=== PATIENT | male | born 1950 | race Caucasian/White ===

== ENCOUNTER → 2019-07-25 10:27 | Outpatient (CLI) | payer OTHER, SELFPAY ==
[2019-07-25 10:54] VITALS: BP 144/92; PULSE 69; RESP 14; TEMP 36.8; O2SAT 96; BMI 30.5
--- NOTE | 2019-07-25 11:39 | WMO.HTC_ITS ---
Problem List (1) Hemophilia B Status: Chronic Subjective Date of Service:: 07/25/19 Chief Complaint: F/U for hemophilia B. 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 Used factor replacement after Surgery. Has a Dentist with no problems. Health History: Past Medical History (Last Updated 07/25/19 @ 10:53 by Cynthia Angela) Right hand surgery (Acute) Hemophilia B (Acute) Hepatitis C (Acute) TENDON REPAIR OF RIGHT HAND (Acute) Ulcer (Acute) Hypertension (Chronic) Past Surgical History (Last Reviewed 07/25/19 @ 10:52 by Cynthia Angela) H/O inguinal hernia repair (Acute) Family History (Last Reviewed 07/25/19 @ 10:52 by Cynthia Angela) Father Cancer Hypertension Diabetes Social History Social History: No changes Smoking Status Never smoker Allergies/Adverse Reactions: Allergy/AdvReac Type Severity Reaction Status Date / Time No Known Allergies Allergy Verified 07/25/19 10:53 Risk Factors Social History Social History: No changes Smoking Status Never smoker Tobacco Risk Data: Tobacco Risk Smoking Status Never smoker Type of tobacco: Smokeless tobacco usage: Items/Day: Year started: Years used: Counseled to quit/cut down: Reason for no counseling performed: Reason for no pharmacotherapy: Tobacco use comments: Passive smoke exposure: Substance Risk Drug use: No Caffeine use [drinks/day]: 2 Alcohol use: No Type of alcohol: Drinks per day: Has patient felt the need to cut down: Has the patient been annoyed by complaints: Has the patient felt guilty about drinking: Has the patient needed an eye facs teacher in the mornings: Comments: Review of Systems Constitutional:: Denies: Fever, Sweats, Weight loss, Appetite change, Chills Cardiovascular:: Denies: Chest pain, Palpitations, Dyspnea on exertion, Orthopnea, PND, Shortness of breath Respiratory: Denies: Cough, Hemoptysis, Shortness of Breath, Wheezing Gastrointestinal:: Denies: Abdominal pain, Nausea, Vomiting, Diarrhea, Constipation, Hematochezia Genitourinary: Denies: Dysuria, Hematuria, 15, Flank pain Musculoskeletal:: Denies: Back pain, Myalgia, Arthralgia Skin: Denies: Rash, Skin Changes, Wounds Neurological:: Denies: Headache, Dizziness, Visual changes, Tinnitus, Hearing loss Psychiatric: Denies: Anxiety, Depression, Homicidal Ideations, Suicidal Ideations Vital Signs Height 5 ft 8 in Weight: 91.172 kg Weight in Pounds 201.0 lbs Pulse Ox 96 Temperature 98.2 F Pulse Rate 69 Respiratory Rate 14 Blood Pressure 144/92 Blood Pressure Position Sitting - Physical Exam General: Alert, Oriented x3, No apparent distress HEENT: Atraumatic, PERRLA, EOMI, Normocephalic Oropharynx:: Dry mucosa Neck:: Supple, Trachea midline. Negative for: JVD, bilateral Cardiac:: Regular rate, Regular rhythm, Normal S1, Normal S2. Negative for: Murmur Lungs: Clear to auscultation, Excusion symmetrical. Negative for: Rhonchi, Wh eezes Abdomen:: Bowel sounds x 4, Soft, Non-tender, Non-distended. Negative for: Hepatosplenomegaly Extremities:: Negative for: Cyanosis, Edema Neurological: Neuro grossly intact Skin:: - - Scar R palm. Negative for: Lesions, Rash, Petechiae, Ecchymosis Psychiatric:: Appropriate affect, Euthymic Lymphatics:: Negative for: Cervical lymphadenopathy, Supraclavicular lymphadenopathy, Axillary lymphadenopathy Assessment and Plan Hemophilia B, clinically stable. H/O Hepatitis C. Plan is to continue expectant management with factor replacement as needed. RTC 1 yr. Primary Care Provider: Anant Nam MD Referring Provider: Christiano Martinez MD
== END ==
PROVIDERS: Family Provider Family Medicine; PCP Family Medicine; Referring Provider Internal Medicine Hematology & Oncology; Visit Provider Internal Medicine Medical Oncology
DX: D67 Hereditary factor IX deficiency (principal)

== ENCOUNTER 2024-06-18 16:39 | Inpatient (IN) | payer OTHER, SELFPAY ==
[2024-06-18] VITALS (13 sets, daily range): BP systolic 140–190; BP diastolic 79–113; PULSE 74–102; RESP 16–19; TEMP 36.6–37.8; O2SAT 94–100; BMI 27.9
--- NOTE | 2024-06-18 16:51 | CT_ITS ---
EXAMINATION: CTA CTA Upper Extremity W/ Contrast Injection (and W/O Contrast Images if performed) DATE: 06/18/2024 CLINICAL INDICATION: 74 years old Male. Right arm pain and swelling, antibiotic treatment. RADIATION DOSE INFORMATION: Automated exposure control dose reduction techniques were used. TECHNIQUE: Contiguous axial images were acquired from below the right elbow through the right metacarpals. Sagittal and coronal MIP reconstructions were rendered. CONTRAST: 100 cc Isovue-370 COMPARISON: None. FINDINGS: Intact arterial supply to the right upper extremity. Multiple soft tissue fluid collections with peripheral enhancement volar to the distal radius, largest tubular collection 2.7 cm long by 11 mm diameter volar to the distal radius. Second large tubular collection in the webspace between the first and second proximal metacarpals, 1.5 cm long by 5 mm diameter. Third large collection in the superficial volar soft tissues anterior to the proximal carpal row measuring 2.2 x 1.8 x 1.6 cm. Multiple smaller fluid collections throughout the soft tissues about the hand and wrist. No gas formation. Diffuse subcutaneous soft tissue edema about the right forearm. No acute or destructive osseous abnormality. CT/CTA Upper Ext W/WO Contrast IMPRESSION: Diffuse soft tissue edema/cellulitis of the right forearm extending into the soft tissues of the wrist and hand. Multiple small abscess collections with the largest described above. The majority are in the volar soft tissues. No gas formation identified. Necrotizing fasciitis cannot be excluded. Electronically Signed: Tanner Angela MD at 18:51 EDT ,
--- NOTE | 2024-06-18 16:53 | EX.ED.DYSGE1 ---
HPI History of Present Illness Chief Complaint: Wound Detail of Chief Complaint: Redness and swelling to right wrist Informant: patient Narrative Narrative: Patient presents with redness and swelling to the right wrist. Patient states initially he woke up with pain in his wrist for weeks ago. It was painful and hard to move. Patient was seen apparently by his primary care physician and was treated with doxycycline. Patient also then had treatment for suspected gout as he does have history of gout and was treated with indomethacin. 3 days ago started having increased redness to the volar aspect of the wrist as well as swelling. He developed a fever up to 100.4. Was seen at a clinic yesterday and started on Keflex. Patient's primary care physician spoke with the hand surgeon Dr. Hua who referred him to the emergency department for evaluation. Patient [id number]. Patient also hemophiliac and states that if he needs to have any type of surgery usually needs to be pretreated an hour and advance with his hemophilia medication [facility] Medical History (Updated 06/18/24 @ 20:[address] Rl Sorenson, DO) Diabetes mellitus, type 2 GERD (gastroesophageal reflux disease) Hemophilia B Hypertension Hepatitis C Home Medications ?Medication ?Instructions ?Recorded ?Last Taken ?Type pantoprazole 40 mg tablet,delayed 40 mg PO BID 08/02/18 Unknown History release cephalexin 500 mg capsule 500 mg PO Q8H 7 days #21 caps 06/17/24 Unknown Rx losartan 50 mg PO DAILY 06/17/24 Unknown History metformin 500 mg PO BID 06/17/24 Unknown History coagulation factor IX (recomb) 8,000 unit IV PRN Hemophilia 06/18/24 Unknown History 2,000 unit intravenous solution (Rixubis) Allergy/AdvReac Type Severity Reaction Status Date / Time No Known Allergies Allergy Verified 06/18/24 16:42 Family History (Updated 06/18/24 @ 20:[address] Jacqueline Lee MD) Father Cancer Hypertension Diabetes Mother Hemophilia B carrier Surgical History (Updated 06/18/24 @ 20:[address] Jacqueline Lee MD) History of hand surgery H/O inguinal hernia repair Social History (Updated 06/18/24 @ 20:[address] Jacqueline Lee MD) household members: spouse Smoking Status: Never smoker alcohol intake: never substance use type: does not use ROS ROS ED Review of Systems ROS Unobtainable: other Constitutional Constitutional ED: Reports lethargy; Denies chills, fever(s), sweats or weight loss Eyes Eyes: Denies blurry vision, change in vision or diplopia ENT ENT ED: Denies rhinorrhea or sore throat Cardiovascular Cardiovascular: Denies chest pain, orthopnea or racing heartbeat Respiratory/Chest Respiratory/Chest: Denies cough, dyspnea, dyspnea on exertion, orthopnea or sputum Gastrointestinal Gastrointestinal: Denies abdominal pain, diarrhea, nausea or vomiting Genitourinary Genitourinary ED: Denies dysuria, hematuria or urinary frequency Musculoskeletal Musculoskeletal: Reports other Details: Right wrist pain redness and swelling ; Denies arthralgias, back pain, myalgias or neck pain Integumentary Denies abscess, Abrasions or rash Neurologic Neurologic: Denies headache(s) or weakness Psychiatric Psychiatric: Denies anxiety, depression or suicidal thoughts Endocrine Endocrinology: Denies polydipsia, polyphagia or polyuria Hematologic/Lymphatic Hematologic/Lymphatic: Denies easy bleeding, easy bruising or lymphadenopathy Allergic/Immunologic Allergic/Immunologic ED: Denies mouth swelling, tongue swelling or urticaria EXAM Physical Exam Const Vital Signs: 06/18/24 16:40 06/18/24 16:42 06/18/24 17:42 Temperature 98.5 F 98.5 F 97.9 F Temperature Source Temporal Temporal Temporal Pulse Rate 100 102 H 84 Respiratory Rate 16 16 16 Blood Pressure 190/113 H 190/113 H 148/95 H Blood Pressure Mean 138 138 112 Blood Pressure Source Blood Pressure Position Blood Pressure Location Pulse Ox 98 98 97 Oxygen Delivery Method Room Air Room Air Room Air 06/18/24 18:00 06/18/24 19:00 06/18/24 19:58 Temperature 97.9 F 100.1 F H 100.1 F H Temperature Source Temporal Oral Pulse Rate 84 83 89 Respiratory Rate 16 16 18 Blood Pressure 148/95 H 168/96 H 168/96 H Blood Pressure Mean 112 120 120 Blood Pressure Source Blood Pressure Position Blood Pressure Location Pulse Ox 97 95 95 Oxygen Delivery Method Room Air Room Air 06/18/24 19:58 06/18/24 20:00 06/18/24 20:00 Temperature 100.1 F H 100.1 F H Temperature Source Oral Oral Pulse Rate 89 91 91 Respiratory Rate 18 16 Blood Pressure 168/96 H 159/105 H Blood Pressure Mean 120 123 Blood Pressure Source Monitor Blood Pressure Position Supine Blood Pressure Location Left Arm Pulse Ox 95 95 Oxygen Delivery Method Room Air Room Air Positive well nourished and well developed General Appearance ED: well developed and NAD HEENT Reports TM's clear and moist mucous membranes normocephalic and atraumatic; Negative for trauma or tenderness Tympanic Membrane ED: Yes TM's clear Eyes PERRL and EOMs intact bilaterally General Eye ED: Negative for pale conjunctiva or scleral icterus Neck no lymphadenopathy, supple and no JVD General: Negative for tenderness Chest Wall inspection of chest normal and palpation of chest normal Chest: Negative for tenderness Resp normal respiratory effort and clear to auscultation bilaterally Effort and Inspection: Negative for respiratory distress or pain with movement Auscultation: Negative for rhonchi, wheezes or diminished lung sounds Cardio regular rate, regular rhythm, S1 normal heart sound, S2 normal heart sound and no murmurs Peripheral Pulses: pulses 2+ throughout GI normal to inspection, nondistended, normoactive bowel sounds, soft to palpation, non-tender, non-distended and no masses Back/Spine no CVA tenderness and no thoracic nor lumbar tenderness Extremity Extremity Narrative: Right wrist-patient has diffuse edema about right wrist. Volar aspect is erythematous and cellulitic with a fluctuant area over the midportion of the wrist consistent with likely abscess. Neurovascular intact distally. He has good range of motion flexion extension of all digits although somewhat limited secondary to swelling. General Extremety ED: Negative for edema General Extremity: Negative for edema Neuro oriented x3, CN's II-XII intact bilaterally, no sensory deficits noted and gait normal Sensorium / Orientation: awake, alert, oriented to person, oriented to place and oriented to time Motor Exam: strength 5/5 throughout and strength abnormal Psych mental status grossly normal Skin no rashes or lesions noted and no wounds MDM MDM MDM Narrative Medical decision making narrative: Patient presents with pain and swelling to the wrist x [address] Hua was contacted by by patient's primary care physician and made us aware that he becoming to the emergency department. It was recommended we obtain a CT scan of the wrist to evaluate further. On arrival an IV line established. CBC with differential obtained showed a white count of 7.1 with hemoglobin 13 and platelets 248. Chemistries unremarkable. Lactate normal at 0.9. CT scan of the right wrist obtained showed multiple abscesses. Discussed case with hand surgeon Dr. Hua who presented to evaluate patient for operative intervention in the OR. I discussed case with patient's patient financial advocate at [facility] who recommended given patient the BeneFIX 8000 units 1 hour prior to surgery followed by another 8000 units 20 hours after surgery and then recommended there after 5 more doses every 24 hours for 5 days. Also discussed case with hospitalist who also evaluated patient for admission. Lab Data Attestation: I reviewed the patient's lab results. Labs: Laboratory Results - last 24 hr 06/18/24 16:58 WBC 7.1 RBC 4.83 Hgb 13.1 Hct 41.0 MCV 84.9 MCH 27.1 MCHC 32.0 RDW Std Deviation 41.3 RDW Coeff of Parker 13.3 Plt Count 248 MPV 9.9 Immature Gran % (Auto) 0.100 Neut % (Auto) 67.7 Lymph % (Auto) 16.6 L Hendricks % (Auto) 13.2 H Eos % (Auto) 1.7 Baso % (Auto) 0.7 Absolute Neuts (auto) 4.8 Absolute Lymphs (auto) 1.17 Nucleated RBC % 0 Sodium 136 Potassium 4.1 Chloride 102 Carbon Dioxide 29.0 Anion Gap 5 BUN 14 Creatinine 1.11 Estim Creat Clear Calc 60.53 Est GFR (MDRD) Af Amer 83 Est GFR (MDRD) Non-Af 69 BUN/Creatinine Ratio 12.6 Glucose 143 H Lactic Acid 0.9 Calcium 9.9 Radiography Diagnostic Testing: Clinical Impression(s) from Imaging Studies Upper Extremity CTA 06/18/24 16:51 IMPRESSION: Diffuse soft tissue edema/cellulitis of the right forearm extending into the soft tissues of the wrist and hand. Multiple small abscess collections with the largest described above. The majority are in the volar soft tissues. No gas formation identified. Necrotizing fasciitis cannot be excluded. Electronically Signed: Tanner Angela MD at 18:51 EDT , Discharge Plan Triage Chief Complaint: Wound ED Provider: Rl Sorenson Dx/Rx/DC Orders Clinical Impression: Abscess of skin of right wrist, Cellulitis, Hemophilia B Primary Care Provider: Vidal Armendariz Disposition Disposition: Acute Care Hospital [facility]
[2024-06-18 17:08] LABS: Absolute Lymphocyte Count 1.17 X10^3/uL (0.83-4.51); Absolute Neutrophil Count 4.8 X10^3/uL (2.0-7.7); Basophil# 0.05 X10^3/uL; Basophil% 0.7 % (0-1); Eosinophil# 0.12 X10^3/uL; Eosinophils% 1.7 % (0-5); Hemoglobin 13.1 g/dL (13.0-16.5); Lymphocyte # 1.17 X10^3/ul (0.83-4.51); Lymphocyte % 16.6 % (19-41); Mean Corpuscular Hgb 27.1 pg (27.0-32.0); Mean Corpuscular Volume 84.9 fL (80-94); Mean Platelet Vol. 9.9 fl (6.2-12.0); Monocyte# 0.93 X10^3/uL; Monocyte% 13.2 % (0-10); NRBC Flagged by Analyzer 0 % (0-5); Neutrophil # 4.77 X10^3/uL (2.7-7.7); Neutrophil % 67.7 % (47-70); Platelet Count 248 K/mm3 (150-450); RBC Distribution Width CV 13.3 % (11.6-14.6); RBC Distribution Width SD 41.3 fl (35.1-43.9); Red Blood Count 4.83 M/mm3 (4.6-6.2); White Blood Count 7.1 K/mm3 (4.4-11.0)
[2024-06-18 17:22] LABS: Anion Gap 5 (5-15); BUN 14 mg/dL (7-18); BUN/Creat Ratio 12.6 RATIO (10-20); Calcium,Total 9.9 mg/dL (8.5-10.1); Chloride 102 mmol/L (98-107); Creatinine, Serum 1.11 mg/dL (0.70-1.30); EST Glomerular Filtration Rate 69 mL/min (>60); Est Glom Filt Rate - Afr Amer 83 mL/min (>60); Estimated Creatinine Clearance 60.53 ml/min; Glucose 143 mg/dL (74-106); Potassium 4.1 mmol/L (3.5-5.1); Sodium Level 136 mmol/L (136-145)
[2024-06-18] MEDS: Ondansetron 4 MG/2 ML Vial IV (17:47)
[2024-06-18] MEDS: Morphine 4 MG/ML Syringe IV (17:47)
[2024-06-18 17:51] LABS: Lactic Acid 0.9 mmol/L (0.4-1.9)
[2024-06-18] MEDS: Vancomycin HCl 1,250 MG in 0.9% Normal Saline (250mL Bag) 250 ML 167 MG IV (19:44)
--- NOTE | 2024-06-18 20:10 | PCM.HP.STD ---
HPI - General General Date of Admission: 06/18/24 Date of Service: 06/18/24 Chief Complaint: Right wrist pain, redness, edema, worsening despite abx therapy. 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 and treated per his report following PRBC administration remotely following with [facility] ([phone]), HTN, GERD, Diabetes mellitus type II who presents to the [facility] ED on 06/18/24 with history of remote possible bug bite on his right wrist approximately 4 weeks prior with unfortunately following this persistent pain, swelling and redness as well as increased warmth with onset of a annular region of 2 to 3 inches in diameter on the anterior wrist with PCP evaluation early in the course with a 2-week prescription for doxycycline which she completed but unfortunately is been ongoing and not improved prompting evaluation at urgent care on 06/17/2024 reporting at that time no specific fevers but apparently he had return to his PCP and at that time he had been placed on indomethacin prompting new prescription for Keflex and referral to the ED if worsened which unfortunately happened prompting patient to present to the ED on current day for further evaluation. In the ED he does have elevated temperature of note. He denies any nausea or emesis. He notes that the pain at rest is more dull aching and potentially 1 out of 10 in severity but if it is being palpated or moved it is worsened and more sharp and stabbing and rates it potentially 6-7 out of 10 in severity. Workup in the ED included initial T98.5, heart rate 100, BP 190/113, respiratory rate 16, 98% on room air with Tmax in the ED 100.1 and most recent repeat vital signs heart rate 91, BP 159/105, respiratory rate 16, 95% on room air, CBC with WC 7.1, human 13.1, MCV 94.9, platelet 248 without marked shift, BMP with glucose 143 otherwise not marked appearing, lactic acid 0.9, blood culture x 2 pending per ED, upper extremity CTA with diffuse soft tissue edema/cellulitis of the right forearm extending into the soft tissues of the wrist and hand, multiple small abscess collections with the largest a tubular collection 2.7 cm x 11 mm diameter in the volar to the distal radius, second larger tube collection 1.5 cm long by 5 mm diameter and a third large collection 2.2 x 1.8 x 1.6 cm in the superficial volar soft tissues anterior to the proximal carpal row with no gas formation although report states necrotizing fasciitis could not be excluded. In the ED patient administered IV vancomycin, Zofran 4 mg IV x 1 and morphine 4 mg IV x 1. In the ED discussed case and evaluated patient with plastic surgeon Dr. Hua and significant concerns on evaluation for cellulitis, abscess as well as septic joint with extensive surgical planning discussed by himself with patient. Given patient hemophilia status contacted [facility] and discussed plan of care which was also outlined at length with patient and his as patient will provide all of the medications with plan for administration at 8:30 PM approximate 1 hour prior to OR time 8000 units of BeneFIX with a follow-up 8000 units at 20 hours post OR and then 8000 units daily x 5 days per [facility] hemophilia clinic direction. [facility] Medical History Diabetes mellitus, type 2 GERD (gastroesophageal reflux disease) Hemophilia B Hypertension Hepatitis C Home Medications ?Medication ?Instructions ?Recorded ?Last Taken ?Type pantoprazole 40 mg tablet,delayed 40 mg PO BID 08/02/18 Unknown History release cephalexin 500 mg capsule 500 mg PO Q8H 7 days #21 caps 06/17/24 Unknown Rx losartan 50 mg PO DAILY 06/17/24 Unknown History metformin 500 mg PO BID 06/17/24 Unknown History coagulation factor IX (recomb) 8,000 unit IV PRN Hemophilia 06/18/24 Unknown History 2,000 unit intravenous solution (Rixubis) Allergy/AdvReac Type Severity Reaction Status Date / Time No Known Allergies Allergy Verified 06/18/24 16:42 Family History Father Cancer Hypertension Diabetes Mother Hemophilia B carrier Surgical History History of hand surgery H/O inguinal hernia repair Social History household members: spouse Smoking Status: Never smoker alcohol intake: never substance use type: does not use ROS ROS Narrative Admission Review of Systems: CONSTITUTIONAL: No weight loss, chills, + onset of fevers noted in the ED, weakness or fatigue. HEENT: Eyes: No visual loss, blurred vision, double vision or yellow sclerae. Ears, Nose, Throat: No hearing loss, sneezing, congestion, runny nose or sore throat. SKIN: No rash or itching, lesions except + right wrist initial possible bug bite with then significant onset redness, edema and pain. CARDIOVASCULAR: No chest pain, chest pressure or chest discomfort, palpitations, edema, orthopnea, syncopal events. RESPIRATORY: No shortness of breath, cough or sputum, wheezing, hemoptysis. GASTROINTESTINAL: + anorexia. No nausea, vomiting or diarrhea, abdominal pain, melena, BRBPR. GENITOURINARY: No dysuria, frequency, urgency or retention. NEUROLOGICAL: No headache, dizziness, syncope, paralysis, ataxia, numbness or tingling in the extremities, focal weakness, change in bowel or bladder control, seizure. MUSCULOSKELETAL: + muscle, back pain, joint pain or stiffness. HEMATOLOGIC: No anemia. + History of hemophilia with easy bleeding/bruising. LYMPHATICS: No enlarged nodes. No history of splenectomy. PSYCHIATRIC: No history of depression or anxiety. ENDOCRINOLOGIC: No reports of sweating, cold or heat intolerance. No polyuria or polydipsia. ALLERGIES: No history of asthma, hives, eczema or rhinitis. Vital Signs Vital Signs Vital Signs: 06/18/24 16:40 06/18/24 16:42 06/18/24 17:42 Temperature 98.5 F 98.5 F 97.9 F Temperature Source Temporal Temporal Temporal Pulse Rate 100 102 H 84 Respiratory Rate 16 16 16 Blood Pressure 190/113 H 190/113 H 148/95 H Blood Pressure Mean 138 138 112 Blood Pressure Source Blood Pressure Position Blood Pressure Location Pulse Ox 98 98 97 Oxygen Delivery Method Room Air Room Air Room Air 06/18/24 18:00 06/18/24 19:00 06/18/24 19:58 Temperature 97.9 F 100.1 F H 100.1 F H Temperature Source Temporal Oral Pulse Rate 84 83 89 Respiratory Rate 16 16 18 Blood Pressure 148/95 H 168/96 H 168/96 H Blood Pressure Mean 112 120 120 Blood Pressure Source Blood Pressure Position Blood Pressure Location Pulse Ox 97 95 95 Oxygen Delivery Method Room Air Room Air 06/18/24 19:58 Temperature 100.1 F H Temperature Source Oral Pulse Rate 89 Respiratory Rate 18 Blood Pressure 168/96 H Blood Pressure Mean 120 Blood Pressure Source Monitor Blood Pressure Position Supine Blood Pressure Location Left Arm Pulse Ox 95 Oxygen Delivery Method Room Air Weight Weight: 184 lb Body Mass Index (BMI) 27.9 Physical Exam Narrative Physical Examination: General: Awake, alert, oriented x 3 and cooperative, seated upright in bed in no apparent distress. Skin: Normal color, normal turgor, no icterus, no cyanosis except notable right wrist significant erythema and swelling over the volar wrist with a developing abscess, palpable with ability to bend and extend his joints with increased warmth to the region. HEENT: AT/NC, EOMI, PERRLA, MMM, no carotid bruits or JVD noted. Lungs: CTA bilaterally, moderate effort, mild decrease BL bases, no rales, ronchi or wheezing. Heart: Mildly tachycardic with regular rhythm; no gallop, rub audible. Abdomen: Soft, NTTP, ND, mildly hyperactive BS, no HSM. Extremities: No cyanosis, no clubbing, see skin Neurological: Patient awake, alert, oriented as noted, cognitive function intact; pupils equally reactive to light and accommodation, cranial nerves grossly normal, moving all 4 extremities although some limitation right upper extremity given acute presentation, no focal deficits, strength as expected decreased right upper extremity given acute presentation otherwise intact. Psychiatric: Affect appears fatigued, mildly uncomfortable, no acute evidence of depressive or anxiety feelings. Results Lab / Micro Data 06/18/24 16:58 06/18/24 16:58 Labs: Laboratory Results - last 24 hr 06/18/24 16:58: WBC 7.1, RBC 4.83, Hgb 13.1, Hct 41.0, MCV 84.9, MCH 27.1, MCHC 32.0, RDW Std Deviation 41.3, RDW Coeff of Parker 13.3, Plt Count 248, MPV 9.9, Immature Gran % (Auto) 0.100, Neut % (Auto) 67.7, Lymph % (Auto) 16.6 L, [place] % (Auto) 13.2 H, Eos % (Auto) 1.7, Baso % (Auto) 0.7, Absolute Neuts (auto) 4.8, Absolute Lymphs (auto) 1.17, Nucleated RBC % 0, Sodium 136, Potassium 4.1, Chloride 102, Carbon Dioxide 29.0, Anion Gap 5, BUN 14, Creatinine 1.11, Estim Creat Clear Calc 60.53, Est GFR (MDRD) Af Amer 83, Est GFR (MDRD) Non-Af 69, BUN/Creatinine Ratio 12.6, Glucose 143 H, Lactic Acid 0.9, Calcium 9.9 Imaging Radiology Impression Upper Extremity CTA 06/18/24 16:51 IMPRESSION: Diffuse soft tissue edema/cellulitis of the right forearm extending into the soft tissues of the wrist and hand. Multiple small abscess collections with the largest described above. The majority are in the volar soft tissues. No gas formation identified. Necrotizing fasciitis cannot be excluded. 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 and treated per his report following PRBC administration remotely following with [facility] ([phone]), HTN, GERD, Diabetes mellitus type II who presents to the [facility] ED on 06/18/24 with history of remote possible bug bite on his right wrist approximately 4 weeks prior with unfortunately following this persistent pain, swelling and redness as well as increased warmth with onset of a annular region of 2 to 3 inches in diameter on the anterior wrist with PCP evaluation early in the course with a 2-week prescription for doxycycline which she completed but unfortunately is been ongoing and not improved prompting evaluation at urgent care on 06/17/2024 reporting at that time no specific fevers but apparently he had return to his PCP and at that time he had been placed on indomethacin prompting new prescription for Keflex and referral to the ED if worsened which unfortunately happened prompting patient to present to the ED on current day for further evaluation. #1. Right upper extremity wrist septic joint, cellulitis, forearm deep space abscesses significantly complicated by #2: Given significant stable vital signs will admit to [facility], maintain on IV cefepime and vancomycin given concern for also septic joint, will await wound OR cultures, will involve wound RN per discussion with plastic surgeon, will request plastic surgery involvement given extensive nature, plan repeat CBC in AM, continue affected extremity elevation above heart when seated and in bed, monitor erythema outline with VS checks, as needed pain regimen, as needed antiemetic regimen, will continue judicious hydration with continued n.p.o. status at this time with allowance of diet following completion of OR. See #2 for treatment of hemophilia with recombinant specific timing administration. #2. Hemophilia B: Given patient hemophilia status contacted [facility] and discussed plan of care which was also outlined at length with patient and his as patient will provide all of the medications with plan for administration at 8:30 PM approximate 1 hour prior to OR time 8000 units of BeneFIX with a follow-up 8000 units at 20 hours post OR and then 8000 units daily x 5 days per [facility] hemophilia clinic direction. #3. History hepatitis C: Patient unfortunately contracted hepatitis C remotely with PRBC transfusion given hemophilia status, reports he was treated and it was clinically successful, encourage continued outpatient follow-up with GI/ID as previously arranged for monitoring as needed. #4. Diabetes mellitus type II: Hold oral home regimen, hemoglobin A1c requested, once post OR will initiate ADA diet, accu checks w/ ISS. #5. Hypertension: Continue home regimen including losartan, PRN hydralazine. #6. GERD: We will continue patient on PPI. #7. DVT prophylaxis: SCDs. #8. CODE status: Patient HCPOA and living will are not in place but he notes his who is present would be his decision-maker if necessary. Discussed CODE status at length including difference between FULL code, DNR-CCA and DNR-CC status. Following discussions about the differences in these status, requested Full Code initially but he specifically states that if over the course of the initial rounds it appears to have little success he would prefer to transition to DNRCC at that time. Advanced Care Planning Face to Face Time: 16 minutes. Charges/Coding Visit Charges Inpatient E&M: 07104 Init Hosp L3 Procedures Hospitalists Procedures: 39216 Advncd Care Plan 30 Min
--- NOTE | 2024-06-18 20:20 | EX.PCM.CON.S ---
Assessment & Plan Assessment/Plan (1) Deep palmar space infection: PLAN: Concern for right Palmar/wrist/forearm deep space abscess (seen on CT forearm and confirmed with clinical exam). I am concerned also that there is wrist joint involvement based on CT scan (abscesses on dorsum and volar sides of the wrist), as well as pain with axial loading of the wrist. There is quite possible that he had a septic joint that has since gotten worse and now involves the overlying soft tissues. Patient has a complicated medical history including hemophilia B, for which we have consulted internal medicine (hospitalist for admission Dr. Jacqueline Lee) and the hematology service. The plan is to take his factor IX right now, an hour before surgery, followed by postoperative regimen that is being determined. Per medicine team the factor IX should be taken now in preparation for surgery within the hour (he is taking 9000 units of the factor IX). I talked the patient about the risks of bleeding, worsening of infection, damage to surrounding structures especially nerves (we talked about his history of hand surgery and residual numbness on the thumb, as well as risk of damage to the vasculature in the setting of his incomplete arch, including to the fingers), we talked about likelihood of repeat operations, the large incisions (including carpal tunnel release) that we are about to place and the need for wound care/the plan to leave the incisions open, and we talked about failure to obtain the desired result. Patient and his signed the consent and are in agreement with proceeding. All questions answered. Plan for emergent incision and drainage of right forearm/wrist/hand deep abscesses and washout of right wrist septic joint. Consented and marked (2) Septic arthritis of wrist, right: HPI Consult Data Date of Consult: 06/18/24 HPI Narrative HPI Narrative: NED FELICIANO is a 74 M [id number] male with past medical history including hemophilia B, trauma to his right upper extremity with 3 hand surgeries, gout, hypertension, and type 2 diabetes who presents with a right forearm/wrist/hand infection. Approximately 1 month ago he was seen by his family medicine physician for acute onset wrist pain (no inciting trauma/injury). Given his history of gout, and no signs of overlying infection or recent trauma, he was reportedly treated with indomethacin but also doxycycline in case it was early cellulitis. He continued to have the wrist pain, albeit not worsening, until 3 days ago when he developed redness on the volar aspect of his wrist and swelling. He developed a home fever of 100.4 and was seen at the [facility] yesterday and placed on Keflex. He went to his primary care doctor today, Dr. Vidal Armendariz, complaining of sharp severe pain. Dr. Man called me on my cell phone today and discussed the patient with me and I recommended emergent transfer to the emergency department for evaluation by hand surgery and CT scan. The patient was transferred here as fast as possible (he is of the [facility], and lives approximately [address]). Today in the emergency department it is sharp severe pain in the right upper extremity, worsened by movements and improved with rest and elevation. Patient reports a history of right hand penetrating trauma from a piece of porcelain that cut his right hand thumb flexor pollicis longus (required repair and hand therapy in remote past). He has persistent numbness on the radial side of his thumb from this injury. 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 He reports that he takes factor IX 1 hour before surgery and has the factor IX with him right now. The medicine teams and myself are reaching out to the hematology team to discuss and make sure that we do not do have to do anything else to optimize his coagulation pathway before surgery. 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 He is not a smoker He has a history of hepatitis C from his transfusions, but this was noted to be completely cleared in 2008. No liver problems since. [facility] Medical History Diabetes mellitus, type 2 GERD (gastroesophageal reflux disease) Hemophilia B Hypertension Hepatitis C Home Medications ?Medication ?Instructions ?Recorded ?Last Taken ?Type pantoprazole 40 mg tablet,delayed 40 mg PO BID 08/02/18 Unknown History release cephalexin 500 mg capsule 500 mg PO Q8H 7 days #21 caps 06/17/24 Unknown Rx losartan 50 mg PO DAILY 09/03/24 Unknown History metformin 500 mg PO BID 06/17/24 Unknown History coagulation factor IX (recomb) 8,000 unit IV PRN Hemophilia 06/18/24 Unknown History 2,000 unit intravenous solution (Rixubis) Allergy/AdvReac Type Severity Reaction Status Date / Time No Known Allergies Allergy Verified 06/18/24 16:42 Family History Father Cancer Hypertension Diabetes Mother Hemophilia B carrier Surgical History History of hand surgery H/O inguinal hernia repair Social History household members: spouse Smoking Status: Never smoker alcohol intake: never substance use type: does not use Physical Exam Narrative Right upper extremity Obvious erythema and swelling over a developing abscess on the volar wrist. No pain in the wrist with flexor tendon excursion Severe pain with passive wrist flexion and extension, and notably severe pain in the wrist with axial loading and radial and ulnar deviation of the wrist. Tenderness to palpation on the dorsum of the wrist as well. Motor: He is able to bend and extend all DIP, PIP, and MP joints. The thumb bends at the IP joint. Sensory: 4 mm 2-point discrimination on the radial and ulnar borders of all fingers, except while the thumbs ulnar side is 4 mm 2-point discrimination, the thumb to radial side is greater than 10 mm 2 point discrimination. Vascular: Fingers are warm and well-perfused with less than 2-second capillary refill. Const General Appearance: cooperative Eyes PERRL Cardio Rate: regular rate GI non-distended Skin no jaundice Psych mental status grossly normal and affect normal Lab / Micro Data 06/18/24 16:58 06/18/24 16:58 Labs: Laboratory Results - last 24 hr 06/18/24 16:58: WBC 7.1, RBC 4.83, Hgb 13.1, Hct 41.0, MCV 84.9, MCH 27.1, MCHC 32.0, RDW Std Deviation 41.3, RDW Coeff of [place] 13.3, Plt Count 248, MPV 9.9, Immature Gran % (Auto) 0.100, Neut % (Auto) 67.7, Lymph % (Auto) 16.6 L, [place] % (Auto) 13.2 H, Eos % (Auto) 1.7, Baso % (Auto) 0.7, Absolute Neuts (auto) 4.8, Absolute Lymphs (auto) 1.17, Nucleated RBC % 0, Sodium 136, Potassium 4.1, Chloride 102, Carbon Dioxide 29.0, Anion Gap 5, BUN 14, Creatinine 1.11, Estim Creat Clear Calc 60.53, Est GFR (MDRD) Af Amer 83, Est GFR (MDRD) Non-Af 69, BUN/Creatinine Ratio 12.6, Glucose 143 H, Lactic Acid 0.9, Calcium 9.9 Imaging Radiology Impression Upper Extremity CTA 06/18/24 16:51 IMPRESSION: Diffuse soft tissue edema/cellulitis of the right forearm extending into the soft tissues of the wrist and hand. Multiple small abscess collections with the largest described above. The majority are in the volar soft tissues. No gas formation identified. Necrotizing fasciitis cannot be excluded. Electronically Signed: Tanner Angela MD at 18:51 EDT , Charges/Coding Visit Charges Office Visits / Consults: 99576 OP Consult L5 (with 57 Modifier (Decision to take immediately to surgery tonight) )
--- NOTE | 2024-06-18 20:38 | ED.RN ---
Pt self administered 8000units of Benefix. Dosage verified with Dr. Lee. Pt instructed that he will need to bring in home doses. All in agreement.
[2024-06-18] MEDS: Lidocaine 1% /Epi 1:100 (20ml) 20 ML Vial (20:58)
[2024-06-18 21:03] LABS: Magnesium 2.2 mg/dL (1.6-2.6)
--- NOTE | 2024-06-18 21:08 | OP.PCM_ITS ---
Operative Report Date of Procedure: 06/18/24 Surgery/Procedure Date: 18 June 2024 Incision/Procedure Start Time: 21:55 Incision Close/Procedure End Time: 23:14 (1 hour 19 min) PATIENT: Arnulfo Jack SURGEON: Anant Hua MD PRE-OPERATIVE DIAGNOSIS: Right forearm, wrist, hand volar and dorsal abscesses with septic right wrist joint POST-OPERATIVE DIAGNOSIS: Same PROCEDURE PERFORMED: 1) Right hand carpal tunnel release (CPT: 73860) 2) Decompressive fasciotomy, volar compartments (superficial and deep) in mid/di stal forearm (CPT: 68627) 3) Incision and drainage of volar forearm abscess immediately underneath antebrachial fascia and also extending down to Parona's space (deep space forearm abscess) (CPT: 88215) 4) Arthrotomy right wrist, dorsal approach, for wash out of septic right wrist joint (CPT: 42098) OPERATIVE FINDINGS: * Abscess beneath volar wrist antebrachial fascia. * Abscess and Parona space (deep space forearm just volar to the pronator quadratus). * Purulence in the proximal portion of the carpal tunnel from above-mentioned abscess, but no purulence coming from the flexor sheath distally. * Septic right wrist joint (purulent fluid) when accessed through dorsal approach. 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 On CT scan there are multiple volar abscesses and a dorsal abscess around the wrist. He has pain with axial loading within the wrist joint and hot/red and swollen overlying volar wrist soft tissue. I explained to him and his why we need to take him emergently to surgery. I talked the pat ient extensively about the risks of surgery, including bleeding (taking his factor IX in preparation for surgery), infection, damage to surrounding structures, surgical site dehiscence and wound formation, need for wound care, need for repeat operations, failure to obtain the desired result, DVT/PE, and the risks of anesthesia including . All of their questions were answered, and they agreed to proceed with surgery. OPERATIVE DETAILS: Patient was correctly identified in preoperative holding and taken back to the operating room where he was administered general anesthesia. He was prepped and draped in sterile fashion on the right upper extremity and a tourniquet was applied on the right arm. All proper timeouts were performed. His arm was elevated and his radial and ulnar arteries were occluded for 30 seconds just proximal to the planned operative site, and then the tourniquet was inflated to 250 mmHg. An incision was marked over the carpal tunnel for release and then, extending to the wrist crease, it was converted into a horizontal incision ulnarly and then a curvilinear incision over the volar forearm abscess towards the radial side of the mid forearm. We began the incision over the abscess with a 15 blade scalpel. The tissues were edematous swollen and difficult to identify, but immediately beneath the antebrachial fascia we could see an abscess collection. We therefore decided to dissected from known to unknown. A carpal tunnel incision was made with the radial border the ring finger transposed over the carpal tunnel in the palm as a landmark. The carpal tunnel was released by dissecting down with 15 blade scalpel through the palmaris longus fascia to the transverse carpal ligament using a 15 blade to push on the transverse carpal ligament and spread the fibers with care taken to protect the underlying median nerve. Cultures were taken as there was some purulent fluid in the proximal portion of the carpal tunnel coming from the abscess under the antebrachial fascia. Once the carpal tunnel released, and the median nerve seen at the base of the wound, we are able to better identify the antebrachial fascia and dissected with tenotomy scissors carefully under direct visualization. The antebrachial fascia was then mostly released at the wrist. Again, to go from known to unknown, the more proximal portions of the incisions were made identifying the antebrachial fascia away from the zone of injury and releasing the fascia with tenotomy scissors over the superficial volar compartment of the forearm. I was then able to connect the distal and proximal antebrachial fascia incisions under direct visualization with the median nerve down and safe. The abscess cavity was then cultured and washed out. It then looked as though the abscess cavity was coming from deeper in the hand/forearm, likely from Parona's space. I therefore dissected carefully over the FCR and then retracted the radial artery out of the way for a vascular approach of Charles, retracting EPL out of the way and entering into the space immediately volar to the pronator quadratus (Parona space) where an abscess cavity was identified and cultured and washed out. I released some yellow/infected appearing pronator quadratus fascia and the underlying pronator quadratus appeared viable. I then examined the carpal tunnel and pushed from distal to proximal on the hand to see if there is any pus coming from any of the fingers distally, and this was not seen, and therefore the most distal portion of the incision was the carpal tunnel. I did not think there was a radial ulnar bursa infection. There was no purulence coming more proximal in the forearm. The carpal tunnel/volar forearm and the deep space infection in Parona's space were then washed out with 3 L of normal saline. Attention was then turned to the dorsum of the hand where a longitudinal incision was made over the wrist positioned over the ulnar aspect of Dona's tubercle. Care was taken to protect the superficial branches of the radial nerve. The extensor retinaculum was identified and incised with a 15 blade scalpel and the EPL was retracted radially and the EDC ulnarly. This provided access to the joint capsule. The joint capsule was incredibly inflamed and swollen. It did not look like a normal healthy joint capsule and there were no identifiable landmarks. I therefore made a longitudinal incision in the joint capsule and immediately there was purulence identified within the joint capsule (radiocarpal joint). Traction was applied on the hand to open the joint and the purulence was cultured. The joint was then washed out with 3 L of normal saline. The bones (carpal and radius) appeared healthy still and felt solid (no signs of osteomyelitis at this time on my exam). The retinaculum of the extensor compartment was also inflamed and swollen, so the decision was made not to put in any additional foreign body suture to repair it over the extensor tendons, as this would also close off and possibly prevent drainage of the deep wrist infection. We then let down the tourniquet and obtained hemostasis with bipolar electrocautery. A local block was performed with 1% lidocaine with epinephrine 1-200,000 (20 cc) around the incisions. Once were satisfied with hemostasis, I placed a half-inch [place] drain communicating from the wrist joint to the skin, and sutured it into place with 3-0 silk. This incision was loosely closed with 3-0 nylon suture. I then turned my attention to the volar surface of the wrist and hand. A loose interrupted 3-0 nylon suture was placed over the carpal tunnel, as well as over the volar wrist flap to cover the median nerve. Another loose stitch was placed more proximally over the volar forearm incision. This covered the tendons as well. I then placed intervening quarter inch iodoform packing between sutures to stent the incisions open. The right forearm was wr apped with Xeroform and an Joselo wrap. The patient was awakened and taken the PACU in stable condition. All 5 right hand fingers were warm and well-perfused with less than 2-second capillary refill at the end of the case. EBL: 15 cc Anesthesia: General anesthesia and 20 cc block local with 1% lidocaine with epinephrine 1-200,000 ASA: 2E IVF: 700 cc lactated Ringer's UOP: Unmeasured no Brown Transfusions: None Total tourniquet time was 1 hour 10 minutes. POST-OPERATIVE PLAN: Patient is being admitted to medicine. Plan for infectious disease consultation as well. Plastic surgery will follow. Agree with broad- spectrum antibiotics including vancomycin and cefepime while we await cultures. Please keep forearm elevated above heart with blue arm elevator and we will begin Dial soap soaks 3 times daily in the morning to the right upper extremity.
--- NOTE | 2024-06-18 21:42 | PCM.PRE.AN2 ---
ASA Classification* ASA Classification ASA Classification: 3 and E Assessment & Plan Anesthesia* Anesthesia Assessment Anesthesia Assessment: Discussed sedation and/or anesthesia options, risks, benefits, and alternatives with patient/parents/legal guardian/POA. Questions invited. The patient/parents/legal guardian/POA seems to understand and agrees to proceed with anesthesia plan. Reviewed the physical assessment, medical history, allergy history and patient home medications list prior to surgery/procedure/anesthetic and documented any changes. Performed airway and anesthesia risk assessments. Anesthesia Type Anesthesia Type: General (see written pre anesthesia record for full assessment ) Anesthesia Focused Assessment* Temperature: 100.1 F Pulse Rate: 91 Blood Pressure: 159/105 Respiratory Rate: 16 Pulse Ox: 95 Airway Assessment Mouth opens: >3 cm Mallampati Score: II Focused Labs Anesthesia Preop lab: CBC WBC 7.1 K/mm3 (4.4-11.0) 06/18/24 16:58 RBC 4.83 M/mm3 (4.6-6.2) 06/18/24 16:58 Hgb 13.1 g/dL (13.0-16.5) 06/18/24 16:58 Hct 41.0 % (40-54) 06/18/24 16:58 Plt Count 248 K/mm3 (150-450) 06/18/24 16:58 CHEMISTRY Potassium 4.1 mmol/L (3.5-5.1) 06/18/24 16:58 Sodium 136 mmol/L (136-145) 06/18/24 16:58 Magnesium 2.2 mg/dL (1.6-2.6) 06/18/24 16:58 BUN 14 mg/dL (7-18) 06/18/24 16:58 Creatinine 1.11 mg/dL (0.70-1.30) 06/18/24 16:58 Glucose 143 mg/dL (74-106) H 06/18/24 16:58 COAG Pre-Assessment Diagnosis/Proposed Procedure Planned Operative Procedure(s): i and d of hand Anesthesia History 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 When Was Last Pacemaker Check QUESTION #4 FULL TEXT: You/Your Family Experience fever (hyperthermia) with Anesthesia Last Oral Intake Last Oral intake: Last Oral Intake NPO since 18:50 06/18/24 19:58 Meds taken in AM with sips of water? Meds patient instructed to take am of surgery PONV PONV - electrical machine builder: PONV - electrical machine builder Female HX of Motion Sickness HX of N/V After Surgery Non-Smoker Duration of Surgery greater than 60 minutes Number of Risk Factors PONV Score Height & Weight Height & Weight: Anesthesia: Height & Weight Height 5 ft 8 in 06/18/24 19:58 Weight: 83.461 kg 06/18/24 19:58 Body Mass Index (BMI) 27.9 06/18/24 19:58 Respiratory Assessment Respiratory Assessment - electrical machine builder: Respiratory Tract Infection Hx - electrical machine builder Hx Respiratory Tract Infection STOP Sleep Apnea STOP Sleep Apnea - electrical machine builder: STOP Sleep Apnea - electrical machine builder Hx Hypertension Yes 06/18/24 19:58 Hx Sleep Apnea No 06/18/24 19:58 CPAP BIPAP Do you snore loudly (louder Yes 06/18/24 19:58 than talking or can be heard Do you often feel tired/ No 06/18/24 19:58 fatigued/ sleepy during daytime? Has anyone observed you stop No 06/18/24 19:58 breathing during sleep? STOP Results Positive 06/18/24 19:58 QUESTION #5 FULL TEXT : Do you snore loudly (louder than talking or can be heard through closed doors)? 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 Specify any problems Hx of Preganancy in last 3 Months Nurse Filling Out Transfusion & Questions: Date: Time: Patient unable to answer at this time (ie. confused, unrespo /Reproduction History /Reproductive History - electrical machine builder: /Reproductive Hx- electrical machine builder Hx Now Gestational Age (in weeks): EDC: Hx Hx Para Hx Section SAB PFSH Medical History Diabetes mellitus, type 2 GERD (gastroesophageal reflux disease) Hemophilia B Hypertension Hepatitis C Home Medications ?Medication ?Instructions ?Recorded ?Last Taken ?Type pantoprazole 40 mg tablet,delayed 40 mg PO BID 08/02/18 Unknown History release cephalexin 500 mg capsule 500 mg PO Q8H 7 days #21 caps 06/17/24 Unknown Rx losartan 50 mg PO DAILY 06/17/24 Unknown History metformin 500 mg PO BID 06/17/24 Unknown History coagulation factor IX (recomb) 8,000 unit IV PRN Hemophilia 06/18/24 Unknown History 2,000 unit intravenous solution (Rixubis) Allergy/AdvReac Type Severity Reaction Status Date / Time No Known Allergies Allergy Verified 06/18/24 16:42 Family History Father Cancer Hypertension Diabetes Mother Hemophilia B carrier Surgical History History of hand surgery H/O inguinal hernia repair Social History household members: spouse Smoking Status: Never smoker alcohol intake: never substance use type: does not use Review of Systems (Anesthesia) ROS Narrative System reviewed and no additional complaints, except as documented.
--- NOTE | 2024-06-18 23:33 | PCM.POST.ANE ---
Anesthesia: Postop Eval I Current Vital Signs Temperature: 97.8 F Pulse Rate: 81 Blood Pressure: 141/83 Respiratory Rate: 19 Pulse Ox: 94 Assessment Airway patent: Yes Spontaneous unlabored respirations: Yes nausea: No Vomiting: No Anesthesia Complication: No Fluid Hydration Crystalloid volume administer (ml): 800 Total IV fluid infused: 800 Progress Note Anesthesia document: Postop Eval 1 completed: Yes
--- NOTE | 2024-06-18 23:35 | POSTOPAN2_ITS ---
Anesthesia Postop Eval I Sum Postop Eval Completion status Anesthesia document: Postop Eval 1 completed: Yes Anesthesia Postop Eval I Summary Anesthesia Postop Eval I Summary: Anesthesia Postop Eval I: Assessment Summary Airway patent Yes 06/18/24 23:33 CLARITY [email or web address] Spontaneous unlabored Yes 06/18/24 23:33 CLARITY [email or web address].[email or web address] respirations Mental status nausea No 06/18/24 23:33 CLARITY [email or web address].[email or web address] Vomiting No 06/18/24 23:33 CLARITY [email or web address].[email or web address] Anesthesia Postop Eval I: Fluid Summary Crystalloid volume administer 800 06/18/24 23:33 CLARITY [email or web address].[email or web address] (ml) Colloids volume administered ( ml) Blood Product volume administered (ml) Total IV fluid infused 800 06/18/24 23:33 CLARITY [email or web address].[email or web address] Anesthesia Postop Eval I: Summary Notes Anesthesia Complication No 06/18/24 23:33 CLARITY [email or web address].[email or web address] Anesthesia Complication Comment: Post-operative progress note Anesthesia: Postop Eval II Evaluation Mental status: Awake Pain Level: 0 nausea: No Vomiting: No
--- NOTE | 2024-06-18 23:35 | PCM.POSTANE2 ---
Anesthesia Postop Eval I Sum Postop Eval Completion status Anesthesia document: Postop Eval 1 completed: Yes Anesthesia Postop Eval I Summary Anesthesia Postop Eval I Summary: Anesthesia Postop Eval I: Assessment Summary Airway patent Yes 06/18/24 23:33 INJECTION MACHINE OPERATOR.[email or web address] Spontaneous unlabored Yes 06/18/24 23:33 INJECTION MACHINE OPERATOR.[email or web address] respirations Mental status nausea No 06/18/24 23:33 INJECTION MACHINE OPERATOR.[email or web address] Vomiting No 06/18/24 23:33 INJECTION MACHINE OPERATOR.[email or web address] Anesthesia Postop Eval I: Fluid Summary Crystalloid volume administer 800 06/18/24 23:33 INJECTION MACHINE OPERATOR.[email or web address] (ml) Colloids volume administered ( ml) Blood Product volume administered (ml) Total IV fluid infused 800 06/18/24 23:33 INJECTION MACHINE OPERATOR.[email or web address] Anesthesia Postop Eval I: Summary Notes Anesthesia Complication No 06/18/24 23:33 INJECTION MACHINE OPERATOR.[email or web address] Anesthesia Complication Comment: Post-operative progress note Anesthesia: Postop Eval II Evaluation Mental status: Awake Pain Level: 0 nausea: No Vomiting: No
[2024-06-18] MEDS: Lactated Ringers 1,000 ML 15 ML IV (23:43)
[2024-06-19] VITALS (13 sets, daily range): BP systolic 131–168; BP diastolic 68–96; PULSE 74–91; RESP 16–18; TEMP 37–37.8; O2SAT 93–96; BMI 28.3
[2024-06-19] MEDS: 0.9% Normal Saline (1000mL) 1,000 ML 100 ML IV (00:33)
[2024-06-19] MEDS: Cefepime HCl 2 GM in 0.9% Normal Saline (100mL MB+) 100 ML IV ×4 (00:34→22:55)
[2024-06-19] MEDS: Pantoprazole Sodium 40 MG Tablet PO ×3 (00:34→21:16)
[2024-06-19] MEDS: oxyCODONE 5 MG Tablet PO ×3 (00:34→21:17)
--- NOTE | 2024-06-19 00:39 | PCM.RX.CS ---
Consult Antibiotic Management Pharmacy has been consulted to manage selected antibiotic: Vancomycin Type of Intervention Type of Consult: New start Labs Labs: Sodium 136 mmol/L (136-145) 06/18/24 16:58 Potassium 4.1 mmol/L (3.5-5.1) 06/18/24 16:58 Chloride 102 mmol/L (98-107) 06/18/24 16:58 Carbon Dioxide 29.0 mmol/L (21.0-32.0) 06/18/24 16:58 Anion Gap 5 (5-15) 06/18/24 16:58 BUN 14 mg/dL (7-18) 06/18/24 16:58 Creatinine 1.11 mg/dL (0.70-1.30) 06/18/24 16:58 Est GFR (MDRD) Af Amer 83 mL/min (>60) 06/18/24 16:58 Est GFR (MDRD) Non-Af 69 mL/min (>60) 06/18/24 16:58 BUN/Creatinine Ratio 12.6 RATIO (10-20) 06/18/24 16:58 Glucose 143 mg/dL (74-106) H 06/18/24 16:58 Dosing Weight Weight used for dosin.7 kg Estimated Creatinine Clearance Estimated Creatinine Clearance: 60.53 Goal Trough Goal Trough: 15-20 mcg/mL Pharmacy Plan for Drug Dosing Pharmacy Plan for Drug Dosing: Pharmacy Service will continue to monitor and adjust dosing as required. 1250MG INITIAL DOSE, 1000MG Q12H TROUGH PRIOR TO 4TH DOSE Follow-Up Labs Follow-Up Labs: Trough: Vancomycin Date/Time Labs Ordered Labs to be done on [date and time ordered]: 06/20 @ 3556
[2024-06-19 06:44] LABS: Bedside Glucose 160 mg/dL (74-106)
[2024-06-19 07:07] LABS: Bedside Glucose 146 mg/dL (74-106)
[2024-06-19 07:21] LABS: Absolute Neutrophil Count 4.7 X10^3/uL (2.0-7.7); Basophil# 0.05 X10^3/uL; Basophil% 0.7 % (0-1); Eosinophil# 0.05 X10^3/uL; Eosinophils% 0.7 % (0-5); Hematocrit 36.4 % (40-54); Hemoglobin 11.6 g/dL (13.0-16.5); Lymphocyte % 17.2 % (19-41); Mean Corp Hgb Conc 31.9 g/dL (32-36); Mean Corpuscular Hgb 27.2 pg (27.0-32.0); Mean Corpuscular Volume 85.2 fL (80-94); Mean Platelet Vol. 10.3 fl (6.2-12.0); Monocyte# 0.96 X10^3/uL; Monocyte% 13.8 % (0-10); NRBC Flagged by Analyzer 0 % (0-5); Neutrophil % 67.3 % (47-70); Platelet Count 239 K/mm3 (150-450); RBC Distribution Width CV 13.2 % (11.6-14.6); RBC Distribution Width SD 41.3 fl (35.1-43.9); Red Blood Count 4.27 M/mm3 (4.6-6.2)
[2024-06-19 08:00] LABS: ALB/GLOB Ratio 0.6 RATIO (0.9-2.4); AST(SGOT) 14 U/L (15-37); Alanine Aminotransfer ALT/SGPT 17 U/L (16-61); Albumin, Serum 2.6 g/dL (3.2-5.0); Alkaline Phosphatase 46 U/L (45-117); Anion Gap 4 (5-15); BUN 13 mg/dL (7-18); BUN/Creat Ratio 13.3 RATIO (10-20); Calcium,Total 9.2 mg/dL (8.5-10.1); Chloride 106 mmol/L (98-107); Creatinine, Serum 0.98 mg/dL (0.70-1.30); EST Glomerular Filtration Rate 79 mL/min (>60); Est Glom Filt Rate - Afr Amer 96 mL/min (>60); Estimated Creatinine Clearance 69.02 ml/min; Globulin 4.2 g/dL (2.2-4.2); Glucose 143 mg/dL (74-106); Potassium 4.4 mmol/L (3.5-5.1); Protein, Total 6.8 g/dL (6.4-8.2); Sodium Level 136 mmol/L (136-145)
--- NOTE | 2024-06-19 08:00 | PCM.PN.HOSP ---
Reason for Visit Reason for Visit: Right wrist pain Subjective Subjective Mr. Cuellar is a 74-year-old Joshua male who presented to the emergency department at [facility] on 06/18/2024 due to right wrist pain, redness, and swelling. He has had symptoms for about 4 weeks but started with localized redness and swelling and he was placed on oral antibiotics with doxycycline and then transition to Keflex however his infection seem to be progressing. He was also placed on indomethacin for pain. His primary care physician called Dr. Hua worried about his infection worsening and he instructed him to be evaluated the emergency department to get upper extremity imaging for clarification of infection source and type. 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 He was given 8000 units once prior to surgery and then will need 1000 units again after surgery 20 hours post and then 8000 units daily x 5 days per the hemophilia clinic at [facility]. Vital signs on presentation showed a temperature of 98.5, heart rate 100, blood pressure 148/95, respiratory rate was 16 and oxygen saturations were 98% on room air. CBC was overall unremarkable. Chemistry panel was unremarkable other than hyperglycemia with a blood sugar of 143. Right upper extremity CTA showed diffuse soft tissue edema and cellulitis of the right forearm extending into the soft tissues of the wrist and hand with multiple small abscess collections having majority of them in the volar soft tissues and no gas formation was identified. He was taken emergently to the OR by plastic surgery at which time a right hand carpal tunnel release along with decompressive fasciotomy of the volar compartments superficial and deep was performed in the mid and distal forearm as well as incision and drainage of the volar forearm abscesses into the deep space of the right forearm and an arthrotomy of the right wrist for washout of septic joint. Cultures were sent intraoperatively and are pending at the time. He is currently on vancomycin and Zosyn. Pain in his better postoperatively per discussion with patient. Per discussion with Dr. Hua, plan is for return to the OR for second look later today. Patient states he is overall feeling much better. Denies any injury or hemarthrosis in the area. Denies any bug bites. States he is unclear as to what precipitated this. States he is very pleased with his care overall thus far. Objective Data Objective Data Vital Signs: Vital Signs Temp Pulse Resp BP Pulse Ox O2 Del Method 99.0 F 79 16 131/73 H 93 Room Air 06/19/24 03:00 06/19/24 03:00 06/19/24 03:00 06/19/24 03:00 06/19/24 03:00 06/19/24 04:00 Oxygen Delivery Method Room Air Weight: 84.7 kg Body Mass Index (BMI) 28.3 Intake & Output: Intake and Output for Last 24 Hours 06/17/24 06/18/24 06/19/24 23:59 23:59 23:59 Intake Total 275 / 275 100 / 100 Balance 275 / 275 100 / 100 Lab / Micro Data 06/19/24 06:11 06/19/24 06:11 Labs: Laboratory Results - last 24 hr 06/18/24 16:58: WBC 7.1, RBC 4.83, Hgb 13.1, Hct 41.0, MCV 84.9, MCH 27.1, MCHC 32.0, RDW Std Deviation 41.3, RDW Coeff of Parker 13.3, Plt Count 248, MPV 9.9, Immature Gran % (Auto) 0.100, Neut % (Auto) 67.7, Lymph % (Auto) 16.6 L, [place] % (Auto) 13.2 H, Eos % (Auto) 1.7, Baso % (Auto) 0.7, Absolute Neuts (auto) 4.8, Absolute Lymphs (auto) 1.17, Nucleated RBC % 0, Sodium 136, Potassium 4.1, Chloride 102, Carbon Dioxide 29.0, Anion Gap 5, BUN 14, Creatinine 1.11, Estim Creat Clear Calc 60.53, Est GFR (MDRD) Af Amer 83, Est GFR (MDRD) Non-Af 69, BUN/Creatinine Ratio 12.6, Glucose 143 H, Lactic Acid 0.9, Calcium 9.9, Magnesium 2.2 06/19/24 00:08: POC Glucose 160 H 06/19/24 06:11: WBC 7.0, RBC 4.27 L, Hgb 11.6 L, Hct 36.4 L, MCV 85.2, MCH 27.2, MCHC 31.9 L, RDW Std Deviation 41.3, RDW Coeff of Parker 13.2, Plt Count 239, MPV 10.3, Immature Gran % (Auto) 0.300, Neut % (Auto) 67.3, Lymph % (Auto) 17.2 L, [place] % (Auto) 13.8 H, Eos % (Auto) 0.7, Baso % (Auto) 0.7, Absolute Neuts (auto) 4.7, Absolute Lymphs (auto) 1.20, Nucleated RBC % 0, Sodium 136, Potassium 4.4, Chloride 106, Carbon Dioxide 26.0, Anion Gap 4 L, BUN 13, Creatinine 0.98, Estim Creat Clear Calc 69.02, Est GFR (MDRD) Af Amer 96, Est GFR (MDRD) Non-Af 79, BUN/Creatinine Ratio 13.3, Glucose 143 H, Calcium 9.2, Total Bilirubin 0.70, AST 14 L, ALT 17, Alkaline Phosphatase 46, Total Protein 6.8, Albumin 2.6 L, Globulin 4.2, Albumin/Globulin Ratio 0.6 L 06/19/24 06:29: POC Glucose 146 H Radiography Diagnostic Testing: Radiology Impression Upper Extremity CTA 06/18/24 16:51 IMPRESSION: Diffuse soft tissue edema/cellulitis of the right forearm extending into the soft tissues of the wrist and hand. Multiple small abscess collections with the largest described above. The majority are in the volar soft tissues. No gas formation identified. Necrotizing fasciitis cannot be excluded. Electronically Signed: Tanner Angela MD at 18:51 EDT Reading Location ID and State: [address] [place] [address] Tel , Service support , Physical Exam Const alert, oriented x3, no apparent distress, average body habitus, healthy appearing and well nourished Constitutional Narrative: Pleasant, older, white male, lying in bed, appears younger than stated age, at bedside, does not toxic HEENT head/scalp atraumatic and moist oral mucous membranes HEENT Narrative: Dentition is fair, Mallampati is 2, no thrush Head and Scalp: normocephalic Resp normal respiratory effort, no retractions, no use of accessory muscles and clear to auscultation bilaterally Auscultation: Negative for rales, rhonchi or wheezes Cardio regular rate, regular rhythm, S1 normal heart sound, S2 normal heart sound, no murmurs, no rub, no gallops and no clicks GI normal to inspection, nondistended, normoactive bowel sounds, soft to palpation and non-tender Extremity Extremity Narrative: Right upper extremity is in postoperative dressing with splint in place and unable to observe, lower extremities without any edema, no cyanosis or clubbing noted on visualizable extremities Neuro oriented x3 and no focal motor deficits Speech: speech normal Psych affect normal Psych Narrative: Very pleasant, interacts appropriately Assessment & Plan Assessment/Plan (1) Cellulitis: (2) Abscess of skin of right wrist: (3) Septic arthritis of wrist, right: (4) Deep palmar space infection: PLAN: Plan Right upper extremity septic wrist joint/cellulitis/deep space tissue abscesses -Postop day 1 right carpal tunnel release/decompressive fasciotomy/I&D/right wrist arthrotomy -Cultures are pending -Continue cefepime and vancomycin -Plan for second look in OR today -Will give 8000 units of factor IX 1 hour preoperative, 20 hours postoperative and daily for 5 days following surgery per hemophilia clinic at [facility] -ID consult pending -Wound care consultation -N.p.o. for surgery -Pain medication as ordered -As needed bowel regimen available DM-2 with hyperglycemia -Acute hyperglycemia is likely related to acute infection -Hemoglobin A1c is pending -Continue sliding scale -Accu-Cheks as ordered -Once diet can be initiated start carb controlled diet 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 -Plan is for 8000 units of recombinant factor IX 1 hour preoperatively, 20 hours postoperatively and daily for 5 days postoperatively -[facility] ([phone])--> to call with any questions -Outpatient follow-up per previous instruction after discharge History of hepatitis C -Was treated and resolved GERD -Continue home PPI Essential hypertension -Continue home medication -As needed hydralazine available for systolic blood pressure greater than 160 DVT prophylaxis -SCDs -Encourage frequent and early ambulation postoperatively as able CODE STATUS -Full code as verified on admission Charges/Coding Visit Charges Inpatient E&M: 90246 Subs Hosp L2
[2024-06-19] MEDS: Vancomycin IV 1,000 MG/200 ML BAG 200 MG IV ×2 (08:24→21:16)
[2024-06-19] MEDS: Lactated Ringers 1,000 ML 75 ML IV ×3 (08:24→19:27)
--- NOTE | 2024-06-19 08:28 | PN.SURG_ITS ---
Subjective Subjective Surgery/Procedure Date: 18 June 2024 Incision/Procedure Start Time: 21:55 Incision Close/Procedure End Time: 23:14 (1 hour 19 min) PATIENT: Arnulfo Jack SURGEON: Anant Hua MD PRE-OPERATIVE DIAGNOSIS: Right forearm, wrist, hand volar and dorsal abscesses with septic right wrist joint POST-OPERATIVE DIAGNOSIS: Same PROCEDURE PERFORMED: 1) Right hand carpal tunnel release (CPT: 97041) 2) Decompressive fasciotomy, volar compartments (superficial and deep) in mid/distal forearm (CPT: 99745) 3) Incision and drainage of volar forearm abscess immediately underneath antebrachial fascia and also extending down to Parona's space (deep space forearm abscess) (CPT: 24515) 4) Arthrotomy right wrist, dorsal approach, for wash out of septic right wrist joint (CPT: 00173) OPERATIVE FINDINGS: * Abscess beneath volar wrist antebrachial fascia. * Abscess and Parona space (deep space forearm just volar to the pronator quadratus). * Purulence in the proximal portion of the carpal tunnel from above-mentioned abscess, but no purulence coming from the flexor sheath distally. * Septic right wrist joint (purulent fluid) when accessed through dorsal approach. CURRENT ENCOUNTER, 19 Jun 2024: Patient postop day 1 from right wrist exploration and washout. He reports that his pain was 8 out of 10 last night and is now a 3 out of 10. He reports pain with making a fist in his wrist. He has been compliant with elevation. Does not report any new numbness in his hand. Objective Data Objective Data Vital Signs: Vital Signs Temp Pulse Resp BP Pulse Ox O2 Del Method 99.0 F 79 16 131/73 H 93 Room Air 06/19/24 03:00 06/19/24 03:00 06/19/24 03:00 06/19/24 03:00 06/19/24 08:13 06/19/24 08:13 Oxygen Delivery Method Room Air Weight: 186 lb 11.704 oz Body Mass Index (BMI) 28.3 Intake & Output: Intake and Output for Last 24 Hours 06/17/24 06/18/24 06/19/24 23:59 23:59 23:59 Intake Total 275 / 275 100 / 100 Balance 275 / 275 100 / 100 Lab / Micro Data 06/19/24 06:11 06/19/24 06:11 Labs: Laboratory Results - last 24 hr 06/18/24 16:58: WBC 7.1, RBC 4.83, Hgb 13.1, Hct 41.0, MCV 84.9, MCH 27.1, MCHC 32.0, RDW Std Deviation 41.3, RDW Coeff of Parker 13.3, Plt Count 248, MPV 9.9, Immature Gran % (Auto) 0.100, Neut % (Auto) 67.7, Lymph % (Auto) 16.6 L, [place] % (Auto) 13.2 H, Eos % (Auto) 1.7, Baso % (Auto) 0.7, Absolute Neuts (auto) 4.8, Absolute Lymphs (auto) 1.17, Nucleated RBC % 0, Sodium 136, Potassium 4.1, Chloride 102, Carbon Dioxide 29.0, Anion Gap 5, BUN 14, Creatinine 1.11, Estim Creat Clear Calc 60.53, Est GFR (MDRD) Af Amer 83, Est GFR (MDRD) Non-Af 69, BUN/Creatinine Ratio 12.6, Glucose 143 H, Lactic Acid 0.9, Calcium 9.9, Magnesium 2.2 06/19/24 00:08: POC Glucose 160 H 06/19/24 06:11: WBC 7.0, RBC 4.27 L, Hgb 11.6 L, Hct 36.4 L, MCV 85.2, MCH 27.2, MCHC 31.9 L, RDW Std Deviation 41.3, RDW Coeff of Parker 13.2, Plt Count 239, MPV 10.3, Immature Gran % (Auto) 0.300, Neut % (Auto) 67.3, Lymph % (Auto) 17.2 L, M lian % (Auto) 13.8 H, Eos % (Auto) 0.7, Baso % (Auto) 0.7, Absolute Neuts (auto) 4.7, Absolute Lymphs (auto) 1.20, Nucleated RBC % 0, Sodium 136, Potassium 4.4, Chloride 106, Carbon Dioxide 26.0, Anion Gap 4 L, BUN 13, Creatinine 0.98, Estim Creat Clear Calc 69.02, Est GFR (MDRD) Af Amer 96, Est GFR (MDRD) Non-Af 79, BUN/Creatinine Ratio 13.3, Glucose 143 H, Calcium 9.2, Total Bilirubin 0.70, AST 14 L, ALT 17, Alkaline Phosphatase 46, Total Protein 6.8, Albumin 2.6 L, Globulin 4.2, Albumin/Globulin Ratio 0.6 L 06/19/24 06:29: POC Glucose 146 H Radiography Diagnostic Testing: Radiology Impression Upper Extremity CTA 06/18/24 16:51 IMPRESSION: Diffuse soft tissue edema/cellulitis of the right forearm extending into the soft tissues of the wrist and hand. Multiple small abscess collections with the largest described above. The majority are in the volar soft tissues. No gas formation identified. Necrotizing fasciitis cannot be excluded. Electronically Signed: Tanner Angela MD at 18:51 EDT , Physical Exam Narrative Right upper extremity Dressings removed No purulent drainage from the incisions today. Persistent redness over the volar wrist flap, but no purulence. We started a Dial soap soak on rounds. He has less pain with axial loading of the wrist and no pain with axial loading of the thumb base. He has pain with active flexor tendon excursion, but no pain with passive flexor tendon excursion. Vascular: Fingers warm well-perfused with less than 2-second capillary refill Sensory: Same sensory exam as preop, numbness on the radial side of the right thumb, but no new onset numbness. Sensation to light touch intact otherwise in the median nerve distribution. Motor: He is able to fire the thenar eminence musculature (recurrent branch of median intact) Assessment & Plan Assessment/Plan (1) Septic arthritis of wrist, right: PLAN: I discussed my plan with the primary physician Dr. Hanny Fang, and she is in agreement with this plan. Will make patient n.p.o. after breakfast Given the extent of the infection and concern for subacute infection of the right wrist joint leading to eventual abscesses, plan for second look and washout of the wrist and hand in the operating room later this afternoon (approximately 24 hours second look). (2) Deep palmar space infection: Charges/Coding Procedures Integumentary [id number]: [id number] Global Visit
[2024-06-19] MEDS: Acetaminophen 325 MG Tablet 650 MG PO (08:48)
--- NOTE | 2024-06-19 10:06 | PCM.CONS.GEN ---
Assessment & Plan Assessment/Plan (1) Septic arthritis of wrist, right: PLAN: Now s/p I&D by Dr. Hua 06/19/24. Surg cx pending. On empiric vanc/cefepime. Unusual presentation with one month progressive symptoms, no response to po abx as outpt, no fever, normal wbc, no organisms seen on gram stain from OR. Samples were sent for acid fast and fungus from OR. Will follow, thank you (2) Abscess of skin of right wrist: HPI Consult Data Date of Consult: 06/19/24 HPI Narrative Reason for Consultation: septic arthritis HPI Narrative: NED FELICIANO, is a 74 M with hemophilia, hep C, presented with one month progressive R hand/wrist swelling, redness, warmth, and pain. No known inciting event, no drainage. No fever or chills. He is right handed. Saw PCP, given course of doxy for about 2 weeks then course of keflex without any improvement. Also was treated for possible gout. Due to worsening, came to ED, CT done, taken to OR for I&D 06/18/[address] Hua. On vanc/cefepime, pain is improved this AM. No n/v/d. Full ROS performed and neg except as noted above. [facility] Medical History Diabetes mellitus, type 2 GERD (gastroesophageal reflux disease) Hemophilia B Hypertension Hepatitis C Home Medications ?Medication ?Instructions ?Recorded ?Last Taken ?Type pantoprazole 40 mg tablet,delayed 40 mg PO BID 08/02/18 Unknown History release cephalexin 500 mg capsule 500 mg PO Q8H 7 days #21 caps 06/17/24 Unknown Rx losartan 50 mg PO DAILY 06/17/24 Unknown History metformin 500 mg PO BID 06/17/24 Unknown History coagulation factor IX (recomb) 8,000 unit IV PRN Hemophilia 06/18/24 Unknown History 2,000 unit intravenous solution (Rixubis) Allergy/AdvReac Type Severity Reaction Status Date / Time No Known Allergies Allergy Verified 06/18/24 16:42 Family History Father Cancer Hypertension Diabetes Mother Hemophilia B carrier Surgical History History of hand surgery H/O inguinal hernia repair Social History household members: spouse Smoking Status: Never smoker alcohol intake: never substance use type: does not use Physical Exam Const alert, oriented x3 and no apparent distress General Appearance: cooperative HEENT normocephalic and head/scalp atraumatic Eyes PERRL and EOMs intact bilaterally Neck supple and No nodes Resp normal air movement and clear to auscultation bilaterally Cardio regular rate and regular rhythm GI soft to palpation, non-tender and non-distended Extremity General Extremity: edema Skin Skin Narrative: RUE wrapped s/p OR Neuro CN's II-XII intact bilaterally Lab / Micro Data Attestation: I reviewed the patient's lab results. 06/19/24 06:11 06/19/24 06:11 Labs: Laboratory Results - last 24 hr 06/18/24 16:58: WBC 7.1, RBC 4.83, Hgb 13.1, Hct 41.0, MCV 84.9, MCH 27.1, MCHC 32.0, RDW Std Deviation 41.3, RDW Coeff of Parker 13.3, Plt Count 248, MPV 9.9, Immature Gran % (Auto) 0.100, Neut % (Auto) 67.7, Lymph % (Auto) 16.6 L, [place] % (Auto) 13.2 H, Eos % (Auto) 1.7, Baso % (Auto) 0.7, Absolute Neuts (auto) 4.8, Absolute Lymphs (auto) 1.17, Nucleated RBC % 0, Sodium 136, Potassium 4.1, Chloride 102, Carbon Dioxide 29.0, Anion Gap 5, BUN 14, Creatinine 1.11, Estim Creat Clear Calc 60.53, Est GFR (MDRD) Af Amer 83, Est GFR (MDRD) Non-Af 69, BUN/Creatinine Ratio 12.6, Glucose 143 H, Lactic Acid 0.9, Calcium 9.9, Magnesium 2.2 06/19/24 00:08: POC Glucose 160 H 06/19/24 06:11: WBC 7.0, RBC 4.27 L, Hgb 11.6 L, Hct 36.4 L, MCV 85.2, MCH 27.2, MCHC 31.9 L, RDW Std Deviation 41.3, RDW Coeff of Parker 13.2, Plt Count 239, MPV 10.3, Immature Gran % (Auto) 0.300, Neut % (Auto) 67.3, Lymph % (Auto) 17.2 L, [place] % (Auto) 13.8 H, Eos % (Auto) 0.7, Baso % (Auto) 0.7, Absolute Neuts (auto) 4.7, Absolute Lymphs (auto) 1.20, Nucleated RBC % 0, Sodium 136, Potassium 4.4, Chloride 106, Carbon Dioxide 26.0, Anion Gap 4 L, BUN 13, Creatinine 0.98, Estim Creat Clear Calc 69.02, Est GFR (MDRD) Af Amer 96, Est GFR (MDRD) Non-Af 79, BUN/Creatinine Ratio 13.3, Glucose 143 H, Calcium 9.2, Total Bilirubin 0.70, AST 14 L, ALT 17, Alkaline Phosphatase 46, Total Protein 6.8, Albumin 2.6 L, Globulin 4.2, Albumin/Globulin Ratio 0.6 L 06/19/24 06:29: POC Glucose 146 H Imaging Radiology Impression Upper Extremity CTA 06/18/24 16:51 IMPRESSION: Diffuse soft tissue edema/cellulitis of the right forearm extending into the soft tissues of the wrist and hand. Multiple small abscess collections with the largest described above. The majority are in the volar soft tissues. No gas formation identified. Necrotizing fasciitis cannot be excluded. Electronically Signed: Tanner Angela MD at 18:51 EDT ,
[2024-06-19] MEDS: Losartan Potassium 50 MG Tablet PO (10:23)
--- NOTE | 2024-06-19 10:31 | WOUNDNOTE ---
wound photo: right wrist
--- NOTE | 2024-06-19 10:32 | WOUNDNOTE ---
wound photo: right wrist
[2024-06-19 11:58] LABS: Bedside Glucose 119 mg/dL (74-106)
[2024-06-19] MEDS: [UNRECOGNIZED DRUG - OTHER] 8000 UNITS IV (14:05)
[2024-06-19] MEDS: 0.9% Saline Lock 10 ML Syringe IV (14:09)
[2024-06-19 15:26] LABS: Bedside Glucose 119 mg/dL (74-106)
--- NOTE | 2024-06-19 15:50 | CASEMGMT ---
KORY DASILVA Assessment Face to Face with patient for initial transition planning/care coordination assessment. RN BROWN introduced self and role at [facility], pt voices understanding. Pt is A&Ox4 and is resting comfortably in bed and is calm. Family at bedside. Care providers, pharmacy, and demographics verified. Admitting dx: R Wrist Cellulitis/ Abscess/ Septic Joint LACE Strata: 1 PCP: Vidal Armendariz Specialists: Denies Preferred Pharmacy: [facility] Insurance: [employer] Prescription Benefit: Yes LNOK: Sinai Caro (W), Leslye Caro (Lida) Living Arrangements: Pt lives with his in a two story home with a flat entrance ADLs/IADLs: Ind Transportation: Hires drivers (plans to do this at [place]). Bike. Horse and Buggy. tractor. Denies concerns DME: Working [employer] and supplies. BP Monitor. Denies further needs HHC/SNF: Denies Hx or needs Pt?s goal: Home Plan: Home with pt . 6-Click is 24. Pt denies the need to go to the [facility] at this time as he states that he can care for his wound at home with the help of his . Pt denies HHC as well. Pt denies further questions or concerns at this time and is aware to reach out to CM if he changes his mind. Tawanna Caro RN, CM
--- NOTE | 2024-06-19 15:56 | PRE.ANES_ITS ---
ASA Classification* ASA Classification ASA Classification: 2 Assessment & Plan Anesthesia* Anesthesia Assessment Anesthesia Assessment: Discussed sedation and/or anesthesia options, risks, benefits, and alternatives with patient/parents/legal guardian/POA. Questions invited. The patient/parents/legal guardian/POA seems to understand and agrees to proceed with anesthesia plan. Reviewed the physical assessment, medical history, allergy history and patient home medications list prior to surgery/procedure/anesthetic and documented any changes. Performed airway and anesthesia risk assessments. Anesthesia Type Anesthesia Type: General History Source History Obtained from:: Patient and Chart Anesthesia Focused Assessment* Temperature: 98.7 F Pulse Rate: 83 Blood Pressure: 145/88 Respiratory Rate: 18 Pulse Ox: 96 Oxygen Delivery Method: Room Air Airway Assessment Mouth opens: >3 cm Mallampati Score: II Teeth Condition: Intact Neck Range of motion (ROM): Limited ROM (Somewhat decreased extension.) Focused Labs Anesthesia Preop lab: CBC WBC 7.0 K/mm3 (4.4-11.0) 06/19/24 06:11 RBC 4.27 M/mm3 (4.6-6.2) L 06/19/24 06:11 Hgb 11.6 g/dL (13.0-16.5) L 06/19/24 06:11 Hct 36.4 % (40-54) L 06/19/24 06:11 Plt Count 239 K/mm3 (150-450) 06/19/24 06:11 CHEMISTRY Potassium 4.4 mmol/L (3.5-5.1) 06/19/24 06:11 Sodium 136 mmol/L (136-145) 06/19/24 06:11 Magnesium 2.2 mg/dL (1.6-2.6) 06/18/24 16:58 BUN 13 mg/dL (7-18) 06/19/24 06:11 Creatinine 0.98 mg/dL (0.70-1.30) 06/19/24 06:11 Glucose 143 mg/dL (74-106) H 06/19/24 06:11 POC Glucose 119 mg/dL (74-106) H 06/19/24 14:59 COAG Pre-Assessment Diagnosis/Proposed Procedure Planned Operative Procedure(s): i and d of right hand Anesthesia History Anesthesia History - screen operator: Anesthesia History - screen operator Hx Hospitalization Any Problems With Anesthesia No 06/18/24 19:58 Cholinesterase deficiency You/Your Family Experience fever (hyperthermia) with Relationship Recent Exposure to Contagious Disease Does patient have nerve No 06/18/24 19:58 stimulator Patient instructed to have device shut off --Does patient have Pacemaker No 06/19/24 15:00 or ICD? When Was Last Pacemaker Check QUESTION #4 FULL TEXT: You/Your Family Experience fever (hyperthermia) with Anesthesia Last Oral Intake Last Oral intake: Last Oral Intake NPO since 00:00 06/19/24 15:00 Meds taken in AM with sips of water? Meds patient instructed to take am of surgery Any additional information?: Yes NPO since: 00:00 PONV PONV - screen operator: PONV - screen operator Female HX of Motion Sickness HX of N/V After Surgery Non-Smoker Duration of Surgery greater than 60 minutes Number of Risk Factors PONV Score Height & Weight Height & Weight: Anesthesia: Height & Weight Height 5 ft 8 in 06/19/24 15:00 Weight: 84.7 kg 06/19/24 15:00 Body Mass Index (BMI) 28.3 06/19/24 15:00 Respiratory Assessment Respiratory Assessment - screen operator: Respiratory Tract Infection Hx - screen operator Hx Respiratory Tract Infection Any additional information?: Yes Hx Respiratory Tract Infection: No STOP Sleep Apnea STOP Sleep Apnea - screen operator: STOP Sleep Apnea - screen operator Hx Hypertension Yes 06/18/24 23:54 Hx Sleep Apnea No 06/18/24 23:54 CPAP BIPAP Do you snore loudly (louder Yes 06/18/24 23:54 than talking or can be heard Do you often feel tired/ No 06/18/24 23:54 fatigued/ sleepy during daytime? Has anyone observed you stop No 06/18/24 23:54 breathing during sleep? STOP Results Positive 06/18/24 23:54 QUESTION #5 FULL TEXT : Do you snore loudly (louder than talking or can be heard through closed doors)? 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 Specify any problems Hx of Preganancy in last 3 N/A 06/18/24 23:54 Months Nurse Filling Out Transfusion JSNOW 06/18/24 23:54 & Questions: Date: 06/19/24 06/18/24 23:54 Time: 00:18 06/18/24 23:54 Patient unable to answer at this time (ie. confused, unrespo /Reproduction History /Reproductive History - screen operator: /Reproductive Hx- screen operator Hx Now Gestational Age (in weeks): EDC: Hx Hx Para Hx Section SAB Active Medications Active Medications: Current Medications Generic Name Dose Route Start Last Admin Trade Name Freq PRN Reason Stop Dose Admin Acetaminophen 650 mg 06/18/24 23:52 06/19/24 08:48 Acetaminophen 325 Mg Tablet PO 650 mg Q4H PRN PRN Administration Fever, pain 1-07/24 Al Hydrox/Mg Hydrox/Simethicone 30 ml 06/18/24 23:52 Mag /Aluminum/Simeth Wch Udc 30 Ml Oral.Susp PO Q6H PRN PRN Gastric Burning Albuterol Sulfate 2.5 mg 06/18/24 23:52 Albuterol 2.5 Mg/3 Ml Vial.Neb. INHALATION Q2H PRN PRN Dyspnea, wheezing Factor IX (Pha) 8,000 units 06/19/24 15:00 06/19/24 14:05 Factor Ix Complex,Human 1 Units IV 06/25/24 15:01 8,000 u Q24H JUAN CARLOS Administration Glucagon 1 mg 06/18/24 23:52 Glucagon 1 Mg/Ml Syringe IM X1 PRN HYPOGLYCEMIA Protocol Guaifenesin 20 ml 06/18/24 23:52 Guaifenesin 10 Ml Udc (200mg/10ml) PO Q4H PRN PRN COUGH Hydralazine HCl 10 mg 06/18/24 23:52 Hydralazine 20 Mg/Ml Vial IV Q4H PRN PRN SBP > 160 Protocol Vancomycin IV-PHARMACY TO DOSE 500 mls @ 250 mls/hr 06/18/24 23:52 1 each/ Sodium Chloride IV X1 PRN Rx to Dose Protocol Cefepime HCl 2 gm/ Sodium 100 mls @ 200 mls/hr 06/18/24 23:52 06/19/24 14:09 Chloride IV Infused Q8 JUAN CARLOS Infusion Dextrose 250 mls @ 0 mls/hr 06/18/24 23:52 Dextrose 10%-Water IV .Q0M PRN HYPOGLYCEMIA Protocol As Directed Vancomycin HCl 1,000 mg in 200 mls @ 200 mls/hr 06/19/24 08:00 06/19/24 11:28 Vancomycin IV Infused Q12H JUAN CARLOS Infusion Lactated Ringer's 1,000 mls @ 75 mls/hr 06/19/24 08:15 06/19/24 08:24 IV 75 mls/hr .[id number] JUAN CARLOS Administration Insulin Human Lispro 0 unit 06/18/24 23:52 06/19/24 11:38 Insulin Lispro 100 Unit/Ml Insuln.Pen SC Not Given ACHS [facility] Protocol Losartan Potassium 50 mg 06/19/24 10:00 06/19/24 10:23 Losartan Potassium 50 Mg Tablet PO 50 mg DAILY JUAN CARLOS Administration Melatonin 3 mg 06/18/24 23:52 Melatonin 3 Mg Tablet PO QHS PRN PRN INSOMNIA Morphine Sulfate 4 mg 06/18/24 23:52 Morphine 2 Mg/Ml Syringe IV Q3H PRN PRN Pain Score 6-10 Nutritional Formula (Lactose Free) 120 ml 06/19/24 08:00 06/19/24 11:40 Glucerna Shake 120 Ml Liquid PO Not Given TIDCM JUAN CARLOS Ondansetron HCl 4 mg 06/18/24 23:52 Ondansetron 4 Mg/2 Ml Vial IV Q8H PRN PRN NAUSEA/VOMITING Oxycodone HCl 5 mg 06/18/24 23:52 06/19/24 08:49 Oxycodone 5 Mg Tablet PO 5 mg Q4H PRN PRN Administration Pain Score 4-10 Pantoprazole Sodium 40 mg 06/18/24 23:52 06/19/24 10:23 Pantoprazole Sodium 40 Mg Tablet PO 40 mg BID JUAN CARLOS Administration Prochlorperazine Edisylate 5 mg 06/18/24 23:52 Prochlorperazine 10 Mg/2 Ml Vial IV Q4H PRN PRN Breakthrough nausea/vomiting Senna/Docusate Sodium 2 tablet 06/18/24 23:52 Senna/Docusate Sodium 1 Tablet PO BID PRN PRN Constipation Sodium Chloride 10 - 40 ml 06/19/24 00:24 06/19/24 14:09 0.9% Saline Lock 10 Ml Syringe IV 10 ml UD PRN Administration SALINE FLUSH Vancomycin Protocol 1 lab 06/20/24 05:30 Vancomycin Trough/Random Due 06/20/24 09:30 DAILY JUAN CARLOS PFS Medical History Diabetes mellitus, type 2 GERD (gastroesophageal reflux disease) Hemophilia B Hypertension Hepatitis C Home Medications ?Medication ?Instructions ?Recorded ?Last Taken ?Type pantoprazole 40 mg tablet,delayed 40 mg PO BID 08/02/18 Unknown History release cephalexin 500 mg capsule 500 mg PO Q8H 7 days #21 caps 06/17/24 Unknown Rx losartan 50 mg PO DAILY 06/17/24 Unknown History metformin 500 mg PO BID 06/17/24 Unknown History coagulation factor IX (recomb) 8,000 unit IV PRN Hemophilia 06/18/24 Unknown History 2,000 unit intravenous solution (Rixubis) Allergy/AdvReac Type Severity Reaction Status Date / Time No Known Allergies Allergy Verified 06/18/24 16:42 Family History Father Cancer Hypertension Diabetes Mother Hemophilia B carrier Surgical History History of hand surgery H/O inguinal hernia repair Social History household members: spouse Smoking Status: Never smoker alcohol intake: never substance use type: does not use Review of Systems (Anesthesia) ROS Narrative System reviewed and no additional complaints, except as documented.
[2024-06-19 16:02] LABS: Bedside Glucose 110 mg/dL (74-106)
[2024-06-19] MEDS: Lidocaine 1% /Epi 1:100 (20ml) 20 ML Vial (18:28)
--- NOTE | 2024-06-19 18:53 | PCM.POST.ANE ---
Anesthesia: Postop Eval I Current Vital Signs Temperature: 99.4 F Pulse Rate: 85 Blood Pressure: 135/68 Respiratory Rate: 18 Pulse Ox: 94 Assessment Airway patent: Yes Spontaneous unlabored respirations: Yes nausea: No Vomiting: No Anesthesia Complication: No Fluid Hydration Crystalloid volume administer (ml): 1,000 Total IV fluid infused: 1,000 Progress Note Anesthesia document: Postop Eval 1 completed: Yes
--- NOTE | 2024-06-19 19:23 | OP.PCM_ITS ---
Operative Report Date of Procedure: 06/19/24 Surgery/Procedure Date: 19 June 2024 Incision/Procedure Start Time: 1756 Incision Close/Procedure End Time: 1840 (44-minutes) PATIENT: Arnulfo Jack SURGEON: Anant Hua MD PRE-OPERATIVE DIAGNOSIS: Right forearm, wrist, hand volar and dorsal abscesses with septic right wrist joint, s/p initial I&D POST-OPERATIVE DIAGNOSIS: Same PROCEDURE PERFORMED: 1) Second look and irrigation and wash out of incisions, including Parona's space and Carpal Tunnel 2) Arthrotomy right wrist, dorsal approach, for repeat wash out of septic right wrist joint (CPT: 50654) OPERATIVE FINDINGS: * No new abscess cavities. The wound was irrigated with copious amounts normal saline. 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 On CT scan there were multiple volar abscesses and a dorsal abscess around the wrist. He had pain with axial loading within the wrist joint and hot/red and swollen overlying volar wrist soft tissue. I took him to the OR for CT release, parona's space abscess drainage, and joint wash out on 18 Jun 2024 (yesterday). Given severity and infection I decided to take him for second look today. I talked the patient extensively about the risks of surgery, including bleeding (taking his factor IX in preparation for surgery), infection, damage to surrounding structures, surgical site dehiscence and wound formation, need for wound care, need for repeat operations, failure to obtain the desired result, DVT/PE, and the risks of anesthesia including . All of their questions were answered, and they agreed to proceed with surgery. OPERATIVE DETAILS: Patient was correctly identified in preoperative holding and taken back to the operating room where he was administered general anesthesia. He was prepped and draped in sterile fashion on the right upper extremity and a tourniquet was applied on the right arm. All proper timeouts were performed. His arm was elevated and his radial and ulnar arteries were occluded for 30 seconds just proximal to the planned operative site, and then the tourniquet was inflated to 250 mmHg. The previous incisions were opened up with scissors used to cut out the suture and remove the packing and the drain. There was a small amount of serous fluid at the base of all the wounds but there was no purulence today. The deep Parona space was entered through gentle blunt dissection and was washed out with 3 L of normal saline as well as the carpal tunnel. These areas were gently probed and there were no signs of undrained abscess cavities on the volar surface of the wrist or the carpal bones into the hand. 250 cc of Irrisept was also irrigated into these locations. Attention was then turned to the dorsum of the wrist where the dorsal approach was used again to enter the radiocarpal joint. The carpal bones were visualized and appeared viable, with robust hard bone and no signs of sequestrum. The joint did not appear to have any purulence in it at this time. It was washed out again with copious amounts normal saline (3 L) and then 250 cc of Irrisept. The tourniquet was let down and tourniquet time was 1759 to 1821. Hemostasis was obtained with bipolar electrocautery and there was minimal bleeding at this point. 10 cc of 1% lidocaine with epinephrine was used for local block. Drains were placed into Parona space and the radiocarpal joint (quarter inch [place] drains in both locations), and sutured into place. A volar flap over the wrist was advanced and loosely tacked with interrupted 3-0 nylon suture to cover the median nerve. The couple other loose 3-0 nylon sutures were applied but significant amounts of half-inch iodoform packing was then packed in the intervening areas to keep the incisions open. The patient tolerated the procedure well. He was awakened and taken the PACU in stable condition. EBL: 20 cc Anesthesia: General And local ASA: 2E IVF: 1 L of normal saline UOP: Unmeasured no Brown Transfusions: None POST-OPERATIVE PLAN: Patient will return to the floor for 3 times daily Dial soap soaks and strict elevation of his right upper extremity. Follow-up ID recommendations for cultures. No plan trips to the OR tomorrow as it appears we have source control (clinical improvement with regards to physical exam and no identifiable pockets of purulence on today's trip to the OR).
[2024-06-19 21:36] LABS: Bedside Glucose 131 mg/dL (74-106)
[2024-06-20] VITALS (8 sets, daily range): BP systolic 134–151; BP diastolic 78–94; PULSE 79–89; RESP 16–18; TEMP 36.6–37.4; O2SAT 95–97; BMI 29.1
[2024-06-20] MEDS: Cefepime HCl 2 GM in 0.9% Normal Saline (100mL MB+) 100 ML IV ×2 (05:15→13:06)
[2024-06-20 07:07] LABS: Bedside Glucose 100 mg/dL (74-106)
[2024-06-20 07:40] LABS: Absolute Lymphocyte Count 1.29 X10^3/uL (0.83-4.51); Absolute Neutrophil Count 5.3 X10^3/uL (2.0-7.7); Basophil# 0.05 X10^3/uL; Basophil% 0.7 % (0-1); Eosinophils% 1.3 % (0-5); Hematocrit 37.9 % (40-54); Hemoglobin 12.2 g/dL (13.0-16.5); Lymphocyte # 1.29 X10^3/ul (0.83-4.51); Lymphocyte % 16.9 % (19-41); Mean Corp Hgb Conc 32.2 g/dL (32-36); Mean Corpuscular Hgb 27.7 pg (27.0-32.0); Mean Corpuscular Volume 85.9 fL (80-94); Mean Platelet Vol. 9.8 fl (6.2-12.0); Monocyte# 0.86 X10^3/uL; Monocyte% 11.3 % (0-10); NRBC Flagged by Analyzer 0 % (0-5); Neutrophil # 5.29 X10^3/uL (2.7-7.7); Neutrophil % 69.4 % (47-70); Platelet Count 255 K/mm3 (150-450); RBC Distribution Width CV 13.2 % (11.6-14.6); RBC Distribution Width SD 41.3 fl (35.1-43.9); Red Blood Count 4.41 M/mm3 (4.6-6.2); White Blood Count 7.6 K/mm3 (4.4-11.0)
--- NOTE | 2024-06-20 07:44 | PN.SURG_ITS ---
Subjective Subjective VSS, WBC 7.6 (normalized). Doing well this morning with soaks, pain controlled except for when he is doing the soaks (slept 7 hours last night continuously with arm elevated). I answered all his questions about surgery while on rounds this morning and his family has been updated. Objective Data Objective Data Vital Signs: Vital Signs Temp Pulse Resp BP Pulse Ox O2 Del Method O2 Flow Rate 98.3 F 79 16 139/80 H 95 Room Air 3 06/20/24 05:10 06/20/24 05:10 06/20/24 05:10 06/20/24 05:10 06/20/24 05:10 06/20/24 05:10 06/19/24 19:30 Oxygen Flow Rate (L/min) 3 Oxygen Delivery Method Room Air Weight: 191 lb 12.835 oz Body Mass Index (BMI) 29.1 Intake & Output: Intake and Output for Last 24 Hours 06/18/24 06/19/24 06/20/24 23:59 23:59 23:59 Intake Total 275 / 275 3820 / 3820 100 / 100 Output Total 0 / 0 Balance 275 / 275 3820 / 3820 100 / 100 Lab / Micro Data 06/20/24 07:22 06/19/24 06:11 Labs: Laboratory Results - last 24 hr 06/19/24 06:11: Sodium 136, Potassium 4.4, Chloride 106, Carbon Dioxide 26.0, A nion Gap 4 L, BUN 13, Creatinine 0.98, Estim Creat Clear Calc 69.02, Est GFR (MDRD) Af Amer 96, Est GFR (MDRD) Non-Af 79, BUN/Creatinine Ratio 13.3, Glucose 143 H, Hemoglobin A1c 7.0 H, Calcium 9.2, Total Bilirubin 0.70, AST 14 L, ALT 17, Alkaline Phosphatase 46, Total Protein 6.8, Albumin 2.6 L, Globulin 4.2, A lbumin/Globulin Ratio 0.6 L 06/19/24 11:38: POC Glucose 119 H 06/19/24 14:59: POC Glucose 119 H 06/19/24 15:38: POC Glucose 110 H 06/19/24 21:15: POC Glucose 131 H 06/20/24 06:38: POC Glucose 100 06/20/24 07:22: WBC 7.6, RBC 4.41 L, Hgb 12.2 L, Hct 37.9 L, MCV 85.9, MCH 27.7, MCHC 32.2, RDW Std Deviation 41.3, RDW Coeff of Parker 13.2, Plt Count 255, MPV 9.8, Immature Gran % (Auto) 0.400, Neut % (Auto) 69.4, Lymph % (Auto) 16.9 L, M lian % (Auto) 11.3 H, Eos % (Auto) 1.3, Baso % (Auto) 0.7, Absolute Neuts (auto) 5.3, Absolute Lymphs (auto) 1.29, Nucleated RBC % 0 Micro: Microbiology 06/18/24 Unknown Incision/Surgical Site Gram Stain - Final 06/18/24 Unknown Incision/Surgical Site Gram Stain - Final 06/18/24 Unknown Tissue - Incision site Gram Stain - Final 06/18/24 Unknown Incision/Surgical Site Gram Stain - Final Physical Exam Narrative Right upper extremity Doing a soak at the time of exam. No purulent drainage from the incisions today. Persistent redness over the volar wrist flap, but no purulence. He has less pain with axial loading of the wrist and no pain with axial loading of the thumb base. He has pain with active flexor tendon excursion, but no pain with passive flexor tendon excursion. Vascular: Fingers warm well-perfused with less than 2-second capillary refill Sensory: Same sensory exam as preop, numbness on the radial side of the right thumb, but no new onset numbness. Sensation to light touch intact otherwise in the median nerve distribution. Motor: He is able to fire the thenar muscles (recurrent branch of median intact) Assessment & Plan Assessment/Plan (1) Abscess of skin of right wrist: PLAN: OK for diet today No plans for further surgery at this time Continue TID dial soap soaks. PSU will remove packing from wounds later today at the second Soak F/u cultures from the OR (NGTD). Agree with ID consultation and continued broad- spectrum antibiotics. (2) Septic arthritis of wrist, right: Charges/Coding Procedures Integumentary [id number]: [id number] Global Visit
[2024-06-20] MEDS: Lactated Ringers 1,000 ML 75 ML IV ×2 (08:43→22:23)
[2024-06-20 09:18] LABS: Anion Gap 8 (5-15); BUN 12 mg/dL (7-18); BUN/Creat Ratio 10.4 RATIO (10-20); Calcium,Total 9.5 mg/dL (8.5-10.1); Chloride 103 mmol/L (98-107); Creatinine, Serum 1.15 mg/dL (0.70-1.30); EST Glomerular Filtration Rate 66 mL/min (>60); Est Glom Filt Rate - Afr Amer 80 mL/min (>60); Estimated Creatinine Clearance 59.54 ml/min; Glucose 185 mg/dL (74-106); Potassium 3.9 mmol/L (3.5-5.1); Sodium Level 134 mmol/L (136-145)
[2024-06-20 10:03] LABS: Vancomycin, Trough Level 14.5 ug/mL (5.0-15.0)
--- NOTE | 2024-06-20 10:12 | PCM.RX.CS ---
Consult Antibiotic Management Pharmacy has been consulted to manage selected antibiotic: Vancomycin Type of Intervention Type of Consult: Follow-up Suspected Infection Suspected Infection: Other (WRIST ABSCESS) Prior Doses of Antibiotics Prior Doses of Antibiotics Received/Current Regimen: Vancomycin 1000 mg IV Q12H last dose given 06/19 @ 2116 Labs Labs: Sodium 134 mmol/L (136-145) L 06/20/24 07:22 Potassium 3.9 mmol/L (3.5-5.1) 06/20/24 07:22 Chloride 103 mmol/L (98-107) 06/20/24 07:22 Carbon Dioxide 23.0 mmol/L (21.0-32.0) 06/20/24 07:22 Anion Gap 8 (5-15) 06/20/24 07:22 BUN 12 mg/dL (7-18) 06/20/24 07:22 Creatinine 1.15 mg/dL (0.70-1.30) 06/20/24 07:22 Est GFR (MDRD) Af Amer 80 mL/min (>60) 06/20/24 07:22 Est GFR (MDRD) Non-Af 66 mL/min (>60) 06/20/24 07:22 BUN/Creatinine Ratio 10.4 RATIO (10-20) 06/20/24 07:22 Glucose 185 mg/dL (74-106) H 06/20/24 07:22 Vancomycin Trough 14.5 ug/mL (5.0-15.0) 06/20/24 07:22 Microbiology Microbiology: Microbiology 06/18/24 Unknown Incision/Surgical Site Gram Stain - Final 06/18/24 Unknown Incision/Surgical Site Anaerobic Culture - Preliminary Checking for anaerobes, further studies to follow. 06/18/24 Unknown Incision/Surgical Site Gram Stain - Final 06/18/24 Unknown Incision/Surgical Site Anaerobic Culture - Preliminary Checking for anaerobes, further studies to follow. 06/18/24 Unknown Incision/Surgical Site Gram Stain - Final 06/18/24 Unknown Tissue - Incision site Gram Stain - Final Dosing Weight Weight used for dosin kg Estimated Creatinine Clearance Estimated Creatinine Clearance: ~60 Goal Trough Goal Trough: 15-20 mcg/mL Pharmacy Plan for Drug Dosing Pharmacy Plan for Drug Dosing: Vancomycin trough draw 10 hours after last dose = 14.5, increase to 1250 mg Q12H, trough prior to 4th dose of new regimen. Pharmacy Service will continue to monitor and adjust dosing as required. Follow-Up Labs Follow-Up Labs: Trough: Vancomycin Date/Time Labs Ordered Labs to be done on [date and time ordered]: 06/21/24 @ 8061
[2024-06-20] MEDS: Pantoprazole Sodium 40 MG Tablet PO ×2 (10:15→21:16)
[2024-06-20] MEDS: Losartan Potassium 50 MG Tablet PO (10:15)
[2024-06-20] MEDS: Vancomycin HCl 1,250 MG in 0.9% Normal Saline (250mL Bag) 250 ML 167 MG IV ×2 (10:30→22:23)
[2024-06-20 11:58] LABS: Bedside Glucose 154 mg/dL (74-106)
--- NOTE | 2024-06-20 13:33 | PCM.PN.ID ---
Physical Exam Narrative Feeling better, hand improved, no fever, no n/v/d. Const alert and no apparent distress General Appearance: cooperative Resp normal air movement and clear to auscultation bilaterally Cardio regular rate and regular rhythm GI soft to palpation, non-tender and non-distended Skin Skin Narrative: R hand wrapped ID ID: Route of nutrition/ use of supplements: [] Nutritional Intake: [] IV Site: [] Brown Catheter: [] Assessment & Plan Assessment/Plan (1) Septic arthritis of wrist, right: PLAN: Now s/p I&D by Dr. Hua 06/18/24 and recheck in OR 06/19/24. Surg cx now with staph aureus in 3 samples. On empiric vanc/cefepime. Will narrow to vanc/cefazolin. Will follow (2) Abscess of skin of right wrist:
[2024-06-20] MEDS: [UNRECOGNIZED DRUG - OTHER] 8000 UNITS IV (13:38)
--- NOTE | 2024-06-20 13:41 | PCM.PN.HOSP ---
Reason for Visit Reason for Visit: Right wrist pain and erythema Subjective Subjective Patient states his pain is well-controlled as long as he is at rest. He does get increasing pain when he tries to move his hand or his arm. As long as his arm is elevated he states he is feeling okay and his pain is well-controlled. No bowel movement as of yet. He would like to try to day and see if he has 1 if not we can start bowel regimen tomorrow. We did discuss that constipation is a side effect of the pain medication. Objective Data Objective Data Vital Signs: Vital Signs Temp Pulse Resp BP Pulse Ox O2 Del Method O2 Flow Rate 98.0 F 79 18 134/80 H 96 Room Air 3 06/20/24 10:11 06/20/24 10:11 06/20/24 10:11 06/20/24 10:11 06/20/24 10:11 06/20/24 10:11 06/19/24 19:30 Oxygen Flow Rate (L/min) 3 Oxygen Delivery Method Room Air Weight: 87 kg Body Mass Index (BMI) 29.1 Intake & Output: Intake and Output for Last 24 Hours 06/18/24 06/19/24 06/20/24 23:59 23:59 23:59 Intake Total 275 / 275 3820 / 3820 1950 / 1950 Output Total 0 / 0 Balance 275 / 275 3820 / 3820 1950 / 1950 Lab / Micro Data 06/20/24 07:22 06/20/24 07:22 Labs: Laboratory Results - last 24 hr 06/19/24 14:59: POC Glucose 119 H 06/19/24 15:38: POC Glucose 110 H 06/19/24 21:15: POC Glucose 131 H 06/20/24 06:38: POC Glucose 100 06/20/24 07:22: WBC 7.6, RBC 4.41 L, Hgb 12.2 L, Hct 37.9 L, MCV 85.9, MCH 27.7, MCHC 32.2, RDW Std Deviation 41.3, RDW Coeff of Parker 13.2, Plt Count 255, MPV 9.8, Immature Gran % (Auto) 0.400, Neut % (Auto) 69.4, Lymph % (Auto) 16.9 L, [place] % (Auto) 11.3 H, Eos % (Auto) 1.3, Baso % (Auto) 0.7, Absolute Neuts (auto) 5.3, Absolute Lymphs (auto) 1.29, Nucleated RBC % 0, Sodium 134 L, Potassium 3.9, Chloride 103, Carbon Dioxide 23.0, Anion Gap 8, BUN 12, Creatinine 1.15, Estim Creat Clear Calc 59.54, Est GFR (MDRD) Af Amer 80, Est GFR (MDRD) Non-Af 66, BUN/Creatinine Ratio 10.4, Glucose 185 H, Calcium 9.5, Vancomycin Trough 14.5 06/20/24 11:39: POC Glucose 154 H Micro: Microbiology 06/18/24 Unknown Incision/Surgical Site Gram Stain - Final 06/18/24 Unknown Incision/Surgical Site Wound Culture - Preliminary Staphylococcus aureus 06/18/24 Unknown Incision/Surgical Site Anaerobic Culture - Preliminary Checking for anaerobes, further studies to follow. 06/18/24 Unknown Incision/Surgical Site Gram Stain - Final 06/18/24 Unknown Incision/Surgical Site Wound Culture - Preliminary Staphylococcus species 06/18/24 Unknown Incision/Surgical Site Gram Stain - Final 06/18/24 Unknown Incision/Surgical Site Wound Culture - Preliminary Staphylococcus aureus 06/18/24 Unknown Incision/Surgical Site Anaerobic Culture - Preliminary Checking for anaerobes, further studies to follow. 06/18/24 Unknown Tissue - Incision site Gram Stain - Final Physical Exam Const alert, oriented x3, no apparent distress, average body habitus, healthy appearing and well nourished Constitutional Narrative: Pleasant, older, white male, lying in bed, appears younger than stated age, at bedside, does not toxic HEENT head/scalp atraumatic and moist oral mucous membranes Head and Scalp: normocephalic Resp normal respiratory effort, no retractions, no use of accessory muscles and clear to auscultation bilaterally Auscultation: Negative for rales, rhonchi or wheezes Cardio regular rate, regular rhythm, S1 normal heart sound, S2 normal heart sound, no murmurs, no rub, no gallops and no clicks GI normal to inspection, nondistended, normoactive bowel sounds, soft to palpation and non-tender Extremity Extremity Narrative: Right upper extremity with Joselo bandage and postoperative dressing in place, arm is elevated, cap refill is good in right hand but patient with increased pain moving his fingers, no cyanosis or clubbing noted, no edema noted in any other extremities. Neuro oriented x3 and no focal motor deficits Speech: speech normal Psych affect normal Psych Narrative: Very pleasant, interacts appropriately Assessment & Plan Assessment/Plan (1) Cellulitis: (2) Abscess of skin of right wrist: (3) Septic arthritis of wrist, right: (4) Deep palmar space infection: PLAN: Plan Right upper extremity septic wrist joint/cellulitis/deep space tissue abscesses secondary to Staph aureus -Postop day 2 right carpal tunnel release/decompressive fasciotomy/I&D/right wrist arthrotomy -Postop day 1 second look irrigation and washout with right wrist arthrotomy -No new abscesses identified and bones do not appear to have any osteomyelitis at this time -No current plans for repeat surgery -Antibiotics were narrowed by ID to Ancef and Vanco -Will narrow further over the weekend depending on sensitivities -Wound care following -N.p.o. 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 -Plan is for 8000 units of recombinant factor IX 1 hour preoperatively, 20 hours postoperatively and daily for 5 days postoperatively -Patient to receive first postoperative dose today and then will receive 5 subsequent doses daily to follow -[facility] ([phone])--> to call with any questions -Outpatient follow-up per previous instruction after discharge History of hepatitis C -Was treated and resolved GERD -Continue home PPI Essential hypertension -Continue home medication -As needed hydralazine available for systolic blood pressure greater than 160 DVT prophylaxis -SCDs -Encourage frequent and early ambulation postoperatively as able CODE STATUS -Full code as verified on admission Charges/Coding Visit Charges Inpatient E&M: 09854 Subs Hosp L2
[2024-06-20] MEDS: oxyCODONE 5 MG Tablet PO ×2 (14:02→22:19)
--- NOTE | 2024-06-20 14:18 | WOUNDNOTE ---
Pt soaking right hand and wrist in warm soapy water with Dial and Chlorahexadine per Dr Hua's request. EDER Watkins to assess after soak. packing to be removed and new dressing to be applied. family present in room. nursing medicated patient with Oxycodone.
[2024-06-20] MEDS: Cefazolin 2 GM in 0.9% Normal Saline (100mL Bag) 100 ML IV ×2 (14:28→21:15)
[2024-06-20] MEDS: Senna/Docusate Sodium 1 Tablet 2 TABLET PO (16:24)
[2024-06-20 16:51] LABS: Bedside Glucose 155 mg/dL (74-106)
[2024-06-20] MEDS: Glucerna Shake 120 ML LIQUID PO (17:02)
[2024-06-20] MEDS: Insulin Lispro 100 UNIT/ML INSULN.PEN SC (21:15)
[2024-06-20] MEDS: Acetaminophen 325 MG Tablet 650 MG PO (22:19)
[2024-06-20 23:57] LABS: Bedside Glucose 206 mg/dL (74-106)
[2024-06-21] VITALS (9 sets, daily range): BP systolic 116–177; BP diastolic 69–119; PULSE 64–89; RESP 16–18; TEMP 36.3–37.3; O2SAT 94–98; BMI 28.9
[2024-06-21] MEDS: Cefazolin 2 GM in 0.9% Normal Saline (100mL Bag) 100 ML IV ×3 (06:35→21:04)
[2024-06-21 06:57] LABS: Bedside Glucose 115 mg/dL (74-106)
--- NOTE | 2024-06-21 07:41 | PCM.PN.SRG ---
Subjective Subjective Interval 24 Hours: VSS. Sugars from 100 to 220 (received 2u from SS). A1c was 7(Type 2 DM). Infectious disease following and narrowed Abx to Ancef and Vanc since cultures growing Staphlococcus spp. Current Encounter, Rounds 7 Jun 2024: Doing well this morning with soaks (tolerated packing change), pain controlled except for when he is doing the soaks. Objective Data Objective Data Vital Signs: Vital Signs Temp Pulse Resp BP Pulse Ox O2 Del Method O2 Flow Rate 97.3 F L 68 16 116/69 94 Room Air 3 06/21/24 03:05 06/21/24 03:05 06/21/24 03:05 06/21/24 03:05 06/21/24 03:05 06/21/24 03:05 06/19/24 19:30 Oxygen Flow Rate (L/min) 3 Oxygen Delivery Method Room Air Weight: 190 lb 4.143 oz Body Mass Index (BMI) 28.9 Intake & Output: Intake and Output for Last 24 Hours 06/19/24 06/20/24 06/21/24 23:59 23:59 23:59 Intake Total 3820 / 3820 3750 / 4250 1025 / 1025 Output Total 0 / 0 Balance 3820 / 3820 3750 / 4250 1025 / 1025 Lab / Micro Data 06/20/24 07:22 06/20/24 07:22 Labs: Laboratory Results - last 24 hr 06/20/24 07:22: WBC 7.6, RBC 4.41 L, Hgb 12.2 L, Hct 37.9 L, MCV 85.9, MCH 27.7, MCHC 32.2, RDW Std Deviation 41.3, RDW Coeff of Parker 13.2, Plt Count 255, MPV 9.8, Immature Gran % (Auto) 0.400, Neut % (Auto) 69.4, Lymph % (Auto) 16.9 L, [place] % (Auto) 11.3 H, Eos % (Auto) 1.3, Baso % (Auto) 0.7, Absolute Neuts (auto) 5.3, Absolute Lymphs (auto) 1.29, Nucleated RBC % 0, Sodium 134 L, Potassium 3.9, Chloride 103, Carbon Dioxide 23.0, Anion Gap 8, BUN 12, Creatinine 1.15, Estim Creat Clear Calc 59.54, Est GFR (MDRD) Af Amer 80, Est GFR (MDRD) Non-Af 66, BUN/Creatinine Ratio 10.4, Glucose 185 H, Calcium 9.5, Vancomycin Trough 14.5 06/20/24 11:39: POC Glucose 154 H 06/20/24 16:24: POC Glucose 155 H 06/20/24 21:00: POC Glucose 206 H 06/21/24 06:30: POC Glucose 115 H Micro: Microbiology 06/18/24 16:58 Blood Culture (Wb) - Anticubital Left Blood Culture - Preliminary No growth in 48 hours. 06/18/24 Unknown Incision/Surgical Site Gram Stain - Final 06/18/24 Unknown Incision/Surgical Site Wound Culture - Preliminary Staphylococcus aureus 06/18/24 Unknown Incision/Surgical Site Anaerobic Culture - Preliminary Checking for anaerobes, further studies to follow. 06/18/24 Unknown Incision/Surgical Site Gram Stain - Final 06/18/24 Unknown Incision/Surgical Site Wound Culture - Preliminary Staphylococcus species 06/18/24 Unknown Incision/Surgical Site Gram Stain - Final 06/18/24 Unknown Incision/Surgical Site Wound Culture - Preliminary Staphylococcus aureus 06/18/24 Unknown Incision/Surgical Site Anaerobic Culture - Preliminary Checking for anaerobes, further studies to follow. 06/18/24 Unknown Tissue - Incision site Gram Stain - Final Physical Exam Narrative Right upper extremity Dressings removed and started soak. No purulent drainage from the incisions today. Persistent redness over the volar wrist flap is improving. No skin necrosis. Improved exam with regards to pain with axial loading of the wrist (not as painful today) and no pain with axial loading of the thumb base. He has pain with active flexor tendon excursion, but no pain with passive flexor tendon excursion. No pain in the palm or over the A1 pulleys or T1 Benjamin. Vascular: Fingers warm well-perfused with less than 2-second capillary refill Sensory: Same sensory exam as preop, numbness on the radial side of the right thumb, but no new onset numbness. Sensation to light touch intact otherwise in the median nerve distribution. Motor: He is able to fire the thenar muscles (recurrent branch of median intact) Eyes EOMs intact bilaterally Lymph Lymphatic: no lymphadenopathy noted Resp normal respiratory effort Cardio regular rate and regular rhythm Extremity Extremity Narrative: SCDs on and activated Assessment & Plan Assessment/Plan (1) Deep palmar space infection: (2) Septic arthritis of wrist, right: (3) Abscess of skin of right wrist: PLAN: OK for diet today No plans for further surgery at this time Continue TID dial soap soaks. F/u cultures from the OR (Staphylococcus). Agree with ID consultation (Ancef and Vancomycin). Continue to maintain tight glucose control for wound healing and infectious control. Discussed with nursing. We will pack wounds with Kerlix and Dakins soaks after every Dial Soap Soak of the right hand/wrist. Continue drains. (4) Hemophilia B: PLAN: Patient received 8000 units of recombinant factor IX 1 hour preoperatively, then 20 hours postoperatively and will continue it daily for 5 days postoperatively (post op day 3 today from initial surgery). -Patient to receive second postoperative dose today (from second surgery) and then will receive subsequent doses daily to follow for total of 5 days post op in the setting of his bleeding diathesis. Charges/Coding Procedures Integumentary [id number]: [id number] Global Visit
[2024-06-21] MEDS: Vancomycin HCl 1,250 MG in 0.9% Normal Saline (250mL Bag) 250 ML 167 MG IV ×2 (09:07→23:06)
[2024-06-21] MEDS: Pantoprazole Sodium 40 MG Tablet PO ×2 (09:14→21:03)
[2024-06-21] MEDS: Losartan Potassium 50 MG Tablet PO (09:14)
[2024-06-21] MEDS: DAKIN'S SOL HALF STRENGTH (=0.25%) TOPICAL ×3 (09:39→21:04)
[2024-06-21] MEDS: hydrALAZINE 20 MG/ML Vial 10 MG IV (10:57)
[2024-06-21] MEDS: Lactated Ringers 1,000 ML 75 ML IV (12:22)
[2024-06-21] MEDS: Insulin Lispro 100 UNIT/ML INSULN.PEN SC ×3 (12:29→21:04)
[2024-06-21] MEDS: Senna/Docusate Sodium 1 Tablet 2 TABLET PO (12:31)
--- NOTE | 2024-06-21 13:48 | PCM.PN.HOSP ---
Reason for Visit Reason for Visit: Right wrist pain/erythema Subjective Subjective Patient states his pain is about the same, no issues overnight. Getting ready to take a shower. Blood pressure was up and as needed dose of hydralazine given. Objective Data Objective Data Vital Signs: Vital Signs Temp Pulse Resp BP Pulse Ox O2 Del Method O2 Flow Rate 99.1 F 89 18 148/84 H 98 Room Air 3 06/21/24 09:11 06/21/24 10:57 06/21/24 09:11 06/21/24 12:50 06/21/24 09:11 06/21/24 09:11 06/19/24 19:30 Oxygen Flow Rate (L/min) 3 Oxygen Delivery Method Room Air Weight: 86.3 kg Body Mass Index (BMI) 28.9 Intake & Output: Intake and Output for Last 24 Hours 06/19/24 06/20/24 06/21/24 23:59 23:59 23:59 Intake Total 3820 / 3820 3750 / 4250 2410 / 2410 Output Total 0 / 0 Balance 3820 / 3820 3750 / 4250 2410 / 2410 Lab / Micro Data 06/20/24 07:22 06/20/24 07:22 Labs: Laboratory Results - last 24 hr 06/20/24 16:24: POC Glucose 155 H 06/20/24 21:00: POC Glucose 206 H 06/21/24 06:30: POC Glucose 115 H Micro: Microbiology 06/18/24 Unknown Tissue - Incision site Gram Stain - Final 06/18/24 Unknown Tissue - Incision site Wound Culture - Final No growth aerobically. 06/18/24 Unknown Incision/Surgical Site Gram Stain - Final 06/18/24 Unknown Incision/Surgical Site Wound Culture - Preliminary Staphylococcus aureus 06/18/24 Unknown Incision/Surgical Site Anaerobic Culture - Preliminary Checking for anaerobes, further studies to follow. 06/18/24 Unknown Incision/Surgical Site Gram Stain - Final 06/18/24 Unknown Incision/Surgical Site Wound Culture - Final Meth. resistant Staph. aureus 06/18/24 Unknown Incision/Surgical Site Anaerobic Culture - Preliminary Checking for anaerobes, further studies to follow. 06/18/24 Unknown Incision/Surgical Site Gram Stain - Final 06/18/24 Unknown Incision/Surgical Site Wound Culture - Final Meth. resistant Staph. aureus 06/18/24 16:58 Blood Culture (Wb) - Anticubital Left Blood Culture - Preliminary No growth in 48 hours. Physical Exam Const alert, oriented x3, no apparent distress, average body habitus, healthy appearing and well nourished Constitutional Narrative: Pleasant, older, white male, lying in bed, appears younger than stated age, at bedside, does not toxic, nursing at bedside helping patient get ready for shower HEENT head/scalp atraumatic and moist oral mucous membranes Head and Scalp: normocephalic Resp normal respiratory effort, no retractions, no use of accessory muscles and clear to auscultation bilaterally Auscultation: Negative for rales, rhonchi or wheezes Cardio regular rate, regular rhythm, S1 normal heart sound, S2 normal heart sound, no murmurs, no rub, no gallops and no clicks GI normal to inspection, nondistended, normoactive bowel sounds, soft to palpation and non-tender Extremity Extremity Narrative: Right upper extremity with Joselo bandage and postoperative dressing in place, arm is elevated, cap refill is good in right hand, no cyanosis or clubbing Neuro oriented x3 and no focal motor deficits Speech: speech normal Psych affect normal Psych Narrative: Very pleasant, interacts appropriately Assessment & Plan Assessment/Plan (1) Cellulitis: (2) Abscess of skin of right wrist: (3) Septic arthritis of wrist, right: (4) Deep palmar space infection: PLAN: Plan Right upper extremity septic wrist joint/cellulitis/deep space tissue abscesses secondary to MRSA -Postop day 3 right carpal tunnel release/decompressive fasciotomy/I&D/right wrist arthrotomy -Postop day 2 second look irrigation and washout with right wrist arthrotomy -MRSA on cultures but will continue Ancef and vancomycin for now until cultures are finalized--> will likely transition off Ancef if finalized cultures continuation -Wound care following -N.p.o. 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 -Plan is for 8000 units of recombinant factor IX 1 hour preoperatively, 20 hours postoperatively and daily for 5 days postoperatively -Patient is currently on his first of 5 doses for surgical follow-up dosing -[facility] ([phone])--> to call with any questions -Outpatient follow-up per previous instruction after discharge History of hepatitis C -Was treated and resolved GERD -Continue home PPI Essential hypertension -Continue losartan but increase from 50 to 75 mg as he is requiring intermittent as needed hydralazine and blood pressures are overall elevated -As needed hydralazine available for systolic blood pressure greater than 160 DVT prophylaxis -SCDs -Will add enoxaparin 40 mg daily if okay with plastic surgery CODE STATUS -Full code as verified on admission Charges/Coding Visit Charges Inpatient E&M: 65700 Subs Hosp L2
[2024-06-21] MEDS: Polyethylene Glycol 3350 17 GM PACKET PO (14:48)
[2024-06-21] MEDS: [UNRECOGNIZED DRUG - OTHER] 8000 UNITS IV (14:49)
--- NOTE | 2024-06-21 16:08 | EKG12_ITS ---
Test Reason : Blood Pressure : / mmHG Vent. Rate : 091 BPM Atrial Rate : 091 BPM P-R Int : 124 ms QRS Dur : 084 ms QT Int : 358 ms P-R-T Axes : 035 017 044 degrees QTc Int : 440 ms Sinus rhythm with Premature supraventricular complexes and with occasional Premature ventricular comp lexes Cannot rule out Anterior infarct , age undetermined Abnormal ECG No previous ECGs available Confirmed by PEEWEE STEIN, SANDRA ([id number]), health editor CATHLEEN BURCIAGA ([id number]) on 06/23/2024 2:52:06 PM Referred By: LIEN Confirmed By:SANDRA VIDES MD
[2024-06-21 16:44] LABS: Bedside Glucose 200 mg/dL (74-106)
[2024-06-21 17:02] LABS: Bedside Glucose 177 mg/dL (74-106)
[2024-06-21] MEDS: Glucerna Shake 120 ML LIQUID PO (18:58)
[2024-06-21] MEDS: 0.9% Saline Lock 10 ML Syringe IV (21:04)
[2024-06-21] MEDS: Acetaminophen 325 MG Tablet 650 MG PO (21:07)
[2024-06-21] MEDS: oxyCODONE 5 MG Tablet PO (21:07)
[2024-06-21 22:21] LABS: Vancomycin, Trough Level 17.7 ug/mL (5.0-15.0)
--- NOTE | 2024-06-21 22:31 | PCM.RX.CS ---
Consult Antibiotic Management Pharmacy has been consulted to manage selected antibiotic: Vancomycin Type of Intervention Type of Consult: Follow-up Suspected Infection Suspected Infection: Other Labs Labs: Sodium 134 mmol/L (136-145) L 06/20/24 07:22 Potassium 3.9 mmol/L (3.5-5.1) 06/20/24 07:22 Chloride 103 mmol/L (98-107) 06/20/24 07:22 Carbon Dioxide 23.0 mmol/L (21.0-32.0) 06/20/24 07:22 Anion Gap 8 (5-15) 06/20/24 07:22 BUN 12 mg/dL (7-18) 06/20/24 07:22 Creatinine 1.15 mg/dL (0.70-1.30) 06/20/24 07:22 Est GFR (MDRD) Af Amer 80 mL/min (>60) 06/20/24 07:22 Est GFR (MDRD) Non-Af 66 mL/min (>60) 06/20/24 07:22 BUN/Creatinine Ratio 10.4 RATIO (10-20) 06/20/24 07:22 Glucose 185 mg/dL (74-106) H 06/20/24 07:22 Vancomycin Trough 17.7 ug/mL (5.0-15.0) H 06/21/24 21:45 Microbiology Microbiology: Microbiology 06/18/24 Unknown Tissue - Incision site Gram Stain - Final 06/18/24 Unknown Tissue - Incision site Wound Culture - Final No growth aerobically. 06/18/24 Unknown Incision/Surgical Site Gram Stain - Final 06/18/24 Unknown Incision/Surgical Site Wound Culture - Preliminary Staphylococcus aureus 06/18/24 Unknown Incision/Surgical Site Anaerobic Culture - Preliminary Checking for anaerobes, further studies to follow. 06/18/24 Unknown Incision/Surgical Site Gram Stain - Final 06/18/24 Unknown Incision/Surgical Site Wound Culture - Final Meth. resistant Staph. aureus 06/18/24 Unknown Incision/Surgical Site Anaerobic Culture - Preliminary Checking for anaerobes, further studies to follow. 06/18/24 Unknown Incision/Surgical Site Gram Stain - Final 06/18/24 Unknown Incision/Surgical Site Wound Culture - Final Meth. resistant Staph. aureus 06/18/24 16:58 Blood Culture (Wb) - Anticubital Left Blood Culture - Preliminary No growth in 48 hours. Goal Trough Goal Trough: 15-20 mcg/mL Pharmacy Plan for Drug Dosing Pharmacy Plan for Drug Dosing: VANCOMYCIN LEVEL RECEIVED Current Vancomycin Dose: 1250mg q12h (10,22) Number of Doses Received: x3 of current dose Vancomycin Level: 17.7 (drawn at 2145 on 06/21) Hours Since Last Dose: 12.5 hours since last 1250mg dose on 06/21 at 0907 Renal Function: SrCr 1.15 Renal Function Trend: SrCr currently stable Lab/Micro: Vancomycin Plan/Comments: resulted trough of 17.7 is within the ordered goal trough range of 15-20. recommend continuing current dose of 1250mg q12h and checking a trough prior to the 4th dose Pending Level: 06/23/24 at 0930 Pharmacy Service will continue to monitor and adjust dosing as required. Follow-Up Labs Follow-Up Labs: Trough: Vancomycin (06/23/24 at 0930)
[2024-06-21 22:47] LABS: Bedside Glucose 195 mg/dL (74-106)
[2024-06-22 02:57] VITALS: BMI 28.8
[2024-06-22] MEDS: Acetaminophen 325 MG Tablet 650 MG PO ×2 (05:45→20:48)
[2024-06-22] MEDS: Cefazolin 2 GM in 0.9% Normal Saline (100mL Bag) 100 ML IV ×2 (05:45→13:26)
[2024-06-22] MEDS: oxyCODONE 5 MG Tablet PO ×2 (05:45→20:48)
[2024-06-22] MEDS: DAKIN'S SOL HALF STRENGTH (=0.25%) TOPICAL ×3 (05:46→20:49)
[2024-06-22 06:00] VITALS: BP 144/77; PULSE 70; RESP 18; TEMP 36.6; O2SAT 97
[2024-06-22 06:35] LABS: Hemoglobin 10.8 g/dL (13.0-16.5); Mean Corp Hgb Conc 31.8 g/dL (32-36); Mean Corpuscular Hgb 26.9 pg (27.0-32.0); Mean Corpuscular Volume 84.8 fL (80-94); Platelet Count 245 K/mm3 (150-450); RBC Distribution Width CV 13.2 % (11.6-14.6); RBC Distribution Width SD 40.8 fl (35.1-43.9); Red Blood Count 4.01 M/mm3 (4.6-6.2)
[2024-06-22 06:53] LABS: Anion Gap 5 (5-15); BUN 14 mg/dL (7-18); BUN/Creat Ratio 13.5 RATIO (10-20); Calcium,Total 9.1 mg/dL (8.5-10.1); Chloride 108 mmol/L (98-107); Creatinine, Serum 1.04 mg/dL (0.70-1.30); EST Glomerular Filtration Rate 74 mL/min (>60); Est Glom Filt Rate - Afr Amer 90 mL/min (>60); Estimated Creatinine Clearance 65.56 ml/min; Glucose 129 mg/dL (74-106); Potassium 3.6 mmol/L (3.5-5.1); Sodium Level 138 mmol/L (136-145)
--- NOTE | 2024-06-22 06:53 | PCM.PN.SRG ---
Subjective Subjective NAEON. Doing well overall. Reports his pain is improving and ROM is improving. Objective Data Objective Data Vital Signs: Vital Signs Temp Pulse Resp BP Pulse Ox O2 Del Method O2 Flow Rate 97.9 F 84 18 140/80 H 97 Room Air 3 06/21/24 21:15 06/21/24 21:15 06/21/24 21:15 06/21/24 21:15 06/21/24 21:15 06/21/24 21:47 06/19/24 19:30 Oxygen Flow Rate (L/min) 3 Oxygen Delivery Method Room Air Weight: 190 lb 0.615 oz Body Mass Index (BMI) 28.8 Intake & Output: Intake and Output for Last 24 Hours 06/20/24 06/21/24 06/22/24 23:59 23:59 23:59 Intake Total 3750 / 4250 3978.75 / 3978.75 233.8 / 233.8 Balance 3750 / 4250 3978.75 / 3978.75 233.8 / 233.8 Lab / Micro Data 06/22/24 05:30 06/22/24 05:30 Labs: Laboratory Results - last 24 hr 06/21/24 06:30: POC Glucose 115 H 06/21/24 12:28: POC Glucose 200 H 06/21/24 16:39: POC Glucose 177 H 06/21/24 21:02: POC Glucose 195 H 06/21/24 21:45: Vancomycin Trough 17.7 H 06/22/24 05:30: WBC 6.0, RBC 4.01 L, Hgb 10.8 L, Hct 34.0 L, MCV 84.8, MCH 26.9 L, MCHC 31.8 L, RDW Std Deviation 40.8, RDW Coeff of Parker 13.2, Plt Count 245, MPV 10.0, Sodium 138, Potassium 3.6, Chloride 108 H, Carbon Dioxide 25.0, Anion Gap 5, BUN 14, Creatinine 1.04, Estim Creat Clear Calc 65.56, Est GFR (MDRD) Af Amer 90, Est GFR (MDRD) Non-Af 74, BUN/Creatinine Ratio 13.5, Glucose 129 H, Calcium 9.1 Micro: Microbiology 06/18/24 Unknown Tissue - Incision site Gram Stain - Final 06/18/24 Unknown Tissue - Incision site Wound Culture - Final No growth aerobically. 06/18/24 Unknown Incision/Surgical Site Gram Stain - Final 06/18/24 Unknown Incision/Surgical Site Wound Culture - Preliminary Staphylococcus aureus 06/18/24 Unknown Incision/Surgical Site Anaerobic Culture - Preliminary Checking for anaerobes, further studies to follow. 06/18/24 Unknown Incision/Surgical Site Gram Stain - Final 06/18/24 Unknown Incision/Surgical Site Wound Culture - Final Meth. resistant Staph. aureus 06/18/24 Unknown Incision/Surgical Site Anaerobic Culture - Preliminary Checking for anaerobes, further studies to follow. 06/18/24 Unknown Incision/Surgical Site Gram Stain - Final 06/18/24 Unknown Incision/Surgical Site Wound Culture - Final Meth. resistant Staph. aureus 06/18/24 16:58 Blood Culture (Wb) - Anticubital Left Blood Culture - Preliminary No growth in 48 hours. Physical Exam Narrative Right upper extremity Dressings removed and started soak today. No purulent drainage from the incisions. Persistent redness over the volar wrist flap continues to improve. No skin necrosis. Much improved exam with regards to pain with axial loading of the wrist today. He has some pain with active flexor tendon excursion, but no pain with passive flexor tendon excursion. No pain in the palm or over the A1 pulleys or T1 Benjamin. Vascular: Fingers warm well-perfused with less than 2-second capillary refill Sensory: Same sensory exam as preop, numbness on the radial side of the right thumb, but no new onset numbness. Sensation to light touch intact otherwise in the median nerve distribution. Motor: He is able to fire the thenar muscles (recurrent branch of median intact) Eyes EOMs intact bilaterally Lymph Lymphatic: no lymphadenopathy noted Resp normal respiratory effort Cardio regular rate and regular rhythm Extremity Extremity Narrative: SCDs on and activated Assessment & Plan Assessment/Plan (1) Deep palmar space infection: (2) Septic arthritis of wrist, right: (3) Abscess of skin of right wrist: PLAN: OK for diet today No plans for further surgery at this time Continue TID dial soap soaks. Cultures from the OR (Staphylococcus) resulted as MRSA (susceptible to Vancomycin). Agree with ID consultation and continued Vancomycin. Continue to maintain tight glucose control for wound healing and infectious control. Continue to pack wounds with Kerlix and Dakins soaks after every Dial Soap Soak of the right hand/wrist. Continue drains. (4) Hemophilia B: PLAN: Patient received 8000 units of recombinant factor IX one hour preoperatively, then 20 hours postoperatively and will continue it daily for 5 days postoperatively (post op day 3 today from initial surgery). -Patient to receive second postoperative dose today (from second surgery) and then will receive subsequent doses daily to follow for total of 5 days post op in the setting of his bleeding diathesis. Charges/Coding Procedures Integumentary [id number]: 49904 Global Visit
[2024-06-22 07:13] LABS: Bedside Glucose 127 mg/dL (74-106)
[2024-06-22 08:45] VITALS: BP 144/77; PULSE 70; RESP 18; TEMP 36.6; O2SAT 97
[2024-06-22 09:30] VITALS: BP 151/78; PULSE 75; RESP 18; TEMP 36.7; O2SAT 95
[2024-06-22] MEDS: Glucerna Shake 120 ML LIQUID PO ×2 (09:34→17:04)
[2024-06-22] MEDS: Vancomycin HCl 1,250 MG in 0.9% Normal Saline (250mL Bag) 250 ML 167 MG IV ×2 (09:35→21:45)
[2024-06-22] MEDS: Senna/Docusate Sodium 1 Tablet 2 TABLET PO (09:38)
[2024-06-22] MEDS: Losartan Potassium 25 MG Tablet 75 MG PO (09:39)
[2024-06-22] MEDS: Pantoprazole Sodium 40 MG Tablet PO ×2 (09:39→20:48)
[2024-06-22] MEDS: Polyethylene Glycol 3350 17 GM PACKET PO (09:39)
[2024-06-22] MEDS: Insulin Lispro 100 UNIT/ML INSULN.PEN SC ×3 (12:00→20:48)
[2024-06-22 12:20] LABS: Bedside Glucose 206 mg/dL (74-106)
--- NOTE | 2024-06-22 14:18 | PCM.PN.HOSP ---
Reason for Visit Reason for Visit: Right wrist pain/swelling/erythema Subjective Subjective No events overnight. Hand may be feeling a little bit better. Seems like hand range of motion is improving. No bowel movement as of yet however medication was added by plastic surgery to assist with this. Objective Data Objective Data Vital Signs: Vital Signs Temp Pulse Resp BP Pulse Ox O2 Del Method O2 Flow Rate 98.0 F 75 18 151/78 H 95 Room Air 3 06/22/24 09:30 06/22/24 09:30 06/22/24 09:30 06/22/24 09:30 06/22/24 09:30 06/22/24 09:30 06/19/24 19:30 Oxygen Flow Rate (L/min) 3 Oxygen Delivery Method Room Air Weight: 86.2 kg Body Mass Index (BMI) 28.8 Intake & Output: Intake and Output for Last 24 Hours 06/20/24 06/21/24 06/22/24 23:59 23:59 23:59 Intake Total 3750 / 4250 3978.75 / 3978.75 1218.8 / 1218.8 Balance 3750 / 4250 3978.75 / 3978.75 1218.8 / 1218.8 Lab / Micro Data 06/22/24 05:30 06/22/24 05:30 Labs: Laboratory Results - last 24 hr 06/21/24 12:28: POC Glucose 200 H 06/21/24 16:39: POC Glucose 177 H 06/21/24 21:02: POC Glucose 195 H 06/21/24 21:45: Vancomycin Trough 17.7 H 06/22/24 05:30: WBC 6.0, RBC 4.01 L, Hgb 10.8 L, Hct 34.0 L, MCV 84.8, MCH 26.9 L, MCHC 31.8 L, RDW Std Deviation 40.8, RDW Coeff of Parker 13.2, Plt Count 245, MPV 10.0, Sodium 138, Potassium 3.6, Chloride 108 H, Carbon Dioxide 25.0, Anion Gap 5, BUN 14, Creatinine 1.04, Estim Creat Clear Calc 65.56, Est GFR (MDRD) Af Amer 90, Est GFR (MDRD) Non-Af 74, BUN/Creatinine Ratio 13.5, Glucose 129 H, Calcium 9.1 06/22/24 06:53: POC Glucose 127 H 06/22/24 11:59: POC Glucose 206 H Micro: Microbiology 06/18/24 Unknown Incision/Surgical Site Gram Stain - Final 06/18/24 Unknown Incision/Surgical Site Wound Culture - Final Meth. resistant Staph. aureus 06/18/24 Unknown Incision/Surgical Site Anaerobic Culture - Preliminary Checking for anaerobes, further studies to follow. 06/18/24 Unknown Tissue - Incision site Gram Stain - Final 06/18/24 Unknown Tissue - Incision site Wound Culture - Final No growth aerobically. 06/18/24 Unknown Incision/Surgical Site Gram Stain - Final 06/18/24 Unknown Incision/Surgical Site Wound Culture - Final Meth. resistant Staph. aureus 06/18/24 Unknown Incision/Surgical Site Anaerobic Culture - Preliminary Checking for anaerobes, further studies to follow. 06/18/24 Unknown Incision/Surgical Site Gram Stain - Final 06/18/24 Unknown Incision/Surgical Site Wound Culture - Final Meth. resistant Staph. aureus 06/18/24 16:58 Blood Culture (Wb) - Anticubital Left Blood Culture - Preliminary No growth in 48 hours. Physical Exam Const alert, oriented x3, no apparent distress, average body habitus, healthy appearing and well nourished Constitutional Narrative: Pleasant, older, white male, sitting up in bed, appears younger than stated age, at bedside, nontoxic HEENT head/scalp atraumatic and moist oral mucous membranes Head and Scalp: normocephalic Resp normal respiratory effort, no retractions, no use of accessory muscles and clear to auscultation bilaterally Auscultation: Negative for rales, rhonchi or wheezes Cardio regular rate, regular rhythm, S1 normal heart sound, S2 normal heart sound, no murmurs, no rub, no gallops and no clicks GI normal to inspection, nondistended, normoactive bowel sounds, soft to palpation and non-tender Extremity Extremity Narrative: Right upper extremity with Joselo bandage and postoperative dressing in place, arm is elevated, cap refill is good in right hand, no cyanosis or clubbing, patient is moving on hand range of motion exercises Neuro oriented x3 and no focal motor deficits Speech: speech normal Psych affect normal Psych Narrative: Very pleasant, interacts appropriately Assessment & Plan Assessment/Plan (1) Cellulitis: (2) Abscess of skin of right wrist: (3) Septic arthritis of wrist, right: (4) Deep palmar space infection: PLAN: Plan Right upper extremity septic wrist joint/cellulitis/deep space tissue abscesses secondary to MRSA -Postop day 4 right carpal tunnel release/decompressive fasciotomy/I&D/right wrist arthrotomy -Postop day 3 second look irrigation and washout with right wrist arthrotomy -MRSA on cultures-discontinue Ancef and continue vancomycin -Wound care following -Pain medication as ordered -As needed bowel regimen available -ID is following-appreciate input -Await further recommendations tomorrow as cultures are finalized DM-2 with hyperglycemia -Acute hyperglycemia is likely related to acute infection -Hold home metformin -Hemoglobin A1c is 7.0 -Continue sliding scale -Accu-Cheks as ordered -Patient on carb controlled diet Constipation -Still no bowel movement -Continue MiraLAX 17 g daily -Continue current bowel regimen as ordered 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 -Plan is for 8000 units of recombinant factor IX 1 hour preoperatively, 20 hours postoperatively and daily for 5 days postoperatively -Patient is currently on his first of 5 doses for surgical follow-up dosing -[facility] ([phone])--> to call with any questions -Outpatient follow-up per previous instruction after discharge History of hepatitis C -Was treated and resolved GERD -Continue home PPI Essential hypertension -Continue losartan 75 mg and trend blood pressures today to evaluate for further needs -As needed hydralazine available for systolic blood pressure greater than 160 DVT prophylaxis -SCDs -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
[2024-06-22 15:30] VITALS: BP 136/78; PULSE 72; RESP 18; TEMP 36.6; O2SAT 98
[2024-06-22] MEDS: [UNRECOGNIZED DRUG - OTHER] 8000 UNITS IV (15:38)
[2024-06-22] MEDS: 0.9% Saline Lock 10 ML Syringe IV (15:57)
[2024-06-22 16:11] VITALS: BP 144/77; PULSE 70; RESP 18; TEMP 36.6; O2SAT 97
[2024-06-22 17:26] LABS: Bedside Glucose 170 mg/dL (74-106)
[2024-06-22 21:30] VITALS: BP 140/88; PULSE 84; RESP 18; TEMP 36.9; O2SAT 94
[2024-06-22 21:34] LABS: Bedside Glucose 223 mg/dL (74-106)
[2024-06-23] VITALS (8 sets, daily range): BP systolic 143–148; BP diastolic 82–96; PULSE 66–81; RESP 18; TEMP 36.4–36.9; O2SAT 96–98; BMI 28.8
[2024-06-23] MEDS: DAKIN'S SOL HALF STRENGTH (=0.25%) TOPICAL (06:02)
[2024-06-23 06:38] LABS: Bedside Glucose 125 mg/dL (74-106)
[2024-06-23] MEDS: oxyCODONE 5 MG Tablet PO (06:48)
[2024-06-23] MEDS: Acetaminophen 325 MG Tablet 650 MG PO ×2 (06:48→22:29)
--- NOTE | 2024-06-23 07:14 | PCM.PN.SRG ---
Subjective Subjective Doing well this morning. Doing a soak with nursing. Reports that his pain has improved and he feels as though he has better ROM. Objective Data Objective Data Vital Signs: Vital Signs Temp Pulse Resp BP Pulse Ox O2 Del Method O2 Flow Rate 98.1 F 71 18 146/89 H 97 Room Air 3 06/23/24 05:57 06/23/24 05:57 06/23/24 05:57 06/23/24 05:57 06/23/24 05:57 06/23/24 05:57 06/19/24 19:30 Oxygen Flow Rate (L/min) 3 Oxygen Delivery Method Room Air Weight: 189 lb 9.561 oz Body Mass Index (BMI) 28.8 Intake & Output: Intake and Output for Last 24 Hours 06/21/24 06/22/24 06/23/24 23:59 23:59 23:59 Intake Total 3978.75 / 3978.75 1947.65 / 1947.65 Balance 3978.75 / 3978.75 1947.65 / 1947.65 Lab / Micro Data 06/22/24 05:30 06/22/24 05:30 Labs: Laboratory Results - last 24 hr 06/22/24 11:59: POC Glucose 206 H 06/22/24 17:03: POC Glucose 170 H 06/22/24 20:47: POC Glucose 223 H 06/23/24 06:01: POC Glucose 125 H Micro: Microbiology 06/18/24 Unknown Incision/Surgical Site Gram Stain - Final 06/18/24 Unknown Incision/Surgical Site Wound Culture - Final Meth. resistant Staph. aureus 06/18/24 Unknown Incision/Surgical Site Anaerobic Culture - Preliminary Checking for anaerobes, further studies to follow. 06/18/24 Unknown Tissue - Incision site Gram Stain - Final 06/18/24 Unknown Tissue - Incision site Wound Culture - Final No growth aerobically. 06/18/24 Unknown Incision/Surgical Site Gram Stain - Final 06/18/24 Unknown Incision/Surgical Site Wound Culture - Final Meth. resistant Staph. aureus 06/18/24 Unknown Incision/Surgical Site Anaerobic Culture - Preliminary Checking for anaerobes, further studies to follow. 06/18/24 Unknown Incision/Surgical Site Gram Stain - Final 06/18/24 Unknown Incision/Surgical Site Wound Culture - Final Meth. resistant Staph. aureus 06/18/24 16:58 Blood Culture (Wb) - Anticubital Left Blood Culture - Preliminary No growth in 48 hours. Physical Exam Narrative Right upper extremity Dressings removed and started soak today. No purulent drainage from the incisions. Persistent redness over the volar wrist flap continues to improve. No skin necrosis. Much improved exam with regards to pain with axial loading of the wrist today. He has some pain with active flexor tendon excursion, but no pain with passive flexor tendon excursion. No pain in the palm or over the A1 pulleys or T1 Benjamin. Vascular: Fingers warm well-perfused with less than 2-second capillary refill Sensory: Same sensory exam as preop, numbness on the radial side of the right thumb, but no new onset numbness. Sensation to light touch intact otherwise in the median nerve distribution. Motor: He is able to fire the thenar muscles (recurrent branch of median intact) Eyes EOMs intact bilaterally Lymph Lymphatic: no lymphadenopathy noted Resp normal respiratory effort Cardio regular rate and regular rhythm Extremity Extremity Narrative: SCDs on and activated Assessment & Plan Assessment/Plan (1) Deep palmar space infection: (2) Septic arthritis of wrist, right: (3) Abscess of skin of right wrist: PLAN: OK for diet today No plans for further surgery at this time Continue TID dial soap soaks. Cultures from the OR (Staphylococcus) resulted as MRSA (susceptible to Vancomycin). Agree with ID consultation and continued Vancomycin. Continue to maintain tight glucose control for wound healing and infectious control. Continue to pack wounds with Kerlix and Dakins soaks after every Dial Soap Soak of the right hand/wrist. Continue drains. (4) Hemophilia B: PLAN: Patient received 8000 units of recombinant factor IX one hour preoperatively, then 20 hours postoperatively and will continue it daily for 5 days postoperatively (post op day 3 today from initial surgery). -Patient to receive second postoperative dose today (from second surgery) and then will receive subsequent doses daily to follow for total of 5 days post op in the setting of his bleeding diathesis. Charges/Coding Procedures Integumentary 111xxx-113xx: 75148 Global Visit
[2024-06-23 07:19] LABS: Hematocrit 39.3 % (40-54); Hemoglobin 12.6 g/dL (13.0-16.5); Mean Corp Hgb Conc 32.1 g/dL (32-36); Mean Corpuscular Hgb 27.1 pg (27.0-32.0); Mean Corpuscular Volume 84.5 fL (80-94); Mean Platelet Vol. 9.7 fl (6.2-12.0); Platelet Count 287 K/mm3 (150-450); RBC Distribution Width CV 13.2 % (11.6-14.6); RBC Distribution Width SD 40.5 fl (35.1-43.9); Red Blood Count 4.65 M/mm3 (4.6-6.2); White Blood Count 6.7 K/mm3 (4.4-11.0)
[2024-06-23 09:32] LABS: Vancomycin, Trough Level 22.9 ug/mL (5.0-15.0)
[2024-06-23] MEDS: Losartan Potassium 25 MG Tablet 75 MG PO (09:44)
[2024-06-23] MEDS: Pantoprazole Sodium 40 MG Tablet PO ×2 (09:44→22:25)
[2024-06-23] MEDS: Polyethylene Glycol 3350 17 GM PACKET PO ×2 (09:45→22:25)
--- NOTE | 2024-06-23 09:48 | PCM.RX.CS ---
Consult Antibiotic Management Pharmacy has been consulted to manage selected antibiotic: Vancomycin Type of Intervention Type of Consult: Follow-up Suspected Infection Suspected Infection: Other (WRIST ABSCESS) Prior Doses of Antibiotics Prior Doses of Antibiotics Received/Current Regimen: Vancomycin 1250 mg Q12H, last dose 06/22 @ 2145 Labs Labs: Sodium 138 mmol/L (136-145) 06/22/24 05:30 Potassium 3.6 mmol/L (3.5-5.1) 06/22/24 05:30 Chloride 108 mmol/L (98-107) H 06/22/24 05:30 Carbon Dioxide 25.0 mmol/L (21.0-32.0) 06/22/24 05:30 Anion Gap 5 (5-15) 06/22/24 05:30 BUN 14 mg/dL (7-18) 06/22/24 05:30 Creatinine 1.04 mg/dL (0.70-1.30) 06/22/24 05:30 Est GFR (MDRD) Af Amer 90 mL/min (>60) 06/22/24 05:30 Est GFR (MDRD) Non-Af 74 mL/min (>60) 06/22/24 05:30 BUN/Creatinine Ratio 13.5 RATIO (10-20) 06/22/24 05:30 Glucose 129 mg/dL (74-106) H 06/22/24 05:30 Vancomycin Trough 22.9 ug/mL (5.0-15.0) H 06/23/24 08:57 Microbiology Microbiology: Microbiology 06/18/24 Unknown Incision/Surgical Site Gram Stain - Final 06/18/24 Unknown Incision/Surgical Site Wound Culture - Final Meth. resistant Staph. aureus 06/18/24 Unknown Incision/Surgical Site Anaerobic Culture - Final No anaerobic bacteria isolated. 06/18/24 Unknown Incision/Surgical Site Gram Stain - Final 06/18/24 Unknown Incision/Surgical Site Wound Culture - Final Meth. resistant Staph. aureus 06/18/24 Unknown Incision/Surgical Site Anaerobic Culture - Final No anaerobic bacteria isolated. 06/18/24 Unknown Tissue - Incision site Gram Stain - Final 06/18/24 Unknown Tissue - Incision site Wound Culture - Final No growth aerobically. 06/18/24 Unknown Incision/Surgical Site Gram Stain - Final 06/18/24 Unknown Incision/Surgical Site Wound Culture - Final Meth. resistant Staph. aureus 06/18/24 16:58 Blood Culture (Wb) - Anticubital Left Blood Culture - Preliminary No growth in 48 hours. Dosing Weight Weight used for dosin kg Estimated Creatinine Clearance Estimated Creatinine Clearance: ~ 66 Goal Trough Goal Trough: 15-20 mcg/mL Pharmacy Plan for Drug Dosing Pharmacy Plan for Drug Dosing: Vancomycin trough drawn ~ 11 hours after last dose = 22.9, hold dose for now, random this evening, re-dose after accordingly. Pharmacy Service will continue to monitor and adjust dosing as required. Follow-Up Labs Follow-Up Labs: Trough: Vancomycin Date/Time Labs Ordered Labs to be done on [date and time ordered]: 06/23/24 @ 2100
--- NOTE | 2024-06-23 09:53 | WOUNDNOTE ---
Hand had been soaked already this am. had talked with Dr Hua. plan is to continue soaks TID and pack with Dakins moistened gauze and cover with dry dressings. will monitor.
[2024-06-23] MEDS: Insulin Lispro 100 UNIT/ML INSULN.PEN SC ×3 (11:40→22:33)
[2024-06-23 12:00] LABS: Bedside Glucose 213 mg/dL (74-106)
[2024-06-23] MEDS: DAKIN'S SOL HALF STRENGTH (=0.25%) 473 ML TOPICAL ×2 (15:08→22:25)
--- NOTE | 2024-06-23 15:08 | PCM.PN.ID ---
Physical Exam Narrative Feeling better, hand improving, no fever, no n/v/d. Const alert and no apparent distress General Appearance: cooperative Resp normal air movement and clear to auscultation bilaterally Cardio regular rate and regular rhythm GI soft to palpation, non-tender and non-distended Skin Skin Narrative: hand wrapped ID ID: Route of nutrition/ use of supplements: [] Nutritional Intake: [] IV Site: [] Brown Catheter: [] Assessment & Plan Assessment/Plan (1) Septic arthritis of wrist, right: PLAN: Now s/p I&D by Dr. Hua 06/18/24 and recheck in OR 06/19/24. Surg cx now with MRSA in 3 samples. On vanc, improving. Plan on discharge will be po doxy 100mg bid for 3 more weeks. Will follow (2) Abscess of skin of right wrist:
[2024-06-23] MEDS: [UNRECOGNIZED DRUG - OTHER] 8000 UNITS IV (15:09)
--- NOTE | 2024-06-23 16:34 | PCM.PN.HOSP ---
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) Cutaneous abscess of right upper limb (06/18/24) Cellulitis, unspecified (06/18/24) Pyogenic arthritis, unspecified (06/18/24) Other specified soft tissue disorders (06/18/24) Subjective Subjective Patient slowly improving, only new complaint today is difficulty moving his bowels Objective Data Objective Data Vital Signs: Vital Signs Temp Pulse Resp BP Pulse Ox O2 Del Method O2 Flow Rate 97.4 F L 96 18 140/67 H 97 Room Air 3 06/23/24 15:40 06/23/24 15:40 06/23/24 15:40 06/23/24 15:40 06/23/24 15:40 06/23/24 15:40 06/19/24 19:30 Oxygen Flow Rate (L/min) 3 Oxygen Delivery Method Room Air Weight: 86 kg Body Mass Index (BMI) 28.8 Intake & Output: Intake and Output for Last 24 Hours 06/21/24 06/22/24 06/23/24 23:59 23:59 23:59 Intake Total 3978.75 / 3978.75 1947.65 / 1947.65 360 / 360 Balance 3978.75 / 3978.75 1947.65 / 1947.65 360 / 360 Lab / Micro Data 06/23/24 06:59 06/22/24 05:30 Labs: Laboratory Results - last 24 hr 06/22/24 17:03: POC Glucose 170 H 06/22/24 20:47: POC Glucose 223 H 06/23/24 06:01: POC Glucose 125 H 06/23/24 06:59: WBC 6.7, RBC 4.65, Hgb 12.6 L, Hct 39.3 L, MCV 84.5, MCH 27.1, MCHC 32.1, RDW Std Deviation 40.5, RDW Coeff of Parker 13.2, Plt Count 287, MPV 9.7 06/23/24 08:57: Vancomycin Trough 22.9 H 06/23/24 11:38: POC Glucose 213 H Micro: Microbiology 06/18/24 Unknown Incision/Surgical Site Gram Stain - Final 06/18/24 Unknown Incision/Surgical Site Wound Culture - Final Meth. resistant Staph. aureus 06/18/24 Unknown Incision/Surgical Site Anaerobic Culture - Final No anaerobic bacteria isolated. 06/18/24 Unknown Incision/Surgical Site Gram Stain - Final 06/18/24 Unknown Incision/Surgical Site Wound Culture - Final Meth. resistant Staph. aureus 06/18/24 Unknown Incision/Surgical Site Anaerobic Culture - Final No anaerobic bacteria isolated. 06/18/24 Unknown Tissue - Incision site Gram Stain - Final 06/18/24 Unknown Tissue - Incision site Wound Culture - Final No growth aerobically. 06/18/24 Unknown Incision/Surgical Site Gram Stain - Final 06/18/24 Unknown Incision/Surgical Site Wound Culture - Final Meth. resistant Staph. aureus 06/18/24 16:58 Blood Culture (Wb) - Anticubital Left Blood Culture - Preliminary No growth in 48 hours. Physical Exam Narrative General: Alert, oriented, no apparent distress HEENT: Atraumatic, normocephalic Eyes: Anicteric, normal conjunctiva, extraocular movements grossly intact Neck: Supple Respiratory: Clear to auscultation bilaterally, normal respiratory effort Cardiovascular: Regular rate GI: Nontender, no rebound, guarding, rigidity Extremities: No edema Musculoskeletal: Moving all extremities Neuro: No overt focal neurological deficits Skin: No rashes appreciated, right hand wrapped Psych: Cooperative Assessment & Plan Assessment/Plan (1) Cellulitis: PLAN: Plan # Right upper extremity wrist cellulitis/septic wrist joint/deep space tissue abscess secondary to MRSA -Patient underwent right carpal tunnel release/decompressive fasciotomy/I&D/right wrist arthrotomy on 06/18 and went back to the OR 06/19 for further irrigation and washout -Growing MRSA -Wound care following -ID consult -On vancomycin -Plan on discharge will be p.o. Doxy twice daily x 3 weeks -Plastics following, patient to be evaluated daily to decide on optimal discharge timing, awaiting further improvement #Type 2 diabetes mellitus -Glucose checks and sliding scale insulin # Constipation -Had been started MiraLAX 7 g daily, this has been increased to twice daily -Patient has senna/docusate twice daily as needed as well # Hemophilia B -Previous attending physician discussed with [facility] -Patient on recomment factor IX which she received 1 hour preop, 20 hours postop and will complete 5 days of this as well -Patient will follow-up outpatient on discharge #GERD -Continue PPI # Hypertension ? Continue losartan at 75 mg -May need to increase further pending BP # History of hepatitis C -Treated and has since resolved #DVT ppx: SCDs and ambulation encouraged Myra Wesley MD Time spent in the patient's overall evaluation,decision-making process, review of diagnostic data, adjustment of management, discussion with other providers, nursing nursing and ancillary staff involved in patient's care documentation, 37 minutes Charges/Coding Visit Charges Inpatient E&M: 57851 Subs Hosp L2
[2024-06-23] MEDS: 0.9% Saline Lock 10 ML Syringe IV ×2 (16:38→22:49)
[2024-06-23 17:02] LABS: Bedside Glucose 203 mg/dL (74-106)
[2024-06-23 21:32] LABS: Vancomycin, Random Level 15.6 ug/mL (0.0-15.0)
[2024-06-23] MEDS: Vancomycin IV 1,000 MG/200 ML BAG 200 MG IV (23:33)
[2024-06-24 00:52] LABS: Bedside Glucose 215 mg/dL (74-106)
--- NOTE | 2024-06-24 03:16 | PCM.RX.CS ---
Consult Antibiotic Management Pharmacy has been consulted to manage selected antibiotic: Vancomycin Type of Intervention Type of Consult: Follow-up Suspected Infection Suspected Infection: Other Labs Labs: Sodium 138 mmol/L (136-145) 06/22/24 05:30 Potassium 3.6 mmol/L (3.5-5.1) 06/22/24 05:30 Chloride 108 mmol/L (98-107) H 06/22/24 05:30 Carbon Dioxide 25.0 mmol/L (21.0-32.0) 06/22/24 05:30 Anion Gap 5 (5-15) 06/22/24 05:30 BUN 14 mg/dL (7-18) 06/22/24 05:30 Creatinine 1.04 mg/dL (0.70-1.30) 06/22/24 05:30 Est GFR (MDRD) Af Amer 90 mL/min (>60) 06/22/24 05:30 Est GFR (MDRD) Non-Af 74 mL/min (>60) 06/22/24 05:30 BUN/Creatinine Ratio 13.5 RATIO (10-20) 06/22/24 05:30 Glucose 129 mg/dL (74-106) H 06/22/24 05:30 Vancomycin Trough 22.9 ug/mL (5.0-15.0) H 06/23/24 08:57 Random Vancomycin 15.6 ug/mL (0.0-15.0) H 06/23/24 20:52 Microbiology Microbiology: Microbiology 06/18/24 Unknown Incision/Surgical Site Gram Stain - Final 06/18/24 Unknown Incision/Surgical Site Wound Culture - Final Meth. resistant Staph. aureus 06/18/24 Unknown Incision/Surgical Site Anaerobic Culture - Final No anaerobic bacteria isolated. 06/18/24 Unknown Incision/Surgical Site Gram Stain - Final 06/18/24 Unknown Incision/Surgical Site Wound Culture - Final Meth. resistant Staph. aureus 06/18/24 Unknown Incision/Surgical Site Anaerobic Culture - Final No anaerobic bacteria isolated. 06/18/24 Unknown Tissue - Incision site Gram Stain - Final 06/18/24 Unknown Tissue - Incision site Wound Culture - Final No growth aerobically. 06/18/24 Unknown Incision/Surgical Site Gram Stain - Final 06/18/24 Unknown Incision/Surgical Site Wound Culture - Final Meth. resistant Staph. aureus 06/18/24 16:58 Blood Culture (Wb) - Anticubital Left Blood Culture - Preliminary No growth in 48 hours. Goal Trough Goal Trough: 15-20 mcg/mL Pharmacy Plan for Drug Dosing Pharmacy Plan for Drug Dosing: VANCOMYCIN LEVEL RECEIVED Current Vancomycin Dose: on hold due to elevated trough (previous dose was 1250mg q12h) Number of Doses Received: x6 of 1250mg dose Vancomycin Level: random level resulted at 15.6 (drawn 2051 on 06/23/24) Hours Since Last Dose: 23 hours since list 1250mg dose on 06/22/24 at 2145 Renal Function: SrCr 1.04 Renal Function Trend: stable Lab/Micro: Vancomycin Plan/Comments: recommend restarting vancomycin at 1000mg q12h and checking a trough prior to the 4th dose Pending Level: 06/25/24 at 1100 Pharmacy Service will continue to monitor and adjust dosing as required. Follow-Up Labs Follow-Up Labs: Trough: Vancomycin (06/25/24 at 1100)
[2024-06-24 04:38] VITALS: BMI 29.0
[2024-06-24 04:45] VITALS: BP 129/80; PULSE 65; RESP 16; TEMP 36.6; O2SAT 99
[2024-06-24 04:50] VITALS: BP 129/80; PULSE 65; RESP 16; TEMP 36.6; O2SAT 99
[2024-06-24 06:12] LABS: Absolute Lymphocyte Count 1.21 X10^3/uL (0.83-4.51); Basophil# 0.04 X10^3/uL; Basophil% 0.6 % (0-1); Eosinophil# 0.24 X10^3/uL; Eosinophils% 3.9 % (0-5); Hematocrit 34.1 % (40-54); Hemoglobin 10.9 g/dL (13.0-16.5); Lymphocyte # 1.21 X10^3/ul (0.83-4.51); Lymphocyte % 19.5 % (19-41); Mean Corpuscular Volume 84.4 fL (80-94); Mean Platelet Vol. 9.6 fl (6.2-12.0); Monocyte# 0.71 X10^3/uL; Monocyte% 11.5 % (0-10); NRBC Flagged by Analyzer 0 % (0-5); Neutrophil # 3.97 X10^3/uL (2.7-7.7); Neutrophil % 64.2 % (47-70); Platelet Count 255 K/mm3 (150-450); RBC Distribution Width CV 13.2 % (11.6-14.6); RBC Distribution Width SD 40.7 fl (35.1-43.9); Red Blood Count 4.04 M/mm3 (4.6-6.2); White Blood Count 6.2 K/mm3 (4.4-11.0)
[2024-06-24] MEDS: DAKIN'S SOL HALF STRENGTH (=0.25%) 473 ML TOPICAL ×3 (06:27→21:52)
[2024-06-24 06:34] LABS: Anion Gap 5 (5-15); BUN 14 mg/dL (7-18); BUN/Creat Ratio 13.5 RATIO (10-20); Calcium,Total 9.2 mg/dL (8.5-10.1); Chloride 108 mmol/L (98-107); Creatinine, Serum 1.04 mg/dL (0.70-1.30); EST Glomerular Filtration Rate 74 mL/min (>60); Est Glom Filt Rate - Afr Amer 90 mL/min (>60); Estimated Creatinine Clearance 65.69 ml/min; Glucose 133 mg/dL (74-106); Potassium 3.7 mmol/L (3.5-5.1); Sodium Level 138 mmol/L (136-145)
[2024-06-24 07:07] LABS: Bedside Glucose 132 mg/dL (74-106)
[2024-06-24 08:00] VITALS: BP 142/91; PULSE 68; RESP 16; TEMP 36.6; O2SAT 96
--- NOTE | 2024-06-24 09:17 | PCM.PN.SRG ---
Subjective Subjective Patient reports that he is feeling much better today. Feels like his range of motion is improved. He feels like the redness is improved. He is comfortable with the packing. Objective Data Objective Data Vital Signs: Vital Signs Temp Pulse Resp BP Pulse Ox O2 Del Method O2 Flow Rate 97.9 F 68 16 142/91 H 96 Room Air 3 06/24/24 08:00 06/24/24 08:00 06/24/24 08:00 06/24/24 08:00 06/24/24 08:00 06/24/24 08:00 06/19/24 19:30 Oxygen Flow Rate (L/min) 3 Oxygen Delivery Method Room Air Weight: 190 lb 14.725 oz Body Mass Index (BMI) 29.0 Intake & Output: Intake and Output for Last 24 Hours 06/22/24 06/23/24 06/24/24 23:59 23:59 23:59 Intake Total 1947.65 / 1947.65 720 / 720 200 / 200 Balance 1947.65 / 1947.65 720 / 720 200 / 200 Lab / Micro Data 06/24/24 05:53 06/24/24 05:53 Labs: Laboratory Results - last 24 hr 06/23/24 08:57: Vancomycin Trough 22.9 H 06/23/24 11:38: POC Glucose 213 H 06/23/24 16:40: POC Glucose 203 H 06/23/24 20:52: Random Vancomycin 15.6 H 06/23/24 22:32: POC Glucose 215 H 06/24/24 05:53: WBC 6.2, RBC 4.04 L, Hgb 10.9 L, Hct 34.1 L, MCV 84.4, MCH 27.0, MCHC 32.0, RDW Std Deviation 40.7, RDW Coeff of Parker 13.2, Plt Count 255, MPV 9.6, Immature Gran % (Auto) 0.300, Neut % (Auto) 64.2, Lymph % (Auto) 19.5, [place] % (Auto) 11.5 H, Eos % (Auto) 3.9, Baso % (Auto) 0.6, Absolute Neuts (auto) 4.0, Absolute Lymphs (auto) 1.21, Nucleated RBC % 0, Sodium 138, Potassium 3.7, Chloride 108 H, Carbon Dioxide 25.0, Anion Gap 5, BUN 14, Creatinine 1.04, Estim Creat Clear Calc 65.69, Est GFR (MDRD) Af Amer 90, Est GFR (MDRD) Non-Af 74, BUN/Creatinine Ratio 13.5, Glucose 133 H, Calcium 9.2 06/24/24 06:18: POC Glucose 132 H Micro: Microbiology 06/18/24 Unknown Incision/Surgical Site Gram Stain - Final 06/18/24 Unknown Incision/Surgical Site Wound Culture - Final Meth. resistant Staph. aureus 06/18/24 Unknown Incision/Surgical Site Anaerobic Culture - Final No growth in 5 days. 06/18/24 Unknown Tissue - Incision site Gram Stain - Final 06/18/24 Unknown Tissue - Incision site Wound Culture - Final No growth aerobically. 06/18/24 Unknown Tissue - Incision site Anaerobic Culture - Final No growth in 5 days. 06/18/24 16:58 Blood Culture (Wb) - Anticubital Left Blood Culture - Final No growth in 5 days. 06/18/24 Unknown Incision/Surgical Site Gram Stain - Final 06/18/24 Unknown Incision/Surgical Site Wound Culture - Final Meth. resistant Staph. aureus 06/18/24 Unknown Incision/Surgical Site Anaerobic Culture - Final No anaerobic bacteria isolated. 06/18/24 Unknown Incision/Surgical Site Gram Stain - Final 06/18/24 Unknown Incision/Surgical Site Wound Culture - Final Meth. resistant Staph. aureus 06/18/24 Unknown Incision/Surgical Site Anaerobic Culture - Final No anaerobic bacteria isolated. Assessment & Plan Assessment/Plan (1) Abscess of skin of right wrist: (2) Septic arthritis of wrist, right: PLAN: Plan Patient continues to improve clinically. He has been compliant with Dial soap soaks and packing, and the nursing staff is been doing a great job. Continue elevation. Appreciate infectious disease consultation and plan for 3 weeks of doxycycline. I discussed with the patient today doing therapy with our occupational therapy for range of motion. He was in agreement with this. Will have the make him a custom splint as well. 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 He would like me to discuss with them bleeding risk going forward as he has been on the factor IX for 5 days postoperatively now. I think his bleeding risk is low at this point and I will discuss that with them. I do not have any further plan surgeries at this time. Charges/Coding Procedures Integumentary 111xxx-113xx: 00419 Global Visit
[2024-06-24] MEDS: Losartan Potassium 25 MG Tablet 75 MG PO (10:26)
[2024-06-24] MEDS: Pantoprazole Sodium 40 MG Tablet PO ×2 (10:26→21:52)
[2024-06-24] MEDS: Polyethylene Glycol 3350 17 GM PACKET PO ×2 (10:29→21:52)
[2024-06-24] MEDS: Vancomycin IV 1,000 MG/200 ML BAG 200 MG IV ×2 (12:02→22:50)
[2024-06-24] MEDS: Insulin Lispro 100 UNIT/ML INSULN.PEN SC ×3 (12:02→21:56)
[2024-06-24] MEDS: 0.9% Saline Lock 10 ML Syringe IV ×2 (12:03→22:50)
[2024-06-24 12:26] LABS: Bedside Glucose 181 mg/dL (74-106)
[2024-06-24] MEDS: [UNRECOGNIZED DRUG - OTHER] 7000 UNITS IV (14:26)
[2024-06-24 14:52] VITALS: BP 152/91; PULSE 67; RESP 16; TEMP 36.6; O2SAT 97
[2024-06-24 17:08] LABS: Bedside Glucose 162 mg/dL (74-106)
--- NOTE | 2024-06-24 18:26 | PN.HOSP_ITS ---
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 No new or acute complaints Objective Data Objective Data Vital Signs: Vital Signs Temp Pulse Resp BP Pulse Ox O2 Del Method O2 Flow Rate 97.8 F 67 16 152/91 H 97 Room Air 3 06/24/24 14:52 06/24/24 14:52 06/24/24 14:52 06/24/24 14:52 06/24/24 14:52 06/24/24 14:52 06/19/24 19:30 Oxygen Flow Rate (L/min) 3 Oxygen Delivery Method Room Air Weight: 86.6 kg Body Mass Index (BMI) 29.0 Intake & Output: Intake and Output for Last 24 Hours 06/22/24 06/23/24 06/24/24 23:59 23:59 23:59 Intake Total 1947.65 / 1947.65 720 / 720 400 / 400 Balance 1947.65 / 1947.65 720 / 720 400 / 400 Lab / Micro Data 06/24/24 05:53 06/24/24 05:53 Labs: Laboratory Results - last 24 hr 06/23/24 20:52: Random Vancomycin 15.6 H 06/23/24 22:32: POC Glucose 215 H 06/24/24 05:53: WBC 6.2, RBC 4.04 L, Hgb 10.9 L, Hct 34.1 L, MCV 84.4, MCH 27.0, MCHC 32.0, RDW Std Deviation 40.7, RDW Coeff of Parker 13.2, Plt Count 255, MPV 9.6, Immature Gran % (Auto) 0.300, Neut % (Auto) 64.2, Lymph % (Auto) 19.5, [place] % (Auto) 11.5 H, Eos % (Auto) 3.9, Baso % (Auto) 0.6, Absolute Neuts (auto) 4.0, Absolute Lymphs (auto) 1.21, Nucleated RBC % 0, Sodium 138, Potassium 3.7, C hloride 108 H, Carbon Dioxide 25.0, Anion Gap 5, BUN 14, Creatinine 1.04, Estim Creat Clear Calc 65.69, Est GFR (MDRD) Af Amer 90, Est GFR (MDRD) Non-Af 74, BUN/Creatinine Ratio 13.5, Glucose 133 H, Calcium 9.2 06/24/24 06:18: POC Glucose 132 H 06/24/24 11:41: POC Glucose 181 H 06/24/24 16:25: POC Glucose 162 H Micro: Microbiology 06/18/24 Unknown Incision/Surgical Site Gram Stain - Final 06/18/24 Unknown Incision/Surgical Site Wound Culture - Final Meth. resistant Staph. aureus 06/18/24 Unknown Incision/Surgical Site Anaerobic Culture - Final No growth in 5 days. 06/18/24 Unknown Tissue - Incision site Gram Stain - Final 06/18/24 Unknown Tissue - Incision site Wound Culture - Final No growth aerobically. 06/18/24 Unknown Tissue - Incision site Anaerobic Culture - Final No growth in 5 days. 06/18/24 16:58 Blood Culture (Wb) - Anticubital Left Blood Culture - Final No growth in 5 days. 06/18/24 Unknown Incision/Surgical Site Gram Stain - Final 06/18/24 Unknown Incision/Surgical Site Wound Culture - Final Meth. resistant Staph. aureus 06/18/24 Unknown Incision/Surgical Site Anaerobic Culture - Final No anaerobic bacteria isolated. 06/18/24 Unknown Incision/Surgical Site Gram Stain - Final 06/18/24 Unknown Incision/Surgical Site Wound Culture - Final Meth. resistant Staph. aureus 06/18/24 Unknown Incision/Surgical Site Anaerobic Culture - Final No anaerobic bacteria isolated. Physical Exam Narrative General: Alert, oriented, no apparent distress HEENT: Atraumatic, normocephalic Eyes: Anicteric, normal conjunctiva, extraocular movements grossly intact Neck: Supple Respiratory: Clear to auscultation bilaterally, normal respiratory effort Cardiovascular: Regular rate GI: Nontender, no rebound, guarding, rigidity Extremities: No edema Musculoskeletal: Moving all extremities Neuro: No overt focal neurological deficits Skin: No rashes appreciated, right hand wrapped Psych: Cooperative Assessment & Plan Assessment/Plan (1) Cellulitis: PLAN: Plan # Right upper extremity wrist cellulitis/septic wrist joint/deep space tissue abscess secondary to MRSA -Patient underwent right carpal tunnel release/decompressive fasciotomy/I&D/right wrist arthrotomy on 06/18 and went back to the OR 06/19 for further irrigation and washout -Growing MRSA -Wound care following -ID consult -On vancomycin -Plan on discharge will be p.o. Doxy twice daily x 3 weeks -Plastics following, patient to be evaluated daily to decide on optimal discharge timing, awaiting further improvement -06/24: Discussed with plastic surgery, patient likely for drain removal tomorrow. Dr. Hua discussed with [facility] hemophilia clinic and they advised another dose of factor IX after drain pulling and watching for bleeding for 24 hours and then 1300 mg of TXA p.o. 3 times daily for 7 days on discharge if patient stable # Constipation?resolved -Had been started MiraLAX 7 g daily, this has been increased to twice daily -Patient has senna/docusate twice daily as needed as well -06/24: Patient has had bowel movement now, will continue present regimen # Hemophilia B -Previous attending physician discussed with [facility] hemophilia clinic -Patient on recomment factor IX which she received 1 hour preop, 20 hours postop and will complete 5 days of this as well -Patient will follow-up outpatient on discharge -06/24: Surgeon discussed with [facility] hemophilia clinic, instructions as above #Type 2 diabetes mellitus -Glucose checks and sliding scale insulin -06/24: Control improving, will continue sliding scale # Hypertension ? Continue losartan at 75 mg -May need to increase further pending BP -06/24: Will increase losartan to 100 mg Chronic medical problems: #GERD -Continue PPI # History of hepatitis C -Treated and has since resolved #DVT ppx: SCDs and ambulation encouraged Myra Wesley MD Time spent in the patient's overall evaluation,decision-making process, review of diagnostic data, adjustment of management, discussion with other providers, nursing nursing and ancillary staff involved in patient's care documentation, 35 minutes Charges/Coding Visit Charges Inpatient E&M: 07544 Subs Hosp L2
[2024-06-24] MEDS: oxyCODONE 5 MG Tablet PO (23:15)
[2024-06-24] MEDS: Acetaminophen 325 MG Tablet 650 MG PO (23:16)
[2024-06-25] VITALS: BP 158/75; PULSE 90; RESP 16; TEMP 37.1; O2SAT 97
[2024-06-25 00:08] LABS: Bedside Glucose 209 mg/dL (74-106)
[2024-06-25 03:36] VITALS: BMI 28.0
[2024-06-25 04:20] VITALS: BP 138/80; PULSE 62; RESP 16; TEMP 36.8; O2SAT 94
[2024-06-25 05:40] VITALS: BP 138/80; PULSE 62; RESP 16; TEMP 36.9; O2SAT 94
--- NOTE | 2024-06-25 06:28 | PN.SURG_ITS ---
Subjective Subjective AFSVV. Reports some stiffness this morning in the wrist. Worked with occupational therapy yesterday and then reports that the wrap on his hand may have not been too tight. Objective Data Objective Data Vital Signs: Vital Signs Temp Pulse Resp BP Pulse Ox O2 Del Method O2 Flow Rate 98.4 F 62 16 138/80 H 94 Room Air 3 06/25/24 05:40 06/25/24 05:40 06/25/24 05:40 06/25/24 05:40 06/25/24 05:40 06/25/24 05:40 06/19/24 19:30 Oxygen Flow Rate (L/min) 3 Oxygen Delivery Method Room Air Weight: 184 lb 11.958 oz Body Mass Index (BMI) 28.0 Intake & Output: Intake and Output for Last 24 Hours 06/23/24 06/24/24 06/25/24 23:59 23:59 23:59 Intake Total 720 / 720 400 / 840 560 / 560 Balance 720 / 720 400 / 840 560 / 560 Lab / Micro Data 06/24/24 05:53 06/24/24 05:53 Labs: Laboratory Results - last 24 hr 06/24/24 05:53: Sodium 138, Potassium 3.7, Chloride 108 H, Carbon Dioxide 25.0, Anion Gap 5, BUN 14, Creatinine 1.04, Estim Creat Clear Calc 65.69, Est GFR (MDRD) Af Amer 90, Est GFR (MDRD) Non-Af 74, BUN/Creatinine Ratio 13.5, Glucose 133 H, Calcium 9.2 06/24/24 06:18: POC Glucose 132 H 06/24/24 11:41: POC Glucose 181 H 06/24/24 16:25: POC Glucose 162 H 06/24/24 21:56: POC Glucose 209 H Micro: Microbiology 06/18/24 Unknown Incision/Surgical Site Gram Stain - Final 06/18/24 Unknown Incision/Surgical Site Wound Culture - Final Meth. resistant Staph. aureus 06/18/24 Unknown Incision/Surgical Site Anaerobic Culture - Final No growth in 5 days. 06/18/24 Unknown Tissue - Incision site Gram Stain - Final 06/18/24 Unknown Tissue - Incision site Wound Culture - Final No growth aerobically. 06/18/24 Unknown Tissue - Incision site Anaerobic Culture - Final No growth in 5 days. 06/18/24 16:58 Blood Culture (Wb) - Anticubital Left Blood Culture - Final No growth in 5 days. 06/18/24 Unknown Incision/Surgical Site Gram Stain - Final 06/18/24 Unknown Incision/Surgical Site Wound Culture - Final Meth. resistant Staph. aureus 06/18/24 Unknown Incision/Surgical Site Anaerobic Culture - Final No anaerobic bacteria isolated. 06/18/24 Unknown Incision/Surgical Site Gram Stain - Final 06/18/24 Unknown Incision/Surgical Site Wound Culture - Final Meth. resistant Staph. aureus 06/18/24 Unknown Incision/Surgical Site Anaerobic Culture - Final No anaerobic bacteria isolated. Physical Exam Narrative Right upper extremity Drains removed on rounds today, tolerated well. No purulence from wounds. The wounds are granulating with Dakin's soaked dressings. Dressings removed and started soak today. Persistent redness over the volar wrist flap continues to improve. No skin necrosis. Exam with regards to axial loading of the wrist continues to improve (now no pain). He is able to make a near full fist. No pain in the palm or over the A1 pulleys or T1 Benjamin. Vascular: Fingers warm well-perfused with less than 2-second capillary refill Sensory: Same sensory exam as preop, numbness on the radial side of the right thumb, but no new onset numbness. Sensation to light touch intact otherwise in the median nerve distribution. Motor: He is able to fire the thenar muscles (recurrent branch of median intact) Eyes EOMs intact bilaterally Lymph Lymphatic: no lymphadenopathy noted Resp normal respiratory effort Cardio regular rate and regular rhythm Extremity Extremity Narrative: SCDs on and activated Assessment & Plan Assessment/Plan (1) Abscess of skin of right wrist: PLAN: Patient continues to improve clinically. He has been compliant with Dial soap soaks and packing, and the nursing staff is been doing a great job. Continue elevation. Appreciate infectious disease consultation and plan for 3 weeks of doxycycline. Agree with continuing vancomycin while in house. (2) Septic arthritis of wrist, right: PLAN: Continue occupational therapy consult for range of motion. Will have the make him a custom splint as well. We will also plan to cluster/coordinate care with the occupational therapist next week (anticipated follow-up on 03 July 2024 with me, followed by immediate hand therapy appointment with Janine Nettles), as the patient is coming from [place] we will require transportation arrangements since he does not drive (patient is [facility]). (3) Hemophilia B: PLAN: I spoke to his hematology team yesterday at [facility], Dr. Benavides and his PA, RIKA. Their team would like Mr. Cuellar to have factor IX injected one more time again tonight since the drains were removed today. He will then begin a 7-day course of oral tranexamic acid (TXA) at 1300 mg p.o. 3 times daily. I discussed this with the patient, and I discussed this with the internal medicine team (Dr. Wesley), and we are all in agreement with the plan going forward. Charges/Coding Procedures Integumentary [id number]: [id number] Global Visit
[2024-06-25 06:53] LABS: Absolute Lymphocyte Count 1.35 X10^3/uL (0.83-4.51); Absolute Neutrophil Count 3.1 X10^3/uL (2.0-7.7); Basophil# 0.06 X10^3/uL; Basophil% 1.1 % (0-1); Eosinophil# 0.35 X10^3/uL; Eosinophils% 6.3 % (0-5); Hematocrit 34.1 % (40-54); Lymphocyte # 1.35 X10^3/ul (0.83-4.51); Lymphocyte % 24.2 % (19-41); Mean Corp Hgb Conc 32.3 g/dL (32-36); Mean Corpuscular Hgb 27.4 pg (27.0-32.0); Mean Corpuscular Volume 84.8 fL (80-94); Mean Platelet Vol. 9.9 fl (6.2-12.0); Monocyte# 0.66 X10^3/uL; Monocyte% 11.8 % (0-10); NRBC Flagged by Analyzer 0 % (0-5); Neutrophil # 3.12 X10^3/uL (2.7-7.7); Neutrophil % 56.1 % (47-70); Platelet Count 273 K/mm3 (150-450); RBC Distribution Width CV 13.2 % (11.6-14.6); RBC Distribution Width SD 41.1 fl (35.1-43.9); Red Blood Count 4.02 M/mm3 (4.6-6.2); White Blood Count 5.6 K/mm3 (4.4-11.0)
[2024-06-25] MEDS: DAKIN'S SOL HALF STRENGTH (=0.25%) 473 ML TOPICAL ×3 (07:02→22:52)
[2024-06-25 07:25] LABS: Bedside Glucose 125 mg/dL (74-106)
[2024-06-25] MEDS: Polyethylene Glycol 3350 17 GM PACKET PO ×2 (07:55→22:52)
[2024-06-25] MEDS: Losartan Potassium 100 MG Tablet PO (07:55)
[2024-06-25] MEDS: Pantoprazole Sodium 40 MG Tablet PO ×2 (07:55→22:52)
[2024-06-25] MEDS: Acetaminophen 325 MG Tablet 650 MG PO ×2 (07:58→23:38)
[2024-06-25 08:09] LABS: Anion Gap 5 (5-15); BUN 19 mg/dL (7-18); BUN/Creat Ratio 17.1 RATIO (10-20); Calcium,Total 9.3 mg/dL (8.5-10.1); Chloride 108 mmol/L (98-107); Creatinine, Serum 1.11 mg/dL (0.70-1.30); EST Glomerular Filtration Rate 69 mL/min (>60); Est Glom Filt Rate - Afr Amer 83 mL/min (>60); Estimated Creatinine Clearance 60.64 ml/min; Glucose 130 mg/dL (74-106); Potassium 3.9 mmol/L (3.5-5.1); Sodium Level 139 mmol/L (136-145)
[2024-06-25 08:41] VITALS: BP 139/92; PULSE 63; RESP 14; TEMP 36.6; O2SAT 98
[2024-06-25 11:37] LABS: Vancomycin, Trough Level 17.4 ug/mL (5.0-15.0)
[2024-06-25 11:43] LABS: Bedside Glucose 145 mg/dL (74-106)
--- NOTE | 2024-06-25 11:48 | PCM.RX.CS ---
Consult Antibiotic Management Pharmacy has been consulted to manage selected antibiotic: Vancomycin Type of Intervention Type of Consult: Follow-up Suspected Infection Suspected Infection: Skin/Soft tissue Prior Doses of Antibiotics Prior Doses of Antibiotics Received/Current Regimen: 06/24/24 @ 1202 06/24/24 @ 2250 Labs Labs: Sodium 139 mmol/L (136-145) 06/25/24 05:53 Potassium 3.9 mmol/L (3.5-5.1) 06/25/24 05:53 Chloride 108 mmol/L (98-107) H 06/25/24 05:53 Carbon Dioxide 26.0 mmol/L (21.0-32.0) 06/25/24 05:53 Anion Gap 5 (5-15) 06/25/24 05:53 BUN 19 mg/dL (7-18) H 06/25/24 05:53 Creatinine 1.11 mg/dL (0.70-1.30) 06/25/24 05:53 Est GFR (MDRD) Af Amer 83 mL/min (>60) 06/25/24 05:53 Est GFR (MDRD) Non-Af 69 mL/min (>60) 06/25/24 05:53 BUN/Creatinine Ratio 17.1 RATIO (10-20) 06/25/24 05:53 Glucose 130 mg/dL (74-106) H 06/25/24 05:53 Vancomycin Trough 17.4 ug/mL (5.0-15.0) H 06/25/24 10:48 Random Vancomycin 15.6 ug/mL (0.0-15.0) H 06/23/24 20:52 Microbiology Microbiology: Microbiology 06/18/24 Unknown Incision/Surgical Site Gram Stain - Final 06/18/24 Unknown Incision/Surgical Site Wound Culture - Final Meth. resistant Staph. aureus 06/18/24 Unknown Incision/Surgical Site Anaerobic Culture - Final No growth in 5 days. 06/18/24 Unknown Tissue - Incision site Gram Stain - Final 06/18/24 Unknown Tissue - Incision site Wound Culture - Final No growth aerobically. 06/18/24 Unknown Tissue - Incision site Anaerobic Culture - Final No growth in 5 days. 06/18/24 16:58 Blood Culture (Wb) - Anticubital Left Blood Culture - Final No growth in 5 days. 06/18/24 Unknown Incision/Surgical Site Gram Stain - Final 06/18/24 Unknown Incision/Surgical Site Wound Culture - Final Meth. resistant Staph. aureus 06/18/24 Unknown Incision/Surgical Site Anaerobic Culture - Final No anaerobic bacteria isolated. 06/18/24 Unknown Incision/Surgical Site Gram Stain - Final 06/18/24 Unknown Incision/Surgical Site Wound Culture - Final Meth. resistant Staph. aureus 06/18/24 Unknown Incision/Surgical Site Anaerobic Culture - Final No anaerobic bacteria isolated. Dosing Weight Weight used for dosin kg Estimated Creatinine Clearance Estimated Creatinine Clearance: 60 Pharmacy Plan for Drug Dosing Pharmacy Plan for Drug Dosing: Vancomycin 1000mg every 12 hours Pharmacy Service will continue to monitor and adjust dosing as required. Follow-Up Labs Follow-Up Labs: Trough: Vancomycin Date/Time Labs Ordered Labs to be done on [date and time ordered]: 06/26/24 @ 2301
[2024-06-25] MEDS: Vancomycin IV 1,000 MG/200 ML BAG 200 MG IV ×2 (12:24→23:37)
--- NOTE | 2024-06-25 14:21 | PN.HOSP_ITS ---
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) Cutaneous abscess of right upper limb (06/18/24) Cellulitis, unspecified (06/18/24) Pyogenic arthritis, unspecified (06/18/24) Other specified soft tissue disorders (06/18/24) Subjective Subjective Has a little more pain in hand today but overall feeling fair with no new or acute complaints Objective Data Objective Data Vital Signs: Vital Signs Temp Pulse Resp BP Pulse Ox O2 Del Method O2 Flow Rate 97.8 F 63 14 139/92 H 98 Room Air 3 06/25/24 08:41 06/25/24 08:41 06/25/24 08:41 06/25/24 08:41 06/25/24 08:41 06/25/24 08:41 06/19/24 19:30 Oxygen Flow Rate (L/min) 3 Oxygen Delivery Method Room Air Weight: 83.8 kg Body Mass Index (BMI) 28.0 Intake & Output: Intake and Output for Last 24 Hours 06/23/24 06/24/24 06/25/24 23:59 23:59 23:59 Intake Total 720 / 720 400 / 840 1260 / 1260 Balance 720 / 720 400 / 840 1260 / 1260 Lab / Micro Data 06/25/24 05:53 06/25/24 05:53 Labs: Laboratory Results - last 24 hr 06/24/24 16:25: POC Glucose 162 H 06/24/24 21:56: POC Glucose 209 H 06/25/24 05:53: WBC 5.6, RBC 4.02 L, Hgb 11.0 L, Hct 34.1 L, MCV 84.8, MCH 27.4, MCHC 32.3, RDW Std Deviation 41.1, RDW Coeff of [place] 13.2, Plt Count 273, MPV 9.9, Immature Gran % (Auto) 0.500, Neut % (Auto) 56.1, Lymph % (Auto) 24.2, [place] % (Auto) 11.8 H, Eos % (Auto) 6.3 H, Baso % (Auto) 1.1 H, Absolute Neuts (auto) 3.1, Absolute Lymphs (auto) 1.35, Nucleated RBC % 0, Sodium 139, Potassium 3.9, Chloride 108 H, Carbon Dioxide 26.0, Anion Gap 5, BUN 19 H, Creatinine 1.11, Estim Creat Clear Calc 60.64, Est GFR (MDRD) Af Amer 83, Est GFR (MDRD) Non-Af 69, BUN/Creatinine Ratio 17.1, Glucose 130 H, Calcium 9.3 06/25/24 07:04: POC Glucose 125 H 06/25/24 10:48: Vancomycin Trough 17.4 H 06/25/24 11:13: POC Glucose 145 H Micro: Microbiology 06/18/24 Unknown Incision/Surgical Site Gram Stain - Final 06/18/24 Unknown Incision/Surgical Site Wound Culture - Final Meth. resistant Staph. aureus 06/18/24 Unknown Incision/Surgical Site Anaerobic Culture - Final No growth in 5 days. 06/18/24 Unknown Tissue - Incision site Gram Stain - Final 06/18/24 Unknown Tissue - Incision site Wound Culture - Final No growth aerobically. 06/18/24 Unknown Tissue - Incision site Anaerobic Culture - Final No growth in 5 days. 06/18/24 16:58 Blood Culture (Wb) - Anticubital Left Blood Culture - Final No growth in 5 days. 06/18/24 Unknown Incision/Surgical Site Gram Stain - Final 06/18/24 Unknown Incision/Surgical Site Wound Culture - Final Meth. resistant Staph. aureus 06/18/24 Unknown Incision/Surgical Site Anaerobic Culture - Final No anaerobic bacteria isolated. 06/18/24 Unknown Incision/Surgical Site Gram Stain - Final 06/18/24 Unknown Incision/Surgical Site Wound Culture - Final Meth. resistant Staph. aureus 06/18/24 Unknown Incision/Surgical Site Anaerobic Culture - Final No anaerobic bacteria isolated. Physical Exam Narrative General: Alert, oriented, no apparent distress HEENT: Atraumatic, normocephalic Eyes: Anicteric, normal conjunctiva, extraocular movements grossly intact Neck: Supple Respiratory: Clear to auscultation bilaterally, normal respiratory effort Cardiovascular: Regular rate GI: Nondistended Extremities: No edema Musculoskeletal: Moving all extremities Neuro: No overt focal neurological deficits Skin: No rashes appreciated, right hand wrapped Psych: Cooperative Assessment & Plan Assessment/Plan (1) Cellulitis: PLAN: Plan # Right upper extremity wrist cellulitis/septic wrist joint/deep space tissue abscess secondary to MRSA -Patient underwent right carpal tunnel release/decompressive fasciotomy/I&D/right wrist arthrotomy on 06/18 and went back to the OR 06/19 for further irrigation and washout -Growing MRSA -Wound care following -ID consult -On vancomycin -Plan on discharge will be p.o. Doxy twice daily x 3 weeks -Plastics following, patient to be evaluated daily to decide on optimal discharge timing, awaiting further improvement -06/24: Discussed with plastic surgery, patient likely for drain removal tomorrow. Dr. Hua discussed with [facility] clinic and they advised another dose of factor IX after drain pulling and watching for bleeding for 24 hours and then 1300 mg of TXA p.o. 3 times daily for 7 days on discharge if patient stable -06/25: Drains removed today, little bit stiff but reports he began occupational therapy yesterday and moved it a lot. Patient received last dose of factor IX today and should be able to transition to a 7-day course of oral TXA thereafter. Continue on vancomycin and ultimately will switch to oral Doxy on discharge # Hemophilia B -Previous attending physician discussed with [facility] clinic -Patient on recomment factor IX which she received 1 hour preop, 20 hours postop and will complete 5 days of this as well -Patient will follow-up outpatient on discharge -06/24: Surgeon discussed with [facility] hemophilia clinic, instructions as above -06/25: Hemoglobin stable, last dose of factor IX today and will ultimately transition to 7-day course of TXA. Will need to follow-up with his hemophilia doctor after discharge # Constipation?resolved -Had been started MiraLAX 7 g daily, this has been increased to twice daily -Patient has senna/docusate twice daily as needed as well -06/24: Patient has had bowel movement now, will continue present regimen -06/25: Reports no further problems #Type 2 diabetes mellitus -Glucose checks and sliding scale insulin -06/24: Control improving, will continue sliding scale -06/25: Glucose very well-controlled at this time, continue to monitor and control tightly if possible to help with healing # Hypertension ? Continue losartan at 75 mg -May need to increase further pending BP -06/24: Will increase losartan to 100 mg -06/25: Blood pressure slightly lower today with increase in losartan, continue present medical management Chronic medical problems: #GERD -Continue PPI # History of hepatitis C -Treated and has since resolved #DVT ppx: SCDs and ambulation encouraged Myra Wesley MD Time spent in the patient's overall evaluation,decision-making process, review of diagnostic data, adjustment of management, discussion with other providers, nursing nursing and ancillary staff involved in patient's care documentation, 35 minutes Charges/Coding Visit Charges Inpatient E&M: 21393 Subs Hosp L2
[2024-06-25 14:40] VITALS: BP 135/88; PULSE 69; RESP 18; TEMP 36.9; O2SAT 100
--- NOTE | 2024-06-25 14:45 | WOUNDNOTE ---
wound photo: right wrist
--- NOTE | 2024-06-25 14:45 | WOUNDNOTE ---
wound photo: right wrist
[2024-06-25] MEDS: [UNRECOGNIZED DRUG - OTHER] 8000 UNITS IV (15:44)
[2024-06-25] MEDS: 0.9% Saline Lock 10 ML Syringe IV (16:00)
[2024-06-25] MEDS: Insulin Lispro 100 UNIT/ML INSULN.PEN SC ×2 (16:39→22:51)
[2024-06-25 17:09] LABS: Bedside Glucose 166 mg/dL (74-106)
--- NOTE | 2024-06-25 18:40 | RAD_ITS ---
INDICATION: F/u after surgery EXAMINATION/TECHNIQUE: X-RAY - RIGHT XR Hand Min 3 Views 3 VIEWS COMPARISON: CT examination of 06/18/2024 FINDINGS: SOFT TISSUES: Normal appearance the visualized soft tissues. 3 surgical clips are present along the volar surface of the hand and wrist. No other radiopaque foreign bodies, no soft tissue gas noted. BONES/JOINTS: No acute fracture or subluxation.. Normal alignment. Preservation of the joint space.. No sclerotic or destructive changes observed. RAD/Hand Min 3 Views IMPRESSION: 1. Postoperative changes with surgical clips in the soft tissues of the volar surface of the hand and wrist. 2. No soft tissue gas. 3. Bony elements and joint spaces have normal appearance. Electronically Signed: Williams Mansfield MD at 19:27 EDT ,
[2024-06-25 20:50] VITALS: BP 144/83; PULSE 72; PULSE 75; RESP 16; TEMP 36.4; O2SAT 100
[2024-06-25] MEDS: oxyCODONE 5 MG Tablet PO (23:38)
[2024-06-25 23:42] LABS: Bedside Glucose 230 mg/dL (74-106)
[2024-06-26 03:03] VITALS: BMI 28.3
[2024-06-26 03:05] VITALS: BP 124/78; PULSE 62; RESP 16; TEMP 36.5; O2SAT 95
--- NOTE | 2024-06-26 05:58 | PN.SURG_ITS ---
Subjective Subjective Patient reports improvement this morning. Feeing better overall. Better ROM in right hand. Worked with OT. Has f/u appointment with me next week as well as the hand therapist. Understands wanad for TXA per hematology and understands plan for home antibiotics. Objective Data Objective Data Xray frmo 25 Jun 2024 (yesterday) reviewed. No signs of osteomyelitis on my read or by the read from the radiologist. Vital Signs: Vital Signs Temp Pulse Resp BP Pulse Ox O2 Del Method O2 Flow Rate 97.7 F L 62 16 124/78 H 95 Room Air 3 06/26/24 03:05 06/26/24 03:05 06/26/24 03:05 06/26/24 03:05 06/26/24 03:05 06/26/24 03:05 06/19/24 19:30 Oxygen Flow Rate (L/min) 3 Oxygen Delivery Method Room Air Weight: 186 lb 1.122 oz Body Mass Index (BMI) 28.3 Intake & Output: Intake and Output for Last 24 Hours 06/24/24 06/25/24 06/26/24 23:59 23:59 23:59 Intake Total 400 / 840 1260 / 1510 450 / 450 Balance 400 / 840 1260 / 1510 450 / 450 Lab / Micro Data 06/25/24 05:53 06/25/24 05:53 Labs: Laboratory Results - last 24 hr 06/25/24 05:53: WBC 5.6, RBC 4.02 L, Hgb 11.0 L, Hct 34.1 L, MCV 84.8, MCH 27.4, MCHC 32.3, RDW Std Deviation 41.1, RDW Coeff of Parker 13.2, Plt Count 273, MPV 9.9, Immature Gran % (Auto) 0.500, Neut % (Auto) 56.1, Lymph % (Auto) 24.2, [place] % (Auto) 11.8 H, Eos % (Auto) 6.3 H, Baso % (Auto) 1.1 H, Absolute Neuts (auto) 3.1, Absolute Lymphs (auto) 1.35, Nucleated RBC % 0, Sodium 139, Potassium 3.9, Chloride 108 H, Carbon Dioxide 26.0, Anion Gap 5, BUN 19 H, Creatinine 1.11, Estim Creat Clear Calc 60.64, Est GFR (MDRD) Af Amer 83, Est GFR (MDRD) Non-Af 69, BUN/Creatinine Ratio 17.1, Glucose 130 H, Calcium 9.3 06/25/24 07:04: POC Glucose 125 H 06/25/24 10:48: Vancomycin Trough 17.4 H 06/25/24 11:13: POC Glucose 145 H 06/25/24 16:38: POC Glucose 166 H 06/25/24 22:51: POC Glucose 230 H Micro: Microbiology 06/18/24 Unknown Incision/Surgical Site Gram Stain - Final 06/18/24 Unknown Incision/Surgical Site Wound Culture - Final Meth. resistant Staph. aureus 06/18/24 Unknown Incision/Surgical Site Anaerobic Culture - Final No growth in 5 days. 06/18/24 Unknown Tissue - Incision site Gram Stain - Final 06/18/24 Unknown Tissue - Incision site Wound Culture - Final No growth aerobically. 06/18/24 Unknown Tissue - Incision site Anaerobic Culture - Final No growth in 5 days. 06/18/24 16:58 Blood Culture (Wb) - Anticubital Left Blood Culture - Final No growth in 5 days. 06/18/24 Unknown Incision/Surgical Site Gram Stain - Final 06/18/24 Unknown Incision/Surgical Site Wound Culture - Final Meth. resistant Staph. aureus 06/18/24 Unknown Incision/Surgical Site Anaerobic Culture - Final No anaerobic bacteria isolated. 06/18/24 Unknown Incision/Surgical Site Gram Stain - Final 06/18/24 Unknown Incision/Surgical Site Wound Culture - Final Meth. resistant Staph. aureus 06/18/24 Unknown Incision/Surgical Site Anaerobic Culture - Final No anaerobic bacteria isolated. Radiography Diagnostic Testing: Radiology Impression Hand X-Ray 06/25/24 18:40 IMPRESSION: 1. Postoperative changes with surgical clips in the soft tissues of the volar surface of the hand and wrist. 2. No soft tissue gas. 3. Bony elements and joint spaces have normal appearance. Electronically Signed: Williams Mansfield MD at 19:27 EDT , Physical Exam Narrative Right upper extremity No bleeding since drains removed. No purulence from wounds. The wounds are granulating with Dakin's soaked dressings. Persistent redness over the volar wrist flap continues to improve. No skin necrosis. No pain with axial loading of the wrist. No pain in the palm or over the A1 pulleys or T1 Benjamin. Vascular: Fingers warm well-perfused with less than 2-second capillary refill Sensory: Same sensory exam as preop, numbness on the radial side of the right thumb, but no new onset numbness. Sensation to light touch intact otherwise in the median nerve distribution. Motor: He is able to fire the thenar muscles (recurrent branch of median intact). 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 He has been compliant with Dial soap soaks and packing, and the nursing staff is been doing a great job. Continue elevation. Appreciate infectious disease consultation and plan for 3 weeks of doxycycline. Agree with continuing vancomycin while in house. OK for DC with f/u next week from [facility] standpoint. I gave patient/ my cellphone and they will call and check in through the week. (2) Septic arthritis of wrist, right: PLAN: Continue occupational therapy consult for range of motion. Will have the make him a custom splint as well. No signs of osteomyelitis on xray film from yesterday. We will also plan to cluster/coordinate care with the occupational therapist next week (anticipated follow-up on 03 July 2024 with me, followed by immediate hand therapy appointment with Janine Nettles), as the patient is coming from [place] we will require transportation arrangements since he does not drive (patient is [facility]). (3) Hemophilia B: PLAN: I spoke to his hematology team yesterday at [facility], Dr. Benavides and his PA, RIKA. Their team would like Mr. Cuellar to have factor IX injected one more time again tonight since the drains were removed today. He will then begin a 7-day course of oral tranexamic acid (TXA) at 1300 mg p.o. 3 times daily. I discussed this with the patient, and I discussed this with the internal medicine team (Dr. Wesley), and we are all in agreement with the plan going forward. Charges/Coding Procedures Integumentary [id number]: [id number] Global Visit
[2024-06-26] MEDS: DAKIN'S SOL HALF STRENGTH (=0.25%) 473 ML TOPICAL ×2 (06:28→14:30)
[2024-06-26 06:42] LABS: Absolute Lymphocyte Count 1.84 X10^3/uL (0.83-4.51); Absolute Neutrophil Count 3.2 X10^3/uL (2.0-7.7); Basophil# 0.06 X10^3/uL; Eosinophil# 0.33 X10^3/uL; Eosinophils% 5.3 % (0-5); Hematocrit 38.4 % (40-54); Hemoglobin 12.3 g/dL (13.0-16.5); Lymphocyte # 1.84 X10^3/ul (0.83-4.51); Lymphocyte % 29.7 % (19-41); Mean Corpuscular Hgb 27.2 pg (27.0-32.0); Mean Platelet Vol. 9.9 fl (6.2-12.0); Monocyte# 0.72 X10^3/uL; Monocyte% 11.6 % (0-10); NRBC Flagged by Analyzer 0 % (0-5); Neutrophil % 51.8 % (47-70); Platelet Count 326 K/mm3 (150-450); RBC Distribution Width CV 13.2 % (11.6-14.6); RBC Distribution Width SD 41.3 fl (35.1-43.9); Red Blood Count 4.52 M/mm3 (4.6-6.2); White Blood Count 6.2 K/mm3 (4.4-11.0)
[2024-06-26 07:23] LABS: Bedside Glucose 120 mg/dL (74-106)
[2024-06-26 07:33] LABS: Anion Gap 5 (5-15); BUN 20 mg/dL (7-18); BUN/Creat Ratio 16.1 RATIO (10-20); Calcium,Total 9.7 mg/dL (8.5-10.1); Chloride 105 mmol/L (98-107); Creatinine, Serum 1.24 mg/dL (0.70-1.30); EST Glomerular Filtration Rate 60 mL/min (>60); Est Glom Filt Rate - Afr Amer 73 mL/min (>60); Estimated Creatinine Clearance 54.46 ml/min; Glucose 131 mg/dL (74-106); Potassium 4.2 mmol/L (3.5-5.1); Sodium Level 135 mmol/L (136-145)
[2024-06-26 09:05] VITALS: BP 148/82; PULSE 78; RESP 18; TEMP 36.8; O2SAT 98
[2024-06-26] MEDS: Losartan Potassium 100 MG Tablet PO (09:11)
[2024-06-26] MEDS: Pantoprazole Sodium 40 MG Tablet PO (09:11)
[2024-06-26] MEDS: Polyethylene Glycol 3350 17 GM PACKET PO (09:11)
[2024-06-26] MEDS: Insulin Lispro 100 UNIT/ML INSULN.PEN SC (11:10)
[2024-06-26] MEDS: Vancomycin IV 1,000 MG/200 ML BAG 200 MG IV (11:11)
[2024-06-26 11:35] LABS: Bedside Glucose 173 mg/dL (74-106)
--- NOTE | 2024-06-26 12:37 | DCINST_ITS ---
Discharge Instructions Diet Discharge Diet: Carb Control Diet Activity Discharge Activity: - (Elevate right hand, you will begin occupational therapy on an outpatient basis. Continue Dakins wet to dry dressings three times daily and dial soap soaks at home with clean water) Follow Up Care Test Results: Test results from this visit will be discussed in further detail at your follow- up appointment, if applicable. Discharge Plan Admission Admit Date/Time: 06/18/24 20:10 Primary Reason for Your Visit: Right hand swelling Attending Provider: Myra Wesley Primary Care Provider: Vidal Armendariz Consulting Providers: Anant Hua; Anant Mcdonald; Hanny Fang Instructions Patient Instructions: ED Fall Prevention Additional Instructions / Restrictions: DISCHARGE INSTRUCTIONS PLEASE READ *Please take this with you to your next doctors appointment* - Your losartan has been increased to 100 mg due to high blood pressure -You will need to take doxycycline 100 mg twice daily for another 3 weeks -Please follow-up with Dr. Hua upon discharge -Elevate right upper extremity -A prescription for tranexamic acid will be sent to your preferred pharmacy on file, he will take 1300 mg 3 times daily for 7 days -Follow-up with your hemophilia doctor on discharge -Continue Dakins wet to dry dressings three times daily and dial soap soaks at home with clean water Please make sure patient has some dressing supplies before discharge. -Elevate right upper extremity -Make sure to take the TXA and your doxycycline. -Please call your primary care provider's office upon discharge to schedule a hospital follow up within 1 week. -For any concerning signs or symptoms please call 911 or proceed to the nearest emergency department Discharge Orders/Prescriptions Prescriptions: New losartan 100 mg Tablet 100 mg PO DAILY 30 Days Qty: 30 0RF oxycodone 5 mg Tablet 5 mg PO Q4H PRN PRN (Reason: Pain Score 4-10) 4 Days Qty: 20 0RF doxycycline hyclate 100 mg capsule 100 mg PO BID 21 Days Qty: 42 0RF tranexamic acid 650 mg tablet 1,300 mg PO Q8H 7 Days Qty: 42 0RF Continued metformin 500 mg PO BID pantoprazole 40 MG tablet 40 mg PO BID Rixubis 2,000 unit recon soln 8,000 unit IV PRN Rx Instructions: intravenously as needed prior to interventions. receives 8000units Discontinued cephalexin 500 mg capsule 500 mg PO Q8H 7 Days Qty: 21 0RF losartan 50 mg PO DAILY Referrals / Follow Up: Vidal Armendariz MD [Primary Care Provider] - Within 1 Week Anant Hua MD [Med Staff - Active Staff] - (Follow-up as previously scheduled or call the office to inquire about your hospital follow-up) Disposition Disposition (needs filled in before D/C Order can be placed): Home, Self Care
--- NOTE | 2024-06-26 12:43 | DS.PCM_ITS ---
Providers Date of Admission: 06/18/24 Date of Discharge: 06/26/24 Primary Care Physician: Dr. Vidal Armendariz MD Consultations 06/18/24 23:52 Consult: Infectious Disease Routine Consulting Provider: Anant Mcdonald Reason for Consult: Septic joint, deep space forearm abscesses. 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 Routine Comment: Reason for Consult:: R wrist septic joint/abscess/cellulitis, going to OR Consult: Plastic Surgery Routine Consulting Provider: Anant Hua Reason for Consult: Septic joint EMERGENT Consult: Yes MD Notified: Yes Date Notified: 06/18/24 Time Notified: 20:10 Method of Notification: ED Physician Initiated Reason For Visit: R WRIST CELLULITIS/ABSCESS/SEPTIC JOINT Diagnosis Discharge Diagnosis (1) Abscess of skin of right wrist: Status: Acute Code(s): L02.413 - Cutaneous abscess of right upper limb (2) Septic arthritis of wrist, right: Status: Acute Code(s): M00.9 - Pyogenic arthritis, unspecified (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 Plan # Right upper extremity wrist cellulitis/septic wrist joint/deep space tissue abscess secondary to MRSA # Hemophilia B -Previous attending physician discussed with [facility] hemophilia clinic # Constipation?resolved #Type 2 diabetes mellitus # Hypertension #GERD # History of hepatitis C-Treated and has since resolved Medications at Discharge Home Medications pantoprazole 40 mg tablet,delayed release 40 mg PO BID 08/02/18 metformin 500 mg PO BID 06/17/24 coagulation factor IX (recomb) 2,000 unit intravenous solution (Rixubis) 8,000 unit IV PRN Hemophilia 06/18/24 doxycycline hyclate 100 mg capsule 100 mg PO BID 3 weeks #42 caps 06/26/24 losartan 100 mg tablet 100 mg PO DAILY 30 days #30 tabs 06/26/24 oxycodone 5 mg tablet 5 mg PO Q4H PRN PRN Pain Score 4-10 4 days #20 tabs 06/26/24 tranexamic acid 650 mg tablet 1,300 mg (2 x 650 mg) PO Q8H 7 days #42 tabs 06/26/24 Hospital Course Operations - (Patient underwent right carpal tunnel release/decompressive fasciotomy/I&D/right wrist arthrotomy on 06/18 and went back to the OR 06/19 for further irrigation and washout) Summary of Care Provided Minutes Spent on Discharge: 33 Hospital Course: 74-year-old male history of hemophilia B, hypertension, GERD, diabetes who presented to [facility] 07[facility]08 with right wrist pain, redness, edema that were worsening despite antibiotic therapy. He thought he had a remote bug bite on his right wrist 4 weeks prior but it continued to worsen. CTA was obtained in the ED and showed diffuse soft tissue edema with cellulitis of the right forearm extending into the soft tissues of the wrist and hand with multiple small abscess collections. He was started on broad-spectrum IV antibiotics and admitted with plastic surgery consult. Patient underwent right carpal tunnel release/decompressive fasciotomy/I&D/right wrist arthrotomy on 06/18 and went back to the OR 06/19 for further irrigation and washout. His wound grew MRSA and he was continued on vancomycin, ID and wound care are following and plastic surgery was managing. Patient continued to improve and ultimately was cleared for discharge with plans for Doxy twice daily for 3 weeks and close follow-up with plastic surgery. Of note patient has hemophilia and required factor IX 1 hour preop, 20 hours postop and continued for 5 days at the discretion of the [facility] hemophilia clinic. Plastic surgery discussed with hemophilia clinic as well and they recommended last dose of factor IX after the drains were pulled 06/25 and if patient remains stable could be transition to 7- day course of tranexamic acid 3 times daily. On day of discharge patient doing much better, still with decreased mobility and some pain however improved from previous, will follow-up with Dr. Hua and have outpatient occupational therapy. No new or acute complaints, discharged in stable condition with discharge instructions as follows: - Your losartan has been increased to 100 mg due to high blood pressure -You will need to take doxycycline 100 mg twice daily for another 3 weeks -Please follow-up with Dr. Hua upon discharge -Elevate right upper extremity -A prescription for tranexamic acid will be sent to your preferred pharmacy on file, he will take 1300 mg 3 times daily for 7 days -Follow-up with your hemophilia doctor on discharge -Continue Dakins wet to dry dressings three times daily and dial soap soaks at home with clean water Please make sure patient has some dressing supplies before discharge. -Elevate right upper extremity -Make sure to take the TXA and your doxycycline. -Please call your primary care provider's office upon discharge to schedule a hospital follow up within 1 week. -For any concerning signs or symptoms please call 911 or proceed to the nearest emergency department Physical Exam Narrative General: Alert, oriented, no apparent distress HEENT: Atraumatic, normocephalic Eyes: Anicteric, normal conjunctiva, extraocular movements grossly intact Neck: Supple Respiratory: Clear to auscultation bilaterally, normal respiratory effort Cardiovascular: Regular rate GI: Nondistended Extremities: No edema Musculoskeletal: Moving all extremities Neuro: No overt focal neurological deficits Skin: No rashes appreciated, right hand wrapped Psych: Cooperative Weight / BMI Weight Weight: 84.4 kg Body Mass Index (BMI) 28.3 ABG / Lab / Microbiology Data 06/26/24 06:07 06/26/24 06:07 Laboratory: Laboratory Results - last 24 hr 06/25/24 16:38: POC Glucose 166 H 06/25/24 22:51: POC Glucose 230 H 06/26/24 06:07: WBC 6.2, RBC 4.52 L, Hgb 12.3 L, Hct 38.4 L, MCV 85.0, MCH 27.2, MCHC 32.0, RDW Std Deviation 41.3, RDW Coeff of Parker 13.2, Plt Count 326, MPV 9.9, Immature Gran % (Auto) 0.600, Neut % (Auto) 51.8, Lymph % (Auto) 29.7, [place] % (Auto) 11.6 H, Eos % (Auto) 5.3 H, Baso % (Auto) 1.0, Absolute Neuts (auto) 3.2, Absolute Lymphs (auto) 1.84, Nucleated RBC % 0, Sodium 135 L, Potassium 4.2, Chloride 105, Carbon Dioxide 25.0, Anion Gap 5, BUN 20 H, Creatinine 1.24, Estim Creat Clear Calc 54.46, Est GFR (MDRD) Af Amer 73, Est GFR (MDRD) Non-Af 60, BUN/Creatinine Ratio 16.1, Glucose 131 H, Calcium 9.7 06/26/24 06:26: POC Glucose 120 H 06/26/24 11:10: POC Glucose 173 H Microbiology: Microbiology 06/18/24 Unknown Incision/Surgical Site Gram Stain - Final 06/18/24 Unknown Incision/Surgical Site Wound Culture - Final Meth. resistant Staph. aureus 06/18/24 Unknown Incision/Surgical Site Anaerobic Culture - Final No growth in 5 days. 06/18/24 Unknown Tissue - Incision site Gram Stain - Final 06/18/24 Unknown Tissue - Incision site Wound Culture - Final No growth aerobically. 06/18/24 Unknown Tissue - Incision site Anaerobic Culture - Final No growth in 5 days. 06/18/24 16:58 Blood Culture (Wb) - Anticubital Left Blood Culture - Final No growth in 5 days. 06/18/24 Unknown Incision/Surgical Site Gram Stain - Final 06/18/24 Unknown Incision/Surgical Site Wound Culture - Final Meth. resistant Staph. aureus 06/18/24 Unknown Incision/Surgical Site Anaerobic Culture - Final No anaerobic bacteria isolated. 06/18/24 Unknown Incision/Surgical Site Gram Stain - Final 06/18/24 Unknown Incision/Surgical Site Wound Culture - Final Meth. resistant Staph. aureus 06/18/24 Unknown Incision/Surgical Site Anaerobic Culture - Final No anaerobic bacteria isolated. Radiography Diagnostic Testing: Radiology Impression Hand X-Ray 06/25/24 18:40 IMPRESSION: 1. Postoperative changes with surgical clips in the soft tissues of the volar surface of the hand and wrist. 2. No soft tissue gas. 3. Bony elements and joint spaces have normal appearance. Electronically Signed: Williams Mansfield MD at 19:27 EDT Reading Location ID and State: [facility] / [place] Tel , Service support , D/C Instructions Discharge Diet: Carb Control Diet Meaningful Use Info Meaningful Use Meaningful Use Diagnoses (Choose all that apply): None applicable Ischemic Stroke Statin Dosing Therapy Reference: STATIN DOSE THERAPY REFERENCE: * Patients > 75 years receive moderate or high dose statin therapy. * Patients 75 years or YOUNGER should receive HIGH intensity statin dose unless contraindicated. You will be required to document reason for non-treatment if statin daily dose does not meet guidelines. HIGH DOSE STATIN THERAPY DAILY Atorvastatin > than or = to 40 mg Rosuvastatin > than or = to 20 mg Amlodipine + Atorvastatin > than or = to 2.5/40 mg Ezetimibe + Simvastatin 10/80 mg Simvastatin 80mg Discharge Plan Admission Admit Date/Time: 06/18/24 20:10 Primary Reason for Your Visit: Right hand swelling Attending Provider: Myra Wesley Primary Care Provider: Vidal Armendariz Consulting Providers: Anant Hua; Anant Mcdonald; Hanny Fang Instructions Patient Instructions: ED Fall Prevention Additional Instructions / Restrictions: DISCHARGE INSTRUCTIONS PLEASE READ *Please take this with you to your next doctors appointment* - Your losartan has been increased to 100 mg due to high blood pressure -You will need to take doxycycline 100 mg twice daily for another 3 weeks -Please follow-up with Dr. Hua upon discharge -Elevate right upper extremity -A prescription for tranexamic acid will be sent to your preferred pharmacy on file, he will take 1300 mg 3 times daily for 7 days -Follow-up with your hemophilia doctor on discharge -Continue Dakins wet to dry dressings three times daily and dial soap soaks at home with clean water Please make sure patient has some dressing supplies before discharge. -Elevate right upper extremity -Make sure to take the TXA and your doxycycline. -Please call your primary care provider's office upon discharge to schedule a hospital follow up within 1 week. -For any concerning signs or symptoms please call 911 or proceed to the nearest emergency department Discharge Orders/Prescriptions Prescriptions: New losartan 100 mg Tablet 100 mg PO DAILY 30 Days Qty: 30 0RF oxycodone 5 mg Tablet 5 mg PO Q4H PRN PRN (Reason: Pain Score 4-10) 4 Days Qty: 20 0RF doxycycline hyclate 100 mg capsule 100 mg PO BID 21 Days Qty: 42 0RF tranexamic acid 650 mg tablet 1,300 mg PO Q8H 7 Days Qty: 42 0RF Continued metformin 500 mg PO BID pantoprazole 40 MG tablet 40 mg PO BID Rixubis 2,000 unit recon soln 8,000 unit IV PRN Rx Instructions: intravenously as needed prior to interventions. receives 8000units Discontinued cephalexin 500 mg capsule 500 mg PO Q8H 7 Days Qty: 21 0RF losartan 50 mg PO DAILY Referrals / Follow Up: Vidal Armendariz MD [Primary Care Provider] - Within 1 Week Anant Hua MD [Med Staff - Active Staff] - (Follow-up as previously scheduled or call the office to inquire about your hospital follow-up) Disposition Disposition (needs filled in before D/C Order can be placed): Home, Self Care Charges/Coding Visit Charges Inpatient E&M: 40654 Disch Hosp >30min
--- NOTE | 2024-06-26 13:15 | CASEMGMT ---
Patient has order for discharge. RN CM spoke with surgeon, Dr. Hua, and outpatient OT has already been setup for patient. RN CM in to discuss needs at discharge with patient and . Patient and feel comfortable to complete dressing changes at home and decline HHC. Nursing updated to send small supply of dressing changes home with patient. Patient and deny needs or help at discharge. Patient and had no further questions or concerns.
--- NOTE | 2024-06-26 14:38 | WOUNDNOTE ---
Nursing had just performed the afternoon soak and dressing change. pt tolerated well. pt and feel comfortable with soaks and dressing change at home. pt appreciative of care.
[2024-06-26 14:42] VITALS: BP 128/74; PULSE 72; RESP 18; TEMP 36.7; O2SAT 96
== END 2024-06-26 14:55 | disposition home or self-care (01) | DRG 500 ==
LOC: ED 17:07 → SDC 20:03 → ACINP 20:04 → PCU 06-19 00:30 → SDC 06-19 00:32 → PCU 06-19 00:32
PROVIDERS: Internal Medicine; Internal Medicine Infectious Disease; Surgery Plastic and Reconstructive Surgery; Admitting Provider Family Medicine; Emergency Provider Emergency Medicine; PCP Family Medicine; Visit Provider Internal Medicine
PROC: 0JNG0ZZ Release Right Lower Arm Subcutaneous Tissue and Fascia, Open Approach (ICD-10-PCS; principal; 2024-06-18 21:45)
PROC: 0R9N0ZZ Drainage of Right Wrist Joint, Open Approach (ICD-10-PCS; principal; 2024-06-19 17:00)
DX: M00.9 Pyogenic arthritis, unspecified (principal); D67 Hereditary factor IX deficiency; L02.413 Cutaneous abscess of right upper limb; L03.113 Cellulitis of right upper limb; E11.65 Type 2 diabetes mellitus with hyperglycemia; I10 Essential (primary) hypertension; K21.9 Gastro-esophageal reflux disease without esophagitis; B95.62 Methicillin resistant Staphylococcus aureus infection as the cause of diseases classified elsewhere; M10.049 Idiopathic gout, unspecified hand; Z79.84 Long term (current) use of oral hypoglycemic drugs; Z66 Do not resuscitate; Z86.19 Personal history of other infectious and parasitic diseases
CPT/HCPCS: 36415; 73130; 73206; 80048; 80053; 80202; 82962; 83036; 83605; 83735; 85025; 85027; 87015; 87040; 87070; 87075; 87077; 87102; 87116; 87186; 87205; 87206; 93005; 94668; 97165; 99284; J7030; J7040; J7050; J7120; Q9967; A4216; J2405

== ENCOUNTER 2024-07-03 13:30 | Outpatient (RCR) | payer SELFPAY, OTHER ==
--- NOTE | 2024-12-12 11:21 | HP.OT.NRP ---
Patient Information Patient Information: NED FELICIANO was seen in my office for initial evaluation on 07/03/24. The following Plan of Care was established for this patient: POC Established Initial Frequency: 1-2x /Week Initial Duration: 2 Months Anticipated Interventions Anticipated Interventions: A/AAROM/PROM, Strengthening, Edema Control, Scar Care, Triggerpoint Release, Sensory Retraining, Wound Care, Orthoses, Joint Protection/Energy Conservation, Education re Diagnosis and Home Program Last Seen Last Seen: This patient was last seen in our office 07/03/24. Pertinent comments regarding their Occupational therapy will appear below: Due to time lapse in OT services pt is d/c at this time. At this point I will be discontinuing this patient from occupational therapy. I would be happy to see this patient again in the future if found appropriate by the physician. Thank you! Eleanor Nettles, OTR/L, CHT
== END 2024-07-03 19:00 | disposition home or self-care (01) ==
LOC: OT 13:30
PROVIDERS: PCP Family Medicine; Referring Provider Surgery Plastic and Reconstructive Surgery; Visit Provider Surgery Plastic and Reconstructive Surgery
DX: L03.113 Cellulitis of right upper limb (principal); M00.9 Pyogenic arthritis, unspecified; L02.413 Cutaneous abscess of right upper limb; M79.89 Other specified soft tissue disorders; B99.9 Unspecified infectious disease
CPT/HCPCS: 97110; 97166; 97760

== ENCOUNTER → 2024-07-03 | Outpatient (CLI) | payer SELFPAY, OTHER ==
--- NOTE | 2024-07-03 12:55 | RAD_ITS ---
STUDY: X-RAY - RIGHT WRIST REASON FOR EXAM: Male, 74 years old. Infection. Follow-up. TECHNIQUE: 3 view(s) of the wrist were obtained. COMPARISON: None. FINDINGS: Osteopenia. Mild arthrosis of the radiocarpal articulation. Mild arthrosis of the distal radioulnar articulation. Moderate arthrosis of the radial carpal row of the wrist. Moderate arthrosis of the first CMC joint. Moderate arthrosis of the MCP and IP joints. Mild diffuse soft tissue swelling with clips projected over the volar surface of the hand adjacent to the fourth and fifth digits and ulnar carpal row. RAD/Wrist min 3 Views IMPRESSION: Osteopenia with osteoarthritic changes as described. Electronically Signed: Robert Smith MD at 14:49 EDT ,
== END | disposition home or self-care (01) ==
PROVIDERS: PCP Family Medicine; Referring Provider Surgery Plastic and Reconstructive Surgery; Visit Provider Surgery Plastic and Reconstructive Surgery
DX: M00.9 Pyogenic arthritis, unspecified (principal)
CPT/HCPCS: 73110

== ENCOUNTER 2024-07-08 12:00 | Inpatient (IN) | payer OTHER, SELFPAY ==
[2024-07-08] VITALS (8 sets, daily range): BP systolic 104–184; BP diastolic 63–103; PULSE 43–88; RESP 16–18; TEMP 36.6–37.4; O2SAT 94–99; BMI 27.5
--- NOTE | 2024-07-08 12:36 | CT_ITS ---
STUDY: CTA RIGHT UPPER EXTREMITIES REASON FOR EXAM: Male, 74 years old. Right wrist infection. Continued swelling. The recent debridement. RADIATION DOSAGE (If Supplied By Facility): CTDIvol = ( 11.66 ) mGy, DLP = ( 131.4 ) mGycm TECHNIQUE: Axial CT angiography, multi-detector data acquisition was obtained from the neck base through the hands following intravenous administration of IV 100mL Isovue-370. 2.5 mm axial images and MIP images were reconstructed from the axial data set. Post-processing of the angiographic images was performed, with multiplanar reformation and 3D reconstruction. Individualized dose optimization techniques were used for this CT. COMPARISON: Comparison is made with prior examination of June 18, 2024. FINDINGS: RIGHT UPPER EXTREMITY: Multiple axial tomographic images of the right forearm were obtained. Coronal and sagittal reconstruction was obtained as well. The previously seen fluid collections have resolved. There is evidence of residual subcutaneous edema in keeping with a cellulitis. There is evidence of osteoporosis of the carpal bones and bases of the metacarpal bones suggestive of a disuse osteoporosis. CT/CTA Upper Ext W/WO Contrast IMPRESSION: No evidence of fluid collections at this time. Cellulitis. Disuse osteoporosis. Electronically Signed: Mykel Streeter MD at 14:40 EDT ,
[2024-07-08 12:51] LABS: Erythrocyte Sedimentation Rate 11 mm/hr (0-20)
[2024-07-08 12:53] LABS: Absolute Lymphocyte Count 1.32 X10^3/uL (0.83-4.51); Absolute Neutrophil Count 3.9 X10^3/uL (2.0-7.7); Basophil# 0.08 X10^3/uL; Basophil% 1.3 % (0-1); Eosinophil# 0.23 X10^3/uL; Eosinophils% 3.7 % (0-5); Lymphocyte # 1.32 X10^3/ul (0.83-4.51); Lymphocyte % 21.4 % (19-41); Mean Corp Hgb Conc 32.5 g/dL (32-36); Mean Corpuscular Hgb 27.4 pg (27.0-32.0); Mean Corpuscular Volume 84.4 fL (80-94); Mean Platelet Vol. 10.5 fl (6.2-12.0); Monocyte% 9.7 % (0-10); NRBC Flagged by Analyzer 0 % (0-5); Neutrophil # 3.91 X10^3/uL (2.7-7.7); Neutrophil % 63.6 % (47-70); Platelet Count 271 K/mm3 (150-450); RBC Distribution Width CV 13.6 % (11.6-14.6); RBC Distribution Width SD 42.3 fl (35.1-43.9); Red Blood Count 4.74 M/mm3 (4.6-6.2); White Blood Count 6.2 K/mm3 (4.4-11.0)
[2024-07-08 12:56] LABS: Anion Gap 4 (5-15); BUN 17 mg/dL (7-18); BUN/Creat Ratio 14.7 RATIO (10-20); Calcium,Total 9.5 mg/dL (8.5-10.1); Chloride 109 mmol/L (98-107); Creatinine, Serum 1.16 mg/dL (0.70-1.30); EST Glomerular Filtration Rate 65 mL/min (>60); Est Glom Filt Rate - Afr Amer 79 mL/min (>60); Glucose 167 mg/dL (74-106); Potassium 3.9 mmol/L (3.5-5.1); Sodium Level 139 mmol/L (136-145)
[2024-07-08] MEDS: Vancomycin HCl 2,000 MG in 0.9% Normal Saline (500mL Bag) 500 ML 250 MG IV (13:04)
--- NOTE | 2024-07-08 14:11 | RAD_ITS ---
STUDY: X-RAY - RIGHT WRIST REASON FOR EXAM: Male, 74 years old. Right wrist infection Hx TECHNIQUE: 3 view(s) of the wrist were obtained. COMPARISON: Comparison is made with prior study dated July 03, 2024. FINDINGS: Normal visualized distal radius and ulna. Normal radiocarpal articulation. Normal distal radioulnar articulation. Normal carpal bones. Normal carpal articulations. Normal carpometacarpal articulation of the thumb. Normal second through fifth carpometacarpal articulations. 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 Surgical clips are seen within the soft tissues in keeping with recent history of drainage. RAD/Wrist min 3 Views IMPRESSION: Osteopenia. Electronically Signed: Mykel Streeter MD at 14:43 EDT ,
--- NOTE | 2024-07-08 14:40 | EX.ED.UPPERE ---
HPI History of Present Illness HPI Narrative: 74-year-old [facility] male history of hemophilia and diabetes. On 06 18 he was admitted to the hospital and had surgery for deep space palmar infection. He was hospitalized for 7 days. Was discharged home on oral antibiotics. Been doing well was progressively getting better and lastly started more swelling and discomfort in his right upper extremity. He is right-hand dominant. He denies any trauma. No fever. Chief Complaint: Wound Informant: patient and family Onset/Context/Timing Onset: Today and Yesterday Timing: Continuous Quality of Pain: Dull and Aching Current Severity: Moderate Maximum Severity: Moderate Narrative Narrative: 74-year-old [facility] male history of diabetes and hemophilia with recent right palmar space infection and needed surgery and both IV and oral antibiotics. Worsening discomfort in the last 24 hours. Redness and swelling. Prior similar symptoms: Yes Recent Illness/Hospitalization: Yes PFSH PFSH Medical History Diabetes mellitus, type 2 GERD (gastroesophageal reflux disease) Hemophilia B Hypertension Hepatitis C Home Medications ?Medication ?Instructions ?Recorded ?Last Taken ?Type doxycycline hyclate 100 mg capsule 100 mg PO BID 3 weeks #42 caps 06/26/24 07/08/24 Rx oxycodone 5 mg tablet 5 mg PO Q4H PRN PRN Pain Score 06/26/24 07/07/24 Rx 4-10 4 days #20 tabs metformin 500 mg tablet 500 mg PO BID 07/03/24 07/08/24 History famotidine 20 mg tablet (Acid 20 mg PO DAILY 07/08/24 07/08/24 History Controller) losartan 100 mg tablet 50 mg PO DAILY 07/08/24 07/08/24 History polyethylene glycol 3350 17 17 g PO DAILY 07/08/24 07/07/24 History gram/dose oral powder (ClearLax) Allergy/AdvReac Type Severity Reaction Status Date / Time aspirin AdvReac Intermediate HEMOPHELIAC, Verified 07/08/24 12:06 AVOIDS Family History Father Cancer Hypertension Diabetes Mother Hemophilia B carrier Surgical History History of hand surgery H/O inguinal hernia repair Social History household members: spouse Smoking Status: Never smoker alcohol intake: never substance use type: does not use additional social history: denies vaping, denies marijuana use, denies edibles, denies aspirin or ibuprofen use hx of hemophilia ROS ROS ED ROS Narrative Right wrist and forearm pain and swelling. No fever. Constitutional Constitutional ED: Denies chills or fever(s) Eyes Eyes: Denies blurry vision ENT ENT ED: Denies ear pain Cardiovascular Cardiovascular: Denies chest pain Respiratory/Chest Respiratory/Chest: Denies cough or dyspnea Gastrointestinal Gastrointestinal: Denies abdominal pain Genitourinary Genitourinary ED: Denies dysuria or hematuria Musculoskeletal Musculoskeletal: Denies back pain Integumentary Denies abscess Neurologic Neurologic: Denies headache(s) Psychiatric Psychiatric: Denies anxiety Endocrine Endocrinology: Denies cold intolerance Hematologic/Lymphatic Hematologic/Lymphatic: Denies easy bleeding Allergic/Immunologic Allergic/Immunologic ED: Denies mouth swelling EXAM Physical Exam Narrative Exam Narrative: Well-appearing 74-year-old male. Vital signs stable afebrile. No acute distress. H EENT exam unremarkable. Neck nontender. Lungs clear to auscultation bilaterally. Heart regular rhythm. Abdomen soft nontender. Moving all 4 extremities. Right palm wrist and forearm there is mild swelling and redness. Well-healed recent surgical incision. The area is red though. Mildly tender. He has tenderness with palpation and mild with range of motion but does not appear to be a septic joint. This could be a recurrent infection versus a hematoma. There is no lymphangitic streaking. The elbow and shoulder are unremarkable. He has no axillary lymphadenopathy. He is able to open and close his hand. The hand is neurovascularly intact. Normal radial pulse. Const Vital Signs: 07/08/24 12:02 07/08/24 13:06 07/08/24 14:00 Temperature 99.4 F H 99 F 99.1 F Temperature Source Oral Oral Oral Pulse Rate 43 L 88 78 Respiratory Rate 16 17 18 Blood Pressure 184/84 H 153/78 H 144/94 H Blood Pressure Mean 117 103 110 Pulse Ox 99 98 Oxygen Delivery Method Room Air Positive well nourished and well developed; Negative for obese, cachectic, contractures or unkempt General Appearance ED: well developed and NAD; Negative for unkempt, cachectic, contractures, cyanotic or diaphoretic Nutritional Appearance: Negative for cachectic or obese HEENT Reports moist mucous membranes normocephalic and atraumatic; Negative for trauma or tenderness Eyes PERRL and EOMs intact bilaterally Neck full ROM and supple General: Negative for tenderness Chest Wall inspection of chest normal and palpation of chest normal Resp normal respiratory effort and clear to auscultation bilaterally Cardio regular rate, regular rhythm, S1 normal heart sound, S2 normal heart sound and no murmurs Rate: Negative for bradycardia, tachycardic or other Rhythm: Negative for abnormal rhythm GI non-tender, non-distended and no masses Inspection: Negative for abdominal distention Palpation: soft; Negative for tender, guarding or rebound tenderness present Back/Spine no CVA tenderness Extremity normal to inspection and full ROM Extremity Narrative: Right distal forearm wrist and hand swelling. Tenderness. Redness. Consistent with infection. He has neurovascular intact with normal radial pulse. He can open and close his hand. There is no lymphangitic streaking or axillary lymphadenopathy. General Extremety ED: Yes edema General Extremity: edema Neuro oriented x3, CN's II-XII intact bilaterally, moves all extremities, no focal motor deficits and no sensory deficits noted Sensorium / Orientation: alert, oriented to person, oriented to place and oriented to time; Negative for orientation impaired or lethargic Motor Exam: strength 5/5 throughout Psych mental status grossly normal Appearance: Negative for unkempt Attitude: No agitated Mood & Affect: Negative for depressed, anxious or tearful Skin Lesions: no lesions Rashes: No no rashes MDM MDM MDM Narrative Medical decision making narrative: 74-year-old [facility] male diabetic with hemophilia. Recent surgery due to a deep space infection. Was doing well on last night send having more pain and swelling. Concern for recurrent infection. Started on IV vancomycin. Labs and CAT scan being obtained. Have already spoken to his plastic surgeon Dr. Anant Ramos who has already been down in the emergency department evaluate the patient. Patient will be admitted to the hospitalist. Who is coming down evaluated. He was given morphine and Zofran for pain. History & Record Review Discussion w/independent historian: Patient and Family Additional record(s) reviewed:: Prior inpatient record, Prior outpatient record, Prior ED visit and Prior labs Lab Data Attestation: I reviewed the patient's lab results. Lab results narrative: CBC white count of 6. H&H 13 and 40. Platelets 271. Sed rate 11. Electrolytes show gap 4. Normal BUN and creatinine. Glucose 167. Labs: Laboratory Results - last 24 hr 07/08/24 12:37 WBC 6.2 RBC 4.74 Hgb 13.0 Hct 40.0 MCV 84.4 MCH 27.4 MCHC 32.5 RDW Std Deviation 42.3 RDW Coeff of Parker 13.6 Plt Count 271 MPV 10.5 Immature Gran % (Auto) 0.300 Neut % (Auto) 63.6 Lymph % (Auto) 21.4 Ray % (Auto) 9.7 Eos % (Auto) 3.7 Baso % (Auto) 1.3 H Absolute Neuts (auto) 3.9 Absolute Lymphs (auto) 1.32 Nucleated RBC % 0 ESR 11 Sodium 139 Potassium 3.9 Chloride 109 H Carbon Dioxide 26.0 Anion Gap 4 L BUN 17 Creatinine 1.16 Estim Creat Clear Calc 57.50 Est GFR (MDRD) Af Amer 79 Est GFR (MDRD) Non-Af 65 BUN/Creatinine Ratio 14.7 Glucose 167 H Calcium 9.5 Radiography Diagnostic Testing: Right wrist x-ray 3 views interpreted by myself shows no osteomyelitis. No acute bony abnormalities. No subcu air. CAT scan per the plastic surgeon was obtained also were awaiting radiology interpretation. Discharge Plan Triage Chief Complaint: Wound ED Provider: Lewis Kc Dx/Rx/DC Orders Clinical Impression: Cellulitis of right upper extremity, History of diabetes mellitus, History of hemophilia Prescriptions: No Action metformin 500 mg tablet 500 mg PO BID oxycodone 5 mg Tablet 5 mg PO Q4H PRN PRN (Reason: Pain Score 4-10) 4 Days Qty: 20 0RF Patient Comments: pt ran out yesterday doxycycline hyclate 100 mg capsule 100 mg PO BID 21 Days Qty: 42 0RF famotidine [Acid Controller] 20 mg tablet 20 mg PO DAILY polyethylene glycol 3350 [ClearLax] 17 gram/dose powder 17 g PO DAILY losartan 100 mg Tablet 50 mg PO DAILY Primary Care Provider: Vidal Armendariz Referrals: Vidal Armendariz MD [Primary Care Provider] - Print Language: Russian Disposition Disposition: Acute Care [facility]
--- NOTE | 2024-07-08 14:42 | NURSING ---
MED SURG ROYAL CELLULITIS, POST WOUND, HX OF DEEP SPACE INFECTION, DM
--- NOTE | 2024-07-08 14:46 | PCM.HP.STD ---
HPI - General General Date of Admission: 07/08/24 Date of Service: 07/08/24 Chief Complaint: increased R hand swelling and erythema HPI Narrative NED FELICIANO, is a 74 M with a history of diabetes, hemophilia B, hypertension, right wrist MRSA abscess status post I&D 06/19 who presented to [facility] ED 07/08/2024 with increasing pain, swelling, erythema of right wrist. Patient was admitted earlier this month for a little over a week due to a right wrist infection which turned out to be MRSA abscess that was I&D did with plastics. Patient improved during his admission and ultimately discharged on Doxy twice daily for 3 weeks. Patient has been slowly but surely improving on outpatient basis until last night he had slightly more swelling and then this a.m. had swelling, pain, erythema. In the ED plastics evaluated and there was nothing that could be aspirated. There was concern for infection and it was recommended that patient be admitted for IV antibiotics and close monitoring. CT in the ED did not show any fluid collection. Hospitalist contacted for admission. Patient seen at bedside and reports history as above. Denies any fevers, did not injure his wrist, no other new changes or concerns. No recent or new bleeding or bruising. [facility] Medical History Diabetes mellitus, type 2 GERD (gastroesophageal reflux disease) Hemophilia B Hypertension Hepatitis C Home Medications ?Medication ?Instructions ?Recorded ?Last Taken ?Type doxycycline hyclate 100 mg capsule 100 mg PO BID 3 weeks #42 caps 06/26/24 07/08/24 Rx oxycodone 5 mg tablet 5 mg PO Q4H PRN PRN Pain Score 06/26/24 07/07/24 Rx 4-10 4 days #20 tabs metformin 500 mg tablet 500 mg PO BID 07/03/24 07/08/24 History famotidine 20 mg tablet (Acid 20 mg PO DAILY 07/08/24 07/08/24 History Controller) losartan 100 mg tablet 50 mg PO DAILY 07/08/24 07/08/24 History polyethylene glycol 3350 17 17 g PO DAILY 07/08/24 07/07/24 History gram/dose oral powder (ClearLax) Allergy/AdvReac Type Severity Reaction Status Date / Time aspirin AdvReac Intermediate HEMOPHELIAC, Verified 07/08/24 12:06 AVOIDS Family History Father Cancer Hypertension Diabetes Mother Hemophilia B carrier Surgical History History of hand surgery H/O inguinal hernia repair Social History household members: spouse Smoking Status: Never smoker alcohol intake: never substance use type: does not use additional social history: denies vaping, denies marijuana use, denies edibles, denies aspirin or ibuprofen use hx of hemophilia ROS ROS Narrative General: Denies fever/chills HENT: Denies headache, denies stuffy nose, denies sore throat EYES: Denies changes in vision Resp: Denies cough, denies shortness of breath Cardiac: Denies chest pain GI: Denies abdominal pain, denies changes in bowel, denies nausea/vomiting : Denies changes in urination Extremity: Right wrist increased swelling, erythema, pain MSK: Denies weakness Neuro: Denies any numbness/tingling Heme: Denies any bleeding or bruising Skin: Denies rashes Psychiatric: No complaints voiced Vital Signs Vital Signs Vital Signs: 07/08/24 12:02 07/08/24 13:06 07/08/24 14:00 Temperature 99.4 F H 99 F 99.1 F Temperature Source Oral Oral Oral Pulse Rate 43 L 88 78 Respiratory Rate 16 17 18 Blood Pressure 184/84 H 153/78 H 144/94 H Blood Pressure Mean 117 103 110 Pulse Ox 99 98 Oxygen Delivery Method Room Air Weight Weight: 82.1 kg Body Mass Index (BMI) 27.5 Physical Exam Narrative General: Alert, oriented, no apparent distress HEENT: Atraumatic, normocephalic Eyes: Anicteric, normal conjunctiva, extraocular movements grossly intact Neck: Supple Respiratory: Clear to auscultation bilaterally, normal respiratory effort Cardiovascular: Regular rate and rhythm GI: Soft, nontender, nondistended Extremities: Increased swelling on right wrist and back right hand Musculoskeletal: Moving all extremities Neuro: No overt focal neurological deficits Skin: Increased erythema over right forearm/wrist and back of hand with some weeping out of area on wrist but no pus/purulent drainage appreciated Psych: Cooperative Results Lab / Micro Data 07/08/24 12:37 07/08/24 12:37 Labs: Laboratory Results - last 24 hr 07/08/24 12:37: WBC 6.2, RBC 4.74, Hgb 13.0, Hct 40.0, MCV 84.4, MCH 27.4, MCHC 32.5, RDW Std Deviation 42.3, RDW Coeff of Parker 13.6, Plt Count 271, MPV 10.5, Immature Gran % (Auto) 0.300, Neut % (Auto) 63.6, Lymph % (Auto) 21.4, [place] % (Auto) 9.7, Eos % (Auto) 3.7, Baso % (Auto) 1.3 H, Absolute Neuts (auto) 3.9, Absolute Lymphs (auto) 1.32, Nucleated RBC % 0, ESR 11, Sodium 139, Potassium 3.9, Chloride 109 H, Carbon Dioxide 26.0, Anion Gap 4 L, BUN 17, Creatinine 1.16, Estim Creat Clear Calc 57.50, Est GFR (MDRD) Af Amer 79, Est GFR (MDRD) Non-Af 65, BUN/Creatinine Ratio 14.7, Glucose 167 H, Calcium 9.5 Imaging Radiology Impression Upper Extremity CTA 07/08/24 12:36 IMPRESSION: No evidence of fluid collections at this time. Cellulitis. Disuse osteoporosis. Electronically Signed: Mykel Streeter MD at 14:40 EDT , Wrist X-Ray 07/08/24 14:11 IMPRESSION: Osteopenia. Electronically Signed: Mykel Streeter MD at 14:43 EDT , Assessment & Plan Assessment/Plan (1) Cellulitis of right upper extremity: PLAN: Plan # Increased right wrist/hand erythema and swelling -In setting of recent right wrist MRSA abscess status post I&D 06/18 discharged from hospital 06/26 on 3 weeks of doxycycline -Vanco and Unasyn started in ED, will continue -ID consult -Plastics evaluated in the ED, plastics consult -Did discuss case with plastic surgeon, no fluid collection on CT's no present plan for OR, patient okay to eat -OT -Wound care -No current plans for OR -Keep extremity elevated as able -Pain control # Hemophilia B -Follows with [facility] hemophilia clinic -Will need factor IX if patient requires any surgical intervention -Hemoglobin 13, not presently having any bleeding from right wrist that is apparent #Type 2 diabetes mellitus -Glucose checks and sliding scale insulin -Will carefully control glucose as able to promote wound healing -Hold metformin -Carb controlled diet #Hypertension -Continue losartan -Blood pressure 144/94 -Can titrate antihypertensives further pending progress #GERD -Not presently complaining of any acute symptoms -Continue famotidine #DVT ppx: SCDs, reviewed previous notes that indicated this was discussed with external provider and chemoprophylaxis was recommended against given his hemophilia B Myra Wesley MD Charges/Coding Visit Charges Inpatient E&M: 86261 Init Hosp L2
[2024-07-08] MEDS: Ondansetron 4 MG/2 ML Vial IV (14:48)
[2024-07-08] MEDS: Morphine 4 MG/ML Syringe IV (14:50)
--- NOTE | 2024-07-08 14:54 | CON.PCM.SX_ITS ---
Assessment & Plan Assessment/Plan (1) History of hemophilia: (2) History of diabetes mellitus: (3) Cellulitis of right upper extremity: PLAN: Plan On my review of the CT scan (I also discussed [id number] with the radiologist), there is no sign of a fluid collection in the wrist or hand at this time. There is also no signs of osteomyelitis on the plain films (rather disuse osteopenia). The patient being admitted to medicine for localized skin reaction and cellulitis. Plastic surgery will follow Recommend elevation of the right upper extremity above the heart with blue arm elevator. Also recommending broad-spectrum antibiotics and saline soaked gauze to the wounds twice daily. HPI Consult Data Date of Consult: 07/08/24 HPI Narrative HPI Narrative: HPI (From 18 Jun 2024): NED FELICIANO is a 74 M [id number] male with past medical history including hemophilia B, trauma to his right upper extremity with 3 hand surgeries, gout, hypertension, and type 2 diabetes who presents with a right forearm/wrist/hand infection. Approximately 1 month ago he was seen by his family medicine physician for acute onset wrist pain (no inciting trauma/injury). Given his history of gout, and no signs of overlying infection or recent trauma, he was reportedly treated with indomethacin but also doxycycline in case it was early cellulitis. He continued to have the wrist pain, albeit not worsening, until 3 days ago when he developed redness on the volar aspect of his wrist and swelling. He developed a home fever of 100.4 and was seen at the [facility] yesterday and placed on Keflex. He went to his primary care doctor today, Dr. Vidal Armendariz, complaining of sharp severe pain. Dr. Man called me on my cell phone today and discussed the patient with me and I recommended emergent transfer to the emergency department for evaluation by hand surgery and CT scan. The patient was transferred here as fast as possible (he is of the [facility], and lives approximately [address] of [address]). Today in the emergency department it is sharp severe pain in the right upper extremity, worsened by movements and improved with rest and elevation. Patient reports a history of right hand penetrating trauma from a piece of porcelain that cut his right hand thumb flexor pollicis longus (required repair and hand therapy in remote past). He has persistent numbness on the radial side of his thumb from this injury. 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 He reports that he takes factor IX 1 hour before surgery and has the factor IX with him right now. The medicine teams and myself are reaching out to the hematology team to discuss and make sure that we do not do have to do anything else to optimize his coagulation pathway before surgery. Patient is retired, but often works with his hands during functions involving his [employer]. He is not a smoker He has a history of hepatitis C from his transfusions, but this was noted to be completely cleared in 2008. No liver problems since. PROCEDURES: 1) Surgery/Procedure Date: 18 June 2024 PRE-OPERATIVE DIAGNOSIS: Right forearm, wrist, hand volar and dorsal abscesses with septic right wrist joint POST-OPERATIVE DIAGNOSIS: Same PROCEDURE PERFORMED: 1) Right hand carpal tunnel release (CPT: 92663) 2) Decompressive fasciotomy, volar compartments (superficial and deep) in mid/distal forearm (CPT: 26147) 3) Incision and drainage of volar forearm abscess immediately underneath antebrachial fascia and also extending down to Parona's space (deep space forearm abscess) (CPT: 58872) 4) Arthrotomy right wrist, dorsal approach, for wash out of septic right wrist joint (CPT: 20037) OPERATIVE FINDINGS: * Abscess beneath volar wrist antebrachial fascia. * Abscess and Parona space (deep space forearm just volar to the pronator quadratus). * Purulence in the proximal portion of the carpal tunnel from above-mentioned abscess, but no purulence coming from the flexor sheath distally. * Septic right wrist joint (purulent fluid) when accessed through dorsal approach. 2) Surgery/Procedure Date: 19 June 2024 PRE-OPERATIVE DIAGNOSIS: Right forearm, wrist, hand volar and dorsal abscesses with septic right wrist joint, s/p initial I&D POST-OPERATIVE DIAGNOSIS: Same PROCEDURE PERFORMED: 1) Second look and irrigation and wash out of incisions, including Parona's space and Carpal Tunnel 2) Arthrotomy right wrist, dorsal approach, for repeat wash out of septic right wrist joint (CPT: 12543) OPERATIVE FINDINGS: * No new abscess cavities. The wound was irrigated with copious amounts normal saline. * The carpal bones appear to be viable without any signs of osteomyelitis (robust, hard bone, no signs of sequestrum) 03 July 2024: Patient presents today for 1 week follow-up after hospital discharge. He was discharged home after his exam significantly improved following several days of IV antibiotics and infectious disease consultation. His cultures grew MRSA and he was treated with vancomycin followed by doxycycline (currently taking the doxycycline). He has been performing dressing changes with Dakin's on the volar and dorsal hand wounds and they have been healing nicely. He was placed on a 1 week course of tranexamic acid (TXA) by his catalog librarian following discharge from the hospital so as to prevent bleeding. He has not had any bleeding issues since I saw him in clinic. He reports improved range of motion. He has an appointment with our occupational hand therapist Janine High following his appointment with me today. She is going to make him a neutral Orthoplast splint and work with him on range of motion. Denies any fevers or chills. Doing well overall. Feels comfortable doing the dressing changes. His pain is improved. He is reporting some redness around the volar wounds with some irritated skin. CURRENT ENCOUNTER, 08 July 2024: Patient reported increased swelling in his wrist today and presented to the emergency department for evaluation with his today. Reports that he has decreased range of motion secondary to the swelling. No pain deep within the joint. He acknowledges that it does feel a lot better than it did the first day when he came to our hospital for the wrist infection, however. The volar wrist soft tissue's are tender to palpation, and it is a sharp severe pain worsened by movements and improved by rest and elevation. No pain while he moves his fingers into a fist or extend his fingers. Of note he has been putting B&W ointment on the wound and this started a couple of days ago (5 treatments thus far). [facility] Medical History Diabetes mellitus, type 2 GERD (gastroesophageal reflux disease) Hemophilia B Hypertension Hepatitis C Home Medications ?Medication ?Instructions ?Recorded ?Last Taken ?Type doxycycline hyclate 100 mg capsule 100 mg PO BID 3 weeks #42 caps 06/26/24 07/08/24 Rx oxycodone 5 mg tablet 5 mg PO Q4H PRN PRN Pain Score 06/26/24 07/07/24 Rx 4-10 4 days #20 tabs metformin 500 mg tablet 500 mg PO BID 07/03/24 07/08/24 History famotidine 20 mg tablet (Acid 20 mg PO DAILY 07/08/24 07/08/24 History Controller) losartan 100 mg tablet 50 mg PO DAILY 07/08/24 07/08/24 History polyethylene glycol 3350 17 17 g PO DAILY 07/08/24 07/07/24 History gram/dose oral powder (ClearLax) Allergy/AdvReac Type Severity Reaction Status Date / Time aspirin AdvReac Intermediate HEMOPHELIAC, Verified 07/08/24 12:06 AVOIDS Family History Father Cancer Hypertension Diabetes Mother Hemophilia B carrier Surgical History History of hand surgery H/O inguinal hernia repair Social History household members: spouse Smoking Status: Never smoker alcohol intake: never substance use type: does not use additional social history: denies vaping, denies marijuana use, denies edibles, denies aspirin or ibuprofen use hx of hemophilia Physical Exam Narrative Right upper extremity No purulence from wounds. No pain with axial loading of the wrist. No pain in the palm or over the A1 pulleys or T1 Benjamin. Tenderness to palpation over the distal radial forearm soft tissue. Vascular: Fingers warm well-perfused with less than 2-second capillary refill Sensory: Same sensory exam as preop, numbness on the radial side of the right thumb, but no new onset numbness. Sensation to light touch intact otherwise in the median nerve distribution. Motor: No pain with passive range of motion of the fingers (moving them into and out of a fist and no pain in the wrist). He is able to fire the thenar muscles (recurrent branch of median intact). 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 (4/5) Eyes EOMs intact bilaterally Lymph Lymphatic: no lymphadenopathy noted Resp normal respiratory effort Cardio regular rate and regular rhythm Extremity Extremity Narrative: SCDs on and activated Lab / Micro Data 07/08/24 12:37 07/08/24 12:37 Labs: Laboratory Results - last 24 hr 07/08/24 12:37: WBC 6.2, RBC 4.74, Hgb 13.0, Hct 40.0, MCV 84.4, MCH 27.4, MCHC 32.5, RDW Std Deviation 42.3, RDW Coeff of Parker 13.6, Plt Count 271, MPV 10.5, Immature Gran % (Auto) 0.300, Neut % (Auto) 63.6, Lymph % (Auto) 21.4, Perkins % (Auto) 9.7, Eos % (Auto) 3.7, Baso % (Auto) 1.3 H, Absolute Neuts (auto) 3.9, Absolute Lymphs (auto) 1.32, Nucleated RBC % 0, ESR 11, Sodium 139, Potassium 3.9, Chloride 109 H, Carbon Dioxide 26.0, Anion Gap 4 L, BUN 17, Creatinine 1.16, Estim Creat Clear Calc 57.50, Est GFR (MDRD) Af Amer 79, Est GFR (MDRD) Non-Af 65, BUN/Creatinine Ratio 14.7, Glucose 167 H, Calcium 9.5 Imaging Radiology Impression Upper Extremity CTA 07/08/24 12:36 IMPRESSION: No evidence of fluid collections at this time. Cellulitis. Disuse osteoporosis. Electronically Signed: Myekl Streeter MD at 14:40 EDT , Wrist X-Ray 07/08/24 14:11 IMPRESSION: Osteopenia. Electronically Signed: Mykel Streeter MD at 14:43 EDT , Charges/Coding Multi Select Codes Visit Charges Office Visit/Consults: 18552 OP Consult L3 (Consultation for a new problem (diagnosis is forearm cellulitis) )
[2024-07-08] MEDS: Ampicillin/Sulbactam 3 GM in 0.9% Normal Saline (100mL MB+) 100 ML IV (17:00)
--- NOTE | 2024-07-08 17:01 | PCM.RX.CS ---
Consult Antibiotic Management Pharmacy has been consulted to manage selected antibiotic: Vancomycin Type of Intervention Type of Consult: New start Labs Labs: Sodium 139 mmol/L (136-145) 07/08/24 12:37 Potassium 3.9 mmol/L (3.5-5.1) 07/08/24 12:37 Chloride 109 mmol/L (98-107) H 07/08/24 12:37 Carbon Dioxide 26.0 mmol/L (21.0-32.0) 07/08/24 12:37 Anion Gap 4 (5-15) L 07/08/24 12:37 BUN 17 mg/dL (7-18) 07/08/24 12:37 Creatinine 1.16 mg/dL (0.70-1.30) 07/08/24 12:37 Est GFR (MDRD) Af Amer 79 mL/min (>60) 07/08/24 12:37 Est GFR (MDRD) Non-Af 65 mL/min (>60) 07/08/24 12:37 BUN/Creatinine Ratio 14.7 RATIO (10-20) 07/08/24 12:37 Glucose 167 mg/dL (74-106) H 07/08/24 12:37 Pharmacy Plan for Drug Dosing Pharmacy Plan for Drug Dosing: NEW START IV VANCOMYCIN Consulting Physician: Lupillo Indication: cellulitis/recent wrist abscess Goal Trough: 15-20 mg/dl SrCr: 1.16 mg/dl CrCl: 57.5 ml/min Comments: 2000mg loading dose given in ER @ 1304 Vancomycin Dose: Will start 750mg Q12 (07/09 @ 0100) and get a level prior to 4th total dose per policy. Pending Level: 07/10/24 @ 0030 Pharmacy Service will continue to monitor and adjust dosing as required.
[2024-07-08 17:16] LABS: Bedside Glucose 139 mg/dL (74-106)
[2024-07-08] MEDS: Losartan Potassium 50 MG Tablet PO (21:54)
[2024-07-08] MEDS: Acetaminophen 500 MG Tablet 1000 MG PO (21:54)
[2024-07-08] MEDS: Polyethylene Glycol 3350 17 GM PACKET PO (21:55)
[2024-07-09] MEDS: Ampicillin/Sulbactam 3 GM in 0.9% Normal Saline (100mL MB+) 100 ML IV ×4 (00:02→17:53)
[2024-07-09] MEDS: Vancomycin HCl 750 MG in 0.9% Normal Saline (250mL Bag) 250 ML 250 MG IV ×2 (01:27→13:00)
[2024-07-09 04:00] VITALS: BP 104/63; PULSE 64; RESP 18; TEMP 36.6; O2SAT 95
[2024-07-09] MEDS: Acetaminophen 500 MG Tablet 1000 MG PO ×3 (06:39→21:43)
[2024-07-09 06:46] LABS: Bedside Glucose 136 mg/dL (74-106)
[2024-07-09 07:06] LABS: Absolute Lymphocyte Count 1.35 X10^3/uL (0.83-4.51); Absolute Neutrophil Count 2.5 X10^3/uL (2.0-7.7); Basophil# 0.06 X10^3/uL; Basophil% 1.2 % (0-1); Eosinophil# 0.44 X10^3/uL; Eosinophils% 8.8 % (0-5); Hematocrit 37.9 % (40-54); Lymphocyte # 1.35 X10^3/ul (0.83-4.51); Lymphocyte % 26.9 % (19-41); Mean Corp Hgb Conc 31.7 g/dL (32-36); Mean Corpuscular Hgb 27.3 pg (27.0-32.0); Mean Corpuscular Volume 86.1 fL (80-94); Mean Platelet Vol. 10.6 fl (6.2-12.0); Monocyte# 0.63 X10^3/uL; Monocyte% 12.5 % (0-10); NRBC Flagged by Analyzer 0 % (0-5); Neutrophil # 2.53 X10^3/uL (2.7-7.7); Neutrophil % 50.4 % (47-70); Platelet Count 235 K/mm3 (150-450); RBC Distribution Width CV 13.8 % (11.6-14.6)
--- NOTE | 2024-07-09 07:18 | PN.SURG_ITS ---
Subjective Subjective NED FELICIANO is a 74 M [id number] male with past medical history including hemophilia B, trauma to his right upper extremity with 3 hand surgeries, gout, hypertension, and type 2 diabetes who presents with a right forearm/wrist/hand infection. Approximately 1 month ago he was seen by his family medicine physician for acute onset wrist pain (no inciting trauma/injury). Given his history of gout, and no signs of overlying infection or recent trauma, he was reportedly treated with indomethacin but also doxycycline in case it was early cellulitis. He continued to have the wrist pain, albeit not worsening, until 3 days ago when he developed redness on the volar aspect of his wrist and swelling. He developed a home fever of 100.4 and was seen at the [facility] ([facility] yesterday and placed on Keflex. He went to his primary care doctor today, Dr. Vidal Armendariz, complaining of sharp severe pain. Dr. Man called me on my cell phone today and discussed the patient with me and I recommended emergent transfer to the emergency department for evaluation by hand surgery and CT scan. The patient was transferred here as fast as possible (he is of the [facility], and lives approximately [address] of [address]). Today in the emergency department it is sharp severe pain in the right upper extremity, worsened by movements and improved with rest and elevation. Patient reports a history of right hand penetrating trauma from a piece of porcelain that cut his right hand thumb flexor pollicis longus (required repair and hand therapy in remote past). He has persistent numbness on the radial side of his thumb from this injury. 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 He reports that he takes factor IX 1 hour before surgery and has the factor IX with him right now. The medicine teams and myself are reaching out to the hematology team to discuss and make sure that we do not do have to do anything else to optimize his coagulation pathway before surgery. Patient is retired, but often works with his hands during functions involving his [facility] [employer]. He is not a smoker He has a history of hepatitis C from his transfusions, but this was noted to be completely cleared in 2008. No liver problems since. PROCEDURES: 1) Surgery/Procedure Date: 18 June 2024 PRE-OPERATIVE DIAGNOSIS: Right forearm, wrist, hand volar and dorsal abscesses with septic right wrist joint POST-OPERATIVE DIAGNOSIS: Same PROCEDURE PERFORMED: 1) Right hand carpal tunnel release (CPT: 18489) 2) Decompressive fasciotomy, volar compartments (superficial and deep) in mid/distal forearm (CPT: 73245) 3) Incision and drainage of volar forearm abscess immediately underneath antebrachial fascia and also extending down to Parona's space (deep space forearm abscess) (CPT: 01291) 4) Arthrotomy right wrist, dorsal approach, for wash out of septic right wrist joint (CPT: 74569) OPERATIVE FINDINGS: * Abscess beneath volar wrist antebrachial fascia. * Abscess and Parona space (deep space forearm just volar to the pronator quadratus). * Purulence in the proximal portion of the carpal tunnel from above-mentioned abscess, but no purulence coming from the flexor sheath distally. * Septic right wrist joint (purulent fluid) when accessed through dorsal approach. 2) Surgery/Procedure Date: 19 June 2024 PRE-OPERATIVE DIAGNOSIS: Right forearm, wrist, hand volar and dorsal abscesses with septic right wrist joint, s/p initial I&D POST-OPERATIVE DIAGNOSIS: Same PROCEDURE PERFORMED: 1) Second look and irrigation and wash out of incisions, including Parona's space and Carpal Tunnel 2) Arthrotomy right wrist, dorsal approach, for repeat wash out of septic right wrist joint (CPT: 71013) OPERATIVE FINDINGS: * No new abscess cavities. The wound was irrigated with copious amounts normal saline. * The carpal bones appear to be viable without any signs of osteomyelitis (robust, hard bone, no signs of sequestrum) 03 July 2024: Patient presents today for 1 week follow-up after hospital discharge. He was discharged home after his exam significantly improved following several days of IV antibiotics and infectious disease consultation. His cultures grew MRSA and he was treated with vancomycin followed by doxycycline (currently taking the doxycycline). He has been performing dressing changes with Dakin's on the volar and dorsal hand wounds and they have been healing nicely. He was placed on a 1 week course of tranexamic acid (TXA) by his plan coordinator following discharge from the hospital so as to prevent bleeding. He has not had any bleeding issues since I saw him in clinic. He reports improved range of motion. He has an appointment with our occupational hand therapist Janine High following his appointment with me today. She is going to make him a neutral Orthoplast splint and work with him on range of motion. Denies any fevers or chills. Doing well overall. Feels comfortable doing the dressing changes. His pain is improved. He is reporting some redness around the volar wounds with some irritated skin. 08 July 2024: Patient reported increased swelling in his wrist today and presented to the emergency department for evaluation with his today. Reports that he has decreased range of motion secondary to the swelling. No pain deep within the joint. He acknowledges that it does feel a lot better than it did the first day when he came to our hospital for the wrist infection, however. The volar wrist soft tissue's are tender to palpation, and it is a sharp severe pain worsened by movements and improved by rest and elevation. No pain while he moves his fingers into a fist or extend his fingers. Of note he has been putting B&W ointment on the wound and this started a couple of days ago (5 treatments thus far). CURRENT ENCOUNTER, 09 Jul 2024: Doing well. Reports improvement in swelling/ROM with elevation. Objective Data Objective Data Vital Signs: Vital Signs Temp Pulse Resp BP Pulse Ox O2 Del Method 97.8 F 64 17 104/63 98 Room Air 07/08/24 21:50 07/08/24 21:50 07/08/24 21:50 07/08/24 21:50 07/08/24 21:50 07/08/24 21:50 Oxygen Delivery Method Room Air Weight: 180 lb 15.992 oz Body Mass Index (BMI) 27.5 Intake & Output: Intake and Output for Last 24 Hours 07/07/24 07/08/24 07/09/24 23:59 23:59 23:59 Intake Total 892 / 892 377 / 377 Balance 892 / 892 377 / 377 Lab / Micro Data 07/09/24 06:19 07/08/24 12:37 Labs: Laboratory Results - last 24 hr 07/08/24 12:37: WBC 6.2, RBC 4.74, Hgb 13.0, Hct 40.0, MCV 84.4, MCH 27.4, MCHC 32.5, RDW Std Deviation 42.3, RDW Coeff of Parker 13.6, Plt Count 271, MPV 10.5, Immature Gran % (Auto) 0.300, Neut % (Auto) 63.6, Lymph % (Auto) 21.4, Crawford % (Auto) 9.7, Eos % (Auto) 3.7, Baso % (Auto) 1.3 H, Absolute Neuts (auto) 3.9, Absolute Lymphs (auto) 1.32, Nucleated RBC % 0, ESR 11, Sodium 139, Potassium 3.9, Chloride 109 H, Carbon Dioxide 26.0, Anion Gap 4 L, BUN 17, Creatinine 1.16, Estim Creat Clear Calc 57.50, Est GFR (MDRD) Af Amer 79, Est GFR (MDRD) Non-Af 65, BUN/Creatinine Ratio 14.7, Glucose 167 H, Calcium 9.5 07/08/24 16:52: POC Glucose 139 H 07/09/24 06:19: WBC 5.0, RBC 4.40 L, Hgb 12.0 L, Hct 37.9 L, MCV 86.1, MCH 27.3, MCHC 31.7 L, RDW Std Deviation 43.0, RDW Coeff of Parker 13.8, Plt Count 235, MPV 10.6, Immature Gran % (Auto) 0.200, Neut % (Auto) 50.4, Lymph % (Auto) 26.9, M lian % (Auto) 12.5 H, Eos % (Auto) 8.8 H, Baso % (Auto) 1.2 H, Absolute Neuts (auto) 2.5, Absolute Lymphs (auto) 1.35, Nucleated RBC % 0 07/09/24 06:28: POC Glucose 136 H Radiography Diagnostic Testing: Radiology Impression Upper Extremity CTA 07/08/24 12:36 IMPRESSION: No evidence of fluid collections at this time. Cellulitis. Disuse osteoporosis. Electronically Signed: Mykel Streeter MD at 14:40 EDT , Wrist X-Ray 09/24/24 14:11 IMPRESSION: Osteopenia. Electronically Signed: Mykel Streeter MD at 14:43 EDT , Physical Exam Narrative Right upper extremity No purulence from wounds. No pain with axial loading of the wrist. No pain in the palm or over the A1 pulleys or T1 Benjamin. Tenderness to palpation over the distal radial forearm soft tissue, but improved since yesterday. Less swelling/induration on the volar wrist. Vascular: Fingers warm well-perfused with less than 2-second capillary refill Sensory: Same sensory exam as preop, numbness on the radial side of the right thumb, but no new onset numbness. Sensation to light touch intact otherwise in the median nerve distribution. Motor: No pain with passive range of motion of the fingers (moving them into and out of a fist and no pain in the wrist). He is able to fire the thenar muscles (recurrent branch of median intact). He is able to make a full fist and has some ob/gyn strength back (4/5) Eyes EOMs intact bilaterally Lymph Lymphatic: no lymphadenopathy noted Resp normal respiratory effort Cardio regular rate and regular rhythm Extremity Extremity Narrative: SCDs on and activated Assessment & Plan Assessment/Plan (1) History of hemophilia: (2) History of diabetes mellitus: (3) Cellulitis of right upper extremity: PLAN: Plan There is no sign of a fluid collection in the wrist or hand at this time (CT or physical exam). There is also no signs of osteomyelitis on the plain films (rather disuse osteopenia). The patient is admitted to medicine for localized skin reaction and cellulitis. Plastic surgery will continue to follow for cellulitis. Recommend continued elevation of the right upper extremity above the heart with blue arm elevator. Also recommending continued broad-spectrum IV antibiotics and saline soaked gauze to the wounds twice daily. F/u ID recommendations Improved overall today since yesterday OK for diet/no surgery today Charges/Coding Visit Charges Inpatient E&M: 35994 Subs Hosp L1
[2024-07-09 07:51] LABS: Anion Gap 3 (5-15); BUN 14 mg/dL (7-18); BUN/Creat Ratio 13.2 RATIO (10-20); Calcium,Total 8.9 mg/dL (8.5-10.1); Chloride 110 mmol/L (98-107); Creatinine, Serum 1.06 mg/dL (0.70-1.30); EST Glomerular Filtration Rate 72 mL/min (>60); Est Glom Filt Rate - Afr Amer 88 mL/min (>60); Estimated Creatinine Clearance 62.92 ml/min; Glucose 128 mg/dL (74-106); Potassium 3.9 mmol/L (3.5-5.1); Sodium Level 140 mmol/L (136-145)
[2024-07-09] MEDS: Famotidine 20 MG Tablet PO (08:33)
[2024-07-09] MEDS: Losartan Potassium 50 MG Tablet PO ×2 (08:33→21:43)
--- NOTE | 2024-07-09 08:49 | PCM.PN.HOSP ---
Reason for Visit Reason for Visit: Right hand pain and redness Subjective Subjective Mr. Jack is a 74-year-old Mosque white male who presented to the emergency department at [facility] on 07/08/2024 with a chief complaint of increased right hand swelling and erythema. He had recent admission here for septic arthritis of the right wrist and was taken to the OR twice 1 on 06 18 and 1 on 06 19 for I&D and washout. Culture showed MRSA and patient was maintained on IV antibiotics during his hospitalization. He was transition to doxycycline p.o. daily for 3 weeks at the time of discharge and had been improving as an outpatient however on the day prior to presentation he had more swelling, erythema and then worsening pain. He was evaluated by his primary care physician who called plastic surgery and plastic surgery requested that he come immediately to the emergency department for further evaluation. Vital signs on presentation showed a temperature of 99.4, heart rate 88, respiratory rate 16, blood pressure was 184/84 with a repeat of 153/78 and pulse ox was 99% on room air. CBC did show normal white count 6.2 and a hemoglobin of 13.0. Chemistry panel was overtly unremarkable other than hyperglycemia at 167 and patient is a known diabetic at baseline. CTA of the right upper extremity showed no fluid collection, cellulitis and disuse osteoporosis but no abscess was noted. He was evaluated plastic surgery and there is no plans for surgery at this time. He was started on vancomycin and Unasyn and admitted to the medical floor for ongoing care. Plastic surgery and ID have been consulted. Patient states his hand does feel a bit better today. The erythema has retracted from the purple outline that was placed on admission. He states movement of his fingers is improved today as well. Objective Data Objective Data Vital Signs: Vital Signs Temp Pulse Resp BP Pulse Ox O2 Del Method 97.8 F 64 18 104/63 95 Room Air 07/09/24 04:00 07/09/24 04:00 07/09/24 04:00 07/09/24 04:00 07/09/24 04:00 07/09/24 04:00 Oxygen Delivery Method Room Air Weight: 82.1 kg Body Mass Index (BMI) 27.5 Intake & Output: Intake and Output for Last 24 Hours 07/07/24 07/08/24 07/09/24 23:59 23:59 23:59 Intake Total 892 / 892 609 / 609 Balance 892 / 892 609 / 609 Lab / Micro Data 07/09/24 06:19 07/09/24 06:19 Labs: Laboratory Results - last 24 hr 07/08/24 12:37: WBC 6.2, RBC 4.74, Hgb 13.0, Hct 40.0, MCV 84.4, MCH 27.4, MCHC 32.5, RDW Std Deviation 42.3, RDW Coeff of Parker 13.6, Plt Count 271, MPV 10.5, Immature Gran % (Auto) 0.300, Neut % (Auto) 63.6, Lymph % (Auto) 21.4, [place] % (Auto) 9.7, Eos % (Auto) 3.7, Baso % (Auto) 1.3 H, Absolute Neuts (auto) 3.9, Absolute Lymphs (auto) 1.32, Nucleated RBC % 0, ESR 11, Sodium 139, Potassium 3.9, Chloride 109 H, Carbon Dioxide 26.0, Anion Gap 4 L, BUN 17, Creatinine 1.16, Estim Creat Clear Calc 57.50, Est GFR (MDRD) Af Amer 79, Est GFR (MDRD) Non-Af 65, BUN/Creatinine Ratio 14.7, Glucose 167 H, Calcium 9.5 07/08/24 16:52: POC Glucose 139 H 07/09/24 06:19: WBC 5.0, RBC 4.40 L, Hgb 12.0 L, Hct 37.9 L, MCV 86.1, MCH 27.3, MCHC 31.7 L, RDW Std Deviation 43.0, RDW Coeff of Parker 13.8, Plt Count 235, MPV 10.6, Immature Gran % (Auto) 0.200, Neut % (Auto) 50.4, Lymph % (Auto) 26.9, [place] % (Auto) 12.5 H, Eos % (Auto) 8.8 H, Baso % (Auto) 1.2 H, Absolute Neuts (auto) 2.5, Absolute Lymphs (auto) 1.35, Nucleated RBC % 0, Sodium 140, Potassium 3.9, Chloride 110 H, Carbon Dioxide 27.0, Anion Gap 3 L, BUN 14, Creatinine 1.06, Estim Creat Clear Calc 62.92, Est GFR (MDRD) Af Amer 88, Est GFR (MDRD) Non-Af 72, BUN/Creatinine Ratio 13.2, Glucose 128 H, Calcium 8.9 07/09/24 06:28: POC Glucose 136 H Radiography Diagnostic Testing: Radiology Impression Upper Extremity CTA 07/08/24 12:36 IMPRESSION: No evidence of fluid collections at this time. Cellulitis. Disuse osteoporosis. Electronically Signed: Mykel Streeter MD at 14:40 EDT , Wrist X-Ray 07/08/24 14:11 IMPRESSION: Osteopenia. Electronically Signed: Mykel Streeter MD at 14:43 EDT , Physical Exam Const alert, oriented x3, no apparent distress, average body habitus, healthy appearing and well nourished Constitutional Narrative: Older, Mosque male, sitting up in bed reading a book, appears comfortable, nontoxic HEENT head/scalp atraumatic Head and Scalp: normocephalic Resp normal respiratory effort, no retractions, no use of accessory muscles and clear to auscultation bilaterally Auscultation: Negative for rales, rhonchi or wheezes Cardio regular rate, regular rhythm, S1 normal heart sound, S2 normal heart sound, no murmurs, no rub, no gallops and no clicks GI normal to inspection, nondistended, normoactive bowel sounds, soft to palpation and non-tender Extremity no clubbing, cyanosis or edema Neuro oriented x3, moves all extremities and no focal motor deficits Speech: speech normal Psych affect normal Psych Narrative: Very pleasant, interacts appropriately Assessment & Plan Assessment/Plan (1) Cellulitis of right upper extremity: PLAN: Plan Right upper extremity septic wrist joint/cellulitis/deep space tissue abscesses secondary to MRSA -Postop right carpal tunnel release/decompressive fasciotomy/I&D/right wrist arthrotomy/Postop second look irrigation and washout with right wrist arthrotomy--> 06/18 and 06/19/2024 -Discharged from that hospitalization with doxycycline 100 mg p.o. twice daily for 3 weeks -Unfortunately, patient developed worsening pain and redness and primary care physician called plastic surgery -CT shows no fluid collection to drain at this time so no plans for operative management currently -Continue vancomycin and Zosyn -Wound care is consulted -Pain medication as ordered -As needed bowel regimen available -ID consulted -Plastic surgery is following DM-2 with hyperglycemia -Acute hyperglycemia is likely related to acute infection -Hold home metformin -Hemoglobin A1c is 7.0 -Continue sliding scale -Accu-Cheks as ordered -Patient on carb controlled diet 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 ([phone])--> to call with any questions -Outpatient follow-up per previous instruction after discharge History of hepatitis C -Was treated and resolved GERD -Continue home PPI Essential hypertension -Continue losartan 50 mg twice daily -Monitor DVT prophylaxis -SCDs -No chemoprophylaxis due to history of hemophilia B--> guidelines reviewed CODE STATUS -Full code as verified on admission Charges/Coding Visit Charges Inpatient E&M: 78997 Subs Hosp L2
[2024-07-09 10:00] VITALS: BP 139/86; PULSE 71; RESP 16; TEMP 37.3; O2SAT 98
--- NOTE | 2024-07-09 11:19 | CASEMGMT ---
KORY DASILVA Readmission Note Previous Admission: 06/18/24-06/26/24 Diagnosis: R wrist cellulitis/abscess/septic joint DC Disposition: Home Current Admission: Admitted 07/08/24 Current Diagnosis: increased swelling and redness in R hand Pt history of hemophilia and diabetes. On 06/18 he was admitted to the hospital and had surgery for deep space palmar infection. He was hospitalized for 7 days. Pt was discharged home on oral antibiotics. Pt had been doing well but most recently with increased redness and swelling in R hand. KORY DASILVA into pt room, pt states he was doing his soaks at home and dressing changes. He reports they had decreased to twice a day instead of three times per day. States he has followed up with Dr. Hua once since last hospitalization but has not seen his PCP. Pt reports taking his doxycycline and other meds as ordered. Pt states he is aware he may need IV atb at this dc. Pt wanted to report that he does have solar electricity. ID is consulted. DC Plan: Home, follow for IV atb needs
[2024-07-09] MEDS: 0.9% Saline Lock 10 ML Syringe IV ×2 (11:46→21:44)
[2024-07-09] MEDS: Insulin Lispro 100 UNIT/ML INSULN.PEN SC ×2 (11:53→16:35)
[2024-07-09 12:13] LABS: Bedside Glucose 168 mg/dL (74-106)
--- NOTE | 2024-07-09 13:30 | PCM.CONS.GEN ---
Assessment & Plan Assessment/Plan (1) Cellulitis of right upper extremity: (2) Septic arthritis of wrist, right: PLAN: Cont vanc/unasyn. Seen by Dr. Hua. Had been on po doxy at home for MRSA septic arthritis. Will follow, thank you HPI Consult Data Date of Consult: 07/09/24 HPI Narrative Reason for Consultation: cellulitis HPI Narrative: NED FELICIANO, is a 74 M with recent admit for MRSA R wrist septic arthritis. Had I&D by Dr. Hua on 06/18 and went back for recheck on 06/19/24. Discharged on po doxy for 3 week course. Remains on doxy, reports compliance, but over past few days, increased redness/swelling/pain in R hand and wrist. No fever or chills. Came back to ED, admitted 07/08 on vanc/unasyn. Feeling a little better today. Full ROS performed and neg except as noted above. [facility] Medical History Diabetes mellitus, type 2 GERD (gastroesophageal reflux disease) Hemophilia B Hypertension Hepatitis C Home Medications ?Medication ?Instructions ?Recorded ?Last Taken ?Type doxycycline hyclate 100 mg capsule 100 mg PO BID 3 weeks #42 caps 06/26/24 07/08/24 Rx oxycodone 5 mg tablet 5 mg PO Q4H PRN PRN Pain Score 06/26/24 07/07/24 Rx 4-10 4 days #20 tabs metformin 500 mg tablet 500 mg PO BID 07/03/24 07/08/24 History famotidine 20 mg tablet (Acid 20 mg PO DAILY 07/08/24 07/08/24 History Controller) losartan 100 mg tablet 50 mg PO DAILY 07/08/24 07/08/24 History polyethylene glycol 3350 17 17 g PO DAILY 07/08/24 07/07/24 History gram/dose oral powder (ClearLax) Allergy/AdvReac Type Severity Reaction Status Date / Time aspirin AdvReac Intermediate HEMOPHELIAC, Verified 07/08/24 12:06 AVOIDS Family History Father Cancer Hypertension Diabetes Mother Hemophilia B carrier Surgical History History of hand surgery H/O inguinal hernia repair Social History household members: spouse Smoking Status: Never smoker alcohol intake: never substance use type: does not use additional social history: denies vaping, denies marijuana use, denies edibles, denies aspirin or ibuprofen use hx of hemophilia Physical Exam Const alert, oriented x3 and no apparent distress General Appearance: cooperative HEENT normocephalic and head/scalp atraumatic Eyes PERRL and EOMs intact bilaterally Neck supple and No nodes Resp normal air movement and clear to auscultation bilaterally Cardio regular rate and regular rhythm GI soft to palpation, non-tender and non-distended Extremity General Extremity: Negative for edema Skin Skin Narrative: R wrist/hand some swelling, redness, tenderness Neuro CN's II-XII intact bilaterally Lab / Micro Data Attestation: I reviewed the patient's lab results. 07/09/24 06:19 07/09/24 06:19 Labs: Laboratory Results - last 24 hr 07/08/24 16:52: POC Glucose 139 H 07/09/24 06:19: WBC 5.0, RBC 4.40 L, Hgb 12.0 L, Hct 37.9 L, MCV 86.1, MCH 27.3, MCHC 31.7 L, RDW Std Deviation 43.0, RDW Coeff of Parker 13.8, Plt Count 235, MPV 10.6, Immature Gran % (Auto) 0.200, Neut % (Auto) 50.4, Lymph % (Auto) 26.9, [place] % (Auto) 12.5 H, Eos % (Auto) 8.8 H, Baso % (Auto) 1.2 H, Absolute Neuts (auto) 2.5, Absolute Lymphs (auto) 1.35, Nucleated RBC % 0, Sodium 140, Potassium 3.9, Chloride 110 H, Carbon Dioxide 27.0, Anion Gap 3 L, BUN 14, Creatinine 1.06, Estim Creat Clear Calc 62.92, Est GFR (MDRD) Af Amer 88, Est GFR (MDRD) Non-Af 72, BUN/Creatinine Ratio 13.2, Glucose 128 H, Calcium 8.9 07/09/24 06:28: POC Glucose 136 H 07/09/24 11:43: POC Glucose 168 H Imaging Radiology Impression Upper Extremity CTA 07/08/24 12:36 IMPRESSION: No evidence of fluid collections at this time. Cellulitis. Disuse osteoporosis. Electronically Signed: Mykel Streeter MD at 14:40 EDT , Wrist X-Ray 07/08/24 14:11 IMPRESSION: Osteopenia. Electronically Signed: Mykel Streeter MD at 14:43 EDT ,
--- NOTE | 2024-07-09 14:20 | WOUNDNOTE ---
wound photo: right arm
--- NOTE | 2024-07-09 14:21 | WOUNDNOTE ---
wound photo: right arm
[2024-07-09 15:30] VITALS: BP 116/67; PULSE 74; RESP 18; TEMP 36.8; O2SAT 97
[2024-07-09 16:55] LABS: Bedside Glucose 153 mg/dL (74-106)
[2024-07-09 20:41] VITALS: BP 125/77; PULSE 77; RESP 16; TEMP 37.3; O2SAT 95
[2024-07-09 22:18] LABS: Bedside Glucose 133 mg/dL (74-106)
[2024-07-10] MEDS: Ampicillin/Sulbactam 3 GM in 0.9% Normal Saline (100mL MB+) 100 ML IV ×3 (00:06→12:12)
[2024-07-10 01:16] LABS: Vancomycin, Trough Level 15.6 ug/mL (5.0-15.0)
--- NOTE | 2024-07-10 01:24 | PCM.RX.CS ---
Consult Antibiotic Management Pharmacy has been consulted to manage selected antibiotic: Vancomycin Type of Intervention Type of Consult: Follow-up Suspected Infection Suspected Infection: Skin/Soft tissue Labs Labs: Sodium 140 mmol/L (136-145) 07/09/24 06:19 Potassium 3.9 mmol/L (3.5-5.1) 07/09/24 06:19 Chloride 110 mmol/L (98-107) H 07/09/24 06:19 Carbon Dioxide 27.0 mmol/L (21.0-32.0) 07/09/24 06:19 Anion Gap 3 (5-15) L 07/09/24 06:19 BUN 14 mg/dL (7-18) 07/09/24 06:19 Creatinine 1.06 mg/dL (0.70-1.30) 07/09/24 06:19 Est GFR (MDRD) Af Amer 88 mL/min (>60) 07/09/24 06:19 Est GFR (MDRD) Non-Af 72 mL/min (>60) 07/09/24 06:19 BUN/Creatinine Ratio 13.2 RATIO (10-20) 07/09/24 06:19 Glucose 128 mg/dL (74-106) H 07/09/24 06:19 Vancomycin Trough 15.6 ug/mL (5.0-15.0) H 07/10/24 00:41 Dosing Weight Weight used for dosin.1 kg Estimated Creatinine Clearance Estimated Creatinine Clearance: 63 Goal Trough Goal Trough: 15-20 mcg/mL Pharmacy Plan for Drug Dosing Pharmacy Plan for Drug Dosing: Vancomycin trough level of 15.6, drawn 11.6hrs post-dose, was within the target range of 15-20. Will continue dosing at 750mg q12h, and will draw another trough in two days. Pharmacy Service will continue to monitor and adjust dosing as required. Follow-Up Labs Follow-Up Labs: Trough: Vancomycin Date/Time Labs Ordered Labs to be done on [date and time ordered]: 07/12/24 @0030
[2024-07-10] MEDS: Vancomycin HCl 750 MG in 0.9% Normal Saline (250mL Bag) 250 ML 250 MG IV ×2 (01:30→13:32)
[2024-07-10 02:40] VITALS: BP 126/73; PULSE 62; RESP 16; TEMP 36.9; O2SAT 97
[2024-07-10] MEDS: Acetaminophen 500 MG Tablet 1000 MG PO ×2 (05:39→13:41)
[2024-07-10 06:48] LABS: Bedside Glucose 127 mg/dL (74-106)
--- NOTE | 2024-07-10 06:49 | PCM.PN.SRG ---
Subjective Subjective Doing well overall. Reports improvement in swelling and pain. Has been compliant with rest and elevation. Objective Data Objective Data Vital Signs: Vital Signs Temp Pulse Resp BP Pulse Ox O2 Del Method 98.4 F 62 16 126/73 H 97 Room Air 07/10/24 02:40 07/10/24 02:40 07/10/24 02:40 07/10/24 02:40 07/10/24 02:40 07/10/24 02:40 Oxygen Delivery Method Room Air Weight: 180 lb 15.992 oz Body Mass Index (BMI) 27.5 Intake & Output: Intake and Output for Last 24 Hours 07/08/24 07/09/24 07/10/24 23:59 23:59 23:59 Intake Total 892 / 892 2598 / 2598 112 / 112 Balance 892 / 892 2598 / 2598 112 / 112 Lab / Micro Data 07/09/24 06:19 07/09/24 06:19 Labs: Laboratory Results - last 24 hr 07/09/24 06:19: WBC 5.0, RBC 4.40 L, Hgb 12.0 L, Hct 37.9 L, MCV 86.1, MCH 27.3, MCHC 31.7 L, RDW Std Deviation 43.0, RDW Coeff of Parker 13.8, Plt Count 235, MPV 10.6, Immature Gran % (Auto) 0.200, Neut % (Auto) 50.4, Lymph % (Auto) 26.9, [place] % (Auto) 12.5 H, Eos % (Auto) 8.8 H, Baso % (Auto) 1.2 H, Absolute Neuts (auto) 2.5, Absolute Lymphs (auto) 1.35, Nucleated RBC % 0, Sodium 140, Potassium 3.9, Chloride 110 H, Carbon Dioxide 27.0, Anion Gap 3 L, BUN 14, Creatinine 1.06, Estim Creat Clear Calc 62.92, Est GFR (MDRD) Af Amer 88, Est GFR (MDRD) Non-Af 72, BUN/Creatinine Ratio 13.2, Glucose 128 H, Calcium 8.9 07/09/24 11:43: POC Glucose 168 H 07/09/24 16:34: POC Glucose 153 H 07/09/24 21:41: POC Glucose 133 H 07/10/24 00:41: Vancomycin Trough 15.6 H 07/10/24 06:13: POC Glucose 127 H Physical Exam Narrative Right upper extremity No purulence from wounds. No pain with axial loading of the wrist. No pain in the palm or over the A1 pulleys or T1 Benjamin. Today there is minimal tenderness to palpation over the distal radial forearm soft tissue, much improved since yesterday. Less swelling/induration on the volar wrist. Vascular: Fingers warm well-perfused with less than 2-second capillary refill Sensory: Same sensory exam as preop, numbness on the radial side of the right thumb, but no new onset numbness. Sensation to light touch intact otherwise in the median nerve distribution. Motor: No pain with passive range of motion of the fingers (moving them into and out of a fist and no pain in the wrist). He is able to fire the thenar muscles (recurrent branch of median intact). He is able to make a full fist and has some supervisor endless track vehicle strength back (4/5) Eyes EOMs intact bilaterally Lymph Lymphatic: no lymphadenopathy noted Resp normal respiratory effort Cardio regular rate and regular rhythm Extremity Extremity Narrative: SCDs on and activated Assessment & Plan Assessment/Plan (1) History of hemophilia: (2) History of diabetes mellitus: (3) Cellulitis of right upper extremity: PLAN: Plan There is no sign of a fluid collection in the wrist or hand at this time (CT or physical exam). There is also no signs of osteomyelitis on the plain films (rather disuse osteopenia). The patient is admitted to medicine for localized skin reaction and cellulitis. Plastic surgery will continue to follow for cellulitis. Recommend continued elevation of the right upper extremity above the heart with foam wedge. Should take the elevator home for when he's sleeping. Plan 10 Jul 2024: He has made significant improvement over the past 48 hours (see photos from my consultation on 08 Jul 2024 v. today (10 Jul 2024)). OK for diet/no planned surgery Possible reaction to Burn and Wound (B&W) ointment? I asked patient to discontinue the B&W ointment and do saline wet-to-dry to the two wounds twice daily. O.K. for discharge from plastic surgery standpoint once infectious disease has home antibiotic plan going forward. I will follow up closely as outpatient. Patient has my cell phone as well and can call with any concerns. Charges/Coding Visit Charges Inpatient E&M: 01317 Subs Hosp L2
[2024-07-10 09:47] VITALS: BP 143/85; PULSE 74; RESP 16; TEMP 37.2; O2SAT 93
[2024-07-10 09:51] VITALS: PULSE 74; O2SAT 93
[2024-07-10] MEDS: Polyethylene Glycol 3350 17 GM PACKET PO (09:56)
[2024-07-10] MEDS: Losartan Potassium 50 MG Tablet PO (09:56)
[2024-07-10] MEDS: Famotidine 20 MG Tablet PO (09:56)
--- NOTE | 2024-07-10 10:43 | PCM.PN.ID ---
Physical Exam Narrative Hand much improved, no fever, no n/v/d. Const alert and no apparent distress General Appearance: cooperative Resp normal air movement and clear to auscultation bilaterally Cardio regular rate and regular rhythm GI soft to palpation, non-tender and non-distended Skin Skin Narrative: much improved R hand redness ID ID: Route of nutrition/ use of supplements: [] Nutritional Intake: [] IV Site: [] Brown Catheter: [] Assessment & Plan Assessment/Plan (1) Cellulitis of right upper extremity: (2) Septic arthritis of wrist, right: PLAN: On vanc/unasyn. Seen by Dr. Hua. Hand much improved this AM, acute reaction may have been due to ointment he started at home. Had been on po doxy at home for MRSA septic arthritis. Ok for home with short course po keflex and cont prior doxy. Will follow prn, d/w Dr. Fang
[2024-07-10 12:31] LABS: Bedside Glucose 105 mg/dL (74-106)
--- NOTE | 2024-07-10 13:27 | PCM.DC.SUM ---
Providers Date of Admission: 07/08/24 Date of Discharge: 07/10/24 Primary Care Physician: Dr. 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 Comment: Reason for Consult:: R hand wound Consult: Plastic Surgery Routine Consulting Provider: Anant Hua Reason for Consult: R hand infection, pt known, non surgical at present EMERGENT Consult: No Notified: Yes Date Notified: 07/08/24 Time Notified: 14:54 Method of Notification: Verbal Reason For Visit: INCREASED SWELLING AND REDDNESS IN RIGHT HAND Diagnosis Discharge Diagnosis (1) Cellulitis of right upper extremity: Status: Acute Code(s): L03.113 - Cellulitis of right upper limb (2) Septic arthritis of wrist, right: Status: Acute Code(s): M00.9 - Pyogenic arthritis, unspecified Medications at Discharge Home Medications doxycycline hyclate 100 mg capsule 100 mg PO BID 3 weeks #42 caps 06/26/24 oxycodone 5 mg tablet 5 mg PO Q4H PRN PRN Pain Score 4-10 4 days #20 tabs 06/26/24 metformin 500 mg tablet 500 mg PO BID 07/03/24 famotidine 20 mg tablet (Acid Controller) 20 mg PO DAILY 07/08/24 losartan 100 mg tablet 50 mg PO DAILY 07/08/24 polyethylene glycol 3350 17 gram/dose oral powder (ClearLax) 17 g PO DAILY 07/08/24 cephalexin 500 mg capsule 500 mg PO BID #20 caps 07/10/24 Hospital Course Summary of Care Provided Minutes Spent on Discharge: 36 Hospital Course: Mr. Jack is a 74-year-old Jainism white male who presented to the emergency department at [facility] on 07/08/2024 with a chief complaint of increased right hand swelling and erythema. He had recent admission here for septic arthritis of the right wrist and was taken to the OR twice 1 on 06 18 and 1 on 06 19 for I&D and washout. Culture showed MRSA and patient was maintained on IV antibiotics during his hospitalization. He was transition to doxycycline p.o. daily for 3 weeks at the time of discharge and had been improving as an outpatient however on the day prior to presentation he had more swelling, erythema and then worsening pain. He was evaluated by his primary care physician who called plastic surgery and plastic surgery requested that he come immediately to the emergency department for further evaluation. Vital signs on presentation showed a temperature of 99.4, heart rate 88, respiratory rate 16, blood pressure was 184/84 with a repeat of 153/78 and pulse ox was 99% on room air. CBC did show normal white count 6.2 and a hemoglobin of 13.0. Chemistry panel was overtly unremarkable other than hyperglycemia at 167 and patient is a known diabetic at baseline. CTA of the right upper extremity showed no fluid collection, cellulitis and disuse osteoporosis but no abscess was noted. He was evaluated plastic surgery and there is no plans for surgery at this time. He was started on vancomycin and Unasyn and admitted to the medical floor for ongoing care. His hand did improve rather quickly within 24 hours of IV antibiotics. He also was putting a salve on his hand so we are unsure if this was actually worsening cellulitis or a topical reaction to the salve he was placing on his hand. Given his improvement with the addition of the Unasyn to the doxycycline the plan is to continue doxycycline to complete the course as previously ordered and add Keflex for a total of 10 days 500 mg p.o. twice daily. The patient was feeling much better and able to move his hand with good mobility at the time of discharge. He is no longer to place the salve on his hand and continue care as previously instructed after his last discharge. He will follow-up with his primary care physician within the next week and with plastic surgery within the next week as well. He was discharged home in stable condition on 07/10/2024. Keflex was sent to the pharmacy of his request prior to discharge. Discharge diagnoses: Right upper extremity septic wrist joint/cellulitis/deep space tissue abscesses secondary to MRSA DM-2 Hemophilia B History of hepatitis C GERD Essential hypertension Physical Exam Const alert, oriented x3, no apparent distress, average body habitus, no limitations, healthy appearing and well nourished Constitutional Narrative: Older, Jainism male, reclining sitting up in a chair in bed reading a book, appears comfortable, nontoxic General Appearance: cooperative, comfortable, well kempt and well developed Exam Limitations: no limitations Nutritional Appearance: overweight HEENT normocephalic, head/scalp atraumatic, hearing grossly normal bilaterally and moist oral mucous membranes Resp normal respiratory effort, no retractions, no use of accessory muscles and clear to auscultation bilaterally Auscultation: Negative for rales, rhonchi or wheezes Cardio regular rate, regular rhythm, S1 normal heart sound, S2 normal heart sound, no murmurs, no rub, no gallops and no clicks GI normal to inspection, nondistended, normoactive bowel sounds, soft to palpation and non-tender Extremity no clubbing, cyanosis or edema Extremity Narrative: Right hand with dressing in place however images reviewed and erythema and swelling is much improved, range of motion in the right hand has returned back to his baseline prior to coming to the emergency department and he is full excursion both with flexion and extension of his hand Neuro oriented x3, moves all extremities and no focal motor deficits Speech: speech normal Psych affect normal Psych Narrative: Very pleasant, interacts appropriately Weight / BMI Weight Weight: 82.1 kg Body Mass Index (BMI) 27.5 ABG / Lab / Microbiology Data 07/09/24 06:19 07/09/24 06:19 Laboratory: Laboratory Results - last 24 hr 07/09/24 16:34: POC Glucose 153 H 07/09/24 21:41: POC Glucose 133 H 07/10/24 00:41: Vancomycin Trough 15.6 H 07/10/24 06:13: POC Glucose 127 H 07/10/24 12:04: POC Glucose 105 Microbiology: Microbiology 07/08/24 12:37 Blood Culture (Wb) - Left Forearm Blood Culture - Preliminary No growth in 48 hours. D/C Instructions Discharge Diet: Low fat / Low cholesterol and 1800 Calorie Control Diet Discharge Activity: Return to Normal Activity Meaningful Use Info Meaningful Use Meaningful Use Diagnoses (Choose all that apply): None applicable Ischemic Stroke Statin Dosing Therapy Reference: STATIN DOSE THERAPY REFERENCE: * Patients > 75 years receive moderate or high dose statin therapy. * Patients 75 years or YOUNGER should receive HIGH intensity statin dose unless contraindicated. You will be required to document reason for non-treatment if statin daily dose does not meet guidelines. HIGH DOSE STATIN THERAPY DAILY Atorvastatin > than or = to 40 mg Rosuvastatin > than or = to 20 mg Amlodipine + Atorvastatin > than or = to 2.5/40 mg Ezetimibe + Simvastatin 10/80 mg Simvastatin 80mg Discharge Plan Admission Admit Date/Time: 07/08/24 14:46 Primary Reason for Your Visit: R Hand Cellulitis Attending Provider: Hanny Fang Primary Care Provider: Vidal Armendariz Consulting Providers: Anant Hua; Myra Wesley; Anant Mcdonald Instructions Additional Instructions / Restrictions: DISCHARGE INSTRUCTIONS, PLASTIC SURGERY (AYESHA): Recommend continued elevation of the right upper extremity above the heart with foam wedge. Should take the elevator home for when he's sleeping. Twice daily wet-to-dry dressings with saline soaked gauze to the two wounds. Continue with the antibiotics. Discontinue the B&W ointment for now. Looking forward to seeing you next week in clinic! Feel better!! All the best, Mark Hua 1. Please complete the doxycycline that you have at home and take the Keflex as ordered below. Discharge Orders/Prescriptions Prescriptions: New cephalexin 500 mg capsule 500 mg PO BID Qty: 20 0RF Continued metformin 500 mg tablet 500 mg PO BID oxycodone 5 mg Tablet 5 mg PO Q4H PRN PRN (Reason: Pain Score 4-10) 4 Days Qty: 20 0RF Patient Comments: pt ran out yesterday doxycycline hyclate 100 mg capsule 100 mg PO BID 21 Days Qty: 42 0RF famotidine [Acid Controller] 20 mg tablet 20 mg PO DAILY polyethylene glycol 3350 [ClearLax] 17 gram/dose powder 17 g PO DAILY losartan 100 mg Tablet 50 mg PO DAILY Referrals / Follow Up: Vidal Armendariz MD [Primary Care Provider] - Within 1 Week Anant Hua MD [Med Staff - Active Staff] - Within 1 Week Disposition Disposition (needs filled in before D/C Order can be placed): Home, Self Care Charges/Coding Visit Charges Inpatient E&M: 39703 Disch Hosp >30min
--- NOTE | 2024-07-10 14:52 | CASEMGMT ---
DC order in, RN CM into pt room. Pt sitting up in bed in no distress. Pt states Daughter is able to assist with dressing changes at home. Pt denies any additional questions or concerns at this time.
[2024-07-10 15:13] VITALS: BP 154/87; PULSE 85; RESP 18; TEMP 37.2; O2SAT 95
[2024-07-10 15:16] VITALS: BP 154/87; PULSE 85; RESP 18; TEMP 37.2; O2SAT 94
== END 2024-07-10 16:10 | disposition home or self-care (01) | DRG 602 ==
LOC: ED 14:47 → MS3 15:10
PROVIDERS: Admitting Provider Internal Medicine; Emergency Provider Emergency Medicine; PCP Family Medicine; Visit Provider Internal Medicine
DX: L03.113 Cellulitis of right upper limb (principal); D66 Hereditary factor VIII deficiency; M00.831 Arthritis due to other bacteria, right wrist; E11.65 Type 2 diabetes mellitus with hyperglycemia; I10 Essential (primary) hypertension; K21.9 Gastro-esophageal reflux disease without esophagitis; B95.62 Methicillin resistant Staphylococcus aureus infection as the cause of diseases classified elsewhere; Z79.2 Long term (current) use of antibiotics; M85.80 Other specified disorders of bone density and structure, unspecified site; Z79.84 Long term (current) use of oral hypoglycemic drugs; Z86.19 Personal history of other infectious and parasitic diseases
CPT/HCPCS: 36415; 73110; 73206; 80048; 80202; 82962; 85025; 85652; 87040; 99283; J7040; J7050; Q9967; A4216; J0295; J2405

== ENCOUNTER → 2024-07-31 | Outpatient (CLI) | payer SELFPAY, OTHER ==
--- NOTE | 2024-07-31 14:55 | RAD_ITS ---
STUDY: X-RAY - RIGHT HAND REASON FOR EXAM: Male, 74 years old. s/p hand surgery TECHNIQUE: 3 view(s) of the hand. COMPARISON: Numerous prior studies reviewed. FINDINGS: Normal radiocarpal articulation. Normal distal radioulnar joint. Normal visualized carpal bones. Normal carpal articulations Normal carpometacarpal articulation of the thumb. Normal second through fifth carpometacarpal joints. Normal metacarpi. Normal metacarpophalangeal joint of the thumb. Normal interphalangeal joint of the thumb. Normal proximal and distal phalanges of the thumb. Normal metacarpophalangeal joints of the second through fifth fingers. Normal proximal and distal interphalangeal joints of the second through fifth fingers. Normal phalanges of the second through fifth fingers. Nonspecific soft tissue swelling over the dorsum of the wrist. Stable appearance of several small surgical clips. Stable appearance of calcified arteries across the wrist. RAD/Hand Min 3 Views IMPRESSION: No significant change or acute abnormality. Electronically Signed: Jermaine Betancourt MD at 16:13 EDT ,
== END | disposition home or self-care (01) ==
PROVIDERS: PCP Family Medicine; Referring Provider Surgery Plastic and Reconstructive Surgery; Visit Provider Surgery Plastic and Reconstructive Surgery
DX: L03.113 Cellulitis of right upper limb (principal); M00.9 Pyogenic arthritis, unspecified; M79.89 Other specified soft tissue disorders; B99.9 Unspecified infectious disease
CPT/HCPCS: 73130

== ENCOUNTER 2024-08-18 07:14 | Day surgery (SDC) | payer SELFPAY, OTHER ==
[2024-08-18] VITALS (9 sets, daily range): BP systolic 121–158; BP diastolic 73–93; PULSE 67–85; RESP 16; TEMP 36.5–36.7; O2SAT 92–98; BMI 27.8
--- OUTSIDE RECORDS SUMMARY | 2024-08-18 07:17 | XMS RPT_ITS | CCD ---
Author Organization [facility] CliniSysd Care Team Providers Care Form Designer Name Role Phone Marcello STEIN, Aldair Gan Unavailable Marcello STEIN, Aldair Gan Unavailable [phone] Martha STEIN, Dr. Yuri Sahni Unavailable [phone] Jordi STEIN, Dr. Satish Gan Unavailable Randall STEIN, Dr. Rock Unavailable [phone] Yves Vazquez MD Unavailable ENT Provider Unavailable Unavailable Gordo STEIN, Dr. Mccarthy Unavailable [phone] Josias STEIN, Dr. Robert Castro Unavailable Leonora HEADWAITER/HEADWAITRESS, Rose Unavailable Laurent STEIN, Jimmy Davalos Unavailable Jhoan HEADWAITER/HEADWAITRESS, Molly Johnson Unavailable Unavailable Gogoi (scribe), Hemanta Unavailable Unavaila mehreen Tim HEADWAITER/HEADWAITRESS, Chen Unavailable Unavailable Cyril STEIN, Latrice Gan Unavailable John, Lili C Unavailable Unavailable Wilder HEADWAITER/HEADWAITRESS, Eleanor Unavailable Unavailable Mutersbaugh HEADWAITER/HEADWAITRESS, Patricia K Unavailable Unavai lable Ayaz HEADWAITER/HEADWAITRESS, Amber L Unavailable Unavailab le [place] HEADWAITER/HEADWAITRESS, Zoraida Unavailable Unavailab le Wengerramona HEADWAITER/HEADWAITRESS, Kera Unavailable Unavailabl e Osman HEADWAITER/HEADWAITRESS, Elena N Unavailable Unavaila ble Prabha HEADWAITER/HEADWAITRESS, Brittnee Unavailable Unavailable Unavailable Unavailable Randall STEIN, Dr. Rock Unavailable Unavailable Unavailable Wai STEIN, Dr. Sumner ([facility]) Unavailable [phone] Dr. Latrice Brunner MD Unavailable VACCARIELLO, ALDAIR Consulting Unavailable VIDA LAWRENCE Primary Care Unavailable LAWRENCE, VIDA Attending Unavailable LAWRENCE, VIDA Admitting Unavailable PROVIDER, UNKNOWN Consulting Unavailable PROVIDER, UNKNOWN Consulting Unavailable PROVIDER, UNKNOWN Consulting Unavailable VACCARIELLO, ALDAIR Referring Unavailable VACCARIELLO, ALDAIR Consulting Unavailable PAULO BOB Primary Care Unavailable PAULO BOB Attending Unavailable PAULO BOB Admitting Unavailable PROVIDER, UNKNOWN Consulting Unavailable PROVIDER, UNKNOWN Consulting Unavailable PROVIDER, UNKNOWN Consulting Unavailable VACCARIELLO, ALDAIR Referring Unavailable VACCARIELLO, ALDAIR Consulting Unavailable CHANTALE REYES MD Primary Care Unavailable CHANTALE REYES MD Attending Unavailable CHANTALE REYES MD Admitting Unavailable PROVIDER, UNKNOWN Consulting Unavailable PROVIDER, UNKNOWN Consulting Unavailable PROVIDER, UNKNOWN Consulting Unavailable VACCARIELLO, ALDAIR Consulting Unavailable ALDAIR CASTELLANO MD Primary Care Unavailable ALDAIR CASTELLANO MD Attending Unavailable ALDAIR CASTELLANO MD Admitting Unavailable PROVIDER, UNKNOWN Consulting Unavailable PROVIDER, UNKNOWN Consulting Unavailable PROVIDER, UNKNOWN Consulting Unavailable VACCARIELLO, ALDAIR Consulting Unavailable LAWRENCE, VIDA Primary Care Unavailable LAWRENCE, VIDA Attending Unavailable LAWRENCE, VIDA Admitting Unavailable PROVIDER, UNKNOWN Consulting Unavailable PROVIDER, UNKNOWN Consulting Unavailable PROVIDER, UNKNOWN Consulting Unavailable VACCARIELLO, ALDAIR Consulting Unavailable LAWRENCE, VIDA Primary Care Unavailable LAWRENCEVIDA Attending Unavailable LAWRENCE, VIDA Admitting Unavailable PROVIDER, UNKNOWN Consulting Unavailable PROVIDER, UNKNOWN Consulting Unavailable PROVIDER, UNKNOWN Consulting Unavailable ESSIE MCKENZIE Referring Unavailable ESSIE MCKENZIE Attending Unavailable LATRICE SILVA (NICKY) Primary Care Unavailable Allergies Allergy Classification Reported Allergen(s) Allergy Type Date of Onset Reaction(s) Facility (1 source) Aspirin Drug Allergy [facility] Repository Medications Current Medications Medication Drug Class(es) Dates Sig (Normalized) Sig (Original) celecoxib 200 mg oral capsule (20 sources) Nonsteroidal Anti-inflammatory Drug celecoxib 200 mg capsule ; (200 mg) cephalexin 500 mg oral capsule (15 sources) Cephalosporin Antibacterial cephALEXin 500 mg capsule ; 1 three times daily (500 mg) Comments: from urgent care Comment on above: from urgent care famotidine 20 mg oral tablet (20 sources) Histamine-2 Receptor Antagonist take 1 tablet by mouth once daily Famotidine 20 MG Oral Tablet ; 1 daily (20 MG) indomethacin 25 mg oral capsule (20 sources) Nonsteroidal Anti-inflammatory Drug Start: 06-12-2024 indomethacin 25 mg capsule ; 1 Capsule two times daily for 0 days Quantity: 20 {Capsule} Refills: 0 Ordered: 12-Jun-2024 YUNG Lea Start: 12-Jun-2024 Start: 08-19-2020 End: 06-26-2022 take 1 capsule by mouth three times daily Indomethacin 25 MG Oral Capsule ; 1 Capsule three times daily for 0 days Quantity: 42 {Capsule} Refills: 1 Ordered: 26-Jun-2022 YUNG Lea Start: 19-Aug-2020 End: 26-Jun-2022 Status: Inactive losartan potassium 50 mg oral tablet (20 sources) Angiotensin 2 Receptor Darline Start: 07-26-2023 losartan 50 mg table t ; 1 (one) Tablet daily for 0 days Quantity: 90 {Capsule} Refills: 3 Ordered: 27-Dec-2023 MD Aldair Quintanilla Start: 27-Dec-2023 metFORMIN hydrochloride 500 mg oral tablet (20 sources) Biguanide Start: 10-03-2023 metFORMIN 500 mg tablet ; 1 (one) Tablet two times daily with largest meals for 0 days Quantity: 180 {Tablet} Refills: 3 Ordered: 27-Dec-2023 MD Aldair Quintanilla Start: 27-Dec-2023 Multi Vitamin Daily Oral Tablet (20 sources) Multi Vitamin Da thien Oral Tablet Completed/Discontinued Medications Medication Drug Class(es) Dates Sig (Normalized) Sig (Original) amoxicillin 875 mg / clavulanate 125 mg oral tablet (20 sources) Penicillin-class Antibacterial Start: 08-19-2012 End: 08-29-2012 take 1 tablet by mouth twice daily at mealtime AUGMENTIN, 875-125MG (Oral Tablet) ; 1 Tab two times daily for 10 days Quantity: 20 {Tab} Refills: 0 Ordered: 27-Nov-2012 MD Jimmy Mancilla Start: 19-Aug-2012 End: 29-Aug-2012 Status: Inactive Comments: Take with food Comment on above: Take with food doxycycline monohydrate 100 mg oral tablet (20 sources) Tetracycline-class Drug Start: 05-21-2024 End: 06-18-2024 doxycycline monohydrate 100 mg tablet ; 1 (one) tablet q12 hrs for 0 days Quantity: 20 {Tablet} Refills: 0 Ordered: 18-Jun-2024 YUNG Lea Start: 21-May-2024 End: 18-Jun-2024 Status: Inactive lisinopril 10 mg oral tablet (20 sources) Angiotensin Converting Enzyme Inhibitor Start: 09-08-2019 End: 09-08-2019 take 1 tablet by mouth once daily Lisinopril 10 MG Oral Tablet ; 1 (one) Tablet daily for 0 days Quantity: 30 {Tablet} Refills: 1 Ordered: 08-Sep-2019 MD Latrice Silva Start: 08-Sep-2019 End: 08-Sep-2019 Status: Discontinued lovastatin 40 mg oral tablet (20 sources) HMG-CoA Reductase Inhibitor Start: 09-08-2019 End: 03-02-2021 take 1 tablet by mouth once daily in the evening Lovastatin 40 MG Oral Tablet ; 1 (one) Tablet Tablet daily in the evening for 0 days Quantity: 90 {Tablet} Refills: 3 Ordered: 02-Mar-2021 YUNG Hdz Start: 08-Sep-2019 End: 02-Mar-2021 Status: Discontinued nortriptyline 25 mg oral capsule (20 sources) Tricyclic Antidepressant Start: 02-10-2011 End: 07-15-2012 take 1 capsule by mouth once daily at bedtime NORTRIPTYLINE HCL, 25MG (Oral Capsule) ; 1 Capsule daily at bedtime for 0 days Quantity: 30 {Capsule} Refills: 0 Ordered: 15-Jul-2012 YUNG Brewer Start: 10-Feb-2011 End: 15-Jul-2012 Status: Inactive sildenafil 50 mg oral tablet (20 sources) Phosphodiesterase 5 Inhibitor Start: 10-01-2015 End: 06-06-2021 take 1 tablet by mouth every hour Viagra 50 MG Oral Tablet ; 1 (one) Tablet Tablet 1 hour prior to intercourse for 0 days Quantity: 3 {Tablet} Refills: 3 Ordered: 06-Jun-2021 YUNG Lea Start: 01-Oct-2015 End: 06-Jun-2021 Status: Inactive Problems Active Problems Problem Classification Problem Date Documented Da te Episodic/Chronic Abdominal hernia (20 sources) Inguinal hernia, without mention of obstruction or gangrene, unilateral or unspecified (not specified as recurrent); Translations: [Right inguinal hernia ] Onset: 04-15-2024 11-27-2012 Episodic Abdominal pain (2 sources) Right lower quadrant pain; Translations: [Right lower quadrant pain] Onset: 03-26-2024 Episodic Acute cerebrovascular disease (20 sources) Hematoma of subdural space of neuraxis; Translations: [Subdural hemorrhage] 03-10-2011 Chronic Administrative/social admission (20 sources) Issue of repeat prescriptions 08-27-2014 Episodic Allergic reactions (20 sources) Eczema; Translations: [Dermatitis, unspecified] 12-25-2022 Episodic Coagulation and hemorrhagic disorders (20 sources) Hereditary factor IX deficiency disease; 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] Onset: 12-18-2021 12-25-2022 Chronic Comment on above: hematology at [facility] Diabetes mellitus with complications (20 sources) Diabetes mellitus; Translations: [Type 2 diabetes mellitus with hyperglycemia] 06-26-2022 Chronic Comment on above: metformin 500mg bid Diabetes mellitus without complication (20 sources) Type 2 diabetes mellitus without complication; Translations: [Type 2 diabetes mellitus without complications] Onset: 03-26-2024 09-05-2023 Chronic Comment on above: metformin Disorders of lipid metabolism (20 sources) Hyperlipoproteinemia ; Translations: [Hyperlipidemia, unspecified] 09-05-2023 Chronic Essential hypertension (20 sources) Hypertensive disorder; Translations: [Essential (primary) hypertension] Onset: 12-23-2019 12-23-2019 Chronic Comment on above: losartan 50mg Gout and other crystal arthropathies (20 sources) Gout; Translations: [Gout, unspecified] 12-25-2022 Chronic Headache; including migraine (20 sources) Headache; Translations: [Headache] 02-27-2011 Episodic Hepatitis (20 sources) Chronic hepatitis C; Translations: [Chronic viral hepatitis C] 03-11-2021 Chronic Immunizations and screening for infectious disease (20 sources) Encounter for immunization; Translations: [Other specified vaccinations against streptococcus pneumoniae [pneumococcus]] 09-08-2019 Episodic Miscellaneous mental health disorders (20 sources) Male erectile disorder; 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] 12-25-2022 Chronic Other connective tissue disease (20 sources) Swelling of hand; Translations: [Other specified soft tissue disorders] 06-14-2018 Episodic Other connective tissue disease (20 sources) Hand pain; Translations: [Pain in unspecified hand] 05-21-2024 Episodic Other infections; including parasitic (20 sources) Personal history of other infectious and parasitic diseases 12-25-2022 Episodic Comment on above: per pt report Other infections; including parasitic (20 sources) History of hepatitis C; Translations: [Personal history of other infectious and parasitic diseases] 12-25-2022 Episodic Other injuries and conditions due to external causes (20 sources) At risk for falls ; Translations: [History of falling] 06-14-2018 Episodic Other nutritional; endocrine; and metabolic disorders (20 sources) Obesity; Translations: [Obesity, unspecified] 03-03-2021 Chronic Other nutritional; endocrine; and metabolic disorders (20 sources) Disorder of carbohydrate metabolism; Translations: [Other disorders of intestinal carbohydrate absorption] 08-22-2019 Chronic Other nutritional; endocrine; and metabolic disorders (20 sources) Overweight in adulthood with body mass index of 25 or more but less than 30; Translations: [Body mass index (BMI) 27.0-27.9, adult] 06-26-2022 Episodic Other nutritional; endocrine; and metabolic disorders (4 sources) Body mass index 25-29 - overweight; Translations: [Body mass index (BMI) 27.0-27.9, adult] 06-26-2022 Episodic Other screening for suspected conditions (not mental disorders or infectious disease) (20 sources) Screening status; Translations: [Encounter for screening for malignant neoplasm of prostate] 09-05-2023 Episodic Other skin disorders (20 sources) Eruption; Translations: [Rash and other nonspecific skin eruption] 03-19-2023 Episodic Other upper respiratory disease (20 sources) Bleeding from nose; Translations: [Epistaxis] 03-21-2021 Episodic Pleurisy; pneumothorax; pulmonary collapse (1 source) Atelectasis; Translations: [Atelectasis] Onset: 04-15-2024 Episodic Screening and history of mental health and substance abuse codes (20 sources) Patient encounter status; Translations: [Encounter for screening for depression] 09-08-2019 Episodic Skin and subcutaneous tissue infections (20 sources) Felon; Translations: [Cellulitis of right hand] 08-19-2012 Episodic Unclassified (20 sources) Unspecified Diagnosis 07-13-2010 Unclassified (20 sources) [facility] Routine follow-up - The patient is here for follow-up of hypertension, hyperlipidemia, diabetes, gout and ED, chronic hepatitis c. The patient always takes the prescribed medications. No side effects noted. The patient engages in regular program 1-3 time(s) per week (for his low back). The patient's out of office blood pressure checks occur occasionally (see list). The patient tests blood sugar weekly (see list). 12-25-2022 Unclassified (20 sources) Well adult male - The patient feels well with no complaints, has good energy level and is sleeping well. The patient takes supplemental vitamins. The patient sleeps 7 hours per night. 06-26-2022 Unclassified (20 sources) [ADDITIONAL REASON] [facility] Routine follow-up - The patient is here for follow-up of hypertension, hyperlipidemia, diabetes, gout and ED, chronic hepatitis c. The patient always takes the prescribed medications. No side effects noted. The patient engages in regular program 1-3 time(s) per week (for his low back). The patient's out of office blood pressure checks occur occasionally (see list). The patient tests blood sugar weekly (see list). 06-26-2022 Unclassified (20 sources) [facility] Routine follow-up - The patient is here for follow-up of hypertension, hyperlipidemia, diabetes, gout and ED, chronic hepatitis c. The patient always takes the prescribed medications. No side effects noted. The patient engages in regular program 1-3 time(s) per week (for his low back). The patient's out of office blood pressure checks occur occasionally. The patient tests blood sugar weekly. 06-06-2021 Unclassified (20 sources) [facility] Routine follow-up - The patient is here for follow-up of hypertension, hyperlipidemia, diabetes, obesity, gout and ED, chronic hepatitis c. The patient always takes the prescribed medications. No side effects noted. The patient engages in regular program 1-3 time(s) per week. The patient's out of office blood pressure checks occur frequently (has reradings on clipboard) and dietary compliance is fairly good usually adhering to recommendations. The patient states that there is no recent angina or dyspnea, weight has increased (up 5 lbs) and they do not have headaches. Note for Routine chronic follow-up : alex 06/24/19last labs 08/21/19 uric acid, bmp, a1c, lipidlast a1c- 8.0pt started new bp med last visit said he likes it 12-23-2019 Unclassified (20 sources) Well Adult, male - The patient feels well with no complaints, has good energy level and is sleeping well. The patient has a balanced diet and takes supplemental vitamins. The patient exercises 3 - 4 times per week (bikes to work and strengthening and stretching exercises). The patient sleeps 7 hours per night. 09-08-2019 Unclassified (20 sources) [facility] Routine Follow up - The patient is here for follow-up of hypertension (Last rtn visit 07/15/12. BMP and PSA 07/15/12. No Lipid.) and other condition(s) (Chronic Hepatitis C). The patient always takes the prescribed medications. No side effects noted. The patient engages in regular program 3-5 time(s) per week. The patient's out of office blood pressure checks occur occasionally and dietary compliance is fairly good usually adhering to recommendations. The patient states that breathing effort is stable, there is no recent angina or dyspnea, there are no vision changes or weakness, weight has decreased (5#), mood is unchanged and headaches have been noticed occasionally. Note for Routine chronic follow-up : Patient is fasting today.Today's progress notes and lab results need to be faxed to [facility] attn: Lina Mendes RN. . Can call Lina at [phone] with any questions. 06-18-2014 Unclassified (20 sources) [facility] Routine Follow up - The patient is here for follow-up of hypertension (Last rtn visit 02/27/11 Last TSH and CMP 02/10/11 NO LIPID NOTED. ) and other condition(s) (chronic hep c Last Hep C drawn 07/08/12). The patient always takes the prescribed medications. No side effects noted. The patient has an active lifestyle but no regular program (does back exercises). The patient's out of office blood pressure checks occur rarely and dietary compliance is fairly good usually adhering to recommendations. The patient states that breathing effort is stable, there is no recent angina or dyspnea, there are no vision changes or weakness, pain is generally stable (occasional abdominal pain), weight has increased (4#), mood is unchanged and they do not have headaches. The patient does not check home blood sugars. Note for Routine chronic follow-up : Patient had a subdural hematoma the summer. Patient's last visit to the neurologist was July 2011. Patient reports having recent labwork drawn at the hospital. Hep C panel is the only lab results I was able to locate. 07-16-2012 Unclassified (18 sources) [facility] Routine follow-up - The patient is here for follow-up of hypertension, hyperlipidemia, diabetes, gout and ED, chronic hepatitis c. The patient always takes the prescribed medications. No side effects noted. The patient engages in regular program 1-3 time(s) per week (for his low back). The patient's out of office blood pressure checks occur occasionally (see list). The patient tests blood sugar weekly (see list). 06-26-2022 Unclassified (18 sources) [ADDITIONAL REASON] Well adult male - The patient feels well with no complaints, has good energy level and is sleeping well. The patient takes supplemental vitamins. The patient sleeps 7 hours per night. 06-26-2022 Past or Other Problems Problem Classification Problem Date Documented Da te Episodic/Chronic Unclassified (20 sources) Well adult male - The patient feels well with no complaints, has decreased energy level and is sleeping well. The patient has a balanced diet. The patient exercises daily. The patient sleeps 7 hours per night. Note for Well adult male : [facility] 12/2019labs printedpt is down 12 lbs 03-03-2021 Unclassified (20 sources) Well adult male - The patient feels well with no complaints, has good energy level and is sleeping well. The patient has a balanced diet and takes supplemental vitamins. The patient exercises daily. The patient sleeps 7 hours per night. Note for Well adult male : ALEX 09/2015lipid cmp psa 09/[id number] Unclassified (20 sources) MCR Well Adult - In general the patient feels well with minor complaints, has good energy level and is sleeping well. The patient has a balanced diet and takes supplemental vitamins. The patient exercises daily and sleeps 7 hours per night. Over the past 2 weeks, the patient has not been feeling down, depressed, or hopeless or feeling little interest or pleasure in doing things. The patient denies having trouble with bathing, dressing/grooming, toileting, preparing meals and ambulating. The patient denies having trouble with grocery shopping, driving, use of telephone, housework, laundry, preparing/taking medications and finances. The patient denies falling more than once in the past 12 months. The patient has a Living Will, but does not have Healthcare Power of Trick Rodeo Rider. 10-01-2015 Unclassified (20 sources) recheck hernia - Patient is here to have his hernia a rechecked. States that he has been dealing with this for 4 months. States that it has been bothering him more stated that it hurts and has been more swelling,more noticable when coughing,lifting or climbing stairs. He also would like his left elbow check from prior being sprained, mildly bothering him. 11-27-2012 Unclassified (20 sources) Finger infection - Pt here this afternoon because he has what appears to be an infected finger. It is left index finger. He did not cut finger or hurt it in any way that he remembers. Started out about 6 days ago with redness all around nail and as days progressed it became even more red. Sunday and Sunday finger was very sore . No drainage noted but finger swollen and red. No fever or chills. Over weekend he was soaking it in epson salts and using a drawing salve on it. reviewed by [facility] 08-19-2012 Unclassified (20 sources) Daily Heacaches - Here for follow up for daily headaches since December. No improvement has been noted. Pain is located over the entire head and continues all day. Wakes with headache. Is able to sleep well. Kept daily journal of blood pressure. This mornings reading was 139/90. Is also here to review blood work. 02-27-2011 Unclassified (20 sources) Headache - The onset of the headache has been sudden and has been occurring in a persistent pattern for 5 weeks. The course has been recurrent. The headache is characterized as a dull ache (pt has noted his bps are elevated and is currently on lisinopril 10mg daily Pt brought along bp that he has beentaking for the last week.). The headache is described as being located in the entire head. 02-10-2011 Unclassified (1 source) MCR Well Adult 12-27-2023 Unclassified (20 sources) MCR Well Adult - In general the patient feels well with no complaints, has good energy level and is sleeping well. The patient has a balanced diet. The patient exercises 3 - 4 times per week and sleeps 7 hours per night. The patient denies having trouble with bathing, dressing/grooming, toileting, preparing meals and ambulating. The patient denies having trouble with grocery shopping, use of telephone, housework, laundry, preparing/taking medications and finances, but admits to having trouble with driving. The patient has a Healthcare Power of Trick Rodeo Rider, but does not have Living Will. 12-27-2023 Unclassified (1 source) [ADDITIONAL REASON] Follow up from hospital stay - Name of Hospital: ED. Date of Admission: 04/28/24. The patient was hospitalized for chest pain. Note for Follow up from hospital stay : -To ER with chest pain, referred to Dr Redd. An upcoming inguinal hernia repair has been postponed due to this. 05-21-2024 Unclassified (1 source) [ADDITIONAL REASON] follow ups - Referred to urology in January and it looked like they were planning a prostate bx.He is now following with hematology at [facility] and they rx celecoxib 200mg for him. 05-21-2024 Unclassified (17 sources) Hand pain - The onset of the hand pain has been sudden and has been occurring in a persistent pattern for 7 days. The hand pain is characterized as a moderate. The hand pain is described as being located in the entire hand. The symptoms have been associated with muscle swelling and erythema. Note for Hand pain : -Reports entire right hand edema. No injury, no bite. He is a hemophiliac but there is no bruising. 05-21-2024 Unclassified (20 sources) [ADDITIONAL REASON] Follow up from hospital stay - Name of Hospital: [facility]. Date of Admission: 04/28/24. The patient was hospitalized for chest pain. Note for Follow up from hospital stay : -To ER with chest pain, referred to cardiology and had a stress test. 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 05-21-2024 Unclassified (18 sources) [ADDITIONAL REASON] follow ups - Referred to urology in January and it looked like they were planning a prostate bx. He asked to delay it and try natural things. 05-21-2024 Unclassified (3 sources) follow ups - Referred to urology in January and it looked like they were planning a prostate bx. He asked to delay it and try natural things. 05-21-2024 Unclassified (4 sources) [ADDITIONAL REASON] Hand pain - The onset of the hand pain has been sudden and has been occurring in a persistent pattern for 7 days. The hand pain is characterized as a moderate. The hand pain is described as being located in the entire hand. The symptoms have been associated with muscle swelling and erythema. Note for Hand pain : -Reports entire right hand edema. No injury, no bite. He is a hemophiliac but there is no bruising. 05-21-2024 Unclassified (1 source) Hand pain - The onset of the hand pain has been sudden and has been occurring in a persistent pattern for 1 month. The hand pain is characterized as a moderate. The hand pain is described as being located in the entire hand. The symptoms have been associated with muscle swelling and erythema. Note for Hand pain : -Reports entire right hand edema. No injury, no bite. He is a hemophiliac but there is no bruising. He had doxy mono on 05/21. He did not improve and had a visit to urgent care.he is concerned as he has upcoming hernia surgery planned and does not wish for the surgery to be cancelled. 06-18-2024 Unclassified (1 source) Follow up from hospital stay - Name of Hospital: [facility]. Date of Admission: 04/28/24. The patient was hospitalized for chest pain. Note for Follow up from hospital stay : -To ER with chest pain, referred to cardiology and had a stress test. 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 05-21-2024 Unclassified (15 sources) Hand pain - The onset of the hand pain has been sudden and has been occurring in a persistent pattern for 1 month. The hand pain is characterized as a moderate. The hand pain is described as being located in the entire hand. The symptoms have been associated with muscle swelling and erythema. Note for Hand pain : -Reports entire right hand edema. No injury, no bite. He is a hemophiliac but there is no bruising. He had doxy mono on 05/21. He did not improve. He then called for indomethacin and it also did not help. Then yesterday he had a visit to urgent care. They gave cephalexin. He has a new development of redness and a lump on the palmar side.he is concerned as he has upcoming hernia surgery planned and does not wish for the surgery to be cancelled. 06-18-2024 Results Test Name Value Interpretation Reference Range Facility STRESS TEST (DGEST) TAMAR Ba 05-12-2024 STRESS TEST (DGEST) NO IMAGING [place] [address] Patient: NED JACK Phone#: : 1950 Age: 74 Gender: M Pt. Type: Out Account: [id number] Location: [facility] Ordering: ALDAIR CASTELLANO Exam Date: 05/12/2024/7:48 Family Phys: ALDAIR QUINTANILLA Charge Code: [id number] Physician: VIDA LAWRENCE [place] Order #: [id number] Dose#: PROCEDURE: DGEST HISTORY: Patient is 74-year-old male with history of diabetes and hypertension. COMPARISON: None. INDICATIONS: Preoperative clearance TECHNIQUE: Electrocardiogram stress test was performed using the protocol listed below. STRESS RESULTS: Protocol: Eitan Duration: 05:39minutes Reason for termination: fatigue. Resting Heart Rate: 72 bpm. Resting Blood Pressure: 122/67 mmHg Peak Heart Rate: 148 which is 102% of maximum predicted heart rate Peak Blood Pressure: 200/91 occurring at 02:50 into exercise. Workload: 7.0 METs. Symptoms with stress: Patient did not complain of any chest pain with stress. Stress test was ended due to leg fatigue. EKG Data EKG at Baseline: EKG at baseline showed sinus rhythm at 72 BPM. Normal EKG. EKG with Stress: EKG with stress showed sinus tachycardia at 146 BPM. There is [address] depression seen in leads V4 V5 and V6 which does not fulfill criteria for ischemia. There were occasional monomorphic PVCs seen CONCLUSION: 1. Patient not complain of any chest pain with stress. Stress test was ended due to leg fatigue. 2. Patient was able to achieve average workload capacity. 3. Stress EKG is negative for inducible ischemia. 4. Waller treadmill score is +1 which is medium is for CV event in 5 years. Dictated by: RUDY REDD MD on 05/12/2024 at 8:51 Continued Report - Page 2 of 2 Patient: NED JACK Phone#: : 1950 Age: 74 Gender: M Pt. Type: Out Account: [id number] Location: [facility] Ordering: ALDAIR CASTELLANO Exam Date: 05/12/2024/7:48 Family Phys: ALDAIR GALLAGHERBABITASUSANA Charge Code: [id number] Physician: VIDA LAWRENCE [place] Order #: [id number] Dose#: Approved by: RUDY REDD MD on 05/12/2024 at 8:57 Normal [facility] CBC + DIFFon 04-26-2024 Baso # 0.04 x10EE3/UL Normal 0.00 - 0.10 [facility] Comment on above: Performed By: #### 2 [id number] #### [facility],[address] [place] [address] Basophils/100 WBC (Bld) 0.4 % Normal 0.0 - 2.0 [facility] Comment on above: Performed By: #### 2 50864 #### [facility],[address] [place] [address] CBC + DIFF Normal [facility] Comment on above: Result Comment: CBC- COMPLETE BLOOD COUNT Performed By: #### 2 77594 #### [facility],[address] [place], [place] [id number] CELL COUNT 100 Normal [facility] Comment on above: Performed By: #### 2 06528 #### [facility],[address] [place] [address] EO 1.0 % Normal 0.0 - 7.0 [facility] Comment on above: Performed By: #### 2 33091 #### [facility],[address] [place] [address] EO # 0.09 x10EE3/UL Normal 0.00 - 0.50 [facility] Comment on above: Performed By: #### 2 30412 #### [facility],[address] [place] [address] Eosinophils/100 WBC (Bld) 1.0 % Normal 0.0 - 7.0 [facility] Comment on above: Performed By: #### 2 60427 #### [facility],[address] [place] [address] Erythrocyte distribution width (RBC) [Ratio] 13.8 % Normal 12.0 - 15.6 [facility] Comment on above: Performed By: #### 2 20801 #### [facility],[address] [place] [address] Hematocrit (Bld) [Volume fraction] 41.9 % Normal 40.0 - 52.0 [facility] Comment on above: Performed By: #### 2 23836 #### [facility],[address] [place] [address] Hemoglobin (Bld) [Mass/Vol] 14.1 g/dL Normal 13.0 - 17.5 [facility] Comment on above: Performed By: #### 2 55767 #### [facility],[address] [place] [address] Lymph # 0.71 x10EE3/UL Low 0.80 - 2.80 [facility] Comment on above: Performed By: #### 2 57003 #### [facility],[address] [place], [place] [id number] Lymphocytes/100 WBC (Bld) 7.2 % Low 20.0 - 45.0 [facility] Comment on above: Performed By: #### 2 95950 #### [facility],[address] [place] [address] Lymphocytes/100 WBC (Bld) 6 % Low 20 - 45 [facility] Comment on above: Performed By: #### 2 93485 #### [facility],[address] [place], [place] [id number] MANUAL DIFF SEE BELOW Normal [facility] Comment on above: Performed By: #### 2 73857 #### [facility],[address] [place] [address] MCH (RBC) [Entitic mass] 29 pg Normal 27 - 33 [facility] Comment on above: Performed By: #### 2 47966 #### [facility],[address] [place] [address] MCHC 34 X10 3 Normal 32 - 36 [facility] Comment on above: Performed By: #### 2 82206 #### [facility],[address] [place] [address] MCV (RBC) [Entitic vol] 86 fL Normal 81 - 98 [facility] Comment on above: Performed By: #### 2 09760 #### [facility],[address] [place] [address] [place] # 0.83 x10EE3/UL Normal 0.20 - 1.00 [facility] Comment on above: Performed By: #### 2 14878 #### [facility],[address] [place] [address] MONOS 6 % Normal 0 - 10 [facility] Comment on above: Performed By: #### 2 38171 #### [facility],[address] [place] [address] MONOS % 8.5 % Normal 0.0 - 10.0 [facility] Comment on above: Performed By: #### 2 72759 #### [facility],[address] [place] [address] Morphology Justice (Bld) [Interp] REVIEWED Normal [facility] Comment on above: Performed By: #### 2 00539 #### [facility],[address] [place] [address] Neut # 8.20 x10EE3/UL High 1.50 - 7.10 [facility] Comment on above: Performed By: #### 2 04686 #### [facility],[address] [place] [address] Neutrophils/100 WBC (Bld) 83.1 % High 46.0 - 76.0 [facility] Comment on above: Performed By: #### 2 74000 #### [facility],[address] [place] [address] 53414 PLATELET 260 x10EE3/UL Normal 150 - 450 [facility] Comment on above: Performed By: #### 2 86702 #### [facility],[address] [place] [address] 54097 Platelet mean volume (Bld) [Entitic vol] 8.0 fL Normal 6.4 - 10.5 [facility] Comment on above: Result Comment: AUTO MATED DIFFERENTIAL Performed By: #### 2 64319 #### [facility],[address] [place] [address] 77402 RBC 4.87 x 10EE6/UL Normal 4.50 - 6.00 [facility] Comment on above: Performed By: #### 2 55415 #### [facility],[address] [place] [address] 91983 SEGS 87 % High 46 - 76 [facility] Comment on above: Performed By: #### 2 62174 #### [facility],[address] [place] [address] 92988 WBC 9.9 x 10EE3/UL Normal 4.5 - 10.8 [facility] Comment on above: Performed By: #### 2 25592 #### [facility],[address] [place] [address] 88167 CMP with eGFRon 04-26-2024 AGE 74 years Normal [facility] Comment on above: Performed By: #### 2 68702 ####[facility],[address] [place] [address] 06601 Albumin [Mass/Vol] 3.2 g/dL Low 3.4 - 5.0 [facility] Comment on above: Performed By: #### 2 81936 ####[facility],[address] [place] [address] 83393 Albumin/Globulin [Mass ratio] 0.8 {ratio} Low 0.9 - 1.6 [facility] Comment on above: Performed By: #### 2 88818 ####[facility],[address] [place] [address] 53418 ALK PHOS 61 U/L Normal 46 - 116 [facility] Comment on above: Performed By: #### 2 27871 ####[facility],[address] [place] [address] 56973 ALT [Catalytic activity/Vol] 14 U/L Low 16 - 63 [facility] Comment on above: Performed By: #### 2 47859 ####[facility],[address] [place] [address] 61737 Anion gap [Moles/Vol] 11 mmol/L Normal 10 - 20 [facility] Comment on above: Performed By: #### 2 66965 ####[facility],[address] [place] [address] 52104 AST [Catalytic activity/Vol] 11 U/L Low 15 - 37 [facility] Comment on above: Performed By: #### 2 11188 ####[facility],[address] [place] [address] 68171 B/C RATIO 12 ratio Normal 0 - 30 [facility] Comment on above: Performed By: #### 2 19724 ####[facility],[address] [place] [address] 32071 Bilirubin [Mass/Vol] 0.7 mg/dL Normal 0.2 - 1.0 [facility] Comment on above: Performed By: #### 2 20744 ####[facility],[address] [place] [address] 75325 Calcium [Mass/Vol] 8.9 mg/dL Normal 8.5 - 10.1 [facility] Comment on above: Performed By: #### 2 91355 ####[facility],[address] [place] [address] 49434 Chloride [Moles/Vol] 103 mmol/L Normal 98 - 107 [facility] Comment on above: Performed By: #### 2 53328 ####[facility],[address] [place] [address] 66297 CMP with eGFR Normal [facility] Comment on above: Result Comment: COMP REHENSIVE METABOLIC PANEL Performed By: #### 2 30668 ####[facility],[address] [place] [address] 23305 CO2 [Moles/Vol] 24.9 mmol/L Normal 21.0 - 32.0 [facility] Comment on above: Performed By: #### 2 15017 ####[facility],[address] [place] [address] 92471 Creatinine [Mass/Vol] 1.20 mg/dL Normal 0.70 - 1.30 [facility] Comment on above: Performed By: #### 2 89202 ####[facility],[address] [place] [address] 49244 eGFR 59 ML/MINUTE Low 60 - 999 [facility] Comment on above: Performed By: #### 2 09887 ####[facility],[address] [place] [address] 24585 GFR/1.73 sq M.predicted among non-blacks MDRD (S/P/Bld) [Vol rate/Area] mL/min/{1.73_m2} Normal 60 - 999 [facility] Comment on above: Result Comment: ACCO RDING TO THE NATIONAL KIDNEY DISEASE EDUCATION PROGRAM(NKDE), A NORMAL eGFR IS A VALUE GREATER THAN OR EQUAL TO 60 ML/MIN/1.73 SQ METERS. CHRONIC KIDNEY DISEASE: <60mL/MIN/1.73 SQ METERS KIDNEY FAILURE: <15mL/MIN/1.73 SQ METERS THIS TEST SHOULD ONLY BE USED FOR PATIENTS 18 YEARS OF AGE AND OLDER. Performed By: #### 2 44545 ####[facility],[address] [place] [address] 35268 Globulin (S) [Mass/Vol] 4.2 g/dL High 1.5 - 3.8 [facility] Comment on above: Performed By: #### 2 29634 ####[facility],[address] [place] [address] 84577 Glucose [Mass/Vol] 206 mg/dL High 74 - 106 [facility] Comment on above: Performed By: #### 2 94857 ####[address] [address] Potassium [Moles/Vol] 4.0 mmol/L Normal 3.5 - 5.1 [facility] Comment on above: Performed By: #### 2 43327 ####[address] [address] Protein [Mass/Vol] 7.4 g/dL Normal 6.4 - 8.2 [facility] Comment on above: Performed By: #### 2 78549 ####[facility],[address] [place] [address] 27079 Sodium [Moles/Vol] 135 mmol/L Low 136 - 145 [facility] Comment on above: Performed By: #### 2 32660 ####[address] [address] Urea nitrogen [Mass/Vol] 14 mg/dL Normal 7 - 18 [facility] Comment on above: Performed By: #### 2 70459 ####[address] [address] [address] CHEST (PE PROTOCOL)on CT CHEST (PE PROTOCOL) [place] [address] Patient: NED JACK Phone#: : 1950 Age: 74 Gender: M Pt. Type: ER Account: [id number] Location: 052 Ordering: PAULO BOB Exam Date: 04/26/2024/11:03 Family Phys: ALDAIR QUINTANILLA Charge Code: [id number] Physician: [place] Order #: [id number] Dose#: 7.2 mGy PROCEDURE: CT CHEST WITH CONTRAST FOR PE COMPARISON: None. INDICATIONS: Chest pain. TECHNIQUE: After obtaining the patient's consent, CT images were obtained with non-ionic intravenous contrast material. Multi-planar images were created to optimize visualization of vascular anatomy with MPR/MIPS and 3D imaging. All CT scans at this facility use dose modulation, iterative reconstruction, and/or weight based dosing when appropriate to reduce radiation dose to as low as reasonably achievable. IV CONTRAST: Omnipaque 350,100ml TOTAL DOSE: 7.2 CTDIvol(mGy) FINDINGS: VASCULATURE: No pulmonary embolism. AORTA: No aortic aneurysm. There are atherosclerotic calcifications of the aorta and branch vessels. LUNGS: There are dependent changes. ERIKA: Normal. No mass or adenopathy. MEDIASTINUM: Normal. No mass or adenopathy. CARDIAC: Coronary artery calcification PLEURA: Normal. No mass or effusion. CHEST WALL: Normal. No mass or axillary adenopathy. LIMITED ABDOMEN: Accessory bilateral renal arteries. BONES: Normal. No bony lesion or fracture. OTHER: Negative. CONCLUSION: No pulmonary embolism. No acute pulmonary parenchymal abnormality. Dictated by: Kassie Macias MD on 04/26/2024 at 23:18 Continued Report - Page 2 of 2 Patient: NED JACK Phone#: : 1950 Age: 74 Gender: M Pt. Type: ER Account: [id number] Location: 052 Ordering: PAULO BOB Exam Date: 04/26/2024/11:03 Family Phys: ALDAIR QUINTANILLA Charge Code: [id number] Physician: [place] Order #: [id number] Dose#: 7.2 mGy Approved by: Kassie Macias MD on 04/26/2024 at 23:26 Normal [facility] TROPONIN I, HIGH SENSITIVITY on 04-26-2024 HS TROPONIN 4.2 pg/mL Normal 0.0 - 76.2 [facility] Comment on above: Performed By: #### 2 83098 #### [facility],[address] [place] [address] HS TROPONIN <4.0 Normal 0.0 - 76.2 [facility] Comment on above: Performed By: #### 2 24390 #### [facility],[address] [place] [address] CBC + DIFFon 04-15-2024 ATY LYMP 1 % Normal [facility] Comment on above: Performed By: #### 2 20962 #### [facility],[address] [place] [address] BANDS 1 % Normal 0 - 5 [facility] Comment on above: Performed By: #### 2 16963 #### [facility],[address] [place] [address] Baso # 0.04 x10EE3/UL Normal 0.00 - 0.10 [facility] Comment on above: Performed By: #### 2 02757 #### [facility],[address] [place], [place] [id number] Basophils/100 WBC (Bld) 0.5 % Normal 0.0 - 2.0 [facility] Comment on above: Performed By: #### 2 63985 #### [facility],[address] [place], [place] [id number] Basophils/100 WBC (Bld) 0.0 % Normal 0.0 - 2.0 [facility] Comment on above: Performed By: #### 2 08886 #### [facility],[address] [place] [address] CBC + DIFF Normal [facility] Comment on above: Result Comment: CBC- COMPLETE BLOOD COUNT Performed By: #### 2 69045 #### [facility],[address] [place], [place] [id number] CELL COUNT 100 Normal [facility] Comment on above: Performed By: #### 2 29081 #### [facility],[address] [place] [address] EO 1.0 % Normal 0.0 - 7.0 [facility] Comment on above: Performed By: #### 2 94451 #### [facility],[address] [place] [address] EO # 0.06 x10EE3/UL Normal 0.00 - 0.50 [facility] Comment on above: Performed By: #### 2 45418 #### [place] [address] Eosinophils/100 WBC (Bld) 0.9 % Normal 0.0 - 7.0 [facility] Comment on above: Performed By: #### 2 39476 #### [place] [address] Erythrocyte distribution width (RBC) [Ratio] 13.6 % Normal 12.0 - 15.6 [facility] Comment on above: Performed By: #### 2 48252 #### [place] [address] Hematocrit (Bld) [Volume fraction] 42.6 % Normal 40.0 - 52.0 [facility] Comment on above: Performed By: #### 2 68088 #### [place] [address] Hemoglobin (Bld) [Mass/Vol] 14.4 g/dL Normal 13.0 - 17.5 [facility] Comment on above: Performed By: #### 2 38394 #### [place] [address] Lymph # 1.12 x10EE3/UL Normal 0.80 - 2.80 [facility] Comment on above: Performed By: #### 2 61233 #### [facility],[address] [place] [address] 67513 Lymphocytes/100 WBC (Bld) 16.8 % Low 20.0 - 45.0 [facility] Comment on above: Performed By: #### 2 55207 #### [facility],[address] [place], [place] [id number] Lymphocytes/100 WBC (Bld) 19 % Low 20 - 45 [facility] Comment on above: Performed By: #### 2 08624 #### [facility],[address] [place] [address] MANUAL DIFF SEE BELOW Normal [facility] Comment on above: Performed By: #### 2 98453 #### [facility],[address] [place] [address] MCH (RBC) [Entitic mass] 29 pg Normal 27 - 33 [facility] Comment on above: Performed By: #### 2 43601 #### [facility],[address] [place] [address] MCHC 34 X10 3 Normal 32 - 36 [facility] Comment on above: Performed By: #### 2 19692 #### [facility],[address] [place], [place] [id number] MCV (RBC) [Entitic vol] 86 fL Normal 81 - 98 [facility] Comment on above: Performed By: #### 2 54384 #### [facility],[address] [place] [address] 52601 META 0 % Normal 0 - 1 [facility] Comment on above: Performed By: #### 2 32424 #### [facility],[address] [place] [address] 68698 Metamyelocytes/100 WBC (Bld) 0 % Normal [facility] Comment on above: Performed By: #### 2 97540 #### [facility],[address] [place] [address] 22670 [place] # 0.63 x10EE3/UL Normal 0.20 - 1.00 [facility] Comment on above: Performed By: #### 2 01042 #### [facility],[address] [place] [address] 95877 MONOS 5 % Normal 0 - 10 [facility] Comment on above: Performed By: #### 2 21310 #### [facility],[address] [place] [address] 17252 MONOS % 9.4 % Normal 0.0 - 10.0 [facility] Comment on above: Performed By: #### 2 91601 #### [facility],[address] [place] [address] 80265 Morphology Justice (Bld) [Interp] REVIEWED Normal [facility] Comment on above: Performed By: #### 2 43686 #### [facility],[address] [place] [address] 73434 Neut # 4.79 x10EE3/UL Normal 1.50 - 7.10 [facility] Comment on above: Performed By: #### 2 54220 #### [facility],[address] [place] [address] 21469 Neutrophils/100 WBC (Bld) 72.3 % Normal 46.0 - 76.0 [facility] Comment on above: Performed By: #### 2 77952 #### [facility],[address] [place] [address] 92846 NRBC 0 /100 Normal [facility] Comment on above: Performed By: #### 2 67679 #### [facility],[address] [place] [address] 32451 PLATELET 225 x10EE3/UL Normal 150 - 450 [facility] Comment on above: Performed By: #### 2 [id number] #### [facility],[address] [place] [address] 61036 Platelet mean volume (Bld) [Entitic vol] 9.5 fL Normal 6.4 - 10.5 [facility] Comment on above: Result Comment: AUTO MATED DIFFERENTIAL Performed By: #### 2 [id number] #### [facility],[address] [place] [address] 79584 RBC 4.93 x 10EE6/UL Normal 4.50 - 6.00 [facility] Comment on above: Performed By: #### 2 73678 #### [facility],[address] [place] [address] 65704 SEGS 74 % Normal 46 - 76 [facility] Comment on above: Performed By: #### 2 77999 #### [facility],[address] [place] [address] 93107 WBC 6.6 x 10EE3/UL Normal 4.5 - 10.8 [facility] Comment on above: Performed By: #### 2 97253 #### [facility],[address] [place] [address] 56953 OTHER 0 Normal [facility] Comment on above: Performed By: #### 2 57395 #### [facility],[address] [place] [address] 06600 CHEST 2 VIEWSon 04-15-2024 CHEST 2 VIEWS [place] [address] Patient: NED JACK Phone#: : 1950 Age: 74 Gender: M Pt. Type: Out Account: [id number] Location: [facility] Ordering: VIDA LAWRENCE Exam Date: 04/15/2024/13:45 Family Phys: ALDAIR QUINTANILLA Charge Code: [id number] Physician: [place] Order #: [id number] Dose#: PROCEDURE: X-RAY CHEST 2 VIEWS COMPARISON: None. INDICATIONS: Right ingunial herina. FINDINGS: LUNGS: Left lateral lung base atelectasis. No significant pulmonary parenchymal abnormalities. VASCULATURE: Normal. Unremarkable pulmonary vasculature. CARDIAC: Normal. No cardiac silhouette abnormality or cardiomegaly. MEDIASTINUM: Aortic arch calcifications PLEURA: Normal. No effusion or pleural thickening. BONES: Degenerative changes of the spine OTHER: Negative. CONCLUSION: 1. Or atelectasis in the left lung base Dictated by: Kassie Macias MD on 04/15/2024 at 14:02 Approved by: Kassie Macias MD on 04/15/2024 at 14:05 Normal [facility] CMP with eGFRon 04-15-2024 AGE 74 years Normal [facility] Comment on above: Performed By: #### 2 [id number] #### [facility],[address] [place] [address] 30516 Albumin [Mass/Vol] 3.5 g/dL Normal 3.4 - 5.0 [facility] Comment on above: Performed By: #### 2 25366 #### [facility],[address] [place] [address] 01049 Albumin/Globulin [Mass ratio] 0.9 {ratio} Normal 0.9 - 1.6 [facility] Comment on above: Performed By: #### 2 06044 #### [facility],[address] [place] [address] 93756 ALK PHOS 57 U/L Normal 46 - 116 [facility] Comment on above: Performed By: #### 2 23538 #### [facility],[address] [place] [address] 14222 ALT [Catalytic activity/Vol] 21 U/L Normal 16 - 63 [facility] Comment on above: Performed By: #### 2 69146 #### [facility],[address] [place] [address] 58193 Anion gap [Moles/Vol] 13 mmol/L Normal 10 - 20 [facility] Comment on above: Performed By: #### 2 99662 #### [facility],[address] [place] [address] 53957 AST [Catalytic activity/Vol] 15 U/L Normal 15 - 37 [facility] Comment on above: Performed By: #### 2 62223 #### [facility],[address] [place] [address] 22488 B/C RATIO 12 ratio Normal 0 - 30 [facility] Comment on above: Performed By: #### 2 06773 #### [facility],[address] [place] [address] 69184 Bilirubin [Mass/Vol] 0.5 mg/dL Normal 0.2 - 1.0 [facility] Comment on above: Performed By: #### 2 98352 #### [facility],[address] [place] [address] 29128 Calcium [Mass/Vol] 9.3 mg/dL Normal 8.5 - 10.1 [facility] Comment on above: Performed By: #### 2 50762 #### [facility],[address] [place], [place] [address] Chloride [Moles/Vol] 104 mmol/L Normal 98 - 107 [facility] Comment on above: Performed By: #### 2 87007 #### [facility],[address] [place] [address] 09758 CMP with eGFR Normal [facility] Comment on above: Result Comment: COMP REHENSIVE METABOLIC PANEL Performed By: #### 2 90929 #### [facility],[address] [place] [address] 03336 CO2 [Moles/Vol] 24.2 mmol/L Normal 21.0 - 32.0 [facility] Comment on above: Performed By: #### 2 84045 #### [facility],[address] [place] [address] 42711 Creatinine [Mass/Vol] 1.08 mg/dL Normal 0.70 - 1.30 [facility] Comment on above: Performed By: #### 2 25809 #### [facility],[address] [place] [address] 28812 GFR/1.73 sq M.predicted among non-blacks MDRD (S/P/Bld) [Vol rate/Area] mL/min/{1.73_m2} Normal 60 - 999 [facility] Comment on above: Performed By: #### 2 19626 #### [facility],[address] [place] [address] 38752 Result Comment: ACCO RDING TO THE NATIONAL KIDNEY DISEASE EDUCATION PROGRAM(NKDE), A NORMAL eGFR IS A VALUE GREATER THAN OR EQUAL TO 60 ML/MIN/1.73 SQ METERS. CHRONIC KIDNEY DISEASE: <60mL/MIN/1.73 SQ METERS KIDNEY FAILURE: <15mL/MIN/1.73 SQ METERS THIS TEST SHOULD ONLY BE USED FOR PATIENTS 18 YEARS OF AGE AND OLDER. Globulin (S) [Mass/Vol] 3.8 g/dL Normal 1.5 - 3.8 [facility] Comment on above: Performed By: #### 2 28646 #### [facility],[address] [place] [address] 09300 Glucose [Mass/Vol] 130 mg/dL High 74 - 106 [facility] Comment on above: Performed By: #### 2 35500 #### [facility],[address] [place] [address] 35722 Potassium [Moles/Vol] 3.8 mmol/L Normal 3.5 - 5.1 [facility] Comment on above: Performed By: #### 2 30664 #### [facility],[address] [place] [address] 51579 Protein [Mass/Vol] 7.3 g/dL Normal 6.4 - 8.2 [facility] Comment on above: Performed By: #### 2 72283 #### [facility],[address] [place] [address] 76335 Sodium [Moles/Vol] 137 mmol/L Normal 136 - 145 [facility] Comment on above: Performed By: #### 2 39613 #### [facility],[address] [place] [address] 35692 Urea nitrogen [Mass/Vol] 13 mg/dL Normal 7 - 18 [facility] Comment on above: Performed By: #### 2 65534 #### [facility],[address] [place] [address] 47750 CBC + DIFFon 03-26-2024 ATY LYMP 0 % Normal [facility] Comment on above: Performed By: #### 2 49538 #### [facility],[address] [place] [address] 27183 BANDS 0 % Normal 0 - 5 [facility] Comment on above: Performed By: #### 2 03922 #### [facility],[address] [place] [address] 17594 Baso # 0.03 x10EE3/UL Normal 0.00 - 0.10 [facility] Comment on above: Performed By: #### 2 81724 #### [facility],[address] [place] [address] 64674 Basophils/100 WBC (Bld) 0.5 % Normal 0.0 - 2.0 [facility] Comment on above: Performed By: #### 2 17760 #### [facility],[address] [place] [address] 43855 Basophils/100 WBC (Bld) 0.0 % Normal 0.0 - 2.0 [facility] Comment on above: Performed By: #### 2 77130 #### [facility],[address] [place] [address] 24317 CBC + DIFF Normal [facility] Comment on above: Result Comment: CBC- COMPLETE BLOOD COUNT Performed By: #### 2 56418 #### [facility],[address] [place] [address] 10711 CELL COUNT 100 Normal [facility] Comment on above: Performed By: #### 2 47634 #### [facility],[address] [place] [address] 93740 EO 6.0 % High 0.0 - 4.0 [facility] Comment on above: Performed By: #### 2 96254 #### [facility],[address] [place] [address] 42154 EO # 0.08 x10EE3/UL Normal 0.00 - 0.50 [facility] Comment on above: Performed By: #### 2 19571 #### [facility],[address] [place] [address] 54830 Eosinophils/100 WBC (Bld) 1.2 % Normal 0.0 - 7.0 [facility] Comment on above: Performed By: #### 2 86938 #### [facility],[address] [place], [place] [address] Erythrocyte distribution width (RBC) [Ratio] 13.2 % Normal 12.0 - 15.6 [facility] Comment on above: Performed By: #### 2 22948 #### [facility],[address] [place] [address] Hematocrit (Bld) [Volume fraction] 42.5 % Normal 40.0 - 52.0 [facility] Comment on above: Performed By: #### 2 80465 #### [facility],[address] [place] [address] 33051 Hemoglobin (Bld) [Mass/Vol] 14.2 g/dL Normal 13.0 - 17.5 [facility] Comment on above: Performed By: #### 2 98415 #### [facility],[address] [place] [address] 00358 Lymph # 0.66 x10EE3/UL Low 0.80 - 2.80 [facility] Comment on above: Performed By: #### 2 60798 #### [facility],[address] [place] [address] 64537 Lymphocytes/100 WBC (Bld) 9.8 % Low 20.0 - 45.0 [facility] Comment on above: Performed By: #### 2 27842 #### [facility],[address] [place] [address] 37927 Lymphocytes/100 WBC (Bld) 14 % Low 20 - 40 [facility] Comment on above: Performed By: #### 2 71623 #### [facility],[address] [place] [address] MANUAL DIFF SEE BELOW Normal [facility] Comment on above: Performed By: #### 2 78302 #### [facility],[address] [place] [address] MCH (RBC) [Entitic mass] 29 pg Normal 27 - 33 [facility] Comment on above: Performed By: #### 2 39045 #### [facility],[address] [place] [address] MCHC 33 X10 3 Normal 32 - 36 [facility] Comment on above: Performed By: #### 2 67077 #### [facility],[address] [place] [address] MCV (RBC) [Entitic vol] 87 fL Normal 81 - 98 [facility] Comment on above: Performed By: #### 2 61737 #### [facility],[address] [place] [address] META 0 % Normal 0 - 1 [facility] Comment on above: Performed By: #### 2 78741 #### [facility],[address] [place] [address] Metamyelocytes/100 WBC (Bld) 0 % Normal [facility] Comment on above: Performed By: #### 2 41474 #### [facility],[address] [place] [address] [place] # 0.71 x10EE3/UL Normal 0.20 - 1.00 [facility] Comment on above: Performed By: #### 2 81331 #### [facility],[address] [place] [address] MONOS 8 % Normal 0 - 8 [facility] Comment on above: Performed By: #### 2 99751 #### [facility],[address] [place] [address] MONOS % 10.5 % High 0.0 - 10.0 [facility] Comment on above: Performed By: #### 2 73728 #### [facility],[address] [place] [address] 09382 Morphology Justice (Bld) [Interp] REVIEWED Normal [facility] Comment on above: Performed By: #### 2 39377 #### [facility],[address] [place] [address] 97230 Neut # 5.29 x10EE3/UL Normal 1.50 - 7.10 [facility] Comment on above: Performed By: #### 2 83143 #### [facility],[address] [place] [address] 88210 Neutrophils/100 WBC (Bld) 78.1 % High 46.0 - 76.0 [facility] Comment on above: Performed By: #### 2 77589 #### [facility],[address] [place] [address] 25395 NRBC 0 /100 Normal [facility] Comment on above: Performed By: #### 2 03628 #### [facility],[address] [place] [address] 69458 PLATELET 229 x10EE3/UL Normal 150 - 450 [facility] Comment on above: Performed By: #### 2 02754 #### [facility],[address] [place] [address] 20151 Platelet mean volume (Bld) [Entitic vol] 8.4 fL Normal 6.4 - 10.5 [facility] Comment on above: Result Comment: AUTO MATED DIFFERENTIAL Performed By: #### 2 89019 #### [facility],[address] [place] [address] 05711 RBC 4.88 x 10EE6/UL Normal 4.50 - 6.00 [facility] Comment on above: Performed By: #### 2 51148 #### [facility],[address] [place] [address] 56429 SEGS 72 % High 50 - 70 [facility] Comment on above: Performed By: #### 2 70434 #### [facility],[address] [place] [address] 19093 WBC 6.8 x 10EE3/UL Normal 4.5 - 10.8 [facility] Comment on above: Performed By: #### 2 74290 #### [facility],[address] [place] [address] 42015 OTHER 0 Normal [facility] Comment on above: Performed By: #### 2 62898 #### [facility],[address] [place] [address] 25062 CMP with eGFRon 03-26-2024 AGE 74 years Normal [facility] Comment on above: Performed By: #### 2 30617 #### [facility],[address] [place] [address] 43820 Albumin [Mass/Vol] 3.6 g/dL Normal 3.4 - 5.0 [facility] Comment on above: Performed By: #### 2 18250 #### [facility],[address] [place] [address] 75988 Albumin/Globulin [Mass ratio] 1.0 {ratio} Normal 0.9 - 1.6 [facility] Comment on above: Performed By: #### 2 66712 #### [facility],[address] [place] [address] 72557 ALK PHOS 60 U/L Normal 46 - 116 [facility] Comment on above: Performed By: #### 2 89569 #### [facility],[address] [place] [address] 87721 ALT [Catalytic activity/Vol] 21 U/L Normal 16 - 63 [facility] Comment on above: Performed By: #### 2 14074 #### [facility],[address] [place] [address] 01694 Anion gap [Moles/Vol] 13 mmol/L Normal 10 - 20 [facility] Comment on above: Performed By: #### 2 82744 #### [facility],[address] [place] [address] 03971 AST [Catalytic activity/Vol] 13 U/L Low 15 - 37 [facility] Comment on above: Performed By: #### 2 09055 #### [facility],[address] [place] [address] 78285 B/C RATIO 13 ratio Normal 0 - 30 [facility] Comment on above: Performed By: #### 2 58980 #### [facility],[address] [place] [address] 84065 Bilirubin [Mass/Vol] 0.5 mg/dL Normal 0.2 - 1.0 [facility] Comment on above: Performed By: #### 2 38501 #### [facility],[address] [place] [address] 50662 Calcium [Mass/Vol] 9.2 mg/dL Normal 8.5 - 10.1 [facility] Comment on above: Performed By: #### 2 84394 #### [facility],[address] [place] [address] 24612 Chloride [Moles/Vol] 103 mmol/L Normal 98 - 107 [facility] Comment on above: Performed By: #### 2 94346 #### [facility],[address] [place] [address] 80284 CMP with eGFR Normal [facility] Comment on above: Result Comment: COMP REHENSIVE METABOLIC PANEL Performed By: #### 2 99242 #### [facility],[address] [place] [address] 19068 CO2 [Moles/Vol] 25.9 mmol/L Normal 21.0 - 32.0 [facility] Comment on above: Performed By: #### 2 49944 #### [facility],[address] [place] [address] 65335 Creatinine [Mass/Vol] 1.18 mg/dL Normal 0.70 - 1.30 [facility] Comment on above: Performed By: #### 2 85700 #### [facility],[address] [place] [address] 42259 eGFR 60 ML/MINUTE Normal 60 - 999 [facility] Comment on above: Performed By: #### 2 15051 #### [facility],[address] [place] [address] 66291 GFR/1.73 sq M.predicted among non-blacks MDRD (S/P/Bld) [Vol rate/Area] mL/min/{1.73_m2} Normal 60 - 999 [facility] Comment on above: Result Comment: ACCO RDING TO THE NATIONAL KIDNEY DISEASE EDUCATION PROGRAM(NKDE), A NORMAL eGFR IS A VALUE GREATER THAN OR EQUAL TO 60 ML/MIN/1.73 SQ METERS. CHRONIC KIDNEY DISEASE: <60mL/MIN/1.73 SQ METERS KIDNEY FAILURE: <15mL/MIN/1.73 SQ METERS THIS TEST SHOULD ONLY BE USED FOR PATIENTS 18 YEARS OF AGE AND OLDER. Performed By: #### 2 25243 #### [facility],[address] [place] [address] 68975 Globulin (S) [Mass/Vol] 3.5 g/dL Normal 1.5 - 3.8 [facility] Comment on above: Performed By: #### 2 00227 #### [facility],[address] [place] [address] 17551 Glucose [Mass/Vol] 158 mg/dL High 74 - 106 [facility] Comment on above: Performed By: #### 2 91931 #### [facility],[address] [place] [address] 57911 Potassium [Moles/Vol] 3.7 mmol/L Normal 3.5 - 5.1 [facility] Comment on above: Performed By: #### 2 84243 #### [facility],[address] [place] [address] 47178 Protein [Mass/Vol] 7.1 g/dL Normal 6.4 - 8.2 [facility] Comment on above: Performed By: #### 2 15117 #### [facility],[address] [place] [address] 22948 Sodium [Moles/Vol] 138 mmol/L Normal 136 - 145 [facility] Comment on above: Performed By: #### 2 04025 #### [facility],[address] [place] [address] 35627 Urea nitrogen [Mass/Vol] 15 mg/dL Normal 7 - 18 [facility] Comment on above: Performed By: #### 2 31068 #### [facility],[address] [place] [address] ABDOMEN/PELVIS [facility] 2023 CT ABDOMEN/PELVIS [place] [address] Patient: NED JACK Phone#: : 1950 Age: 74 Gender: M Pt. Type: ER Account: [id number] Location: [facility] Ordering: DR. CHANTALE REYES Exam Date: 03/26/2024/15:58 Family Phys: ALDAIR QUINTANILLA Charge Code: [id number] Physician: [place] Order #: [id number] Dose#: 15.8 mGy PROCEDURE: CT ABDOMEN/PELVIS WITH CONTRAST COMPARISON: None. INDICATIONS: Abdominal pain. TECHNIQUE: After obtaining the patient's consent, CT images were created with non-ionic intravenous contrast material. All CT scans at this facility use dose modulation, iterative reconstruction, and/or weight based dosing when appropriate to reduce radiation dose to as low as reasonably achievable. IV CONTRAST: Omnipaque 350,80ml TOTAL DOSE: 15.8 CTDIvol(mGy) FINDINGS: LIVER: Normal. No enlargement, atrophy, abnormal density, or significant focal lesion. BILIARY: Normal. No visible dilatation or calcification. PANCREAS: Normal. No lesion, fluid collection, ductal dilatation, or atrophy. SPLEEN: Normal. No enlargement or focal lesion. KIDNEYS: Bilateral nonobstructing punctate renal calculi. There is no evidence of ureteral calculi. ADRENALS: Normal. No mass or enlargement. AORTA/VASCULAR: Normal. No aneurysm or dissection. RETROPERITONEUM: Normal. No mass or adenopathy. BOWEL/MESENTERY: Multiple colonic diverticula. There is no evidence of inflammatory change. There is moderate stool retention. ABDOMINAL WALL: Right inguinal hernia with fat. URINARY BLADDER: Normal. No visible focal wall thickening, lesion, or calculus. PELVIC NODES: Normal. No adenopathy. PELVIC ORGANS: Normal. No visible mass. Pelvic organs appropriate for patient age. BONES: Degenerative changes of the spine are present most marked at the L4-5. LUNG BASES: 4 millimeter nonspecific nodule is present the right middle. No visible pulmonary or pleural disease. Continued Report - Page 2 of 2 Patient: NED JACK Phone#: : 1950 Age: 74 Gender: M Pt. Type: ER Account: [id number] Location: 052 Ordering: DR. CHANTALE REYES Exam Date: 03/26/2024/15:58 Family Phys: ALDAIR QUINTANILLA Charge Code: [id number] Physician: [place] Order #: [id number] Dose#: 15.8 mGy OTHER: Negative. CONCLUSION: 1. Right inguinal hernia with fat. 2. Diverticulosis. 3. Moderate stool retention. 4. Nonobstructing bilateral punctate renal calculi. Dictated by: Abena Salgado MD on 03/26/2024 at 16:23 Approved by: Abena Salgado MD on 03/26/2024 at 16:34 Normal [facility] EMERGENCY REPORTon 4 EMERGENCY REPORT [facility] EMERGENCY ROOM REPORT NAME ACCOUNT SEX AGE ADMIT DISCHARGE PT MED. RECORD# NUMBER DATE DATE TYPE JODIE [id number] M 74 03/26/24 3 NED [id number] ROOM: ER DATE OF : 1950 DICTATING PHYSICIAN: Chantale Reyes CHIEF COMPLAINT: Right lower quadrant abdominal pain. HISTORY OF PRESENT ILLNESS: This is a 74-year-old gentleman with a history of hypertension and type 2 diabetes. For three weeks, he has had intermittent abdominal pain in the right lower quadrant. He indicates that this happened on three occasions. He usually gets it after he has eaten a meal, and he will develop a sharp right lower quadrant pain that lasts two to three hours and then resolves. It happened after lunch today. He has had no vomiting, fever, diarrhea, dysuria, or frequency. He is feeling much better at the time of admission, and indicates that the abdominal pain is almost resolved. PAST MEDICAL HISTORY: Past medical history is significant for hypertension and type 2 diabetes. REVIEW OF SYSTEMS: He complains of the right lower quadrant abdominal pain. He denies fever, vomiting, diarrhea, dysuria, or frequency. All other systems are negative except as noted above. PHYSICAL EXAMINATION: VITAL SIGNS: Afebrile. Vital signs are stable. GENERAL EXAMINATION: He appears comfortable and in no distress. HEENT: Mouth and pharynx is clear. CHEST: Clear. CARDIOVASCULAR EXAMINATION: Regular rate and rhythm. ABDOMEN: Soft with active bowel sounds. He has some slight tenderness over the right inguinal ligament. The abdomen is otherwise nontender. No guarding or rebound. BACK: No CVA tenderness. DIAGNOSTIC DATA: The CBC shows a normal white count. The electrolytes are within normal limits. LFTs are normal. Lipase is normal. Urine is clear. The CT scan of the abdomen and pelvis shows nothing acute. He does have a right inguinal hernia that has fat containing only, and no evidence of intestinal involvement. MEDICAL DECISION MAKING/EMERGENCY DEPARTMENT COURSE AND TREATMENT: This is a 74-year-old gentleman with intermittent right lower quadrant abdominal and inguinal pain. Differential diagnoses includes appendicitis, colitis, diverticulitis, inguinal hernia, or kidney stone. I reexamined the patient at this time, and he is pain free and feels comfortable returning home. Page 1 of 2 [facility] Emergency Room Report NED JACK : 1950 DIAGNOSES: 1. Right inguinal hernia. 2. Abdominal pain. PLAN/DISPOSITION: He had a left inguinal hernia repair done by Dr. Lawrence, and he will call Dr. Lawrence tomorrow for a follow-up appointment. Dictated By: Chantale Reyes MD 03/26/24 17:19 JOB #: [id number] Transcribed By: rohan 03/26/24 17:34 Electronically signed by: Chantale Reyes M.D. 03/26/24 22:19 Page 2 of 2 [facility] Emergency Room Report Normal [facility] LIPASEon 03-26-2024 Lipase [Catalytic activity/Vol] 36.0 U/L Normal 15.0 - 78.0 [facility] Comment on above: Result Comment: *PLE ASE NOTE THAT RANGES FOR LIPASE HAVE CHANGED OF 10/12/23 DUE TO AN ASSAY UPDATE BY THE COMPETITIVE INTELLIGENCE MANAGER.THE NEW ASSAY RANGE IS 6-250 U/L, WITH A REFERENCE RANGE OF 16-77 U/L. Performed By: #### 2 [id number] ####[facility],[address] [place] [address] URINALYSISon 03-26-2024 Bilirubin Ql (U) Negative Normal NORMAL: NEGATIVE [facility] Comment on above: Performed By: #### 2 [id number] #### [facility],[address] [place] [address] Clarity (U) clear Normal NORMAL: CLEAR [facility] Comment on above: Performed By: #### 2 74524 #### [facility],[address] [place] [address] Color (U) yellow Normal NORMAL: YELLOW [facility] Comment on above: Performed By: #### 2 [id number] #### [facility],[address] [place], [place] [id number] Glucose Ql (U) NORM Normal NORMAL: NORMAL [facility] Comment on above: Performed By: #### 2 [id number] #### [facility],[address] [place], [place] [id number] Hemoglobin Ql (U) Negative Normal NORMAL: NEGATIVE [facility] Comment on above: Performed By: #### 2 86150 #### [facility],[address] [place], [place] [id number] Ketone Negative Normal NORMAL: NEGATIVE [facility] Comment on above: Performed By: #### 2 96854 #### [facility],[address] [place], [place] [id number] Leukocytes Negative Normal NORMAL: NEGATIVE [facility] Comment on above: Performed By: #### 2 83869 #### [facility],[address] [place] [address] Nitrite Ql (U) Negative Normal NORMAL: NEGATIVE [facility] Comment on above: Performed By: #### 2 59782 #### [facility],[address] [place] [address] pH (U) 6 [pH] Normal NORMAL: 5.0-8.0 [facility] Comment on above: Performed By: #### 2 40841 #### [facility],[address] [place] [address] Protein Ql (U) Negative Normal NORMAL: NEGATIVE [facility] Comment on above: Performed By: #### 2 28495 #### [facility],[address] [place] [address] Sp [place] 1.015 Normal NORMAL: 1.010-1.030 [facility] Comment on above: Performed By: #### 2 37973 #### [facility],[address] [place] [address] Specimen Type Clean catch Normal [facility] Comment on above: Performed By: #### 2 [id number] #### [facility],[address] [place] [address] Urinalysis dipstick W Reflex Microscopic panel (U) NOT INDICATED Normal [facility] Comment on above: Performed By: #### 2 94827 #### [facility],[address] [place] [address] Urobilinog NORM Normal NORMAL: NORMAL [facility] Comment on above: Performed By: #### 2 43683 #### [facility],[address] [place], [place] [address] CBC (INCLUDES DIFF/PLT)on Basophils (Bld) [#/Vol] 0.051 10*3/uL Normal 0-200 [facility] Comment on above: Performed By: #### 1 0231, 4402, 6780, 09088, 496 #### [facility] of [place] [address] [address] Carrier: Maico Rey MD Basophils/100 WBC (Bld) 0.8 % Normal [facility] Comment on above: Performed By: #### 1 0231, 6399, 7600, 58963, 496 #### [facility] of [place] [address] [address] Carrier: Maico Rey MD Eosinophils (Bld) [#/Vol] 0.173 10*3/uL Normal 15-500 [facility] Comment on above: Performed By: #### 1 0231, 6399, 7600, 50894, 496 #### [facility] of [place] [address] [address] Carrier: Maico Rey MD Eosinophils/100 WBC (Bld) 2.7 % Normal [facility] Comment on above: Performed By: #### 1 0231, 6399, 7600, 11817, 496 #### [facility] of [place] [address] [address] Carrier: Maico Rey MD Erythrocyte distribution width (RBC) [Ratio] 13.1 % Normal 11.0-15.0 [facility] Comment on above: Performed By: #### 1 0231, 6399, 7600, 73343, 496 #### [facility] of [place] [address] [address] Carrier: Maico Rey MD Hematocrit (Bld) [Volume fraction] 47.9 % Normal 38.5-50.0 [facility] Comment on above: Performed By: #### 1 0231, 6399, 7600, 74706, 496 #### [facility] of [place] [address] [address] Carrier: Maico Rey MD Hemoglobin (Bld) [Mass/Vol] 16.0 g/dL Normal 13.2-17.1 [facility] Comment on above: Performed By: #### 1 0231, 6399, 7600, 38964, 496 #### [facility] of [place] [address] [address] Carrier: Maico Rey MD Lymphocytes (Bld) [#/Vol] 1.606 10*3/uL Normal 850-3900 [facility] Comment on above: Performed By: #### 1 0231, 6399, 7600, 36655, 496 #### [facility] of [place] [address] [address] Carrier: Maico Rey MD Lymphocytes/100 WBC (Bld) 25.1 % Normal [facility] Comment on above: Performed By: #### 1 0231, 6399, 7600, 18022, 496 #### [facility] of [place] [address] [address] Carrier: Maico Rey MD MCH (RBC) [Entitic mass] 29.4 pg Normal 27.0-33.0 [facility] Comment on above: Performed By: #### 1 0231, 6399, 7600, 84438, 496 #### [facility] [place] [address] [address] Carrier: Maico Rey MD MCHC (RBC) [Mass/Vol] 33.4 g/dL Normal 32.0-36.[address] [facility] Comment on above: Performed By: #### 1 0231, 6399, 7600, 82565, 496 #### [facility] of [place] [address] [address] Carrier: Maico Rey MD MCV (RBC) [Entitic vol] 87.9 fL Normal 80.0-100.0 [facility] Comment on above: Performed By: #### 1 0231, 6399, 7600, 24116, 496 #### [facility] of [place] [address] [address] Carrier: Maico Rey MD Monocytes (Bld) [#/Vol] 0.723 10*3/uL Normal 200-950 [facility] Comment on above: Performed By: #### 1 0231, 6399, 7600, 62585, 496 #### [facility] of [place] [address] [address] Carrier: Maico Rey MD Monocytes/100 WBC (Bld) 11.3 % Normal [facility] Comment on above: Performed By: #### 1 0231, 6399, 7600, 81155, 496 #### [facility] of [place] [address] [address] Carrier: Maico Rey MD Neutrophils (Bld) [#/Vol] 3.846 10*3/uL Normal 4356-0720 [facility] Comment on above: Performed By: #### 1 0231, 6399, 7600, 39671, 496 #### [facility] of [place] [address] [address] Carrier: Maico Rey MD Neutrophils/100 WBC (Bld) 60.1 % Normal [facility] Comment on above: Performed By: #### 1 0231, 6399, 7600, 30457, 496 #### [facility] of [place] [address] [address] Carrier: Maico Rey MD Platelet mean volume (Bld) [Entitic vol] 11.5 fL Normal 7.5-12.5 [facility] Comment on above: Performed By: #### 1 0231, 6399, 7600, 92488, 496 #### [facility] of [place] [address] [address] Carrier: Maico Rey MD Platelets (Bld) [#/Vol] 208 10*3/uL Normal 140-400 [facility] Comment on above: Performed By: #### 1 0231, 6399, 7600, 02774, 496 #### [facility] of [place] [address] [address] Carrier: Maico Rey MD RBC (Bld) [#/Vol] 5.45 10*6/uL Normal 4.20-5.80 [facility] Comment on above: Performed By: #### 1 0231, 6399, 7600, 64119, 496 #### [facility] of [place] [address] [address] Carrier: Maico Rye MD WBC (Bld) [#/Vol] 6.4 10*3/uL Normal 3.8-10.8 [facility] Comment on above: Performed By: #### 1 0231, 6399, 7600, 29691, 496 #### [facility] of [place] [address] [address] Carrier: Maico Rey MD [facility] 12-21-2023 Albumin [Mass/Vol] 4.7 g/dL Normal 3.6-5.1 [facility] Comment on above: Performed By: #### 1 0231, 6399, 7600, 98148, 496 #### [facility] of [place] [address] [address] Carrier: Maico Rey MD Albumin/Globulin [Mass ratio] 1.9 {ratio} Normal 1.0-2.5 [facility] Comment on above: Performed By: #### 1 0231, 6399, 7600, 36989, 496 #### [facility] of [place] [address] [address] Carrier: Maico Rey MD ALP [Catalytic activity/Vol] 48 U/L Normal 35-144 [facility] Comment on above: Performed By: #### 1 0231, 6399, 7600, 95729, 496 #### [facility] of [place] [address] [address] Carrier: Maico Rey MD ALT [Catalytic activity/Vol] 9 U/L Normal 9-46 [facility] Comment on above: Performed By: #### 1 0231, 6399, 7600, 03108, 496 #### [facility] of [address] [place] [address] [address] Carrier: Maico Rey MD AST [Catalytic activity/Vol] 9 U/L Low 10-35 [facility] Comment on above: Performed By: #### 1 0231, 6399, 7600, 25270, 496 #### [facility] [address], [address] [place] [address] [address] Carrier: Maico Rey MD Bilirubin [Mass/Vol] 1.1 mg/dL Normal 0.2-1.2 [facility] Comment on above: Performed By: #### 1 0231, 6399, 7600, 32769, 496 #### [facility] of [address], [address] [place] [address] [address] Carrier: Maico Rey MD BUN/CREATININE RATIO SEE NOTE: Normal 6-22 [facility] Comment on above: Result Comment: Not Reported: BUN and Creatinine are within reference range. Performed By: #### 1 0231, 6399, 7600, 05688, 496 #### [facility] of [address], [address] [place] [address] [address] Carrier: Maico Rey MD Calcium [Mass/Vol] 9.7 mg/dL Normal 8.6-10.3 [facility] Comment on above: Performed By: #### 1 0231, 6399, 7600, 40797, 496 #### [facility] [place] [address] [address] Carrier: Maico Rey MD Chloride [Moles/Vol] 101 mmol/L Normal 98-110 [facility] Comment on above: Performed By: #### 1 0231, 6399, 7600, 40357, 496 #### [facility] of [place] [address] [address] Carrier: Maico Rey MD CO2 [Moles/Vol] 25 mmol/L Normal 20-32 [facility] Comment on above: Performed By: #### 1 0231, 6399, 7600, 93709, 496 #### [facility] of [address], [address] [place] [address] [address] Carrier: Maico Rey MD Creatinine [Mass/Vol] 1.15 mg/dL Normal 0.70-1.[address] [facility] Comment on above: Performed By: #### 1 0231, 6399, 7600, 93940, 496 #### [facility] [place] [address] [address] Carrier: Maico Rey MD GFR/1.73 sq M.predicted among non-blacks MDRD (S/P/Bld) [Vol rate/Area] 67 mL/min/{1.73_m2} Normal > OR = 60 [facility] Comment on above: Performed By: #### 1 0231, 6399, 7600, 74934, 496 #### [facility] [place] [address] [address] Carrier: Maico Rey MD Globulin (S) [Mass/Vol] 2.5 g/dL Normal 1.9-3.7 [facility] Comment on above: Performed By: #### 1 0231, 6399, 7600, 49089, 496 #### [facility] [place] [address] [address] Carrier: Maico Rey MD Glucose [Mass/Vol] 100 mg/dL High 65-99 [facility] Comment on above: Result Comment: Fasting reference interval For someone without known diabetes, a glucose value between 100 and 125 mg/dL is consistent with prediabetes and should be confirmed with a follow-up test. Performed By: #### 1 0231, 6399, 7600, 37754, 496 #### [facility] [place] [address] [address] Carrier: Maico Rey MD Potassium [Moles/Vol] 3.9 mmol/L Normal 3.5-5.[address] [facility] Comment on above: Performed By: #### 1 0231, 6399, 7600, 24908, 496 #### [facility] [place] [address] [place] [address] [address] Carrier: Maico Rey MD Protein [Mass/Vol] 7.2 g/dL Normal 6.1-8.1 [facility] Comment on above: Performed By: #### 1 0231, 6399, 7600, 93890, 496 #### [facility] [address], [address] [place] [address] [address] Carrier: Maico Rey MD Sodium [Moles/Vol] 137 mmol/L Normal 135-146 [facility] Comment on above: Performed By: #### 1 0231, 6399, 7600, 55833, 496 #### [facility] [address], [address] [place] [address] [address] Carrier: Maico Rey MD Urea nitrogen [Mass/Vol] 14 mg/dL Normal 7-25 [facility] Comment on above: Performed By: #### 1 0231, 6399, 7600, 68752, 496 #### [facility] [address], [address] [place] [address] [address] Carrier: Maico Rey MD HEMOGLOBIN A1con 12-21-2023 HEMOGLOBIN A1c 6.9 % of total Hgb High <5.7 [facility] Comment on above: Result Comment: For someone without known diabetes, a hemoglobin A1c value of 6.5% or greater indicates that they may have diabetes and this should be confirmed with a follow-up test. For someone with known diabetes, a value <7% indicates that their diabetes is well controlled and a value greater than or equal to 7% indicates suboptimal control. A1c targets should be individualized based on duration of diabetes, age, comorbid conditions, and other considerations. Currently, no consensus exists regarding use of hemoglobin A1c for diagnosis of diabetes for children. HbA1c performed on Erika platform. Effective 10/02/23 a change in test platforms may have shifted HbA1c results compared to historical results. Performed By: #### 1 0231, 6399, 7600, 58723, 496 #### [facility] [address], [address] [place] [address] [address] Carrier: Maico Rey MD LIPID PANEL, STANDARDon 0 Cholesterol [Mass/Vol] 179 mg/dL Normal <200 [facility] Comment on above: Performed By: #### 1 0231, 6399, 7600, 70167, 496 #### [facility] [place] [address] [address] Carrier: Maico Rey MD Cholesterol in HDL [Mass/Vol] 45 mg/dL Normal > OR = 40 [facility] Comment on above: Performed By: #### 1 0231, 6399, 7600, 21171, 496 #### [facility] [place] [address] [address] Carrier: Maico Rey MD Cholesterol in LDL [Mass/Vol] 113 mg/dL High [facility] Comment on above: Result Comment: Refe rence range: <100 Desirable range <100 mg/dL for primary prevention; <70 mg/dL for patients with CHD or diabetic patients with > or = 2 CHD risk factors. LDL-C is now calculated using the Gabi calculation, which is a validated novel method providing better accuracy than the Friedewald equation in the estimation of LDL-C. Deven SS et al. SARAH. 2013;310(19): 8842-3107 (http://education.Repairy.WeFi/faq/BWY634) Performed By: #### 1 0231, 6399, 7600, 10867, 496 #### [facility] [place] [address] [address] Carrier: Maico Rey MD Cholesterol.total/Cho lesterol in HDL [Mass ratio] 4.0 {ratio} Normal <5.0 [facility] Comment on above: Performed By: #### 1 0231, 6399, 7600, 23127, 496 #### [facility] [place] [address] [address] Carrier: Maico Rey MD NON HDL CHOLESTEROL 134 mg/dL (calc) High <130 [facility] Comment on above: Result Comment: For patients with diabetes plus 1 major ASCVD risk factor, treating to a non-HDL-C goal of <100 mg/dL (LDL-C of <70 mg/dL) is considered a therapeutic option. Performed By: #### 1 0231, 6399, 7600, 66095, 496 #### [facility] [address], [address] [place] [address] [address] Carrier: Maico Rey MD Triglyceride [Mass/Vol] 105 mg/dL Normal <150 [facility] Comment on above: Performed By: #### 1 0231, 6399, 7600, 23144, 496 #### [facility] [address], [address] [place] [address] [address] Carrier: Maico Rey MD PSA, TOTALon 12-21-2023 PSA, TOTAL 7.15 ng/mL High < OR = 4.00 [facility] Comment on above: Result Comment: The total PSA value from this assay system is standardized against the WHO standard. The test result will be approximately 20% lower when compared to the equimolar-standardized total PSA (Luis Fernando [place]). Comparison of serial PSA results should be interpreted with this fact in mind. This test was performed using the Siemens chemiluminescent method. Values obtained from different assay methods cannot be used interchangeably. PSA levels, regardless of value, should not be interpreted as absolute evidence of the presence or absence of disease. Performed By: #### 1 0231, 6399, 7600, 44421, 496 #### [facility] [address], [address] [place] [address] [address] Carrier: Maico Rey MD SPECIMEN INTEGRITY COMPROMIS EDon 12-21-2023 SPECIMEN INTEGRITY COMPROMISED Normal [facility] Comment on above: Result Comment: Whole blood, unspun or partially spun gel barrier tube was received more than 6 hours since collection. A false elevation of K, Phos and LD as well as a false decrease in glucose may occur due to prolonged contact with red cells. Performed By: #### 1 0231, 6399, 7600, 33200, 496 #### [facility] [address], [address] [place] [address] [address] Carrier: Maico Rey MD Laboratory - Chemistry and C hemistry - challengeon 12-19-2023 Albumin [Mass/Vol] 4.7 g/dL Normal 3.6 - 5.1 g/dL [facility]. Albumin/Globulin [Mass ratio] 1.9 {ratio} Normal 1.0 - 2.5 [facility].; [facility], [facility]. ALP [Catalytic activity/Vol] 48 U/L Normal 35 - 144 U/L [facility].; [facility], [facility]. ALT [Catalytic activity/Vol] 9 U/L Normal 9 - 46 U/L [facility].; [facility], [facility]. AST [Catalytic activity/Vol] 9 U/L Abnormal 10 - 35 U/L [facility].; [employer] [facility], [facility]. Bilirubin [Mass/Vol] 1.1 mg/dL Normal 0.2 - 1 .2 mg/dL [facility].; [facility], [facility]. Calcium [Mass/Vol] 9.7 mg/dL Normal 8.6 - 10. 3 mg/dL [facility].; [employer] [facility]. Chloride [Moles/Vol] 101 mmol/L Normal 98 - 11 0 mmol/L [facility].; [employer]. Cholesterol [Mass/Vol] 179 mg/dL Normal [facility].; [employer], [employer]. Cholesterol in HDL [Mass/Vol] 45 mg/dL Normal [facility].; [employer], [employer]. Cholesterol in LDL [Mass/Vol] 113 mg/dL Abnormal [facility].; [employer] [facility], [facility]. CO2 [Moles/Vol] 25 mmol/L Normal 20 - 32 mmol/L [facility].; [employer], [employer]. Creatinine [Mass/Vol] 1.15 mg/dL Normal 0.70 - 1.28 mg/dL [facility].; [employer], [facility]. GFR/1.73 sq M.predicted among non-blacks MDRD (S/P/Bld) [Vol rate/Area] 67 mL/min/{1.73_m2} Normal [facility].; [facility], [facility]. Glucose [Mass/Vol] 100 mg/dL Abnormal 65 - 99 mg/dL [facility].; [facility], [facility] Potassium [Moles/Vol] 3.9 mmol/L Normal 3.5 - 5.3 mmol/L [facility].; [facility], [facility] Protein [Mass/Vol] 7.2 g/dL Normal 6.1 - 8.1 g/dL [facility].; [facility], [facility] Sodium [Moles/Vol] 137 mmol/L Normal 135 - 146 mmol/L [facility].; [facility], [facility] Triglyceride [Mass/Vol] 105 mg/dL Normal [facility]; [facility], [facility] Urea nitrogen [Mass/Vol] 14 mg/dL Normal 7 - 25 mg/dL [facility].; [facility], [facility] Laboratory - Hematology and Cell countson 12-19-2023 Basophils (Bld) [#/Vol] 0.051 10*3/uL Normal 0 - 200 {cells/uL} [facility].; [facility], [facility] Basophils/100 WBC (Bld) 0.8 % Normal [facility]; [facility], [facility] Eosinophils (Bld) [#/Vol] 0.173 10*3/uL Normal 15 - 500 {cells/uL} [facility], [facility].; [facility], [facility] Eosinophils/100 WBC (Bld) 2.7 % Normal [facility].; [facility], [facility] Erythrocyte distribution width (RBC) [Ratio] 13.1 % Normal 11.0 - 15.0 % [facility].; [facility], [facility] HbA1c (Bld) [Mass fraction] 6.9 % Abnormal [facility]; [facility], [facility] Hematocrit (Bld) [Volume fraction] 47.9 % Normal 38.5 - 50.0 % [facility].; [facility], [facility] Hemoglobin (Bld) [Mass/Vol] 16.0 g/dL Normal 13.2 - 17.1 g/dL [facility].; [facility] Lymphocytes (Bld) [#/Vol] 1.606 10*3/uL Normal 850 - 3900 {cells/uL} [facility], [facility].; [facility] [employer], [facility]. Lymphocytes/100 WBC (Bld) 25.1 % Normal [facility], [facility].; [employer] [facility] [employer] MCH (RBC) [Entitic mass] 29.4 pg Normal 27.0 - 33.0 pg [facility], [facility].; [employer] [facility] [employer] MCHC (RBC) [Mass/Vol] 33.4 g/dL Normal 32.0 - 36.0 g/dL [facility], [facility].; [employer] [facility], [facility]. MCV (RBC) [Entitic vol] 87.9 fL Normal 80.0 - 100.0 fL [facility], [facility].; [employer] [facility], [facility]. Monocytes (Bld) [#/Vol] 0.723 10*3/uL Normal 200 - 950 {cells/uL} [facility], [facility].; [employer] Monocytes/100 WBC (Bld) 11.3 % [facility].; [employer], [facility]. Neutrophils (Bld) [#/Vol] 3.846 10*3/uL Normal 1500 - 7800 {cells/uL} [facility], [facility].; [employer] Neutrophils/100 WBC (Bld) 60.1 % Normal [facility], [facility].; [employer] Platelet mean volume (Bld) [Entitic vol] 11.5 fL Normal 7.5 - 12.5 fL [facility], [facility].; [employer] Platelets (Bld) [#/Vol] 208 10*3/uL Normal 140 - 400 [facility] [employer] [facility].; [employer] RBC (Bld) [#/Vol] 5.45 10*6/uL Normal 4.20 - 5.8 0 {Million/uL} [employer] [facility], [facility].; [employer] WBC (Bld) [#/Vol] 6.4 10*3/uL Normal 3.8 - 10.8 [employer], [facility]. No Panel Informationon 12-18 BUN/CREATININE RATIO SEE NOTE: Normal 6 - 22 [facility]; [facility] CHOL/HDLC RATIO 4.0 Normal [facility]; [facility] GLOBULIN 2.5 Normal 1.9 - 3.7 [facility]; [facility] NON HDL CHOLESTEROL 134 Abnormal [facility]; [facility] PSA, TOTAL 7.15 ng/mL Abnormal [facility]; [facility] Laboratory - Hematology and Cell countson 12-25-2022 HbA1c (Bld) [Mass fraction] 6.8 % Normal 4.6 - 7.1 % [facility]; [facility] Laboratory - Chemistry and C hemistry - challengeon 06-26-2022 Albumin/Creatinine DL <= 20 mg/L (U) [Mass ratio] mg/g Normal [facility]; [facility] Creatinine (U) [Mass/Vol] 100 mg/dL Normal [facility]; [facility] Laboratory - Hematology and Cell countson 06-26-2022 HbA1c (Bld) [Mass fraction] 6.6 % Normal 4.6 - 7.1 % [facility]; [facility] Laboratory - Urinalysison Protein Ql (U) 10 mg/dL Normal [facility]; [facility] Laboratory - Hematology and Cell countson 06-06-2021 HbA1c (Bld) [Mass fraction] 6.6 % Normal 4.6 - 7.1 % [facility]; [facility] Laboratory - Chemistry and C hemistry - challengeon 02-23-2021 Albumin [Mass/Vol] 4.2 g/dL Normal 3.6 - 5.1 g/dL [facility]; [facility], [facility] Albumin/Globulin [Mass ratio] 1.6 {ratio} Normal 1.0 - 2.5 [facility]; [facility] ALP [Catalytic activity/Vol] 51 U/L Normal 35 - 144 U/L [facility], [facility].; [facility], [facility]. ALT [Catalytic activity/Vol] 15 U/L Normal 9 - 46 U/L [facility], [facility].; [facility], [facility]. AST [Catalytic activity/Vol] 13 U/L Normal 10 - 35 U/L [facility], [facility].; [facility], [facility]. Bilirubin [Mass/Vol] 0.7 mg/dL Normal 0.2 - 1 .2 mg/dL [facility], [facility].; [facility], [facility]. Calcium [Mass/Vol] 9.3 mg/dL Normal 8.6 - 10. 3 mg/dL [facility], [facility].; [facility], [facility]. Chloride [Moles/Vol] 105 mmol/L Normal 98 - 11 0 mmol/L [facility], [facility].; [facility], [facility]. Cholesterol [Mass/Vol] 181 mg/dL Normal [facility], [facility].; [facility], [facility]. Cholesterol in HDL [Mass/Vol] 42 mg/dL Normal [facility], [facility].; [facility], [facility]. Cholesterol in LDL [Mass/Vol] 118 mg/dL Abnormal [facility], [facility].; [facility], [facility]. CO2 [Moles/Vol] 25 mmol/L Normal 20 - 32 mmol/L [facility], [facility].; [facility], [facility]. Creatinine [Mass/Vol] 1.05 mg/dL Normal 0.70 - 1.18 mg/dL [facility], [facility].; [facility], [facility]. GFR/1.73 sq M.predicted among blacks MDRD (S/P/Bld) [Vol rate/Area] 82 mL/min/{1.73_m2} Normal [facility], [facility].; [facility], [employer] Glucose [Mass/Vol] 194 mg/dL Abnormal 65 - 99 mg/dL [facility].; [facility], [employer] Potassium [Moles/Vol] 4.2 mmol/L Normal 3.5 - 5.3 mmol/L [facility], [facility].; [facility], [facility]. Protein [Mass/Vol] 6.8 g/dL Normal 6.1 - 8.1 g/dL [facility].; [employer] [facility] Sodium [Moles/Vol] 137 mmol/L Normal 135 - 146 mmol/L [facility]; [employer] [facility] Triglyceride [Mass/Vol] 107 mg/dL Normal [facility]; [employer] [facility] Urea nitrogen [Mass/Vol] 14 mg/dL Normal 7 - 25 mg/dL [facility]; [employer] [facility]. Laboratory - Hematology and Cell countson 02-23-2021 HbA1c (Bld) [Mass fraction] 12.2 % Abnormal [facility].; [employer] No Panel Informationon 02-23 BUN/CREATININE RATIO NOT APPLICABLE Normal [facility]; [employer], [employer] CHOL/HDLC RATIO 4.3 Normal [facility]; [employer] [facility] eGFR NON-AFR. ENGLISH 71 Normal [facility]; [employer] [facility] GLOBULIN 2.6 Normal 1.9 - 3.7 [facility]; [employer] HEPATITIS C ANTIBODY Reactive Abnormal [facility]; [employer] [facility] INDEX 28.40 Abnormal [facility]; [employer] [facility], [facility] NON HDL CHOLESTEROL 139 Abnormal [facility]; [employer] [facility] PSA, TOTAL 2.7 ng/mL Normal [facility]; [employer] [facility] Laboratory - Hematology and Cell countson 12-23-2019 HbA1c (Bld) [Mass fraction] 7.6 % Abnormal 4.6 - 7.1 % [facility]; [employer] Laboratory - Chemistry and C hemistry - challengeon 08-21-2019 Calcium [Mass/Vol] 9.9 mg/dL Normal 8.6 - 10. 3 mg/dL [facility]; [employer] Chloride [Moles/Vol] 103 mmol/L Normal 98 - 11 0 mmol/L [facility]; [employer], [employer] Cholesterol [Mass/Vol] 196 mg/dL Normal [facility].; [facility], [facility]. Cholesterol in HDL [Mass/Vol] 44 mg/dL Normal [facility].; [facility], [facility]. Cholesterol in LDL [Mass/Vol] 129 mg/dL Abnormal 0 - 100 mg/dL [facility].; [facility], [facility]. Cholesterol non HDL [Mass/Vol] 152 mg/dL Abnormal [facility].; [facility], [facility]. Cholesterol.total/Cho lesterol in HDL [Mass ratio] 4.5 {ratio} Normal [facility].; [facility], [facility] CO2 [Moles/Vol] 27 mmol/L Normal 20 - 32 mmol/L [facility].; [facility], [facility]. Creatinine [Mass/Vol] 1.13 mg/dL Normal 0.70 - 1.18 mg/dL [facility], [facility].; [facility], [facility]. GFR/1.73 sq M.predicted among blacks MDRD (S/P/Bld) [Vol rate/Area] 76 {ML/MIN/1.73M2} Normal [facility].; [facility], [facility]. GFR/1.73 sq M.predicted MDRD (S/P/Bld) [Vol rate/Area] 65 {ML/MIN/1.73M2} Normal [facility], [facility].; [facility], [facility]. Glucose [Mass/Vol] 144 mg/dL Abnormal 65 - 99 mg/dL [facility].; [facility], [facility]. Potassium [Moles/Vol] 4.1 mmol/L Normal 3.5 - 5.3 mmol/L [facility].; [facility], [facility]. Sodium [Moles/Vol] 139 mmol/L Normal 135 - 146 mmol/L [facility], [facility].; [facility], [facility]. Triglyceride [Mass/Vol] 122 mg/dL Normal [facility], [facility].; [facility], [facility]. Urate [Mass/Vol] 7.2 mg/dL Normal 4.0 - 8.0 mg/dL [facility], [facility].; [facility], [facility]. Urea nitrogen [Mass/Vol] 15 mg/dL Normal 7 - 25 mg/dL [facility], [facility].; [employer] [facility], [employer] Urea nitrogen/Creatinine [Mass ratio] 13.4 mg/mg Normal 6 - 22 [facility].; [employer] [facility], [facility]. Laboratory - Hematology and Cell countson 08-21-2019 HbA1c (Bld) [Mass fraction] 8.0 % Abnormal 0 - 5.6 % [facility], [facility].; [employer], [facility]. Laboratory - Chemistry and C hemistry - challengeon 06-14-2018 Calcium [Mass/Vol] 9.9 mg/dL Normal 8.6 - 10. 3 mg/dL [facility], [facility].; [employer] [facility], [employer] Chloride [Moles/Vol] 107 mmol/L Normal 98 - 11 0 mmol/L [facility], [facility].; [employer] [facility], [employer] CO2 [Moles/Vol] 25 mmol/L Normal 20 - 31 mmol/L [facility], [facility].; [employer] Creatinine [Mass/Vol] 1.43 mg/dL Abnormal 0.70 - 1.25 mg/dL [facility], [facility].; [employer] [facility], [facility]. GFR/1.73 sq M.predicted among blacks MDRD (S/P/Bld) [Vol rate/Area] 58 {ML/MIN/1.73M2} Abnormal [facility], [facility].; [facility], [employer] GFR/1.73 sq M.predicted MDRD (S/P/Bld) [Vol rate/Area] 50 {ML/MIN/1.73M2} Abnormal [facility], [facility].; [employer] [facility], [employer] Glucose [Mass/Vol] 172 mg/dL Abnormal 65 - 99 mg/dL [facility], [facility].; [employer] Potassium [Moles/Vol] 4.1 mmol/L Normal 3.5 - 5.3 mmol/L [facility], [facility].; [employer] [facility], [employer] Sodium [Moles/Vol] 140 mmol/L Normal 135 - 146 mmol/L [facility], [facility].; [employer] Urate [Mass/Vol] 8.3 mg/dL Abnormal 4.0 - 8.0 mg/dL [facility], [facility].; [facility], [facility]. Urea nitrogen [Mass/Vol] 19 mg/dL Normal 7 - 25 mg/dL [facility].; [facility], [facility]. Urea nitrogen/Creatinine [Mass ratio] 13.6 mg/mg Normal 6 - 22 [facility].; [employer], [facility]. Laboratoryon 12-17-2015 Lower GI hemoglobin IA Ql (Stl) Not detected Normal [facility].; [employer] [facility]. Laboratory - Chemistry and C hemistry - challengeon 09-15-2015 Albumin [Mass/Vol] 4.7 g/dL Normal 3.4 - 4.8 g/dL [facility].; [facility], [facility] Albumin [Mass/Vol] 1.6 g/dL Normal 0.9 - 1.6 [facility].; [employer], [facility]. ALP [Catalytic activity/Vol] 46 U/L Normal 38 - 126 U/L [facility].; [employer] [facility], [facility]. ALT [Catalytic activity/Vol] 20 U/L Normal 10 - 40 U/L [facility].; [employer], [facility]. ALT No additional P-5'-P [Catalytic activity/Vol] 20 U/L Normal 10 - 40 U/L [facility].; [employer] [facility], [facility]. Anion gap [Moles/Vol] 11 mmol/L Normal 10 - 2 0 mmol/L [facility].; [employer] [facility], [facility]. AST [Catalytic activity/Vol] 19 U/L Normal 13 - 39 U/L [facility].; [employer] [facility], [facility]. Bilirubin [Mass/Vol] 0.6 mg/dL Normal 0.0 - 1 .5 mg/dL [facility], [facility].; [employer] [facility], [facility]. Calcium [Mass/Vol] 10.0 mg/dL Normal 8.6 - 10. 2 mg/dL [facility], [facility].; [employer] [facility], [facility]. Chloride [Moles/Vol] 103 mmol/L Normal 98 - 10 7 mmol/L [facility], [facility].; [facility], [facility]. Cholesterol [Mass/Vol] 222 mg/dL Abnormal 0 - 200 mg/dL [facility].; [facility], [facility]. Cholesterol in HDL [Mass or moles/Vol] 41 mg/dL Normal 40 - 60 mg/dL [facility]; [facility] Cholesterol in LDL [Mass/Vol] 133 mg/dL Abnormal 0 - 129 mg/dL [facility].; [facility], [facility] Cholesterol.total/Cho lesterol in HDL [Mass ratio] 5.4 {ratio} Abnormal 0.0 - 5.0 [facility]; [facility], [facility] CO2 [Moles/Vol] 26.0 mmol/L Normal 13.0 - 29.0 mmol/L [facility]; [facility], [facility] Comprehensive metabolic 2000 panel CMP with eGFR Normal [facility]; [facility], [facility] Creatinine [Mass/Vol] 1.3 mg/dL Normal 0.7 - 1.3 mg/dL [facility]; [facility], [facility]. GFR/1.73 sq M.predicted among blacks MDRD (S/P/Bld) [Vol rate/Area] mL/min/{1.73_m2} Normal 60 - 999 {ML/MINUTE} [facility].; [facility], [facility]. GFR/1.73 sq M.predicted MDRD (S/P/Bld) [Vol rate/Area] 55 {ML/MINUTE} Abnormal 60 - 999 {ML/MINUTE} [facility].; [facility], [facility] Globulin (S) [Mass/Vol] 3.0 g/dL Normal 1.5 - 3.8 g/dL [facility].; [facility], [facility]. Glucose [Mass/Vol] 112 mg/dL Abnormal 74 - 106 mg/dL [facility]; [facility], [facility]. Lipid 1996 panel LIPID PROFILE Normal [facility]; [facility], [facility] Potassium [Moles/Vol] 4.1 mmol/L Normal 3.5 - 5.1 mmol/L [facility]; [facility], [facility] Prostate specific Ag [Mass/Vol] 0.7 ng/mL Normal 0.0 - 4.0 ng/mL [facility].; [facility] Protein [Mass/Vol] 7.7 g/dL Normal 6.4 - 8.3 g/dL [facility].; [facility], [facility] Sodium [Moles/Vol] 136 mmol/L Normal 136 - 145 mmol/L [facility].; [facility], [facility] Triglyceride [Mass/Vol] 239 mg/dL Abnormal 0 - 150 mg/dL [facility].; [facility], [facility] Urea nitrogen [Mass/Vol] 22 mg/dL Abnormal 6 - 20 mg/dL [facility].; [facility], [facility]. Urea nitrogen/Creatinine [Mass ratio] 17 {ratio} Normal 0 - 30 {ratio} [facility].; [employer], [employer] No Panel Informationon 09-15 AGE 65 {years} Normal [facility]; [employer] [facility] PANEL NAME HEP C VIRAL RNA, QUANT RT PCR [QUEST] Normal [facility]; [employer] Laboratory - Chemistry and C hemistry - challengeon 06-18-2014 Albumin [Mass/Vol] 4.5 g/dL Normal 3.6 - 5.1 g/dL [facility]; [employer] [facility], [facility]. Albumin/Globulin [Mass ratio] 1.4 {ratio} Normal 1.0 - 2.5 [facility].; [employer] [facility], [facility]. ALP [Catalytic activity/Vol] 49 U/L Normal 40 - 115 U/L [facility].; [employer] [facility], [facility]. ALT [Catalytic activity/Vol] 19 U/L Normal 9 - 46 U/L [facility].; [employer] [facility], [facility]. AST [Catalytic activity/Vol] 21 U/L Normal 10 - 35 U/L [facility].; [employer] [facility], [facility]. Bilirubin [Mass/Vol] 1.4 mg/dL Abnormal 0.2 - 1 .2 mg/dL [facility].; [employer] [facility], [facility] Calcium [Mass/Vol] 11.0 mg/dL Abnormal 8.6 - 10. 3 mg/dL [facility].; [facility], [facility]. Chloride [Moles/Vol] 102 mmol/L Normal 98 - 11 0 mmol/L [facility].; [facility], [facility] CO2 [Moles/Vol] 27 mmol/L Normal 19 - 30 mmol/L [facility].; [facility], [facility] Creatinine [Mass/Vol] 1.33 mg/dL Abnormal 0.70 - 1.25 mg/dL [facility].; [facility], [facility]. GFR/1.73 sq M.predicted among blacks MDRD (S/P/Bld) [Vol rate/Area] 65 {ML/MIN/1.73M2} Normal [facility]; [facility], [facility] GFR/1.73 sq M.predicted MDRD (S/P/Bld) [Vol rate/Area] 56 {ML/MIN/1.73M2} Abnormal [facility].; [facility], [facility] Globulin (S) [Mass/Vol] 3.2 g/dL Normal 1.9 - 3.7 g/dL [facility].; [facility], [facility]. Glucose [Mass/Vol] 117 mg/dL Abnormal 65 - 99 mg/dL [facility].; [facility], [facility]. Potassium [Moles/Vol] 4.6 mmol/L Normal 3.5 - 5.3 mmol/L [facility].; [facility], [facility] Protein [Mass/Vol] 7.7 g/dL Normal 6.1 - 8.1 g/dL [facility], [facility].; [facility], [facility]. Sodium [Moles/Vol] 141 mmol/L Normal 135 - 146 mmol/L [facility].; [facility], [facility]. Urea nitrogen [Mass/Vol] 21 mg/dL Normal 7 - 25 mg/dL [facility].; [facility], [facility]. Urea nitrogen/Creatinine [Mass ratio] 16.0 mg/mg Normal 6 - 22 [facility].; [facility], [facility] Laboratory - Microbiology an d Antimicrobial susceptibilityon 06-18-2014 HCV RNA ZACHARY+probe [Log units/Vol] <1.18 Normal [facility].; [facility], [facility] HCV RNA ZACHARY+probe Qn <15 Normal [facility], [facility] Laboratory - Chemistry and C hemistry - challengeon 07-15-2012 Calcium [Mass/Vol] 9.9 mg/dL Normal 8.6 - 10. 3 mg/dL [facility].; [facility], [facility] Chloride [Moles/Vol] 106 mmol/L Normal 98 - 11 0 mmol/L [facility].; [facility], [facility]. CO2 [Moles/Vol] 26 mmol/L Normal 21 - 33 mmol/L [facility].; [facility], [facility]. Creatinine [Mass/Vol] 1.20 mg/dL Normal 0.70 - 1.25 mg/dL [facility].; [facility], [facility]. GFR/1.73 sq M.predicted among blacks MDRD (S/P/Bld) [Vol rate/Area] 74 {ML/MIN/1.73M2} Normal [facility].; [facility], [facility]. GFR/1.73 sq M.predicted MDRD (S/P/Bld) [Vol rate/Area] 64 {ML/MIN/1.73M2} Normal [facility], [facility].; [facility], [facility]. Glucose [Mass/Vol] 138 mg/dL Abnormal 65 - 99 mg/dL [facility].; [facility], [facility]. Potassium [Moles/Vol] 4.3 mmol/L Normal 3.5 - 5.3 mmol/L [facility].; [facility], [facility]. Prostate specific Ag [Mass/Vol] 0.5 ng/mL Normal 0.0 - 4.0 ng/mL [facility], [facility].; [facility], [facility]. Sodium [Moles/Vol] 143 mmol/L Normal 135 - 146 mmol/L [facility], [facility].; [facility], [facility]. Urea nitrogen [Mass/Vol] 15 mg/dL Normal 7 - 25 mg/dL [facility], [facility].; [facility], [facility]. Urea nitrogen/Creatinine [Mass ratio] 12.5 mg/mg Normal 6 - 22 [facility].; [facility] Laboratory - Microbiology an d Antimicrobial susceptibilityon 07-08-2012 HCV RNA ZACHARY+probe Qn Not detected Normal [facility]; [facility]. Laboratory - Chemistry and C hemistry - challengeon 02-10-2011 Albumin [Mass/Vol] 4.4 g/dL Normal 3.6 - 5.1 g/dL [facility]; [facility], [facility] Albumin/Globulin [Mass ratio] 1.5 {ratio} Normal 1.0 - 2.1 [facility]; [facility] ALP [Catalytic activity/Vol] 54 U/L Normal 40 - 115 U/L [facility].; [facility], [facility]. ALT [Catalytic activity/Vol] 17 U/L Normal 9 - 60 U/L [facility].; [facility], [facility]. AST [Catalytic activity/Vol] 17 U/L Normal 10 - 35 U/L [facility].; [facility]. Bilirubin [Mass/Vol] 0.9 mg/dL Normal 0.2 - 1 .2 mg/dL [facility].; [facility], [facility]. Calcium [Mass/Vol] 9.8 mg/dL Normal 8.6 - 10. 2 mg/dL [facility].; [facility], [facility]. Chloride [Moles/Vol] 103 mmol/L Normal 98 - 11 0 mmol/L [facility].; [facility], [facility]. CO2 [Moles/Vol] 25 mmol/L Normal 21 - 33 mmol/L [facility].; [facility], [facility]. Creatinine [Mass/Vol] 1.22 mg/dL Normal 0.76 - 1.46 mg/dL [facility], [facility].; [facility], [facility]. GFR/1.73 sq M.predicted among blacks MDRD (S/P/Bld) [Vol rate/Area] 74 {ML/MIN/1.73M2} Normal [facility].; [facility], [facility] GFR/1.73 sq M.predicted MDRD (S/P/Bld) [Vol rate/Area] 64 {ML/MIN/1.73M2} Normal [facility]; [facility] Globulin (S) [Mass/Vol] 3.0 g/dL Normal 2.1 - 3.7 g/dL [facility]; [facility] Glucose [Mass/Vol] 107 mg/dL Abnormal 65 - 99 mg/dL [facility]; [facility] Potassium [Moles/Vol] 4.5 mmol/L Normal 3.5 - 5.3 mmol/L [facility]; [facility] Protein [Mass/Vol] 7.4 g/dL Normal 6.2 - 8.3 g/dL [facility]; [facility] Sodium [Moles/Vol] 138 mmol/L Normal 135 - 146 mmol/L [facility]; [facility] TSH Qn 2.06 m[IU]/L Normal 0.40 - 4.50 {mIU/L} [facility]; [facility] Urea nitrogen [Mass/Vol] 18 mg/dL Normal 7 - 25 mg/dL [facility]; [facility] Urea nitrogen/Creatinine [Mass ratio] 14.7 mg/mg Normal 6 - 22 [facility]; [facility] Vital Signs Date Time Vital Sign Value Performing Clinician Lauro anthony 06-18-2024 14:02-0400 Body height 172.72 cm [facility] Work Phone: [facility]; [facility] 06-18-2024 14:02-0400 Body mass index (BMI) [Ratio] 28.89 kg/m2 [facility] Work Phone: [facility]; [facility] 06-18-2024 14:02-0400 Body surface area Derived from formula 2 m2 [facility] Work Phone: [facility]; [facility] 06-18-2024 14:02-0400 Body temperature 100.4 [degF] Rose Leonora HEADWAITER/HEADWAITRESS Work Phone: [employer].; [employer]. Comment on above: Method: Tympanic 06-18-2024 14:02-0400 Body weight 86.18 kg Rose Leonora HEADWAITER/HEADWAITRESS Work Phone: [employer].; [employer] 06-18-2024 14:02-0400 Diastolic blood pressure 96 mm[Hg] Rose Leonora HEADWAITER/HEADWAITRESS Work Phone: [employer].; [employer]. Comment on above: Patient Position: Sitting; Cuff Location : Left Arm; Cuff Size: Large 06-18-2024 14:02-0400 Heart rate 97 /min Rose Leonora HEADWAITER/HEADWAITRESS Work Phone: [employer]; [employer]. Comment on above: Pattern: Regular 06-18-2024 14:020400 Systolic blood pressure 147 mm[Hg] Rose Leonora HEADWAITER/HEADWAITRESS Work Phone: [employer]; [employer]. Comment on above: Patient Position: Sitting; Cuff Location : Left Arm; Cuff Size: Large 05-21-2024 15:36-0400 Body height 172.72 cm Rose Leonora HEADWAITER/HEADWAITRESS Work Phone: [employer]; [employer]. 05-21-2024 15:36-0400 Body mass index (BMI) [Ratio] 28.89 kg/m2 Rose Leonora HEADWAITER/HEADWAITRESS Work Phone: [employer]; [employer]. 05-21-2024 15:36-0400 Body surface area Derived from formula 2 m2 Rose Leonora HEADWAITER/HEADWAITRESS Work Phone: [employer]; [employer]. 05-21-2024 15:36-0400 Body weight 86.18 kg Rose Leonora HEADWAITER/HEADWAITRESS Work Phone: [facility].; [employer] [facility]. 05-21-2024 15:36-0400 Diastolic blood pressure 93 mm[Hg] Rose Lea LPN Work Phone: [facility].; [employer]. Comment on above: Patient Position: Sitting; Cuff Location : Left Arm; Cuff Size: Large 05-21-2024 15:36-0400 Heart rate 85 /min Rose Lea LPN Work Phone: [facility] [employer]. Comment on above: Pattern: Regular 05-21-2024 15:36-0400 Systolic blood pressure 167 mm[Hg] Rose Lea HEADWAITER/HEADWAITRESS Work Phone: [facility].; [employer]. Comment on above: Patient Position: Sitting; Cuff Location : Left Arm; Cuff Size: Large 12-27-2023 14:15-040 Body height 172.72 cm Eleanor Hdz LPN [facility], [facility].; [employer] [facility], [facility]. 12-27-2023 14:15-0400 Body mass index (BMI) [Ratio] 29.35 kg/m2 Eleanor Hdz LPN [facility], [facility].; [employer] [facility], [facility]. 12-27-2023 14:15-0400 Body surface area Derived from formula 2.01 m2 Eleanor Hdz LPN [facility], [facility].; [facility]. 12-27-2023 14:15-0400 Body weight 87.54 kg Eleanor Hdz LPN [facility].; [employer] [facility]. 12-27-2023 14:15-0400 Diastolic blood pressure 75 mm[Hg] Eleanor Hdz LPN [facility].; [employer]. Comment on above: Patient Position: Sitting; Cuff Location : Left Arm; Cuff Size: Standard 12-27-2023 14:15-0400 Heart rate 81 /min Eleanor Hdz LPN [facility], [facility].; [employer]. Comment on above: Pattern: Regular 12-27-2023 14:15-0400 Systolic blood pressure 147 mm[Hg] Eleanor Hdz LPN [facility] [employer].; [employer] [facility]. Comment on above: Patient Position: Sitting; Cuff Location : Left Arm; Cuff Size: Standard 12-18-2023 17:00-0500 Diastolic blood pressure 81 mm[Hg] Aldair Quintanilla MD Work Phone: [facility] [employer].; [employer] [facility]. Comment on above: Patient Position: Sitting; Cuff Location : Left Arm; Cuff Size: Standard 12-18-2023 17:00-0500 Systolic blood pressure 128 mm[Hg] Aldair Quintanilla MD Work Phone: [facility].; [employer] [facility]. Comment on above: Patient Position: Sitting; Cuff Location : Left Arm; Cuff Size: Standard 08-20-2023 16:59-0500 Diastolic blood pressure 74 mm[Hg] Aldair Quintanilla MD Work Phone: [facility] [employer]. Comment on above: Patient Position: Sitting; Cuff Location : Left Arm; Cuff Size: Standard 08-20-2023 16:59-0500 Systolic blood pressure 122 mm[Hg] Aldair Quintanilla MD Work Phone: [facility] [employer]. Comment on above: Patient Position: Sitting; Cuff Location : Left Arm; Cuff Size: Standard 12-25-2022 14:46-0400 Body height 172.72 cm [facility] Work Phone: [facility]; [employer] [facility] 12-25-2022 14:46-0400 Body mass index (BMI) [Ratio] 29.35 kg/m2 [facility] Work Phone: [facility].; [employer] [facility]. 12-25-2022 14:46-0400 Body surface area Derived from formula 2.01 m2 [facility] Work Phone: [facility]; [employer] [facility]. 12-25-2022 14:46-0400 Body weight 87.54 kg Rose Lea HEADWAITER/HEADWAITRESS Work Phone: [employer]; [employer]. 12-25-2022 14:46-0400 Diastolic blood pressure 92 mm[Hg] Rose Lea HEADWAITER/HEADWAITRESS Work Phone: [employer]; [employer]. Comment on above: Patient Position: Sitting; Cuff Location : Left Arm; Cuff Size: Standard 12-25-2022 14:46-0400 Heart rate 86 /min Rose Lea HEADWAITER/HEADWAITRESS Work Phone: [employer]; [employer]. Comment on above: Pattern: Regular 12-25-2022 14:46-0400 Systolic blood pressure 159 mm[Hg] Rose Lea HEADWAITER/HEADWAITRESS Work Phone: [employer]; [employer]. Comment on above: Patient Position: Sitting; Cuff Location : Left Arm; Cuff Size: Standard 06-26-2022 14:37-0400 Diastolic blood pressure 70 mm[Hg] Aldair Quintanilla MD Work Phone: [employer]; [employer]. Comment on above: Patient Position: Sitting; Cuff Location : Left Arm; Cuff Size: Standard 06-26-2022 14:37-0400 Systolic blood pressure 123 mm[Hg] Aldair Quintanilla MD Work Phone: [employer]; [employer]. Comment on above: Patient Position: Sitting; Cuff Location : Left Arm; Cuff Size: Standard 06-26-2022 13:58-0400 Body height 172.72 cm Aldair Quintanilla MD Work Phone: [employer]; [employer]. 06-26-2022 13:58-0400 Body mass index (BMI) [Ratio] 28.59 kg/m2 Aldair Quintanilla MD Work Phone: [employer]; [employer] 06-26-2022 13:58-0400 Body surface area Derived from formula 1.99 m2 Aldair Quintanilla MD Work Phone: [employer].; [employer]. 06-26-2022 13:58-0400 Body weight 85.28 kg Aldair Quintanilla MD Work Phone: [employer].; [employer]. 06-26-2022 13:58-0400 Diastolic blood pressure 86 mm[Hg] Aldair Quintanilla MD Work Phone: [employer].; [employer]. Comment on above: Patient Position: Sitting; Cuff Location : Left Arm; Cuff Size: Large 06-26-2022 13:58-0400 Heart rate 85 /min Aldair Quintanilla MD Work Phone: [employer]; [employer]. Comment on above: Pattern: Regular 06-26-2022 13:58-0400 Systolic blood pressure 148 mm[Hg] Aldair Quintanilla MD Work Phone: [employer].; [employer]. Comment on above: Patient Position: Sitting; Cuff Location : Left Arm; Cuff Size: Large 06-06-2021 10:30-0400 Body height 172.72 cm [facility] Work Phone: [employer]. 06-06-2021 10:30-0400 Body mass index (BMI) [Ratio] 27.98 kg/m2 [facility] Work Phone: [employer].; [employer]. 06-06-2021 10:30-0400 Body surface area Derived from formula 1.97 m2 [facility] Work Phone: [employer].; [employer]. 06-06-2021 10:30-0400 Body weight 83.46 kg [facility] Work Phone: [employer].; [employer] [facility]. 06-06-2021 10:30-0400 Diastolic blood pressure 86 mm[Hg] Rose Lea LPN Work Phone: [facility].; [employer]. Comment on above: Patient Position: Sitting; Cuff Location : Left Arm; Cuff Size: Standard 06-06-2021 10:30-0400 Heart rate 74 /min Rose Lea LPN Work Phone: [facility].; [employer]. Comment on above: Pattern: Regular 06-06-2021 10:30-0400 Systolic blood pressure 138 mm[Hg] Rose Lea HEADWAITER/HEADWAITRESS Work Phone: [facility].; [employer]. Comment on above: Patient Position: Sitting; Cuff Location : Left Arm; Cuff Size: Standard 03-02-2021 09:48-0400 Body height 172.72 cm Eleanor Hdz LPN [facility], [facility].; [employer], [facility]. 03-02-2021 09:48-0400 Body mass index (BMI) [Ratio] 29.19 kg/m2 Eleanor Hdz LPN [facility], [facility].; [employer] [facility], [facility]. 03-02-2021 09:48-0400 Body surface area Derived from formula 2.01 m2 Eleanor Hdz LPN [facility], [facility].; [employer] [facility], [facility]. 03-02-2021 09:48-0400 Body weight 87.09 kg Eleanor Hdz LPN [facility], [facility].; [employer], [employer]. 03-02-2021 09:48-0400 Diastolic blood pressure 75 mm[Hg] Eleanor Hdz LPN [facility], [facility].; [employer]. Comment on above: Patient Position: Sitting; Cuff Location : Left Arm; Cuff Size: Standard 03-02-2021 09:48-0400 Heart rate 87 /min Eleanor Hdz LPN [facility], [facility].; [employer]. Comment on above: Pattern: Regular 03-02-2021 09:48-0400 Systolic blood pressure 124 mm[Hg] Eleanor Hdz LPN [facility], [employer] Comment on above: Patient Position: Sitting; Cuff Location : Left Arm; Cuff Size: Standard 12-23-2019 08:46-0400 Body height 172.72 cm Eleanor Hdz LPN [facility], [employer] 12-23-2019 08:46-0400 Body mass index (BMI) [Ratio] 31.02 kg/m2 Eleanor Hdz LPN [facility], [employer] 12-23-2019 08:46-0400 Body surface area Derived from formula 2.06 m2 Eleanor Hdz LPN [employer] [facility], [employer].; [employer] 12-23-2019 08:46-0400 Body weight 92.53 kg Eleanor Hdz LPN [facility], [employer] 12-23-2019 08:46-0400 Diastolic blood pressure 92 mm[Hg] Eleanor Hdz LPN [facility], [employer] Comment on above: Patient Position: Sitting; Cuff Location : Left Arm; Cuff Size: Standard 12-23-2019 08:46-0400 Heart rate 88 /min Eleanor Hdz LPN [facility], [employer] Comment on above: Pattern: Regular 12-23-2019 08:46-0400 Systolic blood pressure 139 mm[Hg] Eleanor Hdz LPN [employer] [facility], [employer] Comment on above: Patient Position: Sitting; Cuff Location : Left Arm; Cuff Size: Standard 09-08-2019 13:38-0500 Body height 172.72 cm Zoraida Margaret BARRAGAN [employer] [facility], [employer] 09-08-2019 13:38-0500 Body mass index (BMI) [Ratio] 30.26 kg/m2 ZoraidaHayley Robles HEADWAITER/HEADWAITRESS [employer] [facility], [employer] 09-08-2019 13:38-0500 Body surface area Derived from formula 2.04 m2 Natividad Robles HEADWAITER/HEADWAITRESS [employer] [facility], [employer] 09-08-2019 13:38-0500 Body weight 90.27 kg Natividad Robles HEADWAITER/HEADWAITRESS [employer] 09-08-2019 13:38-0500 Diastolic blood pressure 90 mm[Hg] Natividad Robles HEADWAITER/HEADWAITRESS [employer] Comment on above: Patient Position: Sitting; Cuff Location : Left Arm; Cuff Size: Large 09-08-2019 13:38-0500 Heart rate 84 /min Natividad Robles HEADWAITER/HEADWAITRESS [employer] Comment on above: Pattern: Regular 09-08-2019 13:38-0500 Systolic blood pressure 135 mm[Hg] Natividad Robles [facility], [facility] [employer] Comment on above: Patient Position: Sitting; Cuff Location : Left Arm; Cuff Size: Large 06-14-2018 14:01-0400 Body height 172.72 cm Chen Tim LPN [employer] [facility], [employer] 06-14-2018 14:01-0400 Body mass index (BMI) [Ratio] 30.87 kg/m2 Cehn Tim HEADWAITER/HEADWAITRESS [employer] 06-14-2018 14:01-0400 Body surface area Derived from formula 2.06 m2 Chen Tim LPN [employer] 06-14-2018 14:01-0400 Body weight 92.08 kg Chen Tim LPN [employer] 06-14-2018 14:01-0400 Diastolic blood pressure 88 mm[Hg] Chen Tim LPN [employer], [employer]. Comment on above: Patient Position: Sitting; Cuff Location : Left Arm; Cuff Size: Standard 06-14-2018 14:01-0400 Heart rate 101 /min Chne Tim LPN [employer] Comment on above: Pattern: Regular 06-14-2018 14:01-0400 Systolic blood pressure 134 mm[Hg] Chen Tim LPN [facility], [employer]. Comment on above: Patient Position: Sitting; Cuff Location : Left Arm; Cuff Size: Standard 10-01-2015 14:54-0500 Body height 171.45 cm Latrice Silva MD Work Phone: [facility] [employer] 10-01-2015 14:54-0500 Body mass index (BMI) [Ratio] 33.02 kg/m2 Latrice Silva MD Work Phone: [employer] 10-01-2015 14:54-0500 Body surface area Derived from formula 2.09 m2 Latrice Silva MD Work Phone: [employer]. 10-01-2015 14:54-0500 Body weight 97.07 kg Latrice Silva MD Work Phone: [employer]. 10-01-2015 14:54-0500 Diastolic blood pressure 80 mm[Hg] Latrice Silva MD Work Phone: [employer]. Comment on above: Patient Position: Sitting; Cuff Location : Right Arm; Cuff Size: Large 10-01-2015 14:54-0500 Heart rate 97 /min Latrice Silva MD Work Phone: [facility] [employer]. Comment on above: Pattern: Regular 10-01-2015 14:54-0500 Systolic blood pressure 128 mm[Hg] Latrice Silva MD Work Phone: [employer].; [employer]. Comment on above: Patient Position: Sitting; Cuff Location : Right Arm; Cuff Size: Large 06-18-2014 08:02-0400 Body height 170.18 cm Elena Brewer LPN [employer] 06-18-2014 08:02-0400 Body mass index (BMI) [Ratio] 32.26 kg/m2 Elena Brewer LPN [employer] [facility], [facility]. 06-18-2014 08:02-0400 Body surface area Derived from formula 2.05 m2 Elena Jermain Brewer LPN [facility], [facility].; [employer] [facility], [facility]. 06-18-2014 08:02-0400 Body weight 93.44 kg Elena Jermain Brewer LPN [facility], [employer] 06-18-2014 08:02-0400 Diastolic blood pressure 104 mm[Hg] Elena Brewer LPN [facility], [facility].; [employer], [employer]. Comment on above: Patient Position: Sitting; Cuff Location : Right Arm; Cuff Size: Large 06-18-2014 08:02-0400 Heart rate 89 /min Elena Brewer LPN [facility], [employer] Comment on above: Pattern: Regular 06-18-2014 08:02-0400 Systolic blood pressure 138 mm[Hg] Elena Brewer LPN [facility], [facility].; [employer], [employer]. Comment on above: Patient Position: Sitting; Cuff Location : Right Arm; Cuff Size: Large 11-27-2012 08:44-0500 Body height 170.18 cm Amber Jacome HEADWAITER/HEADWAITRESS [facility], [employer] 11-27-2012 08:44-0500 Body mass index (BMI) [Ratio] 33.13 kg/m2 Amber Jacome HEADWAITER/HEADWAITRESS [facility], [facility] [employer] [facility], [employer] 11-27-2012 08:44-0500 Body surface area Derived from formula 2.07 m2 Amber Jacome HEADWAITER/HEADWAITRESS [facility], [facility].; [employer], [facility]. 11-27-2012 08:44-0500 Body weight 95.94 kg Amber Jacome HEADWAITER/HEADWAITRESS [employer] [facility], [facility].; [employer], [employer]. 11-27-2012 08:44-0500 Diastolic blood pressure 82 mm[Hg] Amber Jacome HEADWAITER/HEADWAITRESS [employer] [facility], [employer], [employer]. Comment on above: Patient Position: Sitting; Cuff Location : Left Arm; Cuff Size: Standard 11-27-2012 08:44-0500 Heart rate 80 /min Amber Jacome HEADWAITER/HEADWAITRESS [facility], [employer] [employer], [employer]. Comment on above: Pattern: Regular 11-27-2012 08:44-0500 Systolic blood pressure 136 mm[Hg] Amber Jacome HEADWAITER/HEADWAITRESS [facility], [employer], [employer]. Comment on above: Patient Position: Sitting; Cuff Location : Left Arm; Cuff Size: Standard 08-19-2012 13:21-0500 Body temperature 97.9 [degF] Molly Staples HEADWAITER/HEADWAITRESS [facility], [facility].; [employer], [employer]. 08-19-2012 13:21-0500 Body weight 95.26 kg Molly Staples [facility], [facility].; [employer], [employer]. 08-19-2012 13:21-0500 Diastolic blood pressure 83 mm[Hg] Molly Staples HEADWAITER/HEADWAITRESS [facility], [facility].; [employer], [employer]. Comment on above: Patient Position: Sitting; Cuff Location : Left Arm; Cuff Size: Standard 08-19-2012 13:21-0500 Heart rate 91 /min Molly Staples HEADWAITER/HEADWAITRESS [facility], [facility] [employer], [employer]. Comment on above: Pattern: Regular 08-19-2012 13:21-0500 Systolic blood pressure 123 mm[Hg] Molly Staples [facility], [facility].; [employer]. Comment on above: Patient Position: Sitting; Cuff Location : Left Arm; Cuff Size: Standard 07-15-2012 13:25-0400 Body height 170.18 cm Amberkarey Jacome [facility], [employer].; [employer], [employer]. 07-15-2012 13:25-0400 Body mass index (BMI) [Ratio] 33.2 kg/m2 Amber L [facility], Inc.; [employer], [employer]. 07-15-2012 13:25-0400 Body surface area Derived from formula 2.07 m2 [facility] [employer] [facility], Inc.; [employer], [employer]. 07-15-2012 13:25-0400 Body weight 96.16 kg Amberkarey Gleasoncain [facility], Inc.; [employer]. 07-15-2012 13:25-0400 Diastolic blood pressure 95 mm[Hg] Amber L Richert HEADWAITER/HEADWAITRESS [facility] [employer]. Comment on above: Patient Position: Sitting; Cuff Location : Left Arm; Cuff Size: Standard 07-15-2012 13:25-0400 Heart rate 100 /min Amber L Richert HEADWAITER/HEADWAITRESS [facility], [employer]. Comment on above: Pattern: Regular 07-15-2012 13:25-0400 Systolic blood pressure 142 mm[Hg] Amber L Richert HEADWAITER/HEADWAITRESS [employer] [place], Jdguanjia. Comment on above: Patient Position: Sitting; Cuff Location : Left Arm; Cuff Size: Standard 02-27-2011 10:55-0400 Body height 170.18 cm Amber L Richert HEADWAITER/HEADWAITRESS [employer] [place], Jdguanjia. 02-27-2011 10:55-0400 Body mass index (BMI) [Ratio] 32.58 kg/m2 Amber L Richert HEADWAITER/HEADWAITRESS [employer] [facility] [place], Jdguanjia. 02-27-2011 10:55-0400 Body surface area Derived from formula 2.06 m2 Amber L Richert HEADWAITER/HEADWAITRESS [employer] [place], Jdguanjia. 02-27-2011 10:55-0400 Body weight 94.35 kg Amber L Richert HEADWAITER/HEADWAITRESS [employer] [place], Jdguanjia. 02-27-2011 10:55-0400 Diastolic blood pressure 101 mm[Hg] Amber L Richert HEADWAITER/HEADWAITRESS [employer] [place], Jdguanjia. Comment on above: Patient Position: Sitting; Cuff Location : Left Arm; Cuff Size: Large 02-27-2011 10:55-0400 Heart rate 102 /min Amber L Richert HEADWAITER/HEADWAITRESS [employer]. Comment on above: Pattern: Regular 02-27-2011 10:55-0400 Systolic blood pressure 139 mm[Hg] Amber L Richert HEADWAITER/HEADWAITRESS [employer]. Comment on above: Patient Position: Sitting; Cuff Location : Left Arm; Cuff Size: Large 04-29-2011 09:35-0400 Body height 170.18 cm Amberkarey Jacome HEADWAITER/HEADWAITRESS [employer] 02-10-2011 09:35-0400 Body mass index (BMI) [Ratio] 32.48 kg/m2 Amber L Victorinoert HEADWAITER/HEADWAITRESS [employer], [employer] 02-10-2011 09:35-0400 Body surface area Derived from formula 2.05 m2 Amber L [employer] HEADWAITER/HEADWAITRESS [employer] [place], Jdguanjia. 02-10-2011 09:35-0400 Body weight 94.08 kg Amberkarey Jacome [facility].; [place], Jdguanjia. 02-10-2011 09:35-0400 Diastolic blood pressure 90 mm[Hg] Amber L In[employer] HEADWAITER/HEADWAITRESS [employer] [place], Jdguanjia. Comment on above: Patient Position: Sitting; Cuff Location : Right Arm; Cuff Size: Large 02-10-2011 09:35-0400 Heart rate 75 /min Amberkarey Jacome HEADWAITER/HEADWAITRESS [employer], Jdguanjia. Comment on above: Pattern: Regular 02-10-2011 09:35-0400 Systolic blood pressure 140 mm[Hg] Amber Ronald Jacome HEADWAITER/HEADWAITRESS [employer], [employer]dgu[employer].; [employer], Jdguanjia. Comment on above: Patient Position: Sitting; Cuff Location : Right Arm; Cuff Size: Large Encounters Encounter Date Encounter Type Care Provider Facility Start: 07-11-2024 End: 07-11-2024 Telephone follow-up Aldair Quintanilla MD Work Phone: [employer]. Start: 06-30-2024 End: 06-30-2024 Telephone follow-up Aldair Quintanilla MD Work Phone: [employer]. Start: 06-18-2024 End: 06-18-2024 Office outpatient visit 10 minutes Aldair Quintanilla MD Work Phone: [employer]. Start: 06-18-2024 Admission to [facility] Aldair Quintanilla MD Work Phone: [employer] Start: 06-12-2024 End: 06-12-2024 Orders Aldair Quintanilla MD Work Phone: [employer] Start: 05-30-2024 ambulatory [facility] Start: 05-21-2024 End: 05-21-2024 Office outpatient visit 15 minutes Aldair Quintanilla MD Work Phone: [employer] Start: 05-21-2024 Follow-up encounter Aldair rocha MD Work Phone: [employer] Start: 05-12-2024 End: 05-12-2024 Historical Summary Aldair Quintanilla MD Work Phone: [employer] Start: 05-12-2024 End: 05-12-2024 ambulatory [facility] Start: 04-28-2024 End: 04-28-2024 Telephone follow-up Aldair Quintanilla MD Work Phone: [employer] Start: 04-26-2024 End: 04-26-2024 Emergency department patient visit [facility] Start: 04-15-2024 End: 04-15-2024 ambulatory [facility] Start: 03-28-2024 End: 03-28-2024 Telephone follow-up Aldair Quintanilla MD Work Phone[facility] [facility] Start: 03-27-2024 End: 03-27-2024 Orders Aldair Quintanilla MD Work Phone: [employer] Start: 03-26-2024 End: 03-26-2024 Emergency department patient visit [facility] Start: 12-27-2023 End: 12-27-2023 Patient encounter procedure Aldair Quintanilla MD Work Phone: [employer] Start: 12-27-2023 End: 12-28-2023 Phone Encounter Aldair Quintanilla MD Work Phone: [employer] Start: 12-27-2023 End: 12-27-2023 Physical examination Aldair Quintanilla MD Work Phone: [employer]; [employer] Start: 12-27-2023 Physical examination Eleanor Hdz LPN [facility] Start: 09-05-2023 End: 09-05-2023 Orders Aldair Quintanilla MD Work Phone: [employer] Start: 08-31-2023 ambulatory ESSIE Sullivan ty:YURI Start: 03-19-2023 End: 03-19-2023 Orders Aldair Quintanilla MD Work Phone: [employer] Start: 12-25-2022 End: 12-25-2022 Office outpatient visit 25 minutes Aldair Quintanilla MD Work Phone: [employer] Start: 06-26-2022 End: 06-26-2022 Patient encounter procedure Aldair Quintanilla MD Work Phone: [employer] Start: 06-26-2022 End: 06-26-2022 Patient encounter status Aldair Quintanilla MD Work Phone: [employer]; [employer] Start: 06-06-2021 End: 06-06-2021 Patient encounter procedure Aldair Quintanilla MD Work Phone: [employer] Start: 03-21-2021 End: 03-21-2021 Orders Aldair Quintanilla MD Work Phone: [employer] Start: 03-02-2021 End: 03-03-2021 Office outpatient visit 25 minutes Aldair Quintanilla MD Work Phone: [employer] Start: 02-23-2021 End: 02-23-2021 Orders Aldair Quintanilla MD Work Phone: [employer] Start: 02-18-2021 End: 02-23-2021 Orders Aldair Quintanilla MD Work Phone: [employer] Start: 12-23-2019 End: 12-23-2019 Office outpatient visit 15 minutes Aldair Quintanilla MD Work Phone: [employer] Start: 09-08-2019 End: 09-03-2019 Historical Summary Aldair Quintanilla MD Work Phone: [employer] Start: 09-08-2019 End: 09-08-2019 Office outpatient visit 25 minutes Aldair Quintanilla MD Work Phone: [employer] Start: 09-08-2019 End: 09-08-2019 Patient encounter status Aldair Quintanilla MD Work Phone: [employer]; [employer]. Start: 08-21-2019 End: 08-22-2019 Orders Aldair Quintanilla MD Work Phone: [employer] Start: 07-21-2019 End: 07-21-2019 Orders Aldair Quintanilla MD Work Phone: [employer] Start: 06-14-2018 End: 06-14-2018 Office outpatient visit 15 minutes Aldair Quintanilla MD Work Phone: [employer] Start: 06-14-2018 End: 06-14-2018 Patient encounter status Chen Tim LPN [employer] [employer]. Start: 11-25-2015 End: 11-25-2015 Orders Aldair Quintanilla MD Work Phone: [employer] Start: 10-01-2015 End: 10-01-2015 Patient encounter status Aldair Quintanilla MD Work Phone: [employer]; [employer]. Start: 10-01-2015 End: 10-01-2015 Periodic preventive med est patient 65yrs& older Aldair Quintanilla MD Work Phone: [employer] Start: 09-28-2015 End: 09-28-2015 Historical Summary Aldair Quintanilla MD Work Phone: [employer] Start: 09-07-2015 End: 09-07-2015 Orders Aldair Quintanilla MD Work Phone: [employer] Start: 09-01-2015 End: 09-02-2015 Orders Aldair Quintanilla MD Work Phone: [employer]. Start: 08-26-2014 End: 08-27-2014 Medication Aldair Quintanilla MD Work Phone: [employer]. Start: 06-18-2014 End: 06-18-2014 Historical Summary Aldair Quintanilla MD Work Phone: [employer] Start: 06-18-2014 End: 06-18-2014 Patient encounter procedure Aldair Quintanilla MD Work Phone: [employer]. Start: 06-18-2014 End: 06-18-2014 Well adult Aldair Quintanilla MD Work Phone: [employer]; [employer]. Start: 11-27-2012 End: 11-27-2012 Patient encounter procedure Aldair Quintanilla MD Work Phone: [employer] Start: 08-19-2012 End: 08-19-2012 Patient encounter procedure Aldair Quintanilla MD Work Phone: [employer] Start: 07-15-2012 End: 07-16-2012 Patient encounter procedure Aldair Quintanilla MD Work Phone: [employer] Start: 06-25-2012 End: 06-26-2012 Orders Aldair Quintanilla MD Work Phone: [employer] Start: 03-09-2011 End: 03-10-2011 Orders Aldair Quintanilla MD Work Phone: [employer] Start: 02-27-2011 End: 02-27-2011 Patient encounter procedure Aldair Quintanilla MD [facility] [employer] [facility] Start: 02-10-2011 End: 02-10-2011 Patient encounter procedure Aldair Quintanilla MD Work Phone: [facility] [facility] Start: 07-21-2010 End: 07-21-2010 Medication Aldair Quintanilla MD Work Phone: [employer] Start: 07-21-2010 End: 07-21-2010 Historical Summary Aldair Quintanilla MD Work Phone: [employer] Start: 07-13-2010 End: 07-13-2010 Medication Aldair Quintanilla MD Work Phone: [employer] Start: 07-13-2010 End: 07-13-2010 Historical Summary Aldair Quintanilla MD Work Phone: [employer] Patient encounter status Rose B queenie BARRAGAN Work Phone: [employer] [facility]; [facility] [facility] Procedures Date Procedure Procedure Detail Performing Clinician Start: 05-08-2024 End: 05-08-2024 nuclear stress test Aldair Steven Work Phone: Comment on above: Within Normal Limits . Start: 03-26-2024 Urinalysis ALDAIR ROCHA Comment on above: Result Comment: URIN ALYSIS Performed By: #### [id number] #### [facility],[address] [place] [address] Start: 12-27-2023 End: 12-27-2023 Depression screening Aldair Quintanilla MD Work Phone: Start: 12-27-2023 End: 12-27-2023 Pos clin depres scrn f/u doc Aldair Quintanilla MD Work Phone: Start: 12-27-2023 End: 12-27-2023 Scr dep neg, no plan reqd Aldair mancilla MD Work Phone: Start: 12-19-2023 End: 12-19-2023 Hemoglobin A1c/Hemoglobin.total in Blood Eleanor Hdz LPN Comment on above: 6.9 Start: 12-19-2023 End: 12-19-2023 Lab findings surveillance Eleanor Hdz LPN Comment on above: 100 Start: 12-19-2023 End: 12-19-2023 Lipid panel Eleanor Hdz LPN Comment on above: tc 179 hdl 45 ldl 11 3 trig 105 Start: 12-19-2023 End: 12-19-2023 Prostate specific antigen measurement Eleanor Hdz LPN Comment on above: Results:. 7.15 Start: 12-25-2022 End: 12-25-2022 Most recent diastol blood pres >/equal 90 mm hg Aldair Quintanilla MD Work Phone: Start: 12-25-2022 End: 12-25-2022 Most recent hemoglobin a1c level < 7.0% Aldair Quintanilla MD Work Phone: Start: 12-25-2022 End: 12-25-2022 Most recent systolic blood pres>/equal 140 mm hg Aldair Quintanilla MD Work Phone: Start: 06-26-2022 End: 06-26-2022 Adv care pln/ no alt dcsn mkr docd or refusal Aldair Quintanilla MD Work Phone: Start: 06-26-2022 End: 06-26-2022 Depression screening Aldair Quintanilla MD Work Phone: Start: 06-26-2022 End: 06-26-2022 Falls risk assessment documented Aldair Quintanilla MD Work Phone: Start: 06-26-2022 End: 06-26-2022 Hemoglobin A1c/Hemoglobin.total in Blood Rose Lea LPN Work Phone: Comment on above: 6.6 Start: 06-26-2022 End: 06-26-2022 Most recent diastol blood pres >/equal 90 mm hg Aldair Quintanilla MD Work Phone: Start: 06-26-2022 End: 06-26-2022 Most recent hemoglobin a1c level < 7.0% Aldair Quintanilla MD Work Phone: Start: 06-26-2022 End: 06-26-2022 Most recent systolic blood pres>/equal 140 mm hg Aldair Quintanilla MD Work Phone: Start: 06-26-2022 End: 06-26-2022 PPPS, subseq visit Aldair Steven Work Phone: Start: 06-26-2022 End: 06-26-2022 Pt falls assess docd w/o fall/injury past year Aldair Quintanilla MD Work Phone: Start: 06-26-2022 End: 06-26-2022 Scr dep neg, no plan reqd Aldari mancilla MD Work Phone: Start: 06-26-2022 End: 06-26-2022 UA P:C Ratio Rose Lea LPN Work Phone: Comment on above: Normal. Start: 06-06-2021 End: 06-06-2021 Body mass index documented Aldair lynch MD Work Phone: Start: 06-06-2021 End: 06-06-2021 Most recent diastolic blood pressure 80-89 mm hg Aldair Quintanilla MD Work Phone: Start: 06-06-2021 End: 06-06-2021 Most recent hemoglobin a1c level < 7.0% Aldair Quintanilla MD Work Phone: Start: 06-06-2021 End: 06-06-2021 Most recent systolic blood press 130-139mm hg Aldair Quintanilla MD Work Phone: Start: 02-23-2021 End: 02-23-2021 Lab findings surveillance Rose Leonora Cardenas PN Work Phone: Comment on above: 194 in CMP Start: 02-23-2021 End: 02-23-2021 Lipid panel Rose Lea LPN Work Phone: Comment on above: tc 181 hdl 42 ldl 11 8 trig 107 Start: 02-23-2021 End: 02-23-2021 Prostate specific antigen measurement Rose Lea LPN Work Phone: Comment on above: Results:. 2.7 Start: 09-08-2019 End: 09-08-2019 Depression screening Latrice Silva MD Work Phone: Start: 09-08-2019 End: 09-08-2019 Flu immunize order/admin Latrice Steven Work Phone: Start: 09-08-2019 End: 09-08-2019 Pos clin depres scrn f/u doc Latrice Silva MD Work Phone: Start: 09-08-2019 End: 09-08-2019 Scr dep neg, no plan reqd Latrice Silva MD Work Phone: Start: 08-01-2018 End: 08-01-2018 Screening colonoscopy Rose eLa LPN Work Phone: Start: 06-14-2018 End: 06-14-2018 Pt falls assess docd w/o fall/injury past year Latrice Silva MD Work Phone: Start: 06-14-2018 End: 06-14-2018 Scr dep neg, no plan reqd Latrice Silva MD Work Phone: Start: 06-14-2018 End: 06-14-2018 Falls risk assessment documented Latrice Silva MD Work Phone: Start: 06-14-2018 End: 06-14-2018 Depression screen annual Latrice Steven Work Phone: Start: 02-27-2011 End: 03-10-2011 Mri brain brain stem w/o contrast material Latrice Silva MD Work Phone: Repair of inguinal hernia Elle Lea HEADWAITER/HEADWAITRESS Work Phone: Right hand surgery Rose mello HEADWAITER/HEADWAITRESS Work Phone: Comment on above: 2017, 2018[facility] Plan of Treatment Date Care Activity Detail Author Start: 12-27-2023 Patient encounter procedure [facility]. Start: 12-20-2023 Assay of prostate sp ecific antigen total PSA TOTAL (PROSTATE SPECIFIC ANTIGEN) (07551) Start: 20-Dec-2023 Request [employer] [employer] Start: 12-20-2023 Blood count complete auto&auto difrntl wbc CBC, PLATELETS & AUT DIFF (M) ([id number]) Start: 20-Dec-2023 Request [employer] [employer]. Start: 12-20-2023 Comprehensive metabo lic panel CMP w/ GFR* ([id number]) Start: 20-Dec-2023 Request [employer] [employer]. Start: 12-20-2023 Hemoglobin glycosyla panda a1c HEMOGLOBIN A1C* ([id number]) Start: 20-Dec-2023 Request [employer], Jdguanjia. Start: 12-20-2023 Lipid panel LIPID PANEL ([id number]) Start: 20-Dec-2023 Request [employer], Jdguanjia. Start: 12-20-2023 Nursing evaluation o f patient and report Medical; Nurse visit - bruce [employer]. Start: 20-Dec-2023 8:20 NURSE, FLOAT Appointment Request [employer]. Start: 12-19-2023 Assay of prostate sp ecific antigen total PSA TOTAL (PROSTATE SPECIFIC ANTIGEN) ([id number]) Start: 19-Dec-2023 14:20-05:00 Request [employer], Jdguanjia. Start: 12-19-2023 Blood count complete auto&auto difrntl wbc CBC, PLATELETS & AUT DIFF (M) ([id number]) Start: 19-Dec-2023 14:20-05:00 Request [employer], Jdguanjia. Start: 12-19-2023 Comprehensive metabo lic panel CMP w/ GFR* ([id number]) Start: 19-Dec-2023 14:20-05:00 Request [employer], Jdguanjia. Start: 12-19-2023 Hemoglobin glycosyla panda a1c HEMOGLOBIN A1C* ([id number]) Start: 19-Dec-2023 14:20-05:00 Request [employer], Jdguanjia. Start: 12-19-2023 Lipid panel LIPID PANEL ([id number]) Start: 19-Dec-2023 14:20-05:00 Request [employer]; [employer] Immunizations Immunization Date Immunization Notes Care Provider Natan rosa 11-14-2019 zoster vaccine recombinant Aldair Quintanilla MD Work Phone: [employer]; [employer] 09-08-2019 influenza, injectabl e, quadrivalent, contains preservative Aldair Quintanilla MD Work Phone: [employer]; [employer] Comment on above: Site: Left DeltoidVI S Given: * Influenza - Inactivated (05/21/15) 09-08-2019 pneumococcal conjuga te vaccine, 13 valent Aldair Quintanilla MD Work Phone: [employer]; [employer] Comment on above: Site: Right DeltoidV IS Given: * Pneumococcal Conjugate (PCV13) (08/19/15) 09-08-2019 Shingrix 50 MCG/0.5M L Intramuscular Suspension Reconstituted Aldair Quintanilla MD Work Phone: [employer]; [employer] Comment on above: Repeat in 2-6 months 06-18-2014 TD(adult) unspecifie d formulation Aldair Quintanilla MD Work Phone: [employer]; [employer]. Comment on above: Site: Deltoid (Right )VIS Given: * Td (Tetanus, Diphtheria) (11/18/13) 06-18-2014 pneumococcal polysaccharide vaccine, 23 valent Aldair Quintanilla MD Work Phone: [employer]; [employer] Comment on above: Site: Deltoid (Left) VIS Given: * Pneumococcal Polysaccharide (PPSV23) (07/20/09) Payers Date Payer Category Payer Unknown [id number] [id number] [id number] 1950 Unknown [id number] [id number] [id number] 1950 Unknown [id number] [id number] 1949 Unknown [id number] [id number] [id number] 1949 Unknown [id number] 2.16.8 [id number] 1949 Unknown [id number] [id number] [id number] Unknown 197 Social History Date Type Detail Facility Caffeine Use Caffeine Use [employer]; [employer] Marital status: Marital status: ; . [employer]; [employer] Tobacco Use: Tobacco Use: ; Never smoker. [employer]; [employer] Male [employer]; [employer] Work Phone: Never smoked tobacco [employer]; [employer] Work Phone: [employer]; [employer] Work Phone: Family History Diabetes Mellitus Type II Status:Active Commen ts:Father. Father Status:Active Comments: d. old age Mother Status:Active Comments: d. old age Diabetes Mellitus Type II Status:Active Commen ts:Father. Father Status:Active Comments: d. old age Mother Status:Active Comments: d. old age Diabetes Mellitus Type II Status:Active Commen ts:Father. Father Status:Active Comments: d. old age Mother Status:Active Comments: d. old age Diabetes Mellitus Type II Status:Active Commen ts:Father. Father Status:Active Comments: d. old age Mother Status:Active Comments: d. old age Diabetes Mellitus Type II Status:Active Commen ts:Father. Father Status:Active Comments: d. old age Mother Status:Active Comments: d. old age Diabetes Mellitus Type II Status:Active Commen ts:Father. Father Status:Active Comments: d. old age Mother Status:Active Comments: d. old age Diabetes Mellitus Type II Status:Active Commen ts:Father. Father Status:Active Comments: d. old age Mother Status:Active Comments: d. old age Diabetes Mellitus Type II Status:Active Commen ts:Father. Father Status:Active Comments: d. old age Mother Status:Active Comments: d. old age Diabetes Mellitus Type II Status:Active Commen ts:Father. Father Status:Active Comments: d. old age Mother Status:Active Comments: d. old age Diabetes Mellitus Type II Status:Active Commen ts:Father. Father Status:Active Comments: d. old age Mother Status:Active Comments: d. old age Diabetes Mellitus Type II Status:Active Commen ts:Father. Father Status:Active Comments: d. old age Mother Status:Active Comments: d. old age Diabetes Mellitus Type II Status:Active Commen ts:Father. Father Status:Active Comments: d. old age Mother Status:Active Comments: d. old age Diabetes Mellitus Type II Status:Active Commen ts:Father. Father Status:Active Comments: d. old age Mother Status:Active Comments: d. old age Diabetes Mellitus Type II Status:Active Commen ts:Father. Father Status:Active Comments: d. old age Mother Status:Active Comments: d. old age Diabetes Mellitus Type II Status:Active Commen ts:Father. Father Status:Active Comments: d. old age Mother Status:Active Comments: d. old age Diabetes Mellitus Type II Status:Active Commen ts:Father. Father Status:Active Comments: d. old age Mother Status:Active Comments: d. old age Diabetes Mellitus Type II Status:Active Commen ts:Father. Father Status:Active Comments: d. old age Mother Status:Active Comments: d. old age Diabetes Mellitus Type II Status:Active Commen ts:Father. Father Status:Active Comments: d. old age Mother Status:Active Comments: d. old age Diabetes Mellitus Type II Status:Active Commen ts:Father. Father Status:Active Comments: d. old age Mother Status:Active Comments: d. old age Diabetes Mellitus Type II Status:Active Commen ts:Father. Father Status:Active Comments: d. old age Mother Status:Active Comments: d. old age Diabetes Mellitus Type II Status:Active Commen ts:Father. Father Status:Active Comments: d. old age Mother Status:Active Comments: d. old age Diabetes Mellitus Type II Status:Active Commen ts:Father. Father Status:Active Comments: d. old age Mother Status:Active Comments: d. old age Diabetes Mellitus Type II Status:Active Commen ts:Father. Father Status:Active Comments: d. old age Mother Status:Active Comments: d. old age Diabetes Mellitus Type II Status:Active Commen ts:Father. Father Status:Active Comments: d. old age Mother Status:Active Comments: d. old age Diabetes Mellitus Type II Status:Active Commen ts:Father. Father Status:Active Comments: d. old age Mother Status:Active Comments: d. old age Diabetes Mellitus Type II Status:Active Commen ts:Father. Father Status:Active Comments: d. old age Mother Status:Active Comments: d. old age Diabetes Mellitus Type II Status:Active Commen ts:Father. Father Status:Active Comments: d. old age Mother Status:Active Comments: d. old age Diabetes Mellitus Type II Status:Active Commen ts:Father. Father Status:Active Comments: d. old age Mother Status:Active Comments: d. old age Diabetes Mellitus Type II Status:Active Commen ts:Father. Father Status:Active Comments: d. old age Mother Status:Active Comments: d. old age Diabetes Mellitus Type II Status:Active Commen ts:Father. Father Status:Active Comments: d. old age Mother Status:Active Comments: d. old age Diabetes Mellitus Type II Status:Active Commen ts:Father. Father Status:Active Comments: d. old age Mother Status:Active Comments: d. old age Diabetes Mellitus Type II Status:Active Commen ts:Father. Father Status:Active Comments: d. old age Mother Status:Active Comments: d. old age Diabetes Mellitus Type II Status:Active Commen ts:Father. Father Status:Active Comments: d. old age Mother Status:Active Comments: d. old age Diabetes Mellitus Type II Status:Active Commen ts:Father. Father Status:Active Comments: d. old age Mother Status:Active Comments: d. old age Diabetes Mellitus Type II Status:Active Commen ts:Father. Father Status:Active Comments: d. old age Mother Status:Active Comments: d. old age Diabetes Mellitus Type II Status:Active Commen ts:Father. Father Status:Active Comments: d. old age Mother Status:Active Comments: d. old age Diabetes Mellitus Type II Status:Active Commen ts:Father. Father Status:Active Comments: d. old age Mother Status:Active Comments: d. old age Diabetes Mellitus Type II Status:Active Commen ts:Father. Father Status:Active Comments: d. old age Mother Status:Active Comments: d. old age Diabetes Mellitus Type II Status:Active Commen ts:Father. Father Status:Active Comments: d. old age Mother Status:Active Comments: d. old age Diabetes Mellitus Type II Status:Active Commen ts:Father. Father Status:Active Comments: d. old age Mother Status:Active Comments: d. old age Diabetes Mellitus Type II Status:Active Commen ts:Father. Father Status:Active Comments: d. old age Mother Status:Active Comments: d. old age Diabetes Mellitus Type II Status:Active Commen ts:Father. Father Status:Active Comments: d. old age Mother Status:Active Comments: d. old age Diabetes Mellitus Type II Status:Active Commen ts:Father. Father Status:Active Comments: d. old age Mother Status:Active Comments: d. old age Diabetes Mellitus Type II Status:Active Commen ts:Father. Father Status:Active Comments: d. old age Mother Status:Active Comments: d. old age Diabetes Mellitus Type II Status:Active Commen ts:Father. Father Status:Active Comments: d. old age Mother Status:Active Comments: d. old age Diabetes Mellitus Type II Status:Active Commen ts:Father. Father Status:Active Comments: d. old age Mother Status:Active Comments: d. old age Summary Purpose Advance Directives No Advanced Directives Records FoundNo Advanced Directives Records FoundNo Advanced Directives Records Found Additional Source Comments (unrecognized sect ion and content) No Status Records FoundNo Status Records FoundNo Status Records Found INFORMATION SOURCE (unrecogn ized section and content) DATE CREATED AUTHOR 12/22/2023 [facility] DATE CREATED AUTHOR AUTHOR'S ORGANIZ ATION 06/01/2024 [facility] DATE CREATED AUTHOR AUTHOR'S ORGANIZ ATION 06/20/2024 [facility] FOR RECORDS PERTAINING TO PATIENTS WHO ARE OR HAVE BEEN ENROLLED IN A CHEMICAL DEPENDENCY/SUBSTANCEABUSE PROGRAM, SOME INFORMATION MAY BE OMITTED. This clinical summary was aggregated from multiple sources. Caution should be exercised in using it in the provision of clinical care. This summary normalizes information from multiple sources, and as a consequence, information in this document may materially change the coding, format and clinical context of patient data. In addition, data may be omitted in some cases. CLINICAL DECISIONS SHOULD BE BASED ON THE PRIMARY CLINICAL RECORDS. [facility]. provides no warranty or guarantee of the accuracy or completeness of information in this document.
[2024-08-18] MEDS: Lactated Ringers 1,000 ML 15 ML IV (08:03)
--- NOTE | 2024-08-18 08:10 | PCM.PRE.AN2 ---
ASA Classification* ASA Classification ASA Classification: 3 Assessment & Plan Anesthesia* Anesthesia Assessment Anesthesia Assessment: Discussed sedation and/or anesthesia options, risks, benefits, and alternatives with patient/parents/legal guardian/POA. Questions invited. The patient/parents/legal guardian/POA seems to understand and agrees to proceed with anesthesia plan. Reviewed the physical assessment, medical history, allergy history and patient home medications list prior to surgery/procedure/anesthetic and documented any changes. Performed airway and anesthesia risk assessments. Anesthesia Type Anesthesia Type: General Anesthesia Focused Assessment* Temperature: 97.9 F Pulse Rate: 70 Blood Pressure: 152/92 Respiratory Rate: 16 Pulse Ox: 98 Airway Assessment Mouth opens: >3 cm Mallampati Score: II Focused Labs Anesthesia Preop lab: CBC WBC 5.0 K/mm3 (4.4-11.0) 07/09/24 06:19 RBC 4.40 M/mm3 (4.6-6.2) L 07/09/24 06:19 Hgb 12.0 g/dL (13.0-16.5) L 07/09/24 06:19 Hct 37.9 % (40-54) L 07/09/24 06:19 Plt Count 235 K/mm3 (150-450) 07/09/24 06:19 CHEMISTRY Potassium 3.9 mmol/L (3.5-5.1) 07/09/24 06:19 Sodium 140 mmol/L (136-145) 07/09/24 06:19 Magnesium 2.2 mg/dL (1.6-2.6) 06/18/24 16:58 BUN 14 mg/dL (7-18) 07/09/24 06:19 Creatinine 1.06 mg/dL (0.70-1.30) 07/09/24 06:19 Glucose 128 mg/dL (74-106) H 07/09/24 06:19 POC Glucose 105 mg/dL (74-106) 07/10/24 12:04 COAG Pre-Assessment Diagnosis/Proposed Procedure Planned Operative Procedure(s): (R) Robotic right inguinal hernia w/mesh Anesthesia History Anesthesia History - network manager: Anesthesia History - network manager Hx Hospitalization Yes: 06/19/24 RIGHT ARM I&D 08/11/24 10:03 Any Problems With Anesthesia No 08/11/24 10:03 Cholinesterase deficiency No 08/11/24 10:03 You/Your Family Experience No 08/11/24 10:03 fever (hyperthermia) with Relationship Recent Exposure to Contagious No 08/18/24 07:56 Disease Does patient have nerve No 08/11/24 10:03 stimulator Patient instructed to have device shut off --Does patient have Pacemaker No 08/18/24 07:56 or ICD? When Was Last Pacemaker Check QUESTION #4 FULL TEXT: You/Your Family Experience fever (hyperthermia) with Anesthesia Last Oral Intake Last Oral intake: Last Oral Intake NPO since 00:00 08/18/24 07:56 Meds taken in AM with sips of Yes 08/18/24 07:56 water? Meds patient instructed to take am of surgery PONV PONV - network manager: PONV - network manager Female No 08/11/24 10:03 HX of Motion Sickness No 08/11/24 10:03 HX of N/V After Surgery No 08/11/24 10:03 Non-Smoker Yes 08/11/24 10:03 Duration of Surgery greater Yes 08/11/24 10:03 than 60 minutes Number of Risk Factors 2 08/11/24 10:03 PONV Score Moderate Risk 08/11/24 10:03 Height & Weight Height & Weight: Anesthesia: Height & Weight Height 5 ft 8 in 08/18/24 07:56 Weight: 83.007 kg 08/18/24 07:56 Body Mass Index (BMI) 27.8 08/18/24 07:56 Respiratory Assessment Respiratory Assessment - network manager: Respiratory Tract Infection Hx - network manager Hx Respiratory Tract Infection No 08/11/24 10:03 STOP Sleep Apnea STOP Sleep Apnea - network manager: STOP Sleep Apnea - network manager Hx Hypertension Yes: CONTROLLED WITH MED 08/11/24 10:03 Hx Sleep Apnea No 08/11/24 10:03 CPAP BIPAP Do you snore loudly (louder No 08/11/24 10:03 than talking or can be heard Do you often feel tired/ No 08/11/24 10:03 fatigued/ sleepy during daytime? Has anyone observed you stop No 08/11/24 10:03 breathing during sleep? STOP Results Negative 08/11/24 10:03 QUESTION #5 FULL TEXT : Do you snore loudly (louder than talking or can be heard through closed doors)? Tobacco Use History Tobacco Use History - network manager: Tobacco Use History - network manager Tobacco Use Smoking Status Never smoker 08/11/24 10:03 Hx Tobacco Use No 08/11/24 10:03 Years Smoking Packs Smoked per Day Smoking Cessation Date was within the last 15 years Hx Smoking Cessation Date Hx Smoking Cessation Counseling Hematologic Medial History Hematologic Hx - network manager: Hematologic Medical Hx - test grader Hx of Blood Transfusion No 08/11/24 10:03 Hx of Transfusion in last 3 No 08/11/24 10:03 Months Date of Last Transfusion (if within last 3 months) Ever experience any problems No 08/11/24 10:03 with transfusion(s)? Specify any problems Hx of Preganancy in last 3 N/A 08/11/24 10:03 Months Nurse Filling Out Transfusion NBUCHER 08/11/24 10:03 & Questions: Date: 08/11/24 08/11/24 10:03 Time: 10:05 08/11/24 10:03 Patient unable to answer at this time (ie. confused, unrespo /Reproduction History /Reproductive History - network manager: /Reproductive Hx- network manager Hx Now No 08/11/24 10:03 Gestational Age (in weeks): EDC: Hx Hx Para Hx Section SAB No 08/11/24 10:03 Active Medications Active Medications: Current Medications Generic Name Dose Route Start Last Admin Trade Name Freq PRN Reason Stop Dose Admin Cefazolin Sodium 2 gm/ N/A 20 mls @ 400 mls/hr 08/18/24 09:30 IV 08/18/24 09:32 PREOP ONE Lactated Ringer's 1,000 mls @ 15 mls/hr 08/18/24 07:30 08/18/24 08:03 IV 08/23/24 20:49 15 mls/hr .Q48H JUAN CARLOS Administration Protocol PFS Medical History Wears glasses MRSA infection Diabetes Non-smoker History of stress test Right inguinal hernia History of hemophilia History of diabetes mellitus Diabetes mellitus, type 2 GERD (gastroesophageal reflux disease) Hemophilia B Hypertension Hepatitis C Home Medications ?Medication ?Instructions ?Recorded ?Last Taken ?Type metformin 500 mg tablet 500 mg PO BID 07/03/24 08/17/24 History famotidine 20 mg tablet (Acid 20 mg PO DAILY 07/08/24 08/18/24 History Controller) losartan 100 mg tablet 50 mg PO DAILY 07/08/24 08/18/24 History Allergy/AdvReac Type Severity Reaction Status Date / Time aspirin AdvReac Intermediate HEMOPHELIAC, Verified 08/18/24 07:55 AVOIDS Family History Father Cancer Hypertension Diabetes Mother Hemophilia B carrier Surgical History History of surgery on arm History of hand surgery H/O inguinal hernia repair Social History household members: spouse Smoking Status: Never smoker alcohol intake: never substance use type: does not use additional social history: denies vaping, denies marijuana use, denies edibles, denies aspirin or ibuprofen use hx of hemophilia Review of Systems (Anesthesia) ROS Narrative System reviewed and no additional complaints, except as documented.
[2024-08-18 08:23] LABS: Bedside Glucose 121 mg/dL (74-106)
--- NOTE | 2024-08-18 10:45 | PCM.HP.STD ---
HPI - General General Date of Admission: 08/18/24 Date of Service: 08/18/24 Chief Complaint: Right inguinal hernia HPI Narrative NED FELICIANO, is a 74 M who presents for elective right inguinal hernia repair with mesh [facility] Medical History Wears glasses MRSA infection Diabetes Non-smoker History of stress test Right inguinal hernia History of hemophilia History of diabetes mellitus Diabetes mellitus, type 2 GERD (gastroesophageal reflux disease) Hemophilia B Hypertension Hepatitis C Home Medications ?Medication ?Instructions ?Recorded ?Last Taken ?Type metformin 500 mg tablet 500 mg PO BID 07/03/24 08/17/24 History famotidine 20 mg tablet (Acid 20 mg PO DAILY 07/08/24 08/18/24 History Controller) losartan 100 mg tablet 50 mg PO DAILY 07/08/24 08/18/24 History Allergy/AdvReac Type Severity Reaction Status Date / Time aspirin AdvReac Intermediate HEMOPHELIAC, Verified 08/18/24 07:55 AVOIDS Family History Father Cancer Hypertension Diabetes Mother Hemophilia B carrier Surgical History History of surgery on arm History of hand surgery H/O inguinal hernia repair Social History household members: spouse Smoking Status: Never smoker alcohol intake: never substance use type: does not use additional social history: denies vaping, denies marijuana use, denies edibles, denies aspirin or ibuprofen use hx of hemophilia ROS Constitutional Constitutional: Reports systems reviewed and no addt'l complaints, except as documented Eyes Eyes: Reports systems reviewed and no addt'l complaints, except as documented ENT HEENT: Reports systems reviewed and no addt'l complaints, except as documented Cardiovascular Cardiovascular: Reports systems reviewed and no addt'l complaints, except as documented Respiratory/Chest Respiratory/Chest: Reports systems reviewed and no addt'l complaints, except as documented Vital Signs Vital Signs Vital Signs: 08/18/24 07:56 08/18/24 07:56 08/18/24 08:10 Temperature 97.9 F 97.9 F Temperature Source Temporal Pulse Rate 70 70 Respiratory Rate 16 16 Respiratory Pattern Normal Blood Pressure 152/92 H 152/92 H Blood Pressure Mean 112 Blood Pressure Source Monitor Pulse Ox 98 98 Oxygen Delivery Method Room Air Weight Weight: 183 lb Body Mass Index (BMI) 27.8 Physical Exam Const alert and oriented x3 General Appearance: cooperative and comfortable HEENT normocephalic Head and Scalp: normal to inspection Resp normal respiratory effort GI normal to inspection, nondistended, normoactive bowel sounds Results Lab / Micro Data Labs: Laboratory Results - last 24 hr 08/18/24 07:55: POC Glucose 121 H Assessment & Plan Assessment/Plan (1) Right inguinal hernia: PLAN: Plan The patient is a 74-year-old male with a right inguinal hernia. I recommended a robotic right inguinal hernia repair with mesh. We discussed the details of the planned procedure and he wishes to proceed. Surgery began momentarily.
[2024-08-18] MEDS: Cefazolin 2 GM in Syringe IV (11:06)
[2024-08-18] MEDS: Gentamicin 80 MG/2 ML Vial (13:16)
[2024-08-18] MEDS: Bupiv/Epi 0.25% 30 ML Vial (13:17)
--- NOTE | 2024-08-18 13:30 | PCM.POST.ANE ---
Anesthesia: Postop Eval I Current Vital Signs Temperature: 98 F Pulse Rate: 72 Blood Pressure: 136/93 Respiratory Rate: 16 Pulse Ox: 95 Oxygen Delivery Method: Room Air Assessment Airway patent: Yes Spontaneous unlabored respirations: Yes Mental status: Awake and Calm nausea: No Vomiting: No Anesthesia Complication: No Fluid Hydration Crystalloid volume administer (ml): 700 Total IV fluid infused: 700 Progress Note Anesthesia document: Postop Eval 1 completed: Yes
--- NOTE | 2024-08-18 13:35 | EX.PCM.DISCH ---
Discharge Instructions Diet Discharge Diet: Light diet - advance as tolerated Activity Discharge Activity: May Shower Ice area for (Minutes): 30 Lifting Restrictions: No lifting over 20 pounds for 6 weeks Dressing / Incision Call your doctor if your incision/area has: Continuous Slow Oozing, Sudden Increased Bleeding, Increased Pain/ Swelling, Increased Redness, Foul Smelling Discharge and Swelling at the incision site Call your doctor if you observe: Fever of 101 or Higher and Change in Color Cleanse incision/area with: Soap & Water Follow Up Care Please Follow Up With: Dany Gaming MD When: 2 weeks Test Results: Test results from this visit will be discussed in further detail at your follow-up appointment, if applicable. Discharge Plan Admission Primary Reason for Your Visit: Robotic right inguinal hernia repair Attending Provider: Dany Gaming Primary Care Provider: Vidal Armendariz Instructions Print Language: Upper Sorbian Discharge Orders/Prescriptions Prescriptions: New oxycodone-acetaminophen [Percocet] 5-325 mg tablet 1 tab PO Q8H PRN (Reason: pain) 3 Days Qty: 10 0RF Continued metformin 500 mg tablet 500 mg PO BID famotidine [Acid Controller] 20 mg tablet 20 mg PO DAILY losartan 100 mg Tablet 50 mg PO DAILY Referrals / Follow Up: Vidal Armendariz MD [Primary Care Provider] - Disposition Disposition (needs filled in before D/C Order can be placed): Home, Self Care
--- NOTE | 2024-08-18 13:38 | PCM.OPRPT ---
Problems Associated Problem List Diagnoses (1) Right inguinal hernia: Operative Report (Standard) Operative Information Surgery/Procedure Performed: Robotic right inguinal hernia repair with mesh Surgeon: Dany Gaming Date of Procedure: 08/18/24 Procedure Start Time: 11:39 Procedure Stop Time: 13:20 Pre-Operative Diagnosis: Right inguinal hernia Post-Operative Diagnosis: Right inguinal hernia Select all DRAINS/GRAFTS/IMPLANTS that apply: None Type of Anesthesia: General Special Medications: Preoperative antibiotics Estimated Blood Loss: 15 mL Fluids Replaced: None Specimen collected: No Description of surgery: The patient is a 74-year-old male recently seen through the office with a right inguinal hernia. I offered him a robotic right inguinal hernia repair with mesh. We discussed the details of the planned procedure including the risks benefits and alternatives. He wished to proceed. The patient was brought to the operative room today following informed consent. Preoperative antibiotics were given and a timeout was performed. He was placed supine on the operative table with arms outstretched on arm boards. General anesthesia was induced. Once adequately sedated the abdomen is then prepped and draped in the usual sterile manner. His arms were comfortably tucked at his side. The abdomen is then clipped prepped and draped in the usual sterile manner. An 8 mm incision was made just above the umbilicus through which a 5 mm trocar was placed optically. This was placed without incident. Once in place the abdomen is then fully insufflated with CO2 gas. A 5 mm 0 degree scope was inserted. There were no signs of bowel or vascular injury. Next a 8 mm trocar was placed on the right side of the abdomen as well as a similar trocar on the left side of the abdomen. Both of these were placed under direct visualization. I then switched the midline incision trocar to an 8 mm trocar. He was then placed in mild Trendelenburg positioning and the robot was docked. The pelvis was then visualized. Patient had a fairly sizable right inguinal hernia. There was no evidence of hernia on the left. The peritoneum overlying the hernia was then incised using electrocautery and scissors. A subperitoneal plane was then developed. Damaso's ligament was dissected out medially. Patient had a fairly sizable hernia sac as well as a sizable cord lipoma. The cord lipoma was reduced. The hernia sac was from the cord structures and reduced. Once reduced a 3D max right sided mesh was selected. This was sized large. It was placed in antibiotic solution and inserted into the abdomen. This laid into position nicely. It was affixed to the Damaso's ligament using 3-0 Vicryl suture. The same 3-0 Vicryl was then used to reaffixed the mesh more superiorly. The mesh laid very nicely. The peritoneal flap was then closed using a running V-Loc suture. The cord lipoma was incorporated into the closure. The peritoneum closed nicely. At this point the robot was undocked and trocars were opened up to allow insufflation to release. The trocars were removed. The incisions were closed with 5-0 Vicryl. Skin glue was applied as dressing. He was awakened from anesthesia and taken the PACU in good condition. Surgical Findings: Please see operative notes Gang Saw Operator oceanographic meteorologist: Yes Airborne Operations: Sharri Sellers Tasks completed by assistant superintendent: Closing Additional entry level assistant manager?: No Complications Complications: No Admit VTE Documentation VTE Present on Admission: No VTE Mechan Device Prophylaxis: SCD's VTE Pharm Prophylaxis ordered?: No Reason prophylaxis not ordered: Treatment Not Indicated Procedures Digestive [id number]: [id number] Lap ing hernia repair init (Robotic)
[2024-08-18] MEDS: oxyCODONE 5 MG Tablet PO (14:44)
--- NOTE | 2024-08-18 15:28 | PCM.POSTANE2 ---
Anesthesia Postop Eval I Sum Anesthesia Postop Eval I Summary Anesthesia Postop Eval I Summary: Anesthesia Postop Eval I: Assessment Summary Airway patent Spontaneous unlabored respirations Mental status nausea Vomiting Anesthesia Postop Eval I: Fluid Summary Crystalloid volume administer (ml) Colloids volume administered ( ml) Blood Product volume administered (ml) Total IV fluid infused Anesthesia Postop Eval I: Summary Notes Anesthesia Complication Anesthesia Complication Comment: Post-operative progress note Anesthesia: Postop Eval II Evaluation Mental status: Awake and Calm Pain Level: 1 nausea: No Vomiting: No Complications Anesthesia Complication: No
== END 2024-08-18 16:13 | disposition home or self-care (01) ==
LOC: SDC 07:15 → AC 07:17
PROVIDERS: PCP Family Medicine; Referring Provider Surgery; Visit Provider Surgery
PROC: (CPT 49650; principal; 2024-08-18 09:10)
DX: K40.90 Unilateral inguinal hernia, without obstruction or gangrene, not specified as recurrent (principal); E11.9 Type 2 diabetes mellitus without complications; D17.6 Benign lipomatous neoplasm of spermatic cord; I10 Essential (primary) hypertension; K21.9 Gastro-esophageal reflux disease without esophagitis; Z86.14 Personal history of Methicillin resistant Staphylococcus aureus infection; Z86.19 Personal history of other infectious and parasitic diseases; Z79.84 Long term (current) use of oral hypoglycemic drugs; Z79.899 Other long term (current) drug therapy
CPT/HCPCS: 49650; S2900; 00750; 82962; J7120; J2405